=== PATIENT | female | born 2000 | race Caucasian/White ===

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

== ENCOUNTER 2018-01-31 22:25 | Emergency (ER) | payer OTHER ==
[2018-01-31] MEDS ORDERED: SODIUM CHLORIDE 0.9% 500 ML IV STA (23:11)
[2018-01-31] MEDS ORDERED: ONDANSETRON 4 MG/2 ML VIAL IVP STA (23:11)
--- NOTE | 2018-01-31 23:14 | ED ---
Abdominal Pain HPI - General Chief Complaint: Abdominal Pain Stated Complaint: Abd Pain Time Seen by Provider: 01/31/18 22:44 Source: patient Mode of arrival: ambulatory Limitations: no limitations - History of Present Illness MD Complaint: abdominal pain -: days(s) Location: diffuse Radiation: none Migration to: no migration Severity: moderate Quality: burning Consistency: constant Improves With: nothing Worsens With: nothing Associated Symptoms: nausea, vomiting - Related Data Previous Rx's Medication Instructions Recorded Amoxicillin 500 mg PO Q8H #21 capsule 02/01/18 Allergies Allergy/AdvReac Type Severity Reaction Status Date / Time No Known Allergies Allergy Verified 01/31/18 22:35 Review of Systems ROS Statement: Those systems with pertinent positive or pertinent negative responses have been documented in the HPI. ROS Other: All systems not noted in ROS Statement are negative. Constitutional: Denies: fever, chills Respiratory: Denies: cough, dyspnea Cardiovascular: Denies: chest pain Gastrointestinal: Reports: as per HPI, abdominal pain, nausea, vomiting. Denies : diarrhea, constipation Genitourinary: Denies: dysuria, hematuria, abnormal menses Musculoskeletal: Denies: back pain Skin: Denies: rash Neurological: Denies: headache, weakness, numbness Past Medical History Past Medical History: No Reported History History of Any Multi-Drug Resistant Organisms: None Reported Past Surgical History: Appendectomy, Bladder Surgery Past Psychological History: No Psychological Hx Reported Smoking Status: Current every day smoker Past Alcohol Use History: None Reported Past Drug Use History: None Reported General Exam Limitations: no limitations General appearance: alert, in no apparent distress, obese Head exam: Present: atraumatic, normocephalic Eye exam: Present: normal appearance. Absent: scleral icterus, conjunctival injection ENT exam: Present: normal oropharynx Respiratory exam: Present: normal lung sounds bilaterally. Absent: respiratory distress, wheezes, rales, rhonchi, stridor Cardiovascular Exam: Present: regular rate, normal rhythm, normal heart sounds. Absent: systolic murmur, diastolic murmur, rubs, gallop GI/Abdominal exam: Present: soft. Absent: distended, tenderness, guarding, rebound, mass Extremities exam: Present: normal inspection, normal capillary refill. Absent: pedal edema, calf tenderness Back exam: Present: normal inspection. Absent: CVA tenderness (R), CVA tenderness (L) Neurological exam: Present: alert Skin exam: Present: warm, dry, intact, normal color. Absent: rash Course Vital Signs 01/31/18 01/31/18 02/01/18 22:33 23:48 00:45 Temperature 98.2 F Pulse Rate 74 56 L 60 Respiratory 20 18 18 Rate Blood Pressure 109/67 101/62 109/68 O2 Sat by Pulse 100 96 99 Oximetry 02/01/18 02:32 Temperature 98.1 F Pulse Rate 62 Respiratory 18 Rate Blood Pressure 103/59 O2 Sat by Pulse 100 Oximetry Medical Decision Making - Lab Data Result diagrams: 01/31/18 23:47 01/31/18 23:47 Lab Results 01/31/18 01/31/18 01/31/18 Range/Units 23:17 23:47 23:47 WBC (4.0-11.0) k/uL RBC (3.80-5.40) m/uL Hgb (11.4-16.0) gm/dL Hct (34.0-46.0) % MCV (80.0-100.0) fL MCH (25.0-35.0) pg MCHC (31.0-37.0) g/dL RDW (11.5-15.5) % Plt Count (150-450) k/uL Neutrophils % % Lymphocytes % % Monocytes % % Eosinophils % % Basophils % % Neutrophils # (1.3-7.7) k/uL Lymphocytes # (1.0-4.8) k/uL Monocytes # (0-1.0) k/uL Eosinophils # (0-0.7) k/uL Basophils # (0-0.2) k/uL Sodium 136 L (137-145) mmol/L Potassium 3.8 (3.5-5.1) mmol/L Chloride 104 (98-107) mmol/L Carbon Dioxide 25 (22-30) mmol/L Anion Gap 7 mmol/L BUN 9 (7-17) mg/dL Creatinine 0.50 L (0.52-1.04) mg/dL Est GFR (CKD-EPI)AfAm >90 (>60 ml/min/1.73 sqM) Est GFR (CKD-EPI)NonAf >90 (>60 ml/min/1.73 sqM) Glucose 77 (74-99) mg/dL Calcium 9.2 (8.4-10.2) mg/dL Total Bilirubin 0.4 (0.2-1.3) mg/dL AST 8 L (14-36) U/L ALT 26 (9-52) U/L Alkaline Phosphatase 45 (38-126) U/L Total Protein 6.5 (6.3-8.2) g/dL Albumin 3.8 (3.5-5.0) g/dL Amylase 37 (30-110) U/L Lipase 75 (23-300) U/L HCG, Quant 95052.8 mIU/mL Urine Color Urine Appearance (Clear) Urine pH (5.0-8.0) Ur Specific [place] (1.001-1.035) Urine Protein (Negative) Urine Glucose (UA) (Negative) Urine Ketones (Negative) Urine Blood (Negative) Urine Nitrite (Negative) Urine Bilirubin (Negative) Urine Urobilinogen (<2.0) mg/dL Ur Leukocyte Esterase (Negative) Urine RBC (0-5) /hpf Urine WBC (0-5) /hpf Ur Squamous Epith Cells (0-4) /hpf Urine Bacteria (None) /hpf Hyaline Casts (0-2) /lpf Urine Mucus (None) /hpf Urine HCG, Qual Detected (Not Detectd) 01/31/18 01/31/18 Range/Units 23:47 23:47 WBC 7.4 (4.0-11.0) k/uL RBC 4.55 (3.80-5.40) m/uL Hgb 12.0 (11.4-16.0) gm/dL Hct 38.1 (34.0-46.0) % MCV 83.6 (80.0-100.0) fL MCH 26.3 (25.0-35.0) pg MCHC 31.5 (31.0-37.0) g/dL RDW 14.5 (11.5-15.5) % Plt Count 247 (150-450) k/uL Neutrophils % 66 % Lymphocytes % 28 % Monocytes % 5 % Eosinophils % 0 % Basophils % 0 % Neutrophils # 4.9 (1.3-7.7) k/uL Lymphocytes # 2.1 (1.0-4.8) k/uL Monocytes # 0.3 (0-1.0) k/uL Eosinophils # 0.0 (0-0.7) k/uL Basophils # 0.0 (0-0.2) k/uL Sodium (137-145) mmol/L Potassium (3.5-5.1) mmol/L Chloride (98-107) mmol/L Carbon Dioxide (22-30) mmol/L Anion Gap mmol/L BUN (7-17) mg/dL Creatinine (0.52-1.04) mg/dL Est GFR (CKD-EPI)AfAm (>60 ml/min/1.73 sqM) Est GFR (CKD-EPI)NonAf (>60 ml/min/1.73 sqM) Glucose (74-99) mg/dL Calcium (8.4-10.2) mg/dL Total Bilirubin (0.2-1.3) mg/dL AST (14-36) U/L ALT (9-52) U/L Alkaline Phosphatase (38-126) U/L Total Protein (6.3-8.2) g/dL Albumin (3.5-5.0) g/dL Amylase (30-110) U/L Lipase (23-300) U/L HCG, Quant mIU/mL Urine Color Yellow Urine Appearance Cloudy H (Clear) Urine pH 5.5 (5.0-8.0) Ur Specific [place] 1.030 (1.001-1.035) Urine Protein 1+ H (Negative) Urine Glucose (UA) Negative (Negative) Urine Ketones 1+ H (Negative) Urine Blood Negative (Negative) Urine Nitrite Negative (Negative) Urine Bilirubin Negative (Negative) Urine Urobilinogen <2.0 (<2.0) mg/dL Ur Leukocyte Esterase Small H (Negative) Urine RBC 4 (0-5) /hpf Urine WBC 5 (0-5) /hpf Ur Squamous Epith Cells 15 H (0-4) /hpf Urine Bacteria Rare H (None) /hpf Hyaline Casts 13 H (0-2) /lpf Urine Mucus Many H (None) /hpf Urine HCG, Qual (Not Detectd) Disposition Clinical Impression: Abdominal pain affecting Disposition: HOME SELF-CARE Condition: Good Instructions: Abdominal Pain in (ED) Prescriptions: Amoxicillin 500 mg PO Q8H #21 capsule Is patient prescribed a controlled substance at d/c from ED?: No Referrals: Yakelin Dodson MD [Primary Care Provider] - 1-2 days Pam Herrera DO [Doctor of Osteopathic Medicine] - 1-2 days John Perry DO [REFERRING] - 1-2 days
[2018-01-31 23:57] LABS: Basophils % (A) 0 %; Eosinophils % (A) 0 %; HCT 38.1 % (34.0-46.0); Lymphocytes # (A) 2.1 k/uL (1.0-4.8); Lymphocytes % (A) 28 %; MCH 26.3 pg (25.0-35.0); MCHC 31.5 g/dL (31.0-37.0); MCV 83.6 fL (80.0-100.0); Monocytes # (A) 0.3 k/uL (0-1.0); Monocytes % (A) 5 %; Neutrophils # (A) 4.9 k/uL (1.3-7.7); Neutrophils % (A) 66 %; Platelet Count 247 k/uL (150-450); RBC 4.55 m/uL (3.80-5.40); RDW 14.5 % (11.5-15.5); WBC 7.4 k/uL (4.0-11.0)
[2018-02-01 00:03] LABS: Appearance,Urine Cloudy (Clear); Bacteria,Urine Rare /hpf; Bilirubin,Urine Negative (Negative); Blood,Urine Negative (Negative); Color,Urine Yellow; Glucose,Urine (UA) Negative (Negative); Hyaline Casts,Urine 13 /lpf (0-2); Ketones,Urine 1+ (Negative); Leukocyte Esterase,Urine Small (Negative); Mucus,Urine Many /hpf; Nitrite,Urine Negative (Negative); PH, Urine 5.5 (5.0-8.0); Protein,Urine 1+ (Negative); RBC,Urine 4 /hpf (0-5); Squamous Epithelial Cell,Urine 15 /hpf (0-4); Urobilinogen,Urine <2.0 mg/dL (<2.0); WBC,Urine 5 /hpf (0-5)
[2018-02-01 00:05] LABS: ALT 26 U/L (9-52); AST 8 U/L (14-36); Albumin 3.8 g/dL (3.5-5.0); Alkaline Phosphatase 45 U/L (38-126); Amylase 37 U/L (30-110); Anion Gap 7 mmol/L; Blood Urea Nitrogen 9 mg/dL (7-17); Calcium 9.2 mg/dL (8.4-10.2); Carbon Dioxide 25 mmol/L (22-30); Chloride 104 mmol/L (98-107); Glucose 77 mg/dL (74-99); Lipase 75 U/L (23-300); Potassium 3.8 mmol/L (3.5-5.1); Sodium 136 mmol/L (137-145); Total Bilirubin 0.4 mg/dL (0.2-1.3); Total Protein 6.5 g/dL (6.3-8.2)
[2018-02-01 00:45] VITALS: RESP 18
--- NOTE | 2018-02-01 01:27 | US ---
EXAMINATION TYPE: Transabdominal DATE OF EXAM: 09/05/17 COMPARISON: NONE CLINICAL HISTORY: Pain. Pain EXAM PERFORMED: Transabdominal (TA) EXAM MEASUREMENTS: GESTATIONAL AGE / DATING Physician Established: Not yet established Dates by LMP: (8 weeks/3 days) EDC: 09/10/2018 Dates by First Scan: No previous this is first scan Dates by Current Scan for: ( 7 weeks/2 days) EDC: 09/18/2018 MATERNAL ANATOMY Uterus: 10.9 x 5.9 x 7.3 cm Left Ovary: 4.4 x 3.7 x 3.8 cm Post CDS / Adnexa: wnl Presence of free fluid: no Presence of corpus luteal cyst: question left ovary Presence of subchorionic bleed: no GESTATION / SURVEY CRL: 1.15 cm (7 weeks/2 days) Yolk Sac (normal less than 6mm): 3mm Heart Rate: 170 bpm Rhythm: Normal IUP: Viable IUP Beta HcG (if available): Not available at this time Viable IUP 7w2d MARGARITA 09/18/2018 HR 170 BPM. Left ovarian cyst measuring 4.4 x 3.7 x 3.8 cm. IMPRESSION: Dominant left ovarian cyst. The ultrasound gestational age is 7 weeks 2 days. No complicating process seen.
[2018-02-01 02:37] VITALS: BP 103/59; PULSE 62; TEMP 98.1
== END 2018-02-01 02:36 | disposition home or self-care (01) ==
LOC: EC 22:25
DX: O26.891 Other specified pregnancy related conditions, first trimester (principal); R10.84 Generalized abdominal pain; O21.9 Vomiting of pregnancy, unspecified; O99.331 Smoking (tobacco) complicating pregnancy, first trimester; F17.200 Nicotine dependence, unspecified, uncomplicated; Z90.49 Acquired absence of other specified parts of digestive tract; Z3A.01 Less than 8 weeks gestation of pregnancy
CPT/HCPCS: 36415; 80053; 82150; 83690; 85025; 81001; 81025; 84702; 76801; 99284; 96374; 96361; J2405

== ENCOUNTER 2018-05-31 11:51 | Emergency (ER) | payer OTHER ==
--- NOTE | 2018-05-31 13:07 | ED ---
Dizziness HPI - General Chief Complaint: Syncope Stated Complaint: NEAR SYNCOPE Time Seen by Provider: 05/31/18 12:44 Source: patient, RN notes reviewed, old records reviewed Mode of arrival: EMS - History of Present Illness Initial Comments: Patient is a 18-year-old female who presents emergency Department chief complaint of syncopal episode. She is a proximally 24 weeks , female. Patient states that she was standing at work, she felt dizzy and lightheaded. She reports that she had a had pulled on. She works at a fast [employer]. At this time Patient states that she fell backward which she does not remember. Patient states that her jacket caught her head. She states that she has some mild right right upper abdominal pain. She denies any vaginal bleeding or discharge. Patient states that she has had no fevers or chills. - Related Data Home Medications Medication Instructions Recorded Confirmed Hxy-Wvhf-Ckjgo Acid 1 cap PO DAILY 05/31/18 05/31/18 [-U Capsule (formulary)] Allergies Allergy/AdvReac Type Severity Reaction Status Date / Time No Known Allergies Allergy Verified 05/31/18 12:28 Review of Systems ROS Statement: Those systems with pertinent positive or pertinent negative responses have been documented in the HPI. ROS Other: All systems not noted in ROS Statement are negative. Past Medical History Past Medical History: No Reported History History of Any Multi-Drug Resistant Organisms: None Reported Past Surgical History: Appendectomy, Bladder Surgery Past Psychological History: Depression Smoking Status: Never smoker Past Alcohol Use History: None Reported Past Drug Use History: None Reported General Exam - General Exam Comments Initial Comments: 18-year-old female. General appearance: alert, in no apparent distress Head exam: Present: atraumatic, normocephalic, normal inspection Eye exam: Present: normal appearance, PERRL, EOMI. Absent: scleral icterus, conjunctival injection, periorbital swelling ENT exam: Present: normal exam, mucous membranes moist Neck exam: Present: normal inspection. Absent: tenderness, meningismus, lymphadenopathy Respiratory exam: Present: normal lung sounds bilaterally. Absent: respiratory distress, wheezes, rales, rhonchi, stridor Cardiovascular Exam: Present: regular rate, normal rhythm, normal heart sounds. Absent: systolic murmur, diastolic murmur, rubs, gallop, clicks GI/Abdominal exam: Present: soft, tenderness (Right quadrant tenderness), normal bowel sounds. Absent: distended, guarding, rebound, rigid Extremities exam: Present: normal inspection, full ROM, normal capillary refill. Absent: tenderness, pedal edema, joint swelling, calf tenderness Back exam: Present: normal inspection Neurological exam: Present: alert, oriented X3, CN II-XII intact Course Vital Signs 05/31/18 05/31/18 05/31/18 11:56 14:00 15:14 Temperature 98 F Pulse Rate 82 74 Pulse Rate [ 87 Sitting Pulse Oximetery] Pulse Rate [ 96 Standing Pulse Oximetery] Pulse Rate [ 90 Supine Pulse Oximetery] Respiratory 18 16 Rate Blood Pressure 110/66 117/66 Blood Pressure 109/60 [Left Arm Sitting] Blood Pressure 106/64 [Left Arm Standing] Blood Pressure 106/71 [Left Arm Supine] O2 Sat by Pulse 99 100 Oximetry - Reevaluation(s) Reevaluation #1: 05/31/18 15:17 Patient's heart tones were completed by labor and delivery nurse. Between 1:30 and 1 40 bpm. EKG Findings - EKG Comments: EKG Findings:: EKG performed at 1207 shows normal sinus rhythm with sinus arrhythmia, normal EKG. Ventricular rate of 76 bpm period. Was 118 ms. QRS duration is 84 ms. QT QTc is 400/450 ms. Medical Decision Making - Medical Decision Making Patient is a 18-year-old female presents reports today with near syncopal episode. She is currently 24 weeks . She states she just generally feels unwell and fatigued. She's had no vomiting or diarrhea. Patient states that she was standing at work when her symptoms occur. She denies any chest pain associated shortness of breath. Her [employer] is at [facility]. Patient denies any vaginal bleeding or concerns for any abnormalities of baby. heart tones were auscultated between 131 40 bpm. Blood work was obtained. She does have a slight decrease in her hemoglobin from 12-10 today. Patient does feel better after receiving fluids, and snack. Her blood sugar was somewhat low at 66. After intervention came up to 88. The Patient needs to remain hydrated and snack frequently with . Discussed strict return parameters. All questions answered. - Lab Data Result diagrams: 05/31/18 12:36 05/31/18 12:36 Lab Results 05/31/18 05/31/18 05/31/18 Range/Units 12:36 12:36 13:56 WBC 9.9 (4.0-11.0) k/uL RBC 3.79 L (3.80-5.40) m/uL Hgb 10.2 L (11.4-16.0) gm/dL Hct 32.5 L (34.0-46.0) % MCV 85.8 (80.0-100.0) fL MCH 26.9 (25.0-35.0) pg MCHC 31.4 (31.0-37.0) g/dL RDW 14.3 (11.5-15.5) % Plt Count 357 (150-450) k/uL Neutrophils % 71 % Lymphocytes % 22 % Monocytes % 4 % Eosinophils % 1 % Basophils % 0 % Neutrophils # 7.0 (1.3-7.7) k/uL Lymphocytes # 2.1 (1.0-4.8) k/uL Monocytes # 0.4 (0-1.0) k/uL Eosinophils # 0.1 (0-0.7) k/uL Basophils # 0.0 (0-0.2) k/uL Hypochromasia Slight Sodium 137 (137-145) mmol/L Potassium 4.3 (3.5-5.1) mmol/L Chloride 108 H (98-107) mmol/L Carbon Dioxide 22 (22-30) mmol/L Anion Gap 7 mmol/L BUN 7 (7-17) mg/dL Creatinine 0.43 L (0.52-1.04) mg/dL Est GFR (CKD-EPI)AfAm >90 (>60 ml/min/1.73 sqM) Est GFR (CKD-EPI)NonAf >90 (>60 ml/min/1.73 sqM) Glucose 66 L (74-99) mg/dL POC Glucose (mg/dL) (75-99) mg/dL POC Glu Slp Teacher ID Calcium 8.6 (8.4-10.2) mg/dL Urine Color Light Yellow Urine Appearance Cloudy H (Clear) Urine pH 7.5 (5.0-8.0) Ur Specific [place] 1.009 (1.001-1.035) Urine Protein Negative (Negative) Urine Glucose (UA) Negative (Negative) Urine Ketones 2+ H (Negative) Urine Blood Negative (Negative) Urine Nitrite Negative (Negative) Urine Bilirubin Negative (Negative) Urine Urobilinogen <2.0 (<2.0) mg/dL Ur Leukocyte Esterase Moderate H (Negative) Urine RBC 1 (0-5) /hpf Urine WBC 4 (0-5) /hpf Ur Squamous Epith Cells 13 H (0-4) /hpf Urine Mucus Rare H (None) /hpf 05/31/18 Range/Units 15:00 WBC (4.0-11.0) k/uL RBC (3.80-5.40) m/uL Hgb (11.4-16.0) gm/dL Hct (34.0-46.0) % MCV (80.0-100.0) fL MCH (25.0-35.0) pg MCHC (31.0-37.0) g/dL RDW (11.5-15.5) % Plt Count (150-450) k/uL Neutrophils % % Lymphocytes % % Monocytes % % Eosinophils % % Basophils % % Neutrophils # (1.3-7.7) k/uL Lymphocytes # (1.0-4.8) k/uL Monocytes # (0-1.0) k/uL Eosinophils # (0-0.7) k/uL Basophils # (0-0.2) k/uL Hypochromasia Sodium (137-145) mmol/L Potassium (3.5-5.1) mmol/L Chloride (98-107) mmol/L Carbon Dioxide (22-30) mmol/L Anion Gap mmol/L BUN (7-17) mg/dL Creatinine (0.52-1.04) mg/dL Est GFR (CKD-EPI)AfAm (>60 ml/min/1.73 sqM) Est GFR (CKD-EPI)NonAf (>60 ml/min/1.73 sqM) Glucose (74-99) mg/dL POC Glucose (mg/dL) 88 (75-99) mg/dL POC Glu Slp Teacher ID [place] Fish Calcium (8.4-10.2) mg/dL Urine Color Urine Appearance (Clear) Urine pH (5.0-8.0) Ur Specific [place] (1.001-1.035) Urine Protein (Negative) Urine Glucose (UA) (Negative) Urine Ketones (Negative) Urine Blood (Negative) Urine Nitrite (Negative) Urine Bilirubin (Negative) Urine Urobilinogen (<2.0) mg/dL Ur Leukocyte Esterase (Negative) Urine RBC (0-5) /hpf Urine WBC (0-5) /hpf Ur Squamous Epith Cells (0-4) /hpf Urine Mucus (None) /hpf Disposition Clinical Impression: Syncope, 24 weeks gestation of Disposition: HOME SELF-CARE Condition: Good Instructions: Syncope (ED) Additional Instructions: Earlier staying hydrated, snack frequently. Patient advised to follow-up with primary care physician. Return to emergency department if any alarming signs symptoms occur. Is patient prescribed a controlled substance at d/c from ED?: No Referrals: Yakelin Dodson MD [Primary Care Provider] - 1-2 days Time of Disposition: 15:32
[2018-05-31 13:17] LABS: Basophils % (A) 0 %; Eosinophils # (A) 0.1 k/uL (0-0.7); Eosinophils % (A) 1 %; HCT 32.5 % (34.0-46.0); HGB 10.2 gm/dL (11.4-16.0); Hypochromasia Slight; Lymphocytes # (A) 2.1 k/uL (1.0-4.8); Lymphocytes % (A) 22 %; MCH 26.9 pg (25.0-35.0); MCHC 31.4 g/dL (31.0-37.0); MCV 85.8 fL (80.0-100.0); Mean Platelet Volume 6.6; Monocytes # (A) 0.4 k/uL (0-1.0); Monocytes % (A) 4 %; Neutrophils % (A) 71 %; Platelet Count 357 k/uL (150-450); RBC 3.79 m/uL (3.80-5.40); RDW 14.3 % (11.5-15.5); WBC 9.9 k/uL (4.0-11.0)
[2018-05-31 13:31] LABS: Anion Gap 7 mmol/L; Blood Urea Nitrogen 7 mg/dL (7-17); Calcium 8.6 mg/dL (8.4-10.2); Carbon Dioxide 22 mmol/L (22-30); Chloride 108 mmol/L (98-107); Glucose 66 mg/dL (74-99); Potassium 4.3 mmol/L (3.5-5.1); Sodium 137 mmol/L (137-145)
[2018-05-31] MEDS ORDERED: SODIUM CHLORIDE 0.9% 1,000 ML IV ONE (13:55)
[2018-05-31] MEDS ORDERED: SODIUM CHLORIDE 0.9% 1,000 ML IV SCH (14:00)
[2018-05-31 14:34] LABS: Appearance,Urine Cloudy (Clear); Bilirubin,Urine Negative (Negative); Blood,Urine Negative (Negative); Color,Urine Light Yellow; Glucose,Urine (UA) Negative (Negative); Ketones,Urine 2+ (Negative); Leukocyte Esterase,Urine Moderate (Negative); Mucus,Urine Rare /hpf; Nitrite,Urine Negative (Negative); PH, Urine 7.5 (5.0-8.0); Protein,Urine Negative (Negative); RBC,Urine 1 /hpf (0-5); Specific Gravity,Urine 1.009 (1.001-1.035); Squamous Epithelial Cell,Urine 13 /hpf (0-4); Urobilinogen,Urine <2.0 mg/dL (<2.0); WBC,Urine 4 /hpf (0-5)
[2018-05-31 15:07] LABS: Glucose,Whole Blood 88 mg/dL (75-99)
[2018-05-31 16:07] VITALS: BP 140/60; PULSE 91; RESP 18; TEMP 98.1
== END 2018-05-31 16:07 | disposition home or self-care (01) ==
LOC: EC 11:51
DX: O99.89 Other specified diseases and conditions complicating pregnancy, childbirth and the puerperium (principal); R55 Syncope and collapse; R53.83 Other fatigue; R10.11 Right upper quadrant pain; Z90.49 Acquired absence of other specified parts of digestive tract; Z3A.24 24 weeks gestation of pregnancy; W01.0XXA Fall on same level from slipping, tripping and stumbling without subsequent striking against object, initial encounter; Y92.511 Restaurant or cafe as the place of occurrence of the external cause
CPT/HCPCS: 36415; 80048; 81001; 85025; 93005; 96360; 99285

== ENCOUNTER 2018-08-16 10:27 | Observation (INO) | payer OTHER ==
[2018-08-16] MEDS ORDERED: LACTATED RINGERS 1,000 ML IV SCH (12:00)
[2018-08-16 13:33] LABS: Appearance,Urine Clear (Clear); Bilirubin,Urine Negative (Negative); Blood,Urine Trace (Negative); Color,Urine Yellow; Glucose,Urine (UA) Negative (Negative); Hyaline Casts,Urine 1 /lpf (0-2); Ketones,Urine 3+ (Negative); Leukocyte Esterase,Urine Large (Negative); Mucus,Urine Rare /hpf; Nitrite,Urine Negative (Negative); Protein,Urine Trace (Negative); RBC,Urine 1 /hpf (0-5); Specific Gravity,Urine 1.016 (1.001-1.035); Squamous Epithelial Cell,Urine 6 /hpf (0-4); Urobilinogen,Urine <2.0 mg/dL (<2.0)
[2018-08-16] MEDS ORDERED: LACTATED RINGERS 1,000 ML IV ONE ×2 (14:15→15:15)
[2018-08-16] MEDS ORDERED: ACETAMINOPHEN TAB 325 MG TAB PO PRN (18:12)
[2018-08-16] MEDS ORDERED: ONDANSETRON 4 MG/2 ML VIAL IVP PRN (18:49)
[2018-08-16] MEDS ORDERED: LOPERAMIDE 2 MG CAP PO PRN (18:49)
[2018-08-16] MEDS ORDERED: diphenhydrAMINE 50 MG/ML 1 ML VIAL IVP PRN (18:50)
[2018-08-16] MEDS: LACTATED RINGERS 1,000 ML IV SCH (19:24)
[2018-08-16 19:42] LABS: ALT 19 U/L (9-52); AST 12 U/L (14-36); Albumin 3.1 g/dL (3.5-5.0); Alkaline Phosphatase 146 U/L (38-126); Anion Gap 7 mmol/L; Blood Urea Nitrogen 5 mg/dL (7-17); Calcium 8.9 mg/dL (8.4-10.2); Carbon Dioxide 20 mmol/L (22-30); Chloride 109 mmol/L (98-107); Glucose 69 mg/dL (74-99); Sodium 136 mmol/L (137-145); Total Bilirubin 0.5 mg/dL (0.2-1.3)
[2018-08-16 19:44] LABS: Basophils % (A) 0 %; Eosinophils # (A) 0.1 k/uL (0-0.7); Eosinophils % (A) 1 %; HGB 12.4 gm/dL (11.4-16.0); Hypochromasia Marked; Lymphocytes # (A) 1.3 k/uL (1.0-4.8); Lymphocytes % (A) 14 %; MCH 24.6 pg (25.0-35.0); MCHC 31.8 g/dL (31.0-37.0); MCV 77.3 fL (80.0-100.0); Mean Platelet Volume 6.6; Monocytes # (A) 0.4 k/uL (0-1.0); Monocytes % (A) 5 %; Neutrophils # (A) 7.4 k/uL (1.3-7.7); Neutrophils % (A) 80 %; Platelet Count 324 k/uL (150-450); Poikilocytosis Slight; RBC 5.04 m/uL (3.80-5.40); RDW 15.3 % (11.5-15.5); WBC 9.2 k/uL (4.0-11.0)
[2018-08-16 20:21] VITALS: BMI 43.1
[2018-08-17 01:48] VITALS: BP 106/56; PULSE 71; RESP 16; TEMP 96.6
[2018-08-17] MEDS: LACTATED RINGERS 1,000 ML IV SCH (03:00)
--- NOTE | 2018-08-17 08:36 | P.HPOB ---
History of Present Illness H&P Date: 08/17/18 Chief Complaint: Contractions, vomiting, diarrhea This is a 18-year-old female 2 para 1 with an estimated date of confinement of 09/10/2018, estimated gestational age of 36-4/7 weeks, who presented to labor and delivery yesterday with complaints of nausea and vomiting and diarrhea since approximately 6 AM. She states she felt normal the night before and ate a normal dinner. She did not eat out. She presented to the office yesterday morning for her visit but before she could be put in the room she had vomited and had diarrhea at least 4 times and was complaining of contractions every couple minutes. She was sent directly to labor and delivery for monitoring. Upon arrival to labor and delivery she was noted to be cm every few minutes but her cervix was closed. She had 3+ ketones on her urine. She was IV hydrated with 3 bag of fluid and was ready to go home but then after she got dressed she vomited again and had another episode of diarrhea. She was then admitted for observation overnight with continued hydration. Obstetrical history: G 2 P1. History of 1 delivery at term due to polyhydramnios and mild preeclampsia. Gynecologic history: No history of sexual transmitted diseases. Social history: She is single. She is unemployed. Review of Systems Constitutional: Denies chills, Denies fever Eyes: denies blurred vision, denies pain Ears, nose, mouth and throat: Denies headache, Denies sore throat Cardiovascular: Denies chest pain, Denies shortness of breath Respiratory: Denies cough Gastrointestinal: Reports abdominal pain (Contractions), Reports diarrhea, Reports nausea, Reports vomiting Genitourinary: Reports pelvic pain, Reports Musculoskeletal: Reports low back pain Integumentary: Denies pruritus, Denies rash Neurological: Denies numbness, Denies weakness Psychiatric: Denies anxiety, Denies depression Past Medical History Past Medical History: No Reported History History of Any Multi-Drug Resistant Organisms: None Reported Past Surgical History: Appendectomy, Bladder Surgery, Section Past Anesthesia/Blood Transfusion Reactions: No Reported Reaction Past Psychological History: Depression Smoking Status: Never smoker Past Alcohol Use History: None Reported Past Drug Use History: None Reported Medications and Allergies Home Medications Medication Instructions Recorded Confirmed Type Nrj-Tvln-Eppvi Acid 1 cap PO DAILY 05/31/18 08/16/18 History [-U Capsule (formulary)] Allergies Allergy/AdvReac Type Severity Reaction Status Date / Time No Known Allergies Allergy Verified 08/16/18 11:17 Exam Osteopathic Statement: *. No significant issues noted on an osteopathic structural exam other than those noted in the History and Physical/Consult. Vital Signs Temp Pulse Resp BP 08/16/18 23:00 96.6 F L 71 16 106/56 08/16/18 17:10 98.5 F 91 18 111/53 08/16/18 11:47 97.5 F L 80 16 114/59 Intake and Output 08/16/18 08/17/18 08/17/18 22:59 06:59 14:59 Output Total 100 Balance -100 Output: Emesis 100 HEENT: Within normal limits Heart: Regular rate and rhythm Lungs: Clear to auscultation bilaterally Abdomen: with mild tenderness on the left side of the abdomen where baby is lying. Abdomen is soft. heart tones: Reactive Contractions: Irregular Extremities: Negative Homans Results Result Diagrams: 08/16/18 19:10 08/16/18 19:10 Abnormal Lab Results - Last 24 Hours (Table) 08/16/18 08/16/18 08/16/18 Range/Units 13:20 19:10 19:10 MCV 77.3 L (80.0-100.0) fL MCH 24.6 L (25.0-35.0) pg Sodium 136 L (137-145) mmol/L Chloride 109 H (98-107) mmol/L Carbon Dioxide 20 L (22-30) mmol/L BUN 5 L (7-17) mg/dL Creatinine 0.42 L (0.52-1.04) mg/dL Glucose 69 L (74-99) mg/dL AST 12 L (14-36) U/L Alkaline Phosphatase 146 H (38-126) U/L Total Protein 6.0 L (6.3-8.2) g/dL Albumin 3.1 L (3.5-5.0) g/dL Urine Protein Trace H (Negative) Urine Ketones 3+ H (Negative) Urine Blood Trace H (Negative) Ur Leukocyte Esterase Large H (Negative) Ur Squamous Epith Cells 6 H (0-4) /hpf Urine Mucus Rare H (None) /hpf Assessment and Plan (1) 36 weeks gestation of Current Visit: Yes Status: Acute Code(s): Z3A.36 - 36 WEEKS GESTATION OF SNOMED Code(s): 97324913 (2) Dehydration during Current Visit: Yes Status: Acute Code(s): O26.899 - OTH RELATED CONDITIONS, UNSPECIFIED TRIMESTER; E86.0 - DEHYDRATION SNOMED Code(s): 08756387 (3) Gastrointestinal symptoms Current Visit: Yes Status: Acute Code(s): R19.8 - OTH SYMPTOMS AND SIGNS INVOLVING THE DGSTV SYS AND ABDOMEN SNOMED Code(s): 438096839 Plan: Plan is admission for IV hydration and observation for contractions. We will obtain CBC and CMP. Zofran, Imodium and Benadryl are ordered as when necessary.
--- NOTE | 2018-08-17 08:40 | P.DS ---
Providers Date of admission: 08/16/18 17:36 Expected date of discharge: 08/17/18 Attending physician: Judit Ramos Primary care physician: Stated None - Discharge Diagnosis(es) (1) 36 weeks gestation of Current Visit: Yes Status: Acute (2) Dehydration during Current Visit: Yes Status: Acute (3) Gastrointestinal symptoms Current Visit: Yes Status: Acute Hospital Course: This is a 18-year-old female 2 para 1 at 36-4/7 weeks who presented yesterday morning with complaints of nausea vomiting and diarrhea along with contractions. She was observed in triage for a few hours and was noted to be cm every 2-3 minutes. She was given IV hydration with 3 bags of fluid and the contractions did slow. Her cervix was closed. Once she was ready to be discharged from triage she got up to get dressed and then had another episode of vomiting and diarrhea and therefore was admitted for observation overnight. She had 1 more episode of vomiting at approximately 10 PM last night but has no vomiting since that time. Her contractions have slowed and are not bothersome to her at this time. She has had no further episodes of diarrhea since yesterday evening. NSTs have been reactive. She will eat breakfast this morning and then hopefully go home after breakfast this morning. She is advised to reschedule her office appointment early next week. She is advised to return to hospital if she has any further concerns or complaints. Patient Condition at Discharge: Stable Plan - Discharge Summary New Discharge Prescriptions: No Action Vuo-Kgek-Khwco Acid [-U Capsule (formulary)] 1 cap PO DAILY Discharge Medication List Jno-Ebfg-Noekp Acid [-U Capsule (formulary)] 1 cap PO DAILY 05/31/18 [History] Follow up Appointment(s)/Referral(s): Judit Ramos DO [Doctor of Osteopathic Medicine] - 1 Week Activity/Diet/Wound Care/Special Instructions: Activity as tolerated. Diet as tolerated. Discharge Disposition: HOME SELF-CARE
== END 2018-08-17 10:15 | disposition home or self-care (01) ==
LOC: FBPOP 10:27 → 4FBP 17:36
PROVIDERS: ADMIT Obstetrics & Gynecology; ATTEND Obstetrics & Gynecology
DX: O99.89 Other specified diseases and conditions complicating pregnancy, childbirth and the puerperium (principal); O99.283 Endocrine, nutritional and metabolic diseases complicating pregnancy, third trimester; O21.2 Late vomiting of pregnancy; E86.0 Dehydration; Z3A.36 36 weeks gestation of pregnancy; O60.03 Preterm labor without delivery, third trimester; O99.343 Other mental disorders complicating pregnancy, third trimester; F32.9 Major depressive disorder, single episode, unspecified
CPT/HCPCS: 59025; 96361; 96374; 96375; 80053; 85025; 81001; G0378 ×2; G0463; J1200; J2405; 96360; 99214

== ENCOUNTER 2018-08-18 11:12 | Observation (INO) | payer OTHER ==
[2018-08-18] MEDS: LACTATED RINGERS 1,000 ML IV SCH ×4 (12:09→15:20)
[2018-08-18 12:10] LABS: Basophils % (A) 0 %; Eosinophils # (A) 0.1 k/uL (0-0.7); Eosinophils % (A) 1 %; HCT 33.2 % (34.0-46.0); HGB 10.1 gm/dL (11.4-16.0); Hypochromasia Moderate; Lymphocytes # (A) 1.7 k/uL (1.0-4.8); Lymphocytes % (A) 17 %; MCH 23.6 pg (25.0-35.0); MCHC 30.4 g/dL (31.0-37.0); MCV 77.8 fL (80.0-100.0); Mean Platelet Volume 7.1; Microcytosis Slight; Monocytes # (A) 0.5 k/uL (0-1.0); Monocytes % (A) 5 %; Neutrophils # (A) 7.5 k/uL (1.3-7.7); Neutrophils % (A) 76 %; Platelet Count 396 k/uL (150-450); RBC 4.27 m/uL (3.80-5.40); RDW 15.8 % (11.5-15.5); WBC 9.9 k/uL (4.0-11.0)
[2018-08-18 12:14] LABS: Amorphous Sediment,Urine Few /hpf; Appearance,Urine Cloudy (Clear); Bacteria,Urine Rare /hpf; Bilirubin,Urine Negative (Negative); Blood,Urine Negative (Negative); Color,Urine Yellow; Glucose,Urine (UA) Negative (Negative); Hyaline Casts,Urine 3 /lpf (0-2); Ketones,Urine 3+ (Negative); Leukocyte Esterase,Urine Large (Negative); Mucus,Urine Few /hpf; Nitrite,Urine Negative (Negative); PH, Urine 6.5 (5.0-8.0); Protein,Urine 1+ (Negative); RBC,Urine 1 /hpf (0-5); Specific Gravity,Urine 1.018 (1.001-1.035); Squamous Epithelial Cell,Urine 3 /hpf (0-4); WBC,Urine 7 /hpf (0-5)
[2018-08-18 12:20] LABS: ALT 27 U/L (9-52); AST 14 U/L (14-36); Albumin 3.3 g/dL (3.5-5.0); Alkaline Phosphatase 130 U/L (38-126); Anion Gap 5 mmol/L; Blood Urea Nitrogen 4 mg/dL (7-17); Calcium 8.9 mg/dL (8.4-10.2); Carbon Dioxide 24 mmol/L (22-30); Chloride 108 mmol/L (98-107); Glucose 73 mg/dL (74-99); Potassium 4.2 mmol/L (3.5-5.1); Sodium 137 mmol/L (137-145); Total Bilirubin 0.4 mg/dL (0.2-1.3); Total Protein 6.4 g/dL (6.3-8.2)
[2018-08-18] MEDS ORDERED: ONDANSETRON 4 MG/2 ML VIAL IVP PRN (12:50)
[2018-08-18] MEDS ORDERED: LOPERAMIDE 2 MG CAP PO PRN (12:52)
--- NOTE | 2018-08-18 13:34 | P.HPOB ---
History of Present Illness H&P Date: 08/18/18 Chief Complaint: Nausea/vomiting/diarrhea/persistent dehydration This patient is a 18-year-old 2 para 1 female estimated date of confinement 09/10/2018 estimated gestational age 36-5/7 weeks who presented to labor and delivery this morning with complaints of nausea vomiting and diarrhea. Patient was admitted by Dr. Ramos yesterday for similar complaints and given IV hydration. Patient subsequently went home and states that her symptoms have not improved and she now presents for further reevaluation. Patient states she is having frequent bowel movements. She did have some liquids at home but in general is unable to keep anything down. She denies any fever chills or significant abdominal pain. She acknowledges good movement, no vaginal bleeding. appears to be complicated by late to seek care. Patient has had a previous section and has requested . Review of Systems Constitutional: Reports as per HPI Gastrointestinal: Reports as per HPI, Reports diarrhea, Reports nausea, Reports vomiting Genitourinary: Reports Menstruation: Reports amenorrhea Past Medical History Past Medical History: No Reported History History of Any Multi-Drug Resistant Organisms: None Reported Past Surgical History: Appendectomy, Bladder Surgery, Section Past Anesthesia/Blood Transfusion Reactions: No Reported Reaction Past Psychological History: Depression Additional Psychological History / Comment(s): pt denies history, PPD 12 Smoking Status: Never smoker Past Alcohol Use History: None Reported Past Drug Use History: None Reported - Past Family History Mother Family Medical History: No Reported History Medications and Allergies Home Medications Medication Instructions Recorded Confirmed Type Meb-Dqfw-Tzujm Acid 1 cap PO DAILY 05/31/18 08/18/18 History [-U Capsule (formulary)] Allergies Allergy/AdvReac Type Severity Reaction Status Date / Time No Known Allergies Allergy Verified 08/16/18 11:17 Exam Vital Signs Temp Pulse Resp BP 08/18/18 13:00 97.4 F L 101 H 18 113/67 08/18/18 11:21 97.1 F L 88 18 99/56 Intake and Output 08/17/18 08/18/18 08/18/18 22:59 06:59 14:59 Intake Total 500 Balance 500 Intake: IV 500 Lactated Ringers 1,000 ml 500 @ 150 mls/hr IV .[id number] [facility] Rx#:[id number] Other: # Voids 1 Weight 106.594 kg - OBG Physical Exam Abdomen: bowel sounds normal, no diffuse tenderness, no bruit present, no guarding noted, no hepatomegaly, no splenomegaly, no mass Results Result Diagrams: 08/18/18 11:56 08/18/18 11:56 Abnormal Lab Results - Last 24 Hours (Table) 08/18/18 08/18/18 08/18/18 Range/Units 11:56 11:56 11:56 Hgb 10.1 L (11.4-16.0) gm/dL Hct 33.2 L (34.0-46.0) % MCV 77.8 L (80.0-100.0) fL MCH 23.6 L (25.0-35.0) pg MCHC 30.4 L (31.0-37.0) g/dL RDW 15.8 H (11.5-15.5) % Chloride 108 H (98-107) mmol/L BUN 4 L (7-17) mg/dL Glucose 73 L (74-99) mg/dL Alkaline Phosphatase 130 H (38-126) U/L Albumin 3.3 L (3.5-5.0) g/dL Urine Appearance Cloudy H (Clear) Urine Protein 1+ H (Negative) Urine Ketones 3+ H (Negative) Ur Leukocyte Esterase Large H (Negative) Urine WBC 7 H (0-5) /hpf Amorphous Sediment Few H (None) /hpf Urine Bacteria Rare H (None) /hpf Hyaline Casts 3 H (0-2) /lpf Urine Mucus Few H (None) /hpf Assessment and Plan Assessment: This is a 18-year-old 2 para 1 female 36-5/7 weeks' gestation readmitted with complaints of persistent nausea vomiting and diarrhea. Laboratory evaluation shows no evidence of liver dysfunction and no evidence of infection. She does have 3+ ketones in her urine consistent with dehydration. Nonstress test shows a category 1 heart rate tracing is reassuring. At this time there is no evidence of compromise. Due to the persistence of this pat ient's symptoms going to recommend admission for IV hydration, antibiotics, anti-diarrhea. I also noticed and a stool culture just to rule out infectious etiology. If this patient's symptoms were to persist then we will consider gastrointestinal consultation. At this time her symptomatology does not appear to be related to the . (1) 36 weeks gestation of Current Visit: No Status: Acute Code(s): Z3A.36 - 36 WEEKS GESTATION OF SNOMED Code(s): 58632276 (2) Gastrointestinal symptoms Current Visit: No Status: Acute Code(s): R19.8 - OTH SYMPTOMS AND SIGNS INVOLVING THE DGSTV SYS AND ABDOMEN SNOMED Code(s): 759009185 (3) Dehydration during Current Visit: No Status: Acute Code(s): O26.899 - OTH RELATED CONDITIONS, UNSPECIFIED TRIMESTER; E86.0 - DEHYDRATION SNOMED Code(s): 632090 06
[2018-08-18 13:39] VITALS: BMI 43.0
--- NOTE | 2018-08-18 13:40 | P.MSEPDOC ---
Presenting Problems - Arrival Data Date of Arrival on Unit: 08/18/18 Time of Arrival on Unit: 11:15 Mode of Transport: Wheelchair - Complaint OB-Reason for Admission/Chief Complaint: Acute Nausea/Vomiting Medical History - Information : 2 Para: 1 Number of Living Children: 1 - Gestational Age Gestational Age by MARGARITA (wks/days): 36 Weeks and 5 Days - History Complications: Prior Review of Systems - Review of Systems Constitutional: No problems Breast: No problems ENT: No problems Cardiovascular: No problems Respiratory: No problems Gastrointestinal: No problems Genitourinary: No problems Musculoskeletal: No problems Neurological: No problems Skin: No problems Comment: vomiting and diarrhea x 3 days, previously admitted 08/16-08/17 Vital Signs - Temperature Temperature: 97.4 F Temperature Source: Temporal Artery Scan - Pulse Apical Pulse Rate: 101 Pulse Assessment Method: Automatic Cuff - Respirations Respiratory Rate: 18 Oxygen Delivery Method: Room Air - Blood Pressure Right Arm Sitting Blood Pressure: 113/67 Blood Pressure Mean: 82 Blood Pressure Source: Automatic Cuff Medical Screen Scoring (Pre) - Cervical Exam Dilation: 0 cm = 0 - Uterine Contractions Frequency: > 5 minutes apart = 1 Duration: N/A Intensity: N/A - Maternal Vital Signs Maternal Temperature: N/A Maternal Blood Pressure: N/A Signs of Preeclampsia: Nausea/Vomiting = 1 Maternal Respirations: N/A - Pain Assessment Pain Location and Character: Lower, Abdomen Pain Scale Used: Numeric (1 - 10) Pain Intensity: 8 Pain Management Goal: 3 - Maternal Trauma Maternal Trauma: N/A - Assessment Baseline FHR: 130 Heart Rate - NICHD Category: Category I (Normal) = 0 Position: N/A Station: N/A - Total Score Total Score (Pre): 2 - Level of Risk Level of Risk: Low (0-5) Physician Notification (Pre) - Notification Comment Comment: labs and IV fluids, then call with results Disposition - Disposition OB Disposition: Observe I agree with the RN Medical Screening Exam: Yes Risk & Benefit of care provided described in d/c instruction: Yes Diagnosis: NAUSEA WITH VOMITING, UNSPECIFIED
[2018-08-18] MEDS: diphenhydrAMINE 25 MG CAP PO PRN (17:24)
[2018-08-18 19:52] VITALS: RESP 16
[2018-08-19] MEDS: LACTATED RINGERS 1,000 ML IV SCH ×2 (03:02→03:03)
[2018-08-19] MEDS: diphenhydrAMINE 25 MG CAP PO PRN (03:26)
--- NOTE | 2018-08-19 06:51 | P.PN ---
Progress Note - Text Progress Note Date: 08/19/18 Hospital day #2. Patient is resting without new complaints. She was concerned that she was leaking fluid however amnio sure was negative. Patient has not had any episodes of vomiting or diarrhea since admission. She is tolerating this clear liquids. Plan today is to advance to regular diet discharge home later this morning.
--- NOTE | 2018-08-19 06:55 | P.DS ---
Providers Date of admission: 08/18/18 12:47 Expected date of discharge: 08/19/18 Attending physician: Alexx Duarte Primary care physician: Stated None - Discharge Diagnosis(es) (1) 36 weeks gestation of Current Visit: No Status: Acute (2) Gastrointestinal symptoms Current Visit: No Status: Acute (3) Dehydration during Current Visit: No Status: Acute Hospital Course: Please see dictated H&P for intimate details of this patient's admission. In summary this is a 18-year-old 2 para 1 female admitted with recurrent nausea vomiting diarrhea and dehydration. Patient had repeat blood work which was normal. Patient did complain of some itching so I sent some bile acids on her however these will not be back for many days. Patient is given IV hydration and anti-medics. I did order a stool culture however patient did not have one episode of diarrhea since admission. Patient's felt be stable for discharge home follow up with Dr. Ramos tomorrow as scheduled. She was asked to return if she had any of the recurrence of her symptoms. Patient Condition at Discharge: Good Plan - Discharge Summary New Discharge Prescriptions: No Action Qnl-Jiwc-Gmprj Acid [-U Capsule (formulary)] 1 cap PO DAILY Discharge Medication List Dfj-Onpj-Gofby Acid [-U Capsule (formulary)] 1 cap PO DAILY 05/31/18 [History] Follow up Appointment(s)/Referral(s): Judit Ramos DO [Doctor of Osteopathic Medicine] - 08/20/18 Activity/Diet/Wound Care/Special Instructions: Drink lots of fluids and diabetes otherwise tolerated. Please call if you have any recurrent episodes of nausea vomiting or diarrhea. Discharge Disposition: HOME SELF-CARE
[2018-08-19 07:40] VITALS: BP 102/57; PULSE 64; TEMP 97.5
== END 2018-08-19 11:00 | disposition home or self-care (01) ==
LOC: FBPOP 11:12 → 4FBP 12:47
PROVIDERS: ADMIT Obstetrics & Gynecology; ATTEND Obstetrics & Gynecology
DX: O99.283 Endocrine, nutritional and metabolic diseases complicating pregnancy, third trimester (principal); E86.0 Dehydration; Z3A.36 36 weeks gestation of pregnancy; O99.89 Other specified diseases and conditions complicating pregnancy, childbirth and the puerperium; O21.2 Late vomiting of pregnancy; R19.7 Diarrhea, unspecified; O34.219 Maternal care for unspecified type scar from previous cesarean delivery; F32.9 Major depressive disorder, single episode, unspecified; O99.343 Other mental disorders complicating pregnancy, third trimester
CPT/HCPCS: 59025; 96361 ×2; 96374; 82239; 80053; 85025; 81001; G0378 ×2; G0463; J2405; 99214

== ENCOUNTER → 2018-08-20 | Outpatient (CLI) | payer BC, OTHER ==
[~2018-08-20] MED LIST: LACTATED RINGERS 1,000 ML IV SCH
[2018-08-20 11:54] LABS: Appearance,Urine Cloudy (Clear); Bacteria,Urine Rare /hpf; Bilirubin,Urine Negative (Negative); Blood,Urine Negative (Negative); Color,Urine Yellow; Glucose,Urine (UA) Negative (Negative); Ketones,Urine 4+ (Negative); Leukocyte Esterase,Urine Large (Negative); Mucus,Urine Many /hpf; Nitrite,Urine Negative (Negative); PH, Urine 6.5 (5.0-8.0); Protein,Urine 1+ (Negative); Specific Gravity,Urine 1.021 (1.001-1.035); Squamous Epithelial Cell,Urine 13 /hpf (0-4); Urobilinogen,Urine <2.0 mg/dL (<2.0)
[2018-08-20 11:55] LABS: Anisocytosis Slight; Basophils % (A) 0 %; Eosinophils # (A) 0.1 k/uL (0-0.7); Eosinophils % (A) 1 %; HCT 33.1 % (34.0-46.0); HGB 10.1 gm/dL (11.4-16.0); Hypochromasia Marked; Lymphocytes # (A) 1.3 k/uL (1.0-4.8); Lymphocytes % (A) 12 %; MCH 24.1 pg (25.0-35.0); MCHC 30.6 g/dL (31.0-37.0); MCV 78.8 fL (80.0-100.0); Mean Platelet Volume 6.5; Monocytes # (A) 0.4 k/uL (0-1.0); Monocytes % (A) 4 %; Neutrophils # (A) 8.4 k/uL (1.3-7.7); Neutrophils % (A) 82 %; Platelet Count 359 k/uL (150-450); WBC 10.3 k/uL (4.0-11.0)
[2018-08-20 12:34] VITALS: BP 119/73; PULSE 82; RESP 18; TEMP 98.1
--- NOTE | 2018-08-22 13:34 | P.MSEPDOC ---
Presenting Problems - Arrival Data Date of Arrival on Unit: 08/20/18 Time of Arrival on Unit: 10:39 Mode of Transport: Ambulatory - Complaint OB-Reason for Admission/Chief Complaint: Acute Nausea/Vomiting Comment: Pt states she has experienced nausea nad vomitting since 0700 today. Medical History - Information : 2 Para: 1 Term: 1 : 0 Abortions: Spontaneous or Elective: 0 Number of Living Children: 1 - Gestational Age Gestational Age by MARGARITA (wks/days): 35 Weeks and 4 Days - History Complications: No Care Review of Systems - Review of Systems Constitutional: Fever Breast: No problems ENT: No problems Cardiovascular: No problems Respiratory: No problems Gastrointestinal: Pain Genitourinary: No problems Musculoskeletal: No problems Neurological: No problems Skin: No problems Vital Signs - Temperature Temperature: 98.1 F - Pulse Right Pulse Oximetery Pulse Rate: 82 Pulse Assessment Method: Pulse Oximetry - Respirations Respiratory Rate: 18 O2 Sat by Pulse Oximetry: 97 - Blood Pressure Right Arm Blood Pressure: 119/73 Blood Pressure Mean: 88 Blood Pressure Source: Automatic Cuff Medical Screen Scoring (Pre) - Cervical Exam Dilation: Exam Deferred Effacement: Exam Deferred - Uterine Contractions Frequency: N/A - Maternal Vital Signs Maternal Temperature: N/A Signs of Preeclampsia: N/A Maternal Respirations: N/A - Pain Assessment Pain Location and Character: Abdomen Pain Scale Used: Numeric (1 - 10) Pain Intensity: 8 Pain Management Goal: 2 Pain Description: Aching Pain Radiation Location: N/A Pain Frequency: Constant Pain Duration: 2 Pain Duration Units: Days Pain Behavior: Vocalization - Maternal Trauma Maternal Trauma: N/A - Assessment Baseline FHR: 145 Heart Rate - NICHD Category: Category I (Normal) = 0 NST: Reactive Position: N/A Station: N/A - Total Score Total Score (Pre): 0 Physician Notification (Pre) - Physician Notified Physician Notified Date: 08/20/18 Physician Notified Time: 11:15 Physician/Practitioner Notifed:: Dr. Ramos Spoke With: Dr. Ramos New Order Received: Yes - Notification Comment Comment: Order received for U/A, CBC, 1000 ml of LR bolus. Medical Screen Scoring (Post) - Cervical Exam Dilation: 0 cm = 0 Membranes: Intact - Uterine Contractions Frequency: N/A Duration: N/A Intensity: N/A - Maternal Vital Signs Maternal Temperature: N/A Maternal Blood Pressure: N/A Signs of Preeclampsia: N/A Maternal Respirations: N/A - Pain Assessment Pain Location and Character: Abdomen Pain Scale Used: Numeric (1 - 10) Pain Intensity: 9 Pain Management Goal: 2 Pain Description: Aching Pain Frequency: Constant Pain Duration: 2 Pain Duration Units: Days Pain Behavior: Vocalization - Maternal Trauma Maternal Trauma: N/A - Assessment Heart Rate: 140 Heart Rate - NICHD Category: Category I (Normal) = 0 NST: Reactive Position: N/A Station: N/A - Total Score Total Score (Post): 0 Disposition - Disposition OB Disposition: Discharge to home Discharge Date: 08/20/18 Discharge Time: 14:12 I agree with the RN Medical Screening Exam: Yes Risk & Benefit of care provided described in d/c instruction: Yes Diagnosis: VOMITING OF , UNSPECIFIED
== END | disposition home or self-care (01) ==
LOC: FBPOP 10:39
PROVIDERS: ATTEND Obstetrics & Gynecology
DX: O21.2 Late vomiting of pregnancy (principal); Z3A.35 35 weeks gestation of pregnancy
CPT/HCPCS: 59025; 81001; 85025; 96360; 99214

== ENCOUNTER 2018-09-03 09:59 | Inpatient (IN) | payer BC, OTHER ==
--- NOTE | 2018-09-02 18:15 | P.HPOB ---
History of Present Illness H&P Date: 09/02/18 Chief Complaint: Scheduled repeat section This is a 18-year-old female 2 para 1 with an estimated date of confinement of 09/10/2018, estimated gestational age of 39-0/7 weeks, who presents to labor and delivery for scheduled repeat section. She adm its to good movement. She has been feeling irregular contractions. She is also had several admissions for nausea vomiting and diarrhea a couple weeks ago. No specific abnormality was discovered other than dehydration. labs: GC/Chlamydia/Trichomonas-negative Hepatitis B surface antigen-negative RPR-nonreactive Rubella-immune Blood type-B+ Toxoplasma screen-negative Random glucose-84 Obstetrical ultrasound-normal anatomy Did not do Glucola Group B streptococcus-negative Obstetrical history: . History of 1 delivery at 39 weeks secondary to polyhydramnios and mild preeclampsia Gynecologic history: No history of sexual transmitted diseases Social history: She is single. She is unemployed. Review of Systems Constitutional: Denies chills, Denies fever Eyes: denies blurred vision, denies pain Ears, nose, mouth and throat: Denies headache, Denies sore throat Cardiovascular: Denies chest pain, Denies shortness of breath Respiratory: Denies cough Gastrointestinal: Reports abdominal pain (Irregular contractions) Genitourinary: Reports pelvic pain, Reports Musculoskeletal: Reports low back pain Integumentary: Denies pruritus, Denies rash Past Medical History Past Medical History: No Reported History Additional Past Medical History / Comment(s): few bouts of N/V & diarrhea recently, has been told probably viral History of Any Multi-Drug Resistant Organisms: None Reported Past Surgical History: Appendectomy, Bladder Surgery, Section Past Anesthesia/Blood Transfusion Reactions: No Reported Reaction Past Psychological History: No Psychological Hx Reported Smoking Status: Never smoker Past Alcohol Use History: None Reported - Past Family History Mother Family Medical History: No Reported History Medications and Allergies Home Medications Medication Instructions Recorded Confirmed Type Dgl-Cqde-Dosbi Acid 1 cap PO DAILY 05/31/18 08/30/18 History [-U Capsule (formulary)] Allergies Allergy/AdvReac Type Severity Reaction Status Date / Time No Known Allergies Allergy Verified 08/30/18 16:58 Exam Osteopathic Statement: *. No significant issues noted on an osteopathic str uctural exam other than those noted in the History and Physical/Consult. HEENT: Within normal limits Heart: Regular rate and rhythm Lungs: Clear to auscultation bilaterally Abdomen: Cervix: Closed/60%/-3 heart tones: 140s by Doppler Extremities: Negative Homans Assessment and Plan (1) 39 weeks gestation of Status: Acute Code(s): Z3A.39 - 39 WEEKS GESTATION OF SNOMED Code(s): 85443350 (2) Previous delivery affecting Status: Acute Code(s): O34.219 - MATERNAL CARE FOR UNSP TYPE SCAR FROM PREVIOUS DEL SNOMED Code(s): 485061946 Plan: Proceed with repeat section. I have discussed the risks, benefits, and alternative therapies for the above- mentioned procedure and for both sedation/anesthesia as well as necessary blood products administration, if indicated, as they pertain to this patient. The patient has indicated her understanding and acceptance of the risks and procedures discussed.
[2018-09-03] MEDS ORDERED: ceFAZolin IN SWFI 2 GM/20 ML SYRINGE IVP ONE (10:13)
[2018-09-03] MEDS ORDERED: LIDOCAINE 1% 20 ML VIAL (10MG/ML) FOR IV START INTRADERMA PRN (10:13)
[2018-09-03] MEDS ORDERED: LACTATED RINGERS 1,000 ML IV SCH (10:13)
[2018-09-03] MEDS ORDERED: CITRIC ACID-SODIUM CITRATE 15 ML CUP PO ONE (10:13)
[2018-09-03] MEDS ORDERED: LACTATED RINGERS 1,000 ML IV ONE (10:13)
[2018-09-03 10:25] VITALS: BMI 44.4
[2018-09-03 10:55] LABS: Anisocytosis Slight; Basophils % (A) 0 %; Eosinophils # (A) 0.2 k/uL (0-0.7); Eosinophils % (A) 2 %; HCT 32.2 % (34.0-46.0); HGB 9.9 gm/dL (11.4-16.0); Hypochromasia Moderate; Lymphocytes # (A) 2.6 k/uL (1.0-4.8); Lymphocytes % (A) 22 %; MCH 23.3 pg (25.0-35.0); MCHC 30.7 g/dL (31.0-37.0); MCV 75.8 fL (80.0-100.0); Microcytosis Slight; Monocytes # (A) 0.6 k/uL (0-1.0); Monocytes % (A) 5 %; Neutrophils # (A) 8.4 k/uL (1.3-7.7); Neutrophils % (A) 70 %; Platelet Count 402 k/uL (150-450); RBC 4.25 m/uL (3.80-5.40); RDW 16.9 % (11.5-15.5)
[2018-09-03] MEDS ORDERED: PHENYLEPHRINE-0.9% NACL SYG 1 MG/10 ML SYRINGE ONE (12:48)
[2018-09-03] MEDS ORDERED: fentaNYL (PF) 50 MCG/ML 2 ML AMP ONE (12:48)
[2018-09-03] MEDS ORDERED: ceFAZolin 1,000 MG VIAL ONE (12:48)
[2018-09-03] MEDS ORDERED: ONDANSETRON 4 MG/2 ML VIAL ONE (12:48)
[2018-09-03] MEDS ORDERED: MORPHINE SULFATE (PF) 0.3 MG/0.3 ML SYR ONE (12:48)
[2018-09-03] MEDS ORDERED: NALBUPHINE 10 MG/ML (1 ML AMP) ONE (12:48)
[2018-09-03] MEDS ORDERED: OXYTOCIN 10 UNIT/ML 1 ML VIAL ONE (12:48)
[2018-09-03] MEDS ORDERED: KETOROLAC 30 MG/ML 1 ML VIAL ONE (12:48)
[2018-09-03] MEDS ORDERED: NALOXONE 0.4 MG/ML 1 ML VIAL IV PRN ×2 (13:20→13:43)
[2018-09-03] MEDS ORDERED: diphenhydrAMINE 50 MG/ML 1 ML VIAL IVP PRN ×3 (13:20→13:43)
[2018-09-03] MEDS ORDERED: ONDANSETRON 4 MG/2 ML VIAL IVP PRN (13:20)
[2018-09-03] MEDS ORDERED: MORPHINE SULFATE 2 MG/ML SYRINGE IVP PRN (13:20)
--- NOTE | 2018-09-03 13:34 | P.OP ---
Date of Procedure: 09/03/18 Preoperative Diagnosis: 1. Intrauterine at 39-0/7 weeks. 2. History of previous section. Postoperative Diagnosis: Same Procedure(s) Performed: Repeat low transverse section Anesthesia: spinal (Duramorph) Surgeon: Judit Ramos Drop Shipment Clerk #1: Edgardo Alberto Estimated Blood Loss (ml): 500 Pathology: none sent Condition: stable Disposition: floor Indications for Procedure: This is a 18-year-old female 2 para 1 at 39-0/7 weeks who presented for scheduled repeat section. I have discussed the risks, benefits, and alternative therapies for the above- mentioned procedure and for both sedation/anesthesia as well as necessary blood products administration, if indicated, as they pertain to this patient. The patient has indicated her understanding and acceptance of the risks and procedures discussed. Operative Findings: A viable male was noted in the vertex presentation with scores of 9 at 1 minute and 9 at 5 minutes and infant weight of 8 lbs. 5 oz. Normal uterus tubes and ovaries are noted. Description of Procedure: The patient is taken to the operating room where she is placed in the dorsal supine position with leftward tilt after spinal Duramorph anesthesia is given. She is prepped and draped in the normal sterile fashion. Skin was tested and found to be adequately anesthetized. A Pfannenstiel skin incision was made with a scalpel through the previous laparotomy scar. A second knife was used to carry the incision down to the underlying layer of fascia. The fascia was nicked in the midline with a scalpel and then extended laterally bilaterally with Steven scissors. The anterior lip of the fascia was grasped with 2 Lee clamps and then dissected off the underlying rectus muscle in the midline with Steven scissors. The inferior aspect of the fascial incision was grasped with 2 Lee clamps and dissected off the underlying rectus muscle and the midline with Steven scissors. Next the peritoneum layer was tented up with 2 hemostats and then entered sharply with the scalpel. The incision is extended superiorly and inferiorly with Metzenbaum scissors. Next a DeLee retractor is placed. The vesicouterine peritoneum is entered sharply with Metzenbaum scissors and extended laterally bilaterally with Metzenbaum scissors and then the bladder flap is pushed inferiorly. The lower uterine segment is incised in transverse fashion with the scalpel and then bluntly entered with a hemostat. Clear fluid is noted. The incision was then extended laterally bilaterally with 2 fingers. Next the infant's head is delivered through the incision. Nose and mouth are bulb suctioned. The remainder of the is easily delivered and placed on mother's abdomen. Cord is clamped and cut. Infant is taken to warmer by nurs ing staff. Uterine fundus is gently massaged and placenta is delivered manually. Uterus is exteriorized and cleared of all clots and debris. Uterine incision is closed with 0 Vicryl suture in a running locked fashion. A second layer of 0 Vicryl suture is used in a running fashion for hemostasis. Once adequate hemostasis as assured, the vesicouterine peritoneum is reapproximated with 2-0 Vicryl suture in a running fashion. Posterior cul-de-sac is suctioned of all clots and debris. Uterus is returned to the abdomen. Incision is noted to be hemostatic. Peritoneal layer is closed with 0 Vicryl suture in a running fashion. Muscle layer is reapproximated with 0 Vicryl suture in interrupted fashion. Fascia layer is then closed with 0 PDS suture with 2 sutures meeting in the midline and the knots buried in either side and in the midline. The subcutaneous tissue was then closed with 2-0 Vicryl suture. Skin layer was then closed with brisa. All sponge and needle counts are correct. The patient is taken to recovery room in stable condition.
[2018-09-03] MEDS ORDERED: LANOLIN CREAM 5 GM TUBE TOPICAL PRN (13:43)
[2018-09-03] MEDS ORDERED: KETOROLAC 30 MG/ML 1 ML VIAL IVP PRN (13:43)
[2018-09-03] MEDS ORDERED: ACETAMINOPHEN TAB 325 MG TAB PO PRN (13:43)
[2018-09-03] MEDS ORDERED: OXYTOCIN 20 UNITS/1000 ML NS 1,000 ML IV SCH (13:43)
[2018-09-03] MEDS ORDERED: HYDROcodone/APAP 5-325MG 1 EACH TAB PO PRN (13:43)
[2018-09-03] MEDS ORDERED: SIMETHICONE 80 MG CHEWABLE PO PRN (13:43)
[2018-09-03] MEDS ORDERED: METOCLOPRAMIDE 5 MG/ML 2 ML VIAL IVP PRN (13:43)
[2018-09-03] MEDS ORDERED: diphenhydrAMINE 50 MG CAP PO PRN (13:43)
[2018-09-03] MEDS ORDERED: ZOLPIDEM 5 MG TAB PO PRN (13:43)
[2018-09-03] MEDS ORDERED: diphenhydrAMINE 25 MG CAP PO PRN (13:43)
[2018-09-03] MEDS: LACTATED RINGERS 1,000 ML IV SCH ×3 (15:32→21:53)
[2018-09-03] MEDS: SENNOSIDES-DOCUSATE SODIUM 1 EACH TAB PO SCH (20:02)
[2018-09-03 21:06] LABS: Hemoglobin A1C 5.6 % (4.0-6.0)
[2018-09-04 07:29] LABS: Anisocytosis Slight; Basophils % (A) 0 %; Eosinophils # (A) 0.2 k/uL (0-0.7); Eosinophils % (A) 2 %; HCT 25.1 % (34.0-46.0); Hypochromasia Moderate; Lymphocytes # (A) 2.4 k/uL (1.0-4.8); Lymphocytes % (A) 22 %; MCH 24.5 pg (25.0-35.0); MCHC 32.5 g/dL (31.0-37.0); MCV 75.6 fL (80.0-100.0); Mean Platelet Volume 7.6; Microcytosis Slight; Monocytes # (A) 0.5 k/uL (0-1.0); Monocytes % (A) 5 %; Neutrophils # (A) 7.5 k/uL (1.3-7.7); Neutrophils % (A) 69 %; Platelet Count 296 k/uL (150-450); Poikilocytosis Slight; RBC 3.33 m/uL (3.80-5.40); RDW 16.5 % (11.5-15.5); WBC 10.7 k/uL (4.0-11.0)
[2018-09-04 07:48] LABS: HGB 8.2 gm/dL (11.4-16.0)
[2018-09-04] MEDS: SENNOSIDES-DOCUSATE SODIUM 1 EACH TAB PO SCH ×2 (08:25→20:47)
--- NOTE | 2018-09-04 09:04 | P.PNOBGPC ---
Subjective - Subjective Principal diagnosis: Status post repeat section postoperative day #1 Interval history: Patient is doing well. Lochia is decreasing. She is passing some flatus but no bowel movement yet. Pain is been fairly well-controlled. She is bottle feeding. Patient reports: Reports appetite normal, Reports voiding normally, Reports pain well controlled, Reports ambulating normally Felt: doing well, bottle feeding Objective - Vital Signs Latest vital signs: Vital Signs Temp Pulse Resp BP Pulse Ox 09/04/18 08:00 97.6 F 84 17 107/67 09/04/18 04:00 97.8 F 68 18 170/50 09/04/18 00:00 97.5 F L 68 16 120/46 09/03/18 22:08 16 09/03/18 20:00 97.5 F L 64 18 165/48 09/03/18 16:00 16 09/03/18 15:44 96.3 F L 60 16 107/56 98 09/03/18 15:14 96.0 F L 69 16 109/57 98 09/03/18 14:41 96.3 F L 71 16 104/59 98 09/03/18 14:28 96.3 F L 66 16 104/58 99 09/03/18 14:20 98 09/03/18 14:14 96.6 F L 61 16 99/57 97 09/03/18 13:59 96.6 F L 70 16 116/100 99 09/03/18 13:44 96.4 F L 79 16 116/69 99 09/03/18 10:13 96.5 F L 120 H 16 126/82 98 Intake and Output 09/03/18 09/04/18 09/04/18 22:59 06:59 14:59 Intake Total 2800 Output Total 1500 400 450 Balance 1300 -400 -450 Intake: IV 2000 Oral 800 Output: Urine 500 400 450 Estimated Blood Loss 1000 Other: Voiding Method Indwelling Catheter # Emeses 1 - Exam Extremities: Present: normal, edema (Trace). Absent: tenderness Abdomen: Present: normal appearance, soft (Positive bowel sounds 4). Absent: distention, tenderness Incision: Present: normal, dry, intact. Absent: erythematous Uterus: Present: normal, firm. Absent: tenderness - Labs Labs: Abnormal Lab Results - Last 24 Hours (Table) 09/03/18 09/04/18 Range/Units 10:10 06:33 WBC 12.0 H (4.0-11.0) k/uL RBC 3.33 L (3.80-5.40) m/uL Hgb 9.9 L 8.2 L D (11.4-16.0) gm/dL Hct 32.2 L 25.1 L (34.0-46.0) % MCV 75.8 L 75.6 L (80.0-100.0) fL MCH 23.3 L 24.5 L (25.0-35.0) pg MCHC 30.7 L (31.0-37.0) g/dL RDW 16.9 H 16.5 H (11.5-15.5) % Neutrophils # 8.4 H (1.3-7.7) k/uL Assessment and Plan Assessment: Status post repeat section postoperative day #1 (1) 39 weeks gestation of Current Visit: No Status: Acute Code(s): Z3A.39 - 39 WEEKS GESTATION OF SNOMED Code(s): 50882991 (2) Previous delivery affecting Current Visit: No Status: Acute Code(s): O34.219 - MATERNAL CARE FOR UNSP TYPE SCAR FROM PREVIOUS DEL SNOMED Code(s): 936951656 Plan: Continue with postoperative and care. Advance diet as tolerated. Encouraged ambulation.
--- NOTE | 2018-09-04 12:31 | P.PN ---
Progress Note - Text Anesthesia POD 1. Patient is status post section under spinal anesthesia with intra-thecal preservative free morphine 300 g. Mild pruritus, excellent post-op analgesia, and no headache or other complications.
[2018-09-04] MEDS: HYDROcodone/APAP 7.5-325MG 1 EACH TAB PO PRN ×2 (16:48→23:12)
[2018-09-05] MEDS: SENNOSIDES-DOCUSATE SODIUM 1 EACH TAB PO SCH (08:09)
--- NOTE | 2018-09-05 08:09 | P.PNOBGPC ---
Subjective - Subjective Principal diagnosis: Status post repeat section postoperative day #2 Interval history: Patient states her pain is fairly well controlled with oral pain medication. She is urinating without difficulty. She is passing flatus but also having diarrhea. Lochia is decreasing. She is bottle feeding. Patient reports: Reports appetite normal, Reports voiding normally, Reports pain well controlled, Reports ambulating normally : doing well, bottle feeding Objective - Vital Signs Latest vital signs: Vital Signs Temp Pulse Resp BP Pulse Ox 09/05/18 00:00 97.7 F 112 H 16 117/76 100 09/04/18 16:00 98.0 F 98 20 117/70 100 09/04/18 11:45 97.9 F 88 19 111/60 100 - Exam Extremities: Present: normal. Absent: tenderness Abdomen: Present: normal appearance, soft (Positive bowel sounds 4). Absent: distention, tenderness Incision: Present: normal, dry, intact Uterus: Present: normal, firm. Absent: tenderness Assessment and Plan Assessment: Impression is status post repeat section postoperative day #2. (1) 39 weeks gestation of Current Visit: No Status: Acute Code(s): Z3A.39 - 39 WEEKS GESTATION OF SNOMED Code(s): 39208638 (2) Previous delivery affecting Current Visit: No Status: Acute Code(s): O34.219 - MATERNAL CARE FOR UNSP TYPE SCAR FROM PREVIOUS DEL SNOMED Code(s): 245435200 Plan: We'll start on some Imodium for her diarrhea. Continued to encourage alternating ibuprofen with her [place]. Encouraged ambulation. Will hold stool softeners for now.
[2018-09-05] MEDS: IBUPROFEN 600 MG TAB PO PRN ×3 (08:11→20:08)
[2018-09-05] MEDS ORDERED: LOPERAMIDE 2 MG CAP PO PRN (08:12)
[2018-09-06] MEDS: HYDROcodone/APAP 7.5-325MG 1 EACH TAB PO PRN (01:49)
[2018-09-06 08:14] VITALS: BP 113/61; PULSE 92; RESP 18; TEMP 98
--- NOTE | 2018-09-06 09:27 | P.DS ---
Providers Date of admission: 09/03/18 09:59 Expected date of discharge: 09/06/18 Attending physician: Judit Ramos Primary care physician: Stated None - Discharge Diagnosis(es) (1) 39 weeks gestation of Current Visit: No Status: Acute (2) Previous delivery affecting Current Visit: No Status: Acute Hospital Course: This is a 18-year-old female 2 para 1 at 39-0/7 weeks who presented for scheduled repeat section. She underwent a repeat low transverse section under spinal Duramorph anesthesia and delivered a viable male infant with scores of 9 at 1 minute and 9 at 5 minutes and weight of 8 lbs. 5 oz. Her post operative and course were essentially uncomplicated. She did start having some diarrhea on postoperative day #2. A stool culture was sent for evaluation and is pending at this time. Her diarrhea has subsided and she did not even have a bowel movement until late in the evening on postoperative day #2. Bleeding has been minimal. She is urinating without difficulty. Pain is well-controlled with ibuprofen and [place]. She is bottle feeding. Vital signs are stable. Abdomen is soft with positive bowel sounds 4. Incision is clean dry and intact. Extremities show negative Homans. Impression is status post repeat section postoperative day #3. Plan is to discharge home today. Routine postoperative and instructions are given. [place] will be removed and Steri-Strips placed prior to discharge. She is advised follow-up in the office in approximately 1 week for a postoperative check and in 6 weeks for check. She is advised to call the office if she has any further questions or concerns prior to her appointment time. She will be given a prescription for ibuprofen and [place]. She has signed a start talking opioid consent form and she was counseled. Procedures: Repeat low transverse section on 09/03/2018 Patient Condition at Discharge: Stable Plan - Discharge Summary Discharge Rx Participant: Yes New Discharge Prescriptions: New Ibuprofen [Motrin] 600 mg PO Q6HR PRN #60 tab PRN Reason: Mild Pain Or Fever >= 100.5 HYDROcodone/APAP 7.5-325MG [[place] 7.5-325] 1 each PO Q6H PRN #28 tab PRN Reason: Severe Pain Continue Rqq-Kerm-Tmeno Acid [-U Capsule (formulary)] 1 cap PO DAILY Discharge Medication List Pvw-Mxzc-Waunc Acid [-U Capsule (formulary)] 1 cap PO DAILY 05/31/18 [History] HYDROcodone/APAP 7.5-325MG [[place] 7.5-325] 1 each PO Q6H PRN #28 tab 09/06/18 [Rx] Ibuprofen [Motrin] 600 mg PO Q6HR PRN #60 tab 09/06/18 [Rx] Follow up Appointment(s)/Referral(s): Judit Ramos DO [Doctor of Osteopathic Medicine] - 1 Week Activity/Diet/Wound Care/Special Instructions: Instructions 1. Do not begin any exercise program for 3 weeks. 2. Do not resume sexual relations for 3 weeks or longer if uncomfortable. 3. You may take tub baths or showers at any time. 4. You may use tampons if desired after 3 weeks. 5. Keep the area of episiotomy (stitches) clean and dry. 6. If you are not nursing, wear a good fitting, supportive bra during the day and limit fluid intake for at least 1 week to prevent breast engorgement. 7. Call the office, [phone], within the next week to make appointment for your 6 week checkup if it has not already been made. 8. Report any of the following occurrences to the doctor promptly: a. Heavy, excessive bleeding b. Chills, fever c. Burning or frequency of urination d. Pain or redness and breasts if nursing e. Increasing pain or swelling in episiotomy (stitches). In addition to the above instructions, the following additional should be followed: 1. No heavy lifting or straining (exercising) until after 6 week checkup. 2. Keep abdominal incision clean and dry: You may wear a dressing if more comfortable. 3. Make office appointment for 10 days after going home or as instructed by her doctor. Discharge Disposition: HOME SELF-CARE
[2018-09-06] MEDS: IBUPROFEN 600 MG TAB PO PRN (09:56)
== END 2018-09-06 11:26 | disposition home or self-care (01) | DRG 788 ==
LOC: 4FBP 09:59
PROVIDERS: ADMIT Obstetrics & Gynecology; ATTEND Obstetrics & Gynecology
PROC: 10D00Z1 Extraction of Products of Conception, Low, Open Approach (ICD-10-PCS; principal; 2018-09-03 12:00)
DX: O34.211 Maternal care for low transverse scar from previous cesarean delivery (principal); O99.62 Diseases of the digestive system complicating childbirth; O99.72 Diseases of the skin and subcutaneous tissue complicating childbirth; R19.7 Diarrhea, unspecified; L29.9 Pruritus, unspecified; Z37.0 Single live birth; Z3A.39 39 weeks gestation of pregnancy; Z90.49 Acquired absence of other specified parts of digestive tract
CPT/HCPCS: 83036; 85025; 86850; 86900; 86901; 87045; 87046

== ENCOUNTER 2018-10-14 13:10 | Emergency (ER) | payer OTHER ==
[2018-10-14 13:32] VITALS: BP 99/59; PULSE 69; RESP 16; TEMP 97.7
[2018-10-14] MEDS ORDERED: diphenhydrAMINE 50 MG CAP PO STA (13:51)
[2018-10-14] MEDS ORDERED: methylPREDNISolone SOD SUCCI 125 MG/2 ML VIAL IM ONE (13:51)
--- NOTE | 2018-10-14 13:58 | ED ---
Skin/Abscess/FB HPI - General Chief complaint: Skin/Abscess/Foreign Body Stated complaint: Rash Time Seen by Provider: 10/14/18 13:50 Source: patient Mode of arrival: ambulatory Limitations: no limitations - History of Present Illness Initial comments: 18-year-old female presenting today for chief complaint of rash that is itchy. Patient states she has had a itchy rash for the past 2-3 days. She states that increases at night. She states is mostly on the hands however she is area of the arm and on the back. Patient has fever or chills night sweats she denies vomiting diarrhea she is one month . She denies any bruising or ecchymosis. Patient denies any other associated symptoms. Upon arrival patient appears well no signs acute distress. Patient has been using Benadryl which does not help her symptoms. - Related Data Home Medications Medication Instructions Recorded Confirmed Mil-Gylh-Rtbpz Acid 1 cap PO DAILY 05/31/18 09/03/18 [-U Capsule (formulary)] Previous Rx's Medication Instructions Recorded HYDROcodone/APAP 7.5-325MG [[place] 1 each PO Q6H PRN #28 tab 09/06/18 7.5-325] Ibuprofen [Motrin] 600 mg PO Q6HR PRN #60 tab 09/06/18 Permethrin 5% Cream [Elimite] 1 applic TOPICAL ONCE 1 Days #1 10/14/18 tube Allergies Allergy/AdvReac Type Severity Reaction Status Date / Time No Known Allergies Allergy Verified 10/14/18 13:29 Review of Systems ROS Statement: Those systems with pertinent positive or pertinent negative responses have been documented in the HPI. ROS Other: All systems not noted in ROS Statement are negative. Past Medical History Past Medical History: No Reported History Additional Past Medical History / Comment(s): few bouts of N/V & diarrhea recently, has been told probably viral History of Any Multi-Drug Resistant Organisms: None Reported Past Surgical History: Appendectomy, Bladder Surgery, Section Past Anesthesia/Blood Transfusion Reactions: No Reported Reaction Past Psychological History: No Psychological Hx Reported Smoking Status: Never smoker Past Alcohol Use History: None Reported Past Drug Use History: None Reported - Past Family History Mother Family Medical History: No Reported History General Exam - General Exam Comments Initial Comments: General: The patient is awake and alert, in no distress, and does not appear acutely ill. Eye: Pupils are equal, round and reactive to light, extra-ocular movements are intact. No nystagmus. There is normal conjunctiva bilaterally. No signs of icterus. Ears, nose, mouth and throat: There are moist mucous membranes and no oral lesions. Neck: The neck is supple, there is no tenderness or JVD. Cardiovascular: There is a regular rate and rhythm. No murmur, rub or gallop is appreciated. Respiratory: Lungs are clear to auscultation, respirations are non-labored, breath sounds are equal. No wheezes, stridor, rales, or rhonchi. Musculoskeletal: Normal ROM, no tenderness. Strength 5/5. Sensation intact. Radial pulses equal bilaterally 2+. Neurological: A&O x 3. CN II-XII intact, There are no obvious motor or sensory deficits. Coordination appears grossly intact. Speech is normal. Skin: Skin is warm and dry. Kinear burrows between fingers on aide of hands. Similar lesion of left side of back, no surrounding erythema or warmth Psychiatric: Cooperative, appropriate mood & affect, normal judgment. Limitations: no limitations Course Vital Signs 10/14/18 13:29 Temperature 97.7 F Pulse Rate 69 Respiratory 16 Rate Blood Pressure 99/59 O2 Sat by Pulse 99 Oximetry Medical Decision Making - Medical Decision Making 18-year-old female presenting today for chief complaint of itchy rash. She states the rash increase at night. It is on her hands between her fingers on the left side of her trunk. Physical examination findings consistent with scabies infestation. I discussed the importance of treating home as well as body with permethrin cream. Pt has been taking benadryl for itching. After discussing case over the phone Dr. Pelaez in feel patient is stable for discharge with outpatient treatment. I recommended repeat treatment in one week. Head discussed the importance of not leaving and treatment longer then indicated. Patient verbalized understanding. I did not recommend patient use this medication on her 1-month-old at home, patient denies breast-feeding. I suggested patient get prescription as by tommy primary care provider. Disposition Clinical Impression: Scabies, Rash, Itching Disposition: HOME SELF-CARE Condition: Good Instructions (If sedation given, give patient instructions): Scabies (ED) Additional Instructions: Please use medication as discussed. Please follow-up with family doctor in the next 2 days. Please return to emergency room if the symptoms increase or worsen or for any other concerns. Prescriptions: Permethrin 5% Cream [Elimite] 1 applic TOPICAL ONCE 1 Days #1 tube Is patient prescribed a controlled substance at d/c from ED?: No Referrals: Leanne Camara MD [Primary Care Provider] - 1-2 days Time of Disposition: 13:58
== END 2018-10-14 14:19 | disposition home or self-care (01) ==
LOC: EC 13:10
DX: B86 Scabies (principal); R50.9 Fever, unspecified; R61 Generalized hyperhidrosis
CPT/HCPCS: 99282

== ENCOUNTER 2018-11-02 23:14 | Emergency (ER) | payer OTHER ==
--- NOTE | 2018-11-03 00:12 | XR ---
EXAM: XR Left Hand Complete, 3 or More Views CLINICAL HISTORY: ITS.REASON XR Reason: Pain TECHNIQUE: Frontal, lateral and oblique views of the left hand. COMPARISON: None FINDINGS: Bones/joints: No displaced fracture or dislocation identified. Joint space is maintained. No bony lesion. No joint effusion. Soft tissues: Possible soft tissue swelling in the left hand digits. IMPRESSION: No displaced fracture or dislocation identified.
--- NOTE | 2018-11-03 00:13 | XR ---
EXAM: XR Left Wrist, 2 Views CLINICAL HISTORY: ITS.REASON XR Reason: Pain TECHNIQUE: Frontal and lateral views of the left wrist. COMPARISON: None FINDINGS: Bones/joints: No displaced fracture or dislocation identified. Joint space is maintained. No bony lesion. Soft tissues: Possible mild soft tissue swelling. IMPRESSION: No displaced fracture or dislocation identified.
--- NOTE | 2018-11-03 00:31 | ED ---
General Adult HPI - General Chief complaint: Extremity Injury, Upper Stated complaint: IHS L Arm injury Time Seen by Provider: 11/02/18 23:35 Source: patient, RN notes reviewed, old records reviewed Mode of arrival: ambulatory Limitations: no limitations - History of Present Illness Initial comments: 18-year-old female patient no pertinent past medical history presents to ED with left wrist injury. Patient reports that she was at work when she states that she slipped and fell forward. Patient reports that she injured her left wrist in a sweeping motion hitting it against something hard. Patient reports that she has pain in her left snuffbox region. Patient denies any other complaints this time. She denies any trauma to head or neck. Patient denies any loss of consciousness. Denies all other other complaints. Systemic: Pt denies fatigue, myalgia, fever/chills, rash. Pt denies weakness, night sweats, weight loss. Neuro: Pt denies headache, visual disturbances, syncope or pre-syncope. HEENT: Pt denies ocular discharge or irritation, otalgia, rhinorrhea, pharyngitis or notable lymphadenopathy. Cardiopulmonary: Pt denies chest pain, SOB, heart palpitations, dyspnea on exertion. Abdominal/GI: Pt denies abdominal pain, n/v/d. : Pt denies dysuria, burning w/ urination, frequency/urgency. Denies new onset urinary or bowel incontinence. MSK: Pt denies myalgia, loss of strength or function in extremities. Neuro: Pt denies new onset weakness, paresthesias. - Related Data Home Medications Medication Instructions Recorded Confirmed Zoc-Objp-Qxkmr Acid 1 cap PO DAILY 05/31/18 09/03/18 [-U Capsule (formulary)] Previous Rx's Medication Instructions Recorded HYDROcodone/APAP 7.5-325MG [[place] 1 each PO Q6H PRN #28 tab 09/06/18 7.5-325] Ibuprofen [Motrin] 600 mg PO Q6HR PRN #60 tab 09/06/18 Permethrin 5% Cream [Elimite] 1 applic TOPICAL ONCE 1 Days #1 10/14/18 tube Allergies Allergy/AdvReac Type Severity Reaction Status Date / Time No Known Allergies Allergy Verified 11/02/18 23:30 Review of Systems ROS Statement: Those systems with pertinent positive or pertinent negative responses have been documented in the HPI. ROS Other: All systems not noted in ROS Statement are negative. Past Medical History Past Medical History: No Reported History Additional Past Medical History / Comment(s): few bouts of N/V & diarrhea recently, has been told probably viral History of Any Multi-Drug Resistant Organisms: None Reported Past Surgical History: Appendectomy, Bladder Surgery, Section Past Anesthesia/Blood Transfusion Reactions: No Reported Reaction Past Psychological History: No Psychological Hx Reported Smoking Status: Never smoker Past Alcohol Use History: None Reported Past Drug Use History: None Reported - Past Family History Mother Family Medical History: No Reported History General Exam - General Exam Comments Initial Comments: Constitutional: NAD, AOX3, Pt has pleasant affect. HEENT: NC/AT, trachea midline, neck supple, no lymphadenopathy. Posterior pharynx non erythematous, without exudates. External ears appear normal, without discharge. Mucous membranes moist. Eyes PERRLA, EOM intact. There is no scleral icterus. No pallor noted. Cardiopulmonary: RRR, no murmurs, rubs or gallops, no JVD noted. Lungs CTAB in anterior and posterior suazo. No peripheral edema. Abdominal exam: Abdomen soft and non-distended. Abdomen non-tender to palpation in all 4 quadrants. Bowel sounds active in LLQ. No hepatosplenomegaly. No ecchymosis Neuro: CN II-XII grossly intact. No nuchal rigidity. MSK: Left snuffbox tenderness. No other areas of and there is tenderness. Full active range of motion of digits. Capillary refill less than 2 seconds. Radial pulse +2. Patient placed in thumb spica splint. Patient neurovascularly intact after splint placement. No posterior calf tenderness bilaterally, homans sign negative bilaterally. Posterior tibialis and radial pulse +2 bilaterally. Sensation intact in upper and lower extremities. Full active ROM in upper and lower extremities, 5/5 stregnth. Limitations: no limitations Course Vital Signs 11/02/18 23:27 Temperature 98.0 F Pulse Rate 93 Respiratory 16 Rate Blood Pressure 115/71 O2 Sat by Pulse 98 Oximetry Medical Decision Making - Medical Decision Making 18-year-old female patient no pertinent past medical history presents to ED with left wrist injury. Patient reports that she was at work when she states that she slipped and fell forward. Patient reports that she injured her left wrist in a sweeping motion hitting it against something hard. Patient reports that she has pain in her left snuffbox region. Patient denies any other complaints this time. She denies any trauma to head or neck. Patient denies any loss of consciousness. Denies all other other complaints. Patient vital signs stable, afebrile. Physical exam displayed: Left snuffbox tenderness. No other areas of and there is tenderness. Full active range of motion of digits. Capillary refill less than 2 seconds. Radial pulse +2. Patient placed in thumb spica splint. Patient neurovascularly intact after splint placement. Plain film of hand and wrist displayed no acute process. Patient will be discharged to follow up with primary care provider and orthopedic consult in 1-2 days. Patient will return to ER if condition worsens in anyway. Case discussed with Dr. Kumar. Disposition Clinical Impression: Wrist sprain Disposition: HOME SELF-CARE Condition: Stable Instructions (If sedation given, give patient instructions): Wrist Sprain (ED) Additional Instructions: Patient to adhere to previously discussed treatment plan and will take medication(s) as directed. Patient to follow up with PCP in 1-2 days. Patient to return to ED if symptoms do not improve. Follow-up with orthopedic consult was 2 days. Follow-up with primary care provider in 1-2 days. Return to ER if condition worsens. Is patient prescribed a controlled substance at d/c from ED?: No Referrals: Leanne Camara MD [Primary Care Provider] - 1-2 days Vinny Gross MD [Medical Doctor] - 1-2 days
[2018-11-03 01:08] VITALS: BP 127/68; PULSE 64; RESP 18; TEMP 97.9
== END 2018-11-03 01:08 | disposition home or self-care (01) ==
LOC: EC 23:14
DX: S63.502A Unspecified sprain of left wrist, initial encounter (principal); W01.198A Fall on same level from slipping, tripping and stumbling with subsequent striking against other object, initial encounter; Y92.69 Other specified industrial and construction area as the place of occurrence of the external cause; Y99.0 Civilian activity done for income or pay
CPT/HCPCS: 29125; 99284

== ENCOUNTER 2018-12-01 20:34 | Emergency (ER) | payer OTHER ==
[2018-12-01 21:02] VITALS: BP 102/75; PULSE 65; RESP 18; TEMP 98.5
[2018-12-01] MEDS ORDERED: DIAZEPAM 5 MG TAB PO STA (21:22)
[2018-12-01] MEDS ORDERED: CYCLOBENZAPRINE 10MG STARTER 3 TAB BTL PO STA (21:22)
--- NOTE | 2018-12-01 21:24 | ED ---
Back Pain HPI - General Chief Complaint: Back Pain/Injury Stated Complaint: Back pain Time Seen by Provider: 12/01/18 21:04 Source: patient Limitations: no limitations - History of Present Illness Initial Comments: 18 yoF presenting with neck pain after moving her head the wrong way. - Related Data Home Medications Medication Instructions Recorded Confirmed Gor-Kgrr-Swghw Acid 1 cap PO DAILY 05/31/18 09/03/18 [-U Capsule (formulary)] Previous Rx's Medication Instructions Recorded HYDROcodone/APAP 7.5-325MG [[place] 1 each PO Q6H PRN #28 tab 09/06/18 7.5-325] Ibuprofen [Motrin] 600 mg PO Q6HR PRN #60 tab 09/06/18 Permethrin 5% Cream [Elimite] 1 applic TOPICAL ONCE 1 Days #1 10/14/18 tube Cyclobenzaprine [Flexeril] 10 mg PO TID PRN 3 Days #9 tab 12/01/18 Allergies Allergy/AdvReac Type Severity Reaction Status Date / Time No Known Allergies Allergy Verified 12/01/18 20:59 Review of Systems ROS Statement: Those systems with pertinent positive or pertinent negative responses have been documented in the HPI. ROS Other: All systems not noted in ROS Statement are negative. Past Medical History Past Medical History: No Reported History Additional Past Medical History / Comment(s): few bouts of N/V & diarrhea recently, has been told probably viral History of Any Multi-Drug Resistant Organisms: None Reported Past Surgical History: Appendectomy, Bladder Surgery, Section Past Anesthesia/Blood Transfusion Reactions: No Reported Reaction Past Psychological History: No Psychological Hx Reported Smoking Status: Never smoker Past Alcohol Use History: None Reported Past Drug Use History: None Reported - Past Family History Mother Family Medical History: No Reported History General Exam - General Exam Comments Initial Comments: General: Awake, alert, No acute Distress HENT: Normocephalic. Atraumatic Eyes: PERRL. EOMI. No scleral icterus. No injected conjunctiva Neck: Right paraspinal and trapezius hypertonicity. Chest/Lungs: Clear to auscultation bilaterally. No wheezing, rhonchi, or rales Cardiac: Regular rate, rhythm. No murmurs or rubs Abdomen/GI: Soft, nontender, nondistended. No rebound, guarding, or rigidity. Musculoskeletal: Full ROM. Right upper extremity movement exacerbates neck pain. Skin: Warm, dry, intact. Neurologic: A/Ox3. No upper extremity weakness. Limitations: no limitations Course Vital Signs 12/01/18 20:58 Temperature 98.5 F Pulse Rate 65 Respiratory 18 Rate Blood Pressure 102/75 O2 Sat by Pulse 99 Oximetry Medical Decision Making - Medical Decision Making 18 year old female presenting with muscle spasm. On initial exam the patient is awake, alert, and in NAD. VSS. Patient has hypertonicity of the right paraspinal and trapezius muscle. She is neurologically intact. Patient has no constitutional symptoms or symptoms consistent with meningitis. She had no trauma to suggest a fracture. This time the patient's symptoms are consistent with a muscle spasm. She was given a dose of Valium in the department and a Flexeril starter pack.No further emergent workup indicated. The patient was given return to ED instructions. They were instructed to follow up with their primary care provider. Stable for discharge at this time. Disposition Clinical Impression: Cervical muscle strain Disposition: HOME SELF-CARE Condition: Good Instructions (If sedation given, give patient instructions): Cervical Strain (ED), Muscle Spasm (ED) Prescriptions: Cyclobenzaprine [Flexeril] 10 mg PO TID PRN 3 Days #9 tab PRN Reason: Pain Is patient prescribed a controlled substance at d/c from ED?: Yes Referrals: Leanne Camara MD [Primary Care Provider] - 1-2 days
== END 2018-12-01 21:43 | disposition home or self-care (01) ==
LOC: EC 20:34
DX: S16.1XXA Strain of muscle, fascia and tendon at neck level, initial encounter (principal); X58.XXXA Exposure to other specified factors, initial encounter
CPT/HCPCS: 99283

== ENCOUNTER 2020-10-18 17:59 | Emergency (ER) | payer OTHER ==
[2020-10-18 18:06] VITALS: BP 116/72; PULSE 84; RESP 18; TEMP 98.2
--- NOTE | 2020-10-18 18:12 | ED ---
General Adult HPI - General Chief complaint: Extremity Injury, Upper Stated complaint: Shoulder pain Time Seen by Provider: 10/18/20 18:09 Source: patient Mode of arrival: ambulatory Limitations: no limitations - History of Present Illness Initial comments: Patient presents the ED stating that she slipped on her child's toy while carrying laundry and fell down about 10 stairs yesterday. Patient states that she has been having left shoulder pain since this fall. Patient states that her pain is worse with any movement of her left arm. Patient denies any other injury or site of pain, head injury, LOC, headache, focal numbness/weakness/neuro deficit, neck/back/lower extremity pain, chest pain, dyspnea, dizziness, abdominal pain, nausea or vomiting, or any other symptoms or complaints. - Related Data Home Medications Medication Instructions Recorded Confirmed Omr-Dabx-Cgukw Acid 1 cap PO DAILY 05/31/18 09/03/18 [-U Capsule (formulary)] Previous Rx's Medication Instructions Recorded HYDROcodone/APAP 7.5-325MG [[place] 1 each PO Q6H PRN #28 tab 09/06/18 7.5-325] Ibuprofen [Motrin] 600 mg PO Q6HR PRN #60 tab 09/06/18 Permethrin 5% Cream [Elimite] 1 applic TOPICAL ONCE 1 Days #1 10/14/18 tube Cyclobenzaprine [Flexeril] 10 mg PO TID PRN 3 Days #9 tab 12/01/18 Allergies Allergy/AdvReac Type Severity Reaction Status Date / Time No Known Allergies Allergy Verified 10/18/20 18:03 Review of Systems ROS Statement: Those systems with pertinent positive or pertinent negative responses have been documented in the HPI. ROS Other: All systems not noted in ROS Statement are negative. Past Medical History Past Medical History: No Reported History Additional Past Medical History / Comment(s): few bouts of N/V & diarrhea recently, has been told probably viral History of Any Multi-Drug Resistant Organisms: None Reported Past Surgical History: Appendectomy, Bladder Surgery, Section Past Anesthesia/Blood Transfusion Reactions: No Reported Reaction Past Psychological History: No Psychological Hx Reported Smoking Status: Never smoker Past Alcohol Use History: None Reported Past Drug Use History: None Reported - Past Family History Mother Family Medical History: No Reported History General Exam Limitations: no limitations General appearance: alert, in no apparent distress Head exam: Present: atraumatic, normocephalic Eye exam: Present: normal appearance, PERRL, EOMI ENT exam: Present: normal oropharynx Neck exam: Present: normal inspection, full ROM, other (Trachea is in midline). Absent: tenderness Respiratory exam: Present: normal lung sounds bilaterally. Absent: respiratory distress, wheezes, rales, rhonchi, stridor Cardiovascular Exam: Present: regular rate, normal rhythm, normal heart sounds, other (Normal radial pulses bilaterally) GI/Abdominal exam: Present: soft. Absent: distended, tenderness, guarding Extremities exam: Present: other (Limited range of motion at left shoulder secondary to pain; left lateral shoulder tenderness; no left clavicular or AC joint tenderness) Back exam: Present: normal inspection. Absent: tenderness Neurological exam: Present: alert, oriented X3. Absent: motor sensory deficit Psychiatric exam: Present: normal affect, normal mood Skin exam: Present: warm, dry, intact, normal color Course Vital Signs 10/18/20 18:03 Temperature 98.2 F Pulse Rate 84 Respiratory 18 Rate Blood Pressure 116/72 O2 Sat by Pulse 100 Oximetry Medical Decision Making - Medical Decision Making Patient's left shoulder x-rays are negative. I suspect that her left shoulder pain is likely secondary to a strain, sprain or contusion. Patient was counseled about left shoulder injuries (rest, ice, analgesics), and she was clearly explained return and follow-up instructions. Patient feels comfortable with this plan. - Radiology Data Radiology results: report reviewed (Left shoulder x-rays: Negative left shoulder exam) Disposition Clinical Impression: Fall, Injury of left shoulder, Left shoulder pain Disposition: HOME SELF-CARE Condition: Stable Instructions (If sedation given, give patient instructions): Shoulder Sprain (ED) Additional Instructions: Return to the ER immediately should you develop new or worsening pain or symptoms. Follow up closely with your primary care provider. Is patient prescribed a controlled substance at d/c from ED?: No Referrals: Leanne Camara MD [Primary Care Provider] - 1-2 days Time of Disposition: 18:49
--- NOTE | 2020-10-18 18:36 | XR ---
EXAMINATION TYPE: XR shoulder complete LT DATE OF EXAM: 10/18/2020 COMPARISON: NONE HISTORY: Shoulder pain TECHNIQUE: 3 views FINDINGS: I see no fracture nor dislocation. Glenohumeral joint is intact. Soft tissues appear normal . IMPRESSION: Negative left shoulder exam.
== END 2020-10-18 19:08 | disposition home or self-care (01) ==
LOC: EC 17:59
DX: S49.92XA Unspecified injury of left shoulder and upper arm, initial encounter (principal); Z79.1 Long term (current) use of non-steroidal anti-inflammatories (NSAID); W10.9XXA Fall (on) (from) unspecified stairs and steps, initial encounter; W01.0XXA Fall on same level from slipping, tripping and stumbling without subsequent striking against object, initial encounter
CPT/HCPCS: 99283

== ENCOUNTER 2021-01-18 12:54 | Emergency (ER) | payer OTHER ==
[2021-01-18] MEDS ORDERED: SODIUM CHLORIDE 0.9% 2,000 ML IV ONE (13:31)
[2021-01-18 13:32] VITALS: RESP 18
--- NOTE | 2021-01-18 13:33 | ED ---
General Adult HPI - General Source: patient, RN notes reviewed Mode of arrival: ambulatory Limitations: no limitations <Sam Fry - Last Filed: 01/18/21 13:32> <Scooter Macedo - Last Filed: 01/18/21 15:52> - General Stated complaint: & vomiting Time Seen by Provider: 01/18/21 13:30 - History of Present Illness Initial comments: 20-year-old female presents emergency from chief complaint of nausea vomiting . Patient states she contacted her CANAL BOAT OPERATOR who recommended her to come emergency from for IV fluids. Patient is A1 states that she is seeing blue on her CANAL BOAT OPERATOR. Patient states she's been him having emesis for the last couple weeks. Patient states she noticed some bile-colored emesis. No hematemesis no abdominal pain denies any vaginal bleeding or vaginal discharge. (Sam Fry) - Related Data Home Medications Medication Instructions Recorded Confirmed Ondansetron Odt [Zofran Odt] 4 mg PO Q12HR PRN 01/18/21 01/18/21 Previous Rx's Medication Instructions Recorded Cephalexin [Keflex] 500 mg PO Q6HR #40 cap 01/18/21 Allergies Allergy/AdvReac Type Severity Reaction Status Date / Time No Known Allergies Allergy Verified 01/18/21 14:33 Review of Systems ROS Other: All systems not noted in ROS Statement are negative. <Sam Fry - Last Filed: 01/18/21 13:32> ROS Other: All systems not noted in ROS Statement are negative. <Scooter Macedo - Last Filed: 01/18/21 15:52> ROS Statement: Those systems with pertinent positive or pertinent negative responses have been documented in the HPI. Past Medical History Past Medical History: No Reported History Additional Past Medical History / Comment(s): few bouts of N/V & diarrhea recently, has been told probably viral History of Any Multi-Drug Resistant Organisms: None Reported Past Surgical History: Appendectomy, Bladder Surgery, Section Past Anesthesia/Blood Transfusion Reactions: No Reported Reaction Past Psychological History: No Psychological Hx Reported Smoking Status: Never smoker Past Alcohol Use History: None Reported Past Drug Use History: None Reported - Past Family History Mother Family Medical History: No Reported History <Sam Fry - Last Filed: 01/18/21 13:32> General Exam General appearance: alert, in no apparent distress, obese Head exam: Present: atraumatic, normocephalic, normal inspection Eye exam: Present: normal appearance, PERRL, EOMI. Absent: scleral icterus, conjunctival injection, periorbital swelling Neck exam: Present: normal inspection Respiratory exam: Present: normal lung sounds bilaterally. Absent: respiratory distress, wheezes, rales, rhonchi, stridor Cardiovascular Exam: Present: regular rate, normal rhythm, normal heart sounds. Absent: systolic murmur, diastolic murmur, rubs, gallop, clicks GI/Abdominal exam: Present: soft, tenderness (A minimal in the bilateral lower abdomen.), normal bowel sounds. Absent: distended, guarding, rebound, rigid Extremities exam: Present: normal inspection, full ROM, normal capillary refill. Absent: tenderness, pedal edema, joint swelling, calf tenderness Neurological exam: Present: alert, oriented X3 Psychiatric exam: Present: normal affect, normal mood Skin exam: Present: warm, dry, intact, normal color. Absent: rash <Scooter Macedo - Last Filed: 01/18/21 15:52> Course Vital Signs 01/18/21 13:30 Temperature 98.2 F Pulse Rate 80 Respiratory 18 Rate Blood Pressure 118/62 O2 Sat by Pulse 98 Oximetry Medical Decision Making - Lab Data Result diagrams: 01/18/21 13:54 01/18/21 13:54 <Scooter Macedo - Last Filed: 01/18/21 15:52> - Medical Decision Making 20-year-old female complaining of nausea and vomiting who is unknown weeks . Sent by CANAL BOAT OPERATOR for evaluation. Labs, 1 L normal saline, 4 mg of Zofran, ultrasound ordered. Labs unremarkable. Urinalysis shows a UTI, 1 g Rocephin ordered. ultrasound shows a 7 week gestation. Case discussed with Dr. Garcia, patient can discharge home. (Scooter Macedo) - Lab Data Lab Results 01/18/21 01/18/21 01/18/21 Range/Units 13:54 13:54 13:54 WBC 6.9 (3.8-10.6) k/uL RBC 4.75 (3.80-5.40) m/uL Hgb 12.2 (11.4-16.0) gm/dL Hct 38.7 (34.0-46.0) % MCV 81.6 (80.0-100.0) fL MCH 25.7 (25.0-35.0) pg MCHC 31.5 (31.0-37.0) g/dL RDW 15.2 (11.5-15.5) % Plt Count 298 (150-450) k/uL MPV 7.2 Neutrophils % 73 % Lymphocytes % 21 % Monocytes % 4 % Eosinophils % 0 % Basophils % 0 % Neutrophils # 5.0 (1.3-7.7) k/uL Lymphocytes # 1.4 (1.0-4.8) k/uL Monocytes # 0.3 (0-1.0) k/uL Eosinophils # 0.0 (0-0.7) k/uL Basophils # 0.0 (0-0.2) k/uL Sodium 135 L (137-145) mmol/L Potassium 3.9 (3.5-5.1) mmol/L Chloride 104 (98-107) mmol/L Carbon Dioxide 22 (22-30) mmol/L Anion Gap 9 mmol/L BUN 8 (7-17) mg/dL Creatinine 0.58 (0.52-1.04) mg/dL Est GFR (CKD-EPI)AfAm >90 (>60 ml/min/1.73 sqM) Est GFR (CKD-EPI)NonAf >90 (>60 ml/min/1.73 sqM) Glucose 88 (74-99) mg/dL Calcium 9.5 (8.4-10.2) mg/dL Total Bilirubin 0.3 (0.2-1.3) mg/dL AST 15 (14-36) U/L ALT 14 (4-34) U/L Alkaline Phosphatase 71 (38-126) U/L Total Protein 7.1 (6.3-8.2) g/dL Albumin 4.2 (3.5-5.0) g/dL HCG, Quant 84162.6 mIU/mL Urine Color Yellow Urine Appearance Cloudy H (Clear) Urine pH 6.0 (5.0-8.0) Ur Specific [place] 1.028 (1.001-1.035) Urine Protein 1+ H (Negative) Urine Glucose (UA) Negative (Negative) Urine Ketones 4+ H (Negative) Urine Blood Trace H (Negative) Urine Nitrite Negative (Negative) Urine Bilirubin Negative (Negative) Urine Urobilinogen 2.0 (<2.0) mg/dL Ur Leukocyte Esterase Moderate H (Negative) Urine RBC 5 (0-5) /hpf Urine WBC 21 H (0-5) /hpf Ur Squamous Epith Cells 30 H (0-4) /hpf Urine Bacteria Moderate H (None) /hpf Urine Mucus Many H (None) /hpf Disposition <Sam Fry - Last Filed: 01/18/21 13:32> Is patient prescribed a controlled substance at d/c from ED?: No Time of Disposition: 15:52 <Scooter Macedo - Last Filed: 01/18/21 15:52> Clinical Impression: Urinary tract infection, Dehydration Disposition: HOME SELF-CARE Condition: Stable Instructions (If sedation given, give patient instructions): Acute Nausea and Vomiting (ED) Additional Instructions: Please return to the Emergency Department if symptoms worsen or any other concerns. Follow-up with primary care in the next 1-2 days. Continue to follow-up with CANAL BOAT OPERATOR. Take antibiotics as prescribed. Referrals: Markel Jolley MD [Primary Care Provider] - 1-2 days
[2021-01-18 14:13] LABS: Basophils % (A) 0 %; Eosinophils % (A) 0 %; HCT 38.7 % (34.0-46.0); HGB 12.2 gm/dL (11.4-16.0); Lymphocytes # (A) 1.4 k/uL (1.0-4.8); Lymphocytes % (A) 21 %; MCH 25.7 pg (25.0-35.0); MCHC 31.5 g/dL (31.0-37.0); MCV 81.6 fL (80.0-100.0); Mean Platelet Volume 7.2; Monocytes # (A) 0.3 k/uL (0-1.0); Monocytes % (A) 4 %; Neutrophils % (A) 73 %; Platelet Count 298 k/uL (150-450); RBC 4.75 m/uL (3.80-5.40); RDW 15.2 % (11.5-15.5); WBC 6.9 k/uL (3.8-10.6)
[2021-01-18 14:24] LABS: ALT 14 U/L (4-34); AST 15 U/L (14-36); African American GFR (CKD) >90 (>60 ml/min/1.73 sqM); Albumin 4.2 g/dL (3.5-5.0); Alkaline Phosphatase 71 U/L (38-126); Anion Gap 9 mmol/L; Blood Urea Nitrogen 8 mg/dL (7-17); Calcium 9.5 mg/dL (8.4-10.2); Carbon Dioxide 22 mmol/L (22-30); Chloride 104 mmol/L (98-107); Glucose 88 mg/dL (74-99); Non-African American GFR(CKD) >90 (>60 ml/min/1.73 sqM); Potassium 3.9 mmol/L (3.5-5.1); Sodium 135 mmol/L (137-145); Total Bilirubin 0.3 mg/dL (0.2-1.3); Total Protein 7.1 g/dL (6.3-8.2)
[2021-01-18 14:37] LABS: Appearance,Urine Cloudy (Clear); Bacteria,Urine Moderate /hpf; Bilirubin,Urine Negative (Negative); Blood,Urine Trace (Negative); Color,Urine Yellow; Glucose,Urine (UA) Negative (Negative); Ketones,Urine 4+ (Negative); Leukocyte Esterase,Urine Moderate (Negative); Mucus,Urine Many /hpf; Nitrite,Urine Negative (Negative); Protein,Urine 1+ (Negative); RBC,Urine 5 /hpf (0-5); Specific Gravity,Urine 1.028 (1.001-1.035); Squamous Epithelial Cell,Urine 30 /hpf (0-4); WBC,Urine 21 /hpf (0-5)
[2021-01-18] MEDS ORDERED: ONDANSETRON 4 MG/2 ML VIAL IVP STA (14:38)
--- NOTE | 2021-01-18 14:55 | US ---
EXAMINATION TYPE: Transabdominal DATE OF EXAM: 01/18/2021 2:41 PM COMPARISON: NONE CLINICAL HISTORY: lower abdominal discomfort. Pt states N & V, with lower ABD discomfort EXAM PERFORMED: Transabdominal (TA) EXAM MEASUREMENTS: GESTATIONAL AGE / DATING Physician Established: Not yet established Dates by LMP: (7 weeks/5 days) EDC: 09/01/2021 Dates by First Scan: No previous this is first scan Dates by Current Scan for: (7 weeks/0 days) EDC: 09/06/2021 MATERNAL ANATOMY Uterus: 13.1 x 4.7 x 6.9 cm Right Ovary: 2.8 x 2.4 x 2.6 cm Left Ovary: 1.8 x 1.8 x 1.8 cm Post CDS / Adnexa: wnl Presence of free fluid: No Presence of corpus luteal cyst: Right Ovary= 2.0 x 1.7 x 1.9 cm Presence of subchorionic bleed: No GESTATION / SURVEY CRL: 0.9 cm (7 weeks/0 days) MSD: wnl Yolk Sac (normal less than 6mm): 3mm Heart Rate: 136 bpm Rhythm: Normal IUP: Viable IUP Date of LMP: 11/25/2020 Morbidly obese pt, difficult exam Single, viable IUP/ No abnormality visualized at this time IMPRESSION: Viable of 7 weeks 0 days and heart rate 36 bpm.
[2021-01-18] MEDS ORDERED: cefTRIAXone IN SWFI 1,000 MG/10 ML SYRINGE IVP STA (14:57)
[2021-01-18 15:05] LABS: HCG,Quantitative Serum 50614.6 mIU/mL
[2021-01-18 16:11] VITALS: BP 103/54; PULSE 79; TEMP 98.7
== END 2021-01-18 16:10 | disposition home or self-care (01) ==
LOC: EC 12:54
DX: O23.41 Unspecified infection of urinary tract in pregnancy, first trimester (principal); O99.281 Endocrine, nutritional and metabolic diseases complicating pregnancy, first trimester; E86.0 Dehydration; Z3A.01 Less than 8 weeks gestation of pregnancy
CPT/HCPCS: 36415; 80053; 85025; 81001; 84702; 87086; 76801; 96374; 96375; 96361 ×2; 99284; J2405; J0696

== ENCOUNTER 2021-01-26 19:08 | Inpatient (IN) | payer OTHER ==
[2021-01-26] MEDS ORDERED: METOCLOPRAMIDE 5 MG/ML 2 ML VIAL IVP STA (20:59)
[2021-01-26] MEDS ORDERED: SODIUM CHLORIDE 0.9% 1,000 ML IV STA ×2 (20:59→22:32)
[2021-01-26] MEDS ORDERED: diphenhydrAMINE 50 MG/ML 1 ML VIAL IVP STA (20:59)
--- NOTE | 2021-01-26 21:45 | XR ---
EXAMINATION TYPE: XR hand complete RT, XR wrist complete RT DATE OF EXAM: 01/26/2021 COMPARISON: None HISTORY: . pain. TECHNIQUE: AP, lateral, and oblique images of the right hand and right wrist obtained. Scaphoid view of the right wrist. FINDINGS: No acute fracture. No dislocation. Joint spaces and alignment are normal. Normal mineraliza tion. No significant soft tissue swelling. IMPRESSION: No acute fracture or dislocation of the right hand or right wrist.
[2021-01-26 22:19] LABS: Anisocytosis Slight; Basophils % (A) 0 %; Eosinophils % (A) 1 %; HCT 37.6 % (34.0-46.0); Hypochromasia Slight; Lymphocytes # (A) 2.3 k/uL (1.0-4.8); Lymphocytes % (A) 27 %; MCH 26.2 pg (25.0-35.0); MCHC 31.9 g/dL (31.0-37.0); MCV 81.9 fL (80.0-100.0); Mean Platelet Volume 7.5; Monocytes # (A) 0.4 k/uL (0-1.0); Monocytes % (A) 4 %; Neutrophils # (A) 5.9 k/uL (1.3-7.7); Neutrophils % (A) 67 %; Platelet Count 289 k/uL (150-450); RBC 4.59 m/uL (3.80-5.40); RDW 16.2 % (11.5-15.5); WBC 8.7 k/uL (3.8-10.6)
[2021-01-26 22:27] LABS: ALT 10 U/L (4-34); AST 11 U/L (14-36); African American GFR (CKD) >90 (>60 ml/min/1.73 sqM); Albumin 3.8 g/dL (3.5-5.0); Alkaline Phosphatase 64 U/L (38-126); Amylase 41 U/L (30-110); Anion Gap 9 mmol/L; Blood Urea Nitrogen 9 mg/dL (7-17); Calcium 9.3 mg/dL (8.4-10.2); Carbon Dioxide 22 mmol/L (22-30); Chloride 104 mmol/L (98-107); Glucose 84 mg/dL (74-99); Lipase 79 U/L (23-300); Non-African American GFR(CKD) >90 (>60 ml/min/1.73 sqM); Sodium 135 mmol/L (137-145); Total Bilirubin 0.2 mg/dL (0.2-1.3); Total Protein 6.7 g/dL (6.3-8.2)
[2021-01-26 23:02] LABS: Appearance,Urine Cloudy (Clear); Bacteria,Urine Occasional /hpf; Bilirubin,Urine Negative (Negative); Blood,Urine Trace (Negative); Color,Urine Yellow; Glucose,Urine (UA) Negative (Negative); Ketones,Urine 4+ (Negative); Leukocyte Esterase,Urine Small (Negative); Mucus,Urine Many /hpf; Nitrite,Urine Negative (Negative); Protein,Urine 1+ (Negative); Specific Gravity,Urine 1.036 (1.001-1.035); Squamous Epithelial Cell,Urine 18 /hpf (0-4); WBC,Urine 8 /hpf (0-5)
--- NOTE | 2021-01-26 23:56 | ED ---
General Adult HPI - General Chief complaint: Fall Stated complaint: multiple falls, 8 wks preg Time Seen by Provider: 01/26/21 20:39 Source: patient, family Mode of arrival: wheelchair Limitations: no limitations - History of Present Illness Initial comments: 21-year-old female currently 8 weeks presents to the emergency room for nausea and vomiting. Patient has had nausea and vomiting for 3 weeks now. She was started on nausea medication by her CHANNEL SUPERVISOR. She did see them today and they told her if it continues they can change the medicine. Patient states that she felt weak today and did fall twice. Patient's boyfriend is concerned because he has to go back to work on February 01 and does not want to leave her home alone so brought her into the emergency room. Patient has been seen at [facility] as well. - Related Data Home Medications Medication Instructions Recorded Confirmed Ondansetron Odt [Zofran Odt] 4 mg PO Q12HR PRN 01/18/21 01/26/21 Aspirin EC [Ecotrin] 325 mg PO BID PRN 01/26/21 01/26/21 Cephalexin [Keflex] 500 mg PO DIRECTED 01/26/21 01/26/21 Allergies Allergy/AdvReac Type Severity Reaction Status Date / Time No Known Allergies Allergy Verified 01/26/21 21:38 Review of Systems ROS Statement: Those systems with pertinent positive or pertinent negative responses have been documented in the HPI. ROS Other: All systems not noted in ROS Statement are negative. Past Medical History Past Medical History: No Reported History Additional Past Medical History / Comment(s): few bouts of N/V & diarrhea recently, has been told probably viral History of Any Multi-Drug Resistant Organisms: None Reported Past Surgical History: Appendectomy, Bladder Surgery, Section Past Anesthesia/Blood Transfusion Reactions: No Reported Reaction Past Psychological History: No Psychological Hx Reported Smoking Status: Former smoker Past Alcohol Use History: None Reported Past Drug Use History: None Reported - Past Family History Mother Family Medical History: No Reported History General Exam Limitations: no limitations General appearance: alert Head exam: Present: atraumatic, normocephalic, normal inspection Eye exam: Present: normal appearance, PERRL, EOMI. Absent: scleral icterus, conjunctival injection, periorbital swelling ENT exam: Present: normal exam, mucous membranes moist Neck exam: Present: normal inspection, full ROM. Absent: tenderness, meningismus, lymphadenopathy Respiratory exam: Present: normal lung sounds bilaterally. Absent: respiratory distress, wheezes, rales, rhonchi, stridor Cardiovascular Exam: Present: regular rate, normal rhythm, normal heart sounds. Absent: systolic murmur, diastolic murmur, rubs, gallop, clicks GI/Abdominal exam: Present: soft, normal bowel sounds. Absent: distended, ten derness, guarding, rebound, rigid Extremities exam: Present: tenderness (minimal dorsal right wrist tenderness, no scaphoid tenderness), normal capillary refill (cap refill < 2 seconds, Radial pulse 2+), other (sensation intact RUE). Absent: full ROM (limited extension of r wrist secondarry to pain. full ROM of R hand), joint swelling Neurological exam: Present: alert Course Vital Signs 01/26/21 20:03 Temperature 98.4 F Pulse Rate 71 Respiratory 16 Rate Blood Pressure 99/58 O2 Sat by Pulse 99 Oximetry Medical Decision Making - Medical Decision Making Vitals are stable. Blood pressure initially borderline however has improved after fluids. CBC and CMP are unremarkable. Patient is significantly dehydrated with 4+ ketones. Patient was given 2 L of fluids, antiemetics, and monitored for several hours in the emergency room. Patient continued to have significant lightheadedness feeling dizzy when standing and requiring assistance with standing/walking. Case discussed with Dr Meng. Feels patient could benefit from IV fluids overnight until her symptoms improve. Patient is first trimester and can be admitted to medicine at this time. Case was initially discussed with Dr. Jolley who did not feel comfortable admitting patient. Case was discussed with Zara from [facility] who did agree to admit with OBGYN consult. Consult placed to patient obgyn Dr Ramos. - Lab Data Result diagrams: 01/26/21 21:56 01/26/21 21:56 Lab Results 01/26/21 01/26/21 01/26/21 Range/Units 21:56 21:56 21:56 WBC 8.7 (3.8-10.6) k/uL RBC 4.59 (3.80-5.40) m/uL Hgb 12.0 (11.4-16.0) gm/dL Hct 37.6 (34.0-46.0) % MCV 81.9 (80.0-100.0) fL MCH 26.2 (25.0-35.0) pg MCHC 31.9 (31.0-37.0) g/dL RDW 16.2 H (11.5-15.5) % Plt Count 289 (150-450) k/uL MPV 7.5 Neutrophils % 67 % Lymphocytes % 27 % Monocytes % 4 % Eosinophils % 1 % Basophils % 0 % Neutrophils # 5.9 (1.3-7.7) k/uL Lymphocytes # 2.3 (1.0-4.8) k/uL Monocytes # 0.4 (0-1.0) k/uL Eosinophils # 0.0 (0-0.7) k/uL Basophils # 0.0 (0-0.2) k/uL Hypochromasia Slight Anisocytosis Slight Sodium 135 L (137-145) mmol/L Potassium 4.0 (3.5-5.1) mmol/L Chloride 104 (98-107) mmol/L Carbon Dioxide 22 (22-30) mmol/L Anion Gap 9 mmol/L BUN 9 (7-17) mg/dL Creatinine 0.62 (0.52-1.04) mg/dL Est GFR (CKD-EPI)AfAm >90 (>60 ml/min/1.73 sqM) Est GFR (CKD-EPI)NonAf >90 (>60 ml/min/1.73 sqM) Glucose 84 (74-99) mg/dL Calcium 9.3 (8.4-10.2) mg/dL Total Bilirubin 0.2 (0.2-1.3) mg/dL AST 11 L (14-36) U/L ALT 10 (4-34) U/L Alkaline Phosphatase 64 (38-126) U/L Total Protein 6.7 (6.3-8.2) g/dL Albumin 3.8 (3.5-5.0) g/dL Amylase 41 (30-110) U/L Lipase 79 (23-300) U/L Urine Color Yellow Urine Appearance Cloudy H (Clear) Urine pH 6.0 (5.0-8.0) Ur Specific [place] 1.036 H (1.001-1.035) Urine Protein 1+ H (Negative) Urine Glucose (UA) Negative (Negative) Urine Ketones 4+ H (Negative) Urine Blood Trace H (Negative) Urine Nitrite Negative (Negative) Urine Bilirubin Negative (Negative) Urine Urobilinogen 2.0 (<2.0) mg/dL Ur Leukocyte Esterase Small H (Negative) Urine WBC 8 H (0-5) /hpf Ur Squamous Epith Cells 18 H (0-4) /hpf Urine Bacteria Occasional H (None) /hpf Urine Mucus Many H (None) /hpf Disposition Clinical Impression: Nausea & vomiting, Dizziness Disposition: ADMITTED IP TO THIS HOSP Is patient prescribed a controlled substance at d/c from ED?: No Referrals: Markel Jolely MD [Primary Care Provider] - 1-2 days Time of Disposition: 01:35
[2021-01-27] MEDS ORDERED: ONDANSETRON 4 MG/2 ML VIAL IVP STA (00:10)
[2021-01-27] MEDS ORDERED: NALOXONE 0.4 MG/ML 1 ML VIAL IV PRN (01:35)
[2021-01-27] MEDS ORDERED: ONDANSETRON 4 MG/2 ML VIAL IVP PRN (01:35)
[2021-01-27] MEDS: SODIUM CHLORIDE 0.9% 1,000 ML IV SCH ×3 (02:04→17:43)
[2021-01-27] MEDS ORDERED: ACETAMINOPHEN TAB 325 MG TAB PO STA (03:18)
[2021-01-27] MEDS: diphenhydrAMINE 50 MG/ML 1 ML VIAL IVP PRN ×2 (04:02→11:51)
[2021-01-27] MEDS: METOCLOPRAMIDE 5 MG/ML 2 ML VIAL IVP PRN ×2 (04:02→11:52)
[2021-01-27] MEDS: FAMOTIDINE 20 MG/2 ML VIAL IV SCH (20:52)
--- NOTE | 2021-01-27 23:41 | P.HPIM ---
History of Present Illness H&P Date: 01/27/21 Chief Complaint: N/V Patient is a 21-year-old female with known history of depression, prior history of smoking and currently 8-week intrauterine presents to ER with complaints of nausea vomiting and near syncopal episode. is at bedside. Patient states that she has been having nausea and vomiting for the past 3 weeks. Symptoms get worse by afternoon and unable to tolerate oral diet. Patient was seen by her JTAC physician and was prescribed antiemetics and her home Zofran. Today while she was in the bathroom patient felt very weak and was able to fall. Patient's boyfriend was able to hold her. Due to worsening symptoms and generalized weakness patient was brought to the hospital for evaluation. Patient was also seen at [facility]. Denies any complaints of abdominal pain. No diarrhea. No chest pain or shortness of breath. Patient has been afebrile. on admission, Blood pressure was 99/58 pulse is 71 and respirations 16 pulse ox 99% on room air. WBC 8.7 hemoglobin 12.0 platelets 289 Sodium 135 potassium 4.0 chloride 104 BUN 9 and creatinine 0.62 urinalysis showed cloudy with 4+ ketones and small leukocyte esterase. WBC is 8 and occasional bacteria. Review of Systems Constitutional: Patient denies any fever or chills . No generalized weakness or weight loss. Abdomen: Patient does have nausea and vomiting. No abdominal pain or diarrhea. Cardiovascular: Patient denies any chest pain or short of breath no palpitations. Respiratory: patient denied any cough or sputum production. No shortness of breath Neurologic: Patient denied any numbness or tingling headache. Musculoskeletal: Patient denies any complaints of joint swelling or deformity. Skin: Negative Psychiatric: Negative Endocrine: No heat or cold intolerance. No recent weight gain. Genitourinary: No dysuria or hematuria. All other 14 point ROS negative except the above Past Medical History Past Medical History: No Reported History Additional Past Medical History / Comment(s): few bouts of N/V & diarrhea recently, has been told probably viral History of Any Multi-Drug Resistant Organisms: None Reported Past Surgical History: Appendectomy, Bladder Surgery, Section Additional Past Surgical History / Comment(s): Was really young when she had bladder surgery, unsure. C/S x2. Past Anesthesia/Blood Transfusion Reactions: No Reported Reaction Past Psychological History: Depression Smoking Status: Former smoker Past Alcohol Use History: None Reported Past Drug Use History: None Reported Additional Drug Use History / Comment(s): Pt. states she is unsure when she started and stopped smoking but states it was less than a year that she smoked cigarettes. - Past Family History Mother Family Medical History: No Reported History Medications and Allergies Home Medications Medication Instructions Recorded Confirmed Type Ondansetron Odt [Zofran Odt] 4 mg PO Q12HR PRN 01/18/21 01/26/21 History Aspirin EC [Ecotrin] 325 mg PO BID PRN 01/26/21 01/26/21 History Cephalexin [Keflex] 500 mg PO DIRECTED 01/26/21 01/26/21 History Allergies Allergy/AdvReac Type Severity Reaction Status Date / Time No Known Allergies Allergy Verified 01/26/21 21:38 Physical Exam Vitals: Vital Signs Temp Pulse Pulse Resp BP BP Pulse Ox 01/27/21 08:30 97.9 F 87 20 96/58 98 01/27/21 02:41 98.1 F 69 18 102/56 99 01/27/21 02:06 64 15 111/78 98 01/26/21 20:03 98.4 F 71 16 99/58 99 Intake and Output 01/26/21 01/27/21 01/27/21 22:59 06:59 14:59 Intake Total 100 Output Total 350 Balance 100 -350 Intake: Oral 100 Output: Urine 350 Other: Voiding Method Toilet Toilet # Voids 1 Weight 110.223 kg 110.223 kg PHYSICAL EXAMINATION: Patient is lying in the bed comfortably, no acute distress, awake alert and oriented.. HEENT: Normocephalic. Neck is supple. Pupils reactive. Nostrils clear. Oral cavity is moist. Ears reveal no drainage. Neck reveals no JVD, carotid bruits, or thyromegaly. CHEST EXAMINATION: Trachea is central. Symmetrical expansion. Lung suazo clear to auscultation and percussion. CARDIAC: Normal S1, S2 with no gallops. No murmurs ABDOMEN: Soft. Bowel sounds normal. No organomegaly. No abdominal bruits. Extremities: reveal no edema. No clubbing or cyanosis Neurologically awake, alert, oriented x3 with well-coordinated movements. No focal deficits noted Skin: No rash or skin lesions. Psychiatric: Coperative. Nonsuicidal Musculoskeletal: No joint swelling or deformity. Normal range of motion. Results CBC & Chem 7: 01/26/21 21:56 01/26/21 21:56 Labs: Abnormal Lab Results - Last 24 Hours (Table) 01/26/21 01/26/21 01/26/21 Range/Units 21:56 21:56 21:56 RDW 16.2 H (11.5-15.5) % Sodium 135 L (137-145) mmol/L AST 11 L (14-36) U/L Urine Appearance Cloudy H (Clear) Ur Specific [place] 1.036 H (1.001-1.035) Urine Protein 1+ H (Negative) Urine Ketones 4+ H (Negative) Urine Blood Trace H (Negative) Ur Leukocyte Esterase Small H (Negative) Urine WBC 8 H (0-5) /hpf Ur Squamous Epith Cells 18 H (0-4) /hpf Urine Bacteria Occasional H (None) /hpf Urine Mucus Many H (None) /hpf Thrombosis Risk Factor Assmnt - Choose All That Apply Any of the Below Risk Factors Present?: Yes Each Factor Represents 1 point: Obesity (BMI >25), or Other Risk Factors: No Each Risk Factor Represents 3 Points: Family history of DVT/PE Other congenital or acquired thrombophilia - If yes, enter type in comment: Yes Thrombosis Risk Factor Assessment Total Risk Factor Score: 5 Thrombosis Risk Factor Assessment Level: High Risk Assessment and Plan Assessment: Intractable nausea and vomiting secondary to hyperemesis gravidarum. Generalized weakness and near syncopal episode Hypotension 8-week intrauterine . Depression Previous history of smoking DVT prophylaxis with SCDs Plan: Patient will be continued on IV hydration with normal saline. Continue with symptomatic management for nausea. Pepcid IV 20 mg twice daily. Vitamin B6 lori l be added as an outpatient. Monitor electrolytes and continue to follow closely. JTAC service was consulted. Follow-up urine culture report.
[2021-01-28] MEDS: SODIUM CHLORIDE 0.9% 1,000 ML IV SCH ×3 (01:56→19:30)
[2021-01-28] MEDS: diphenhydrAMINE 50 MG/ML 1 ML VIAL IVP PRN ×2 (03:26→18:00)
[2021-01-28] MEDS: METOCLOPRAMIDE 5 MG/ML 2 ML VIAL IVP PRN ×3 (03:26→22:05)
[2021-01-28] MEDS: FAMOTIDINE 20 MG/2 ML VIAL IV SCH ×2 (08:42→22:05)
--- NOTE | 2021-01-28 08:56 | P.OBCN ---
History of Present Illness Consult date: 01/28/21 Requesting physician: Gladys Madison Reason for consult: early problem Chief complaint: Dehydration, weakness History of present illness: This is a 21-year-old female 4 para 2 with last menstrual period of 11/25/2020, estimated date of confinement of 09/01/2021, estimated gestational age of 9 weeks, who presented to the hospital yesterday for weakness and near syncopal episode. She has had nausea and vomiting and had been using Zofran with little success. Upon arrival to the emergency room she was found to have 4+ ketones. She was admitted and given IV hydration along with IV Pepcid and Reglan. Today she states she has been able to hold down food and only threw up apple juice one time. She feels much better this morning. Obstetrical history: . History of 2 deliveries and 1 miscarriage. Gynecologic history: No history of sexual transmitted diseases. Social history: She is single but has a steady boyfriend. She is unemployed. Review of Systems Constitutional: Reports fatigue, Reports weakness Cardiovascular: Denies chest pain, Denies shortness of breath Respiratory: Denies cough Gastrointestinal: Reports nausea, Reports vomiting, Denies abdominal pain Genitourinary: Reports , Denies pelvic pain Musculoskeletal: Reports frequent falls, Reports muscle weakness Integumentary: Denies pruritus, Denies rash Past Medical History Additional Past Medical History / Comment(s): Hyperemesis History of Any Multi-Drug Resistant Organisms: None Reported Past Surgical History: Appendectomy, Bladder Surgery, Section Additional Past Surgical History / Comment(s): Was really young when she had bladder surgery, unsure. C/S x2. Past Anesthesia/Blood Transfusion Reactions: No Reported Reaction Past Psychological History: Depression Smoking Status: Former smoker Past Alcohol Use History: None Reported Past Drug Use History: None Reported Additional Drug Use History / Comment(s): Pt. states she is unsure when she started and stopped smoking but states it was less than a year that she smoked cigarettes. - Past Family History Mother Family Medical History: No Reported History Medications and Allergies Home Medications Medication Instructions Recorded Confirmed Type Ondansetron Odt [Zofran Odt] 4 mg PO Q12HR PRN 01/18/21 01/26/21 History Aspirin EC [Ecotrin] 325 mg PO BID PRN 01/26/21 01/26/21 History Cephalexin [Keflex] 500 mg PO DIRECTED 01/26/21 01/26/21 History Allergies Allergy/AdvReac Type Severity Reaction Status Date / Time No Known Allergies Allergy Verified 01/26/21 21:38 Exam Osteopathic Statement: *. No significant issues noted on an osteopathic structural exam other than those noted in the History and Physical/Consult. Vital Signs Temp Pulse Resp BP Pulse Ox 01/28/21 08:20 98.4 F 74 16 108/72 98 01/28/21 01:49 97.9 F 79 16 95/63 98 01/27/21 19:47 98 F 83 18 96/64 99 01/27/21 14:11 97.9 F 85 18 100/63 97 Intake and Output 01/27/21 01/28/21 01/28/21 22:59 06:59 14:59 Intake Total 1560 Output Total 400 900 Balance -400 660 Intake: Intake, IV Titration 1560 Amount Sodium Chloride 0.9% 1, 1560 000 ml @ 130 mls/hr IV . Q7H42M [facility] Rx#:[id number] Output: Urine 400 900 Other: Voiding Method Toilet # Voids 1 1 HEENT: Within normal limits Heart: Regular rate and rhythm Lungs: Clear to auscultation bilaterally Abdomen: Extremities: Negative Homans Results Result Diagrams: 01/26/21 21:56 01/26/21 21:56 Assessment and Plan (1) Hyperemesis Current Visit: Yes Status: Acute Code(s): R11.10 - VOMITING, UNSPECIFIED SNOMED Code(s): 845144920 (2) Dehydration during Current Visit: No Status: Acute Code(s): O26.899 - OTH RELATED CONDITIONS, UNSPECIFIED TRIMESTER; E86.0 - DEHYDRATION SNOMED Code(s): 88037458 Plan: Patient is doing much better this morning. From an obstetrical standpoint, once she is cleared medically, she may be discharged home on Reglan and Pepcid. She will follow up with me at her regularly scheduled appointment in 1 month. She is advised to call the office if she has any further questions or concerns prior to that appointment time. She is encouraged to continue using Popsicles as needed for hydration.
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
[2021-01-28] MEDS ORDERED: diphenhydrAMINE 25 MG CAP PO PRN (13:11)
[2021-01-28] MEDS: SERTRALINE 25 MG TAB PO SCH (14:03)
--- NOTE | 2021-01-29 01:12 | P.PN ---
Subjective Progress Note Date: 01/28/21 Patient is a 21-year-old female with known history of depression, prior history of smoking and currently 8-week intrauterine presents to ER with complaints of nausea vomiting and near syncopal episode. is at bedside. Patient states that she has been having nausea and vomiting for the past 3 weeks. Symptoms get worse by afternoon and unable to tolerate oral diet. Patient was seen by her DOUBLE END CHUCKING MACHINE OPERATOR physician and was prescribed antiemetics and her home Zofran. Today while she was in the bathroom patient felt very weak and was able to fall. Patient's boyfriend was able to hold her. Due to worsening symptoms and generalized weakness patient was brought to the hospital for evaluation. Patient was also seen at [facility]. Denies any complaints of abdominal pain. No diarrhea. No chest pain or shortness of breath. Patient has been afebrile. on admission, Blood pressure was 99/58 pulse is 71 and respirations 16 pulse ox 99% on room air. WBC 8.7 hemoglobin 12.0 platelets 289 Sodium 135 potassium 4.0 chloride 104 BUN 9 and creatinine 0.62 urinalysis showed cloudy with 4+ ketones and small leukocyte esterase. WBC is 8 and occasional bacteria. 01/28/2021 Patient is currently resting in the bed comfortably. No complaints of vomiting. Nausea is much improved. Apparently patient has been depressed for the past 2 months. Depression score was 21 psychiatry was consulted. Patient was started on Zoloft. Continue antiemetics and encourage oral intake. No complaints of chest pain or shortness of breath. No headache or dizziness or lightheadedness. Current medications reviewed. Objective - Vital Signs Vital signs: Vital Signs Temp 98.2 F 01/28/21 19:00 Pulse 72 01/28/21 19:00 Resp 18 01/28/21 19:00 BP 106/69 01/28/21 19:00 Pulse Ox 99 01/28/21 19:00 Intake & Output 01/28/21 01/28/21 01/29/21 06:59 18:59 06:59 Intake Total 1560 100 Output Total 1100 Balance 460 100 Intake: Intake, IV Titration 1560 Amount Sodium Chloride 0.9% 1, 1560 000 ml @ 130 mls/hr IV . Q7H42M [facility] Rx#:[id number] Oral 100 Output: Urine 1100 Other: Voiding Method Toilet Toilet # Voids 1 # Bowel Movements 1 # Emes[place] 1 - Exam PHYSICAL EXAMINATION: Patient is lying in the bed comfortably, no acute distress, awake alert and oriented.. HEENT: Normocephalic. Neck is supple. Pupils reactive. Nostrils clear. Oral cavity is moist. Ears reveal no drainage. Neck reveals no JVD, carotid bruits, or thyromegaly. CHEST EXAMINATION: Trachea is central. Symmetrical expansion. Lung suazo clear to auscultation and percussion. CARDIAC: Normal S1, S2 with no gallops. No murmurs ABDOMEN: Soft. Bowel sounds normal. No organomegaly. No abdominal bruits. Extremities: reveal no edema. No clubbing or cyanosis Neurologically awake, alert, oriented x3 with well-coordinated movements. No focal deficits noted Skin: No rash or skin lesions. Psychiatric: Coperative. Nonsuicidal Musculoskeletal: No joint swelling or deformity. Normal range of motion. - Labs CBC & Chem 7: 01/26/21 21:56 01/26/21 21:56 Labs: Microbiology - Last 24 Hours (Table) 01/28/21 Unknown Urine Culture - Preliminary Urine,Clean Catch Assessment and Plan Assessment: Intractable nausea and vomiting secondary to hyperemesis gravidarum. Generalized weakness and near syncopal episode Depression Hypotension 8-week intrauterine . Depression Previous history of smoking DVT prophylaxis with SCDs Plan: Patient will be continued on IV hydration with normal saline. Continue with symptomatic management for nausea. Pepcid IV 20 mg twice daily. Vitamin B6 wi ll be added as an outpatient. Monitor electrolytes and continue to follow closely. DOUBLE END CHUCKING MACHINE OPERATOR service is following..Patient was started on Zoloft as per psychiatric conditions. Follow-up urine culture report.
[2021-01-29] MEDS: SODIUM CHLORIDE 0.9% 1,000 ML IV SCH ×3 (02:57→17:30)
[2021-01-29] MEDS: FAMOTIDINE 20 MG/2 ML VIAL IV SCH ×2 (09:18→20:46)
[2021-01-29] MEDS: METOCLOPRAMIDE 5 MG/ML 2 ML VIAL IVP PRN ×3 (09:19→20:46)
[2021-01-29] MEDS: SERTRALINE 25 MG TAB PO SCH (12:43)
--- NOTE | 2021-01-29 14:46 | P.PN ---
Subjective Progress Note Date: 01/29/21 Patient is a 21-year-old female with known history of depression, prior history of smoking and currently 8-week intrauterine presents to ER with complaints of nausea vomiting and near syncopal episode. is at bedside. Patient states that she has been having nausea and vomiting for the past 3 weeks. Symptoms get worse by afternoon and unable to tolerate oral diet. Patient was seen by her ASSEMBLER ENGINE physician and was prescribed antiemetics and her home Zofran. Today while she was in the bathroom patient felt very weak and was able to fall. Patient's boyfriend was able to hold her. Due to worsening symptoms and generalized weakness patient was brought to the hospital for evaluation. Patient was also seen at [facility]. Denies any complaints of abdominal pain. No diarrhea. No chest pain or shortness of breath. Patient has been afebrile. on admission, Blood pressure was 99/58 pulse is 71 and respirations 16 pulse ox 99% on room air. WBC 8.7 hemoglobin 12.0 platelets 289 Sodium 135 potassium 4.0 chloride 104 BUN 9 and creatinine 0.62 urinalysis showed cloudy with 4+ ketones and small leukocyte esterase. WBC is 8 and occasional bacteria. 01/28/2021 Patient is currently resting in the bed comfortably. No complaints of vomiting. Nausea is much improved. Apparently patient has been depressed for the past 2 months. Depression score was 21 psychiatry was consulted. Patient was started on Zoloft. Continue antiemetics and encourage oral intake. No complaints of chest pain or shortness of breath. No headache or dizziness or lightheadedness. 01/29/2021 Patient is seen and evaluated in follow-up this morning continues to be vomiting and states that it is mostly bile. Patient also states that she ate some shlomo cracker this morning and held it down shortly and per nursing staff continue to vomit approximately 1 hour later. Patient continues to be weak and using standby assistance to the bathroom. Encouraged increased activity as tolerated and attempting to walk up in the halls. Continue with anti-emetics and encourage small frequent bites of crackers and bland diet. Patient is maintained on IV fluids and will continue for now. Psychiatry following as well and patient was recently started on Zoloft. Patient denies any thoughts of wanting to harm herself or others. Review of systems: Constitutional: Reports generalized fatigue, no reports of fever, or chills Cardiovascular: No reports of chest pain or palpitations Respiratory: No reports of shortness of breath or cough GI: Reports continued nausea and vomiting : No reports of dysuria or retention Neurovascular: Reports generalized weakness All medications have been reviewed Objective - Vital Signs Vital signs: Vital Signs Temp 98.2 F 01/29/21 08:09 Pulse 85 01/29/21 08:09 Resp 20 01/29/21 08:09 BP 113/72 01/29/21 08:09 Pulse Ox 98 01/29/21 08:09 Intake & Output 01/28/21 01/29/21 01/29/21 18:59 06:59 18:59 Intake Total 100 Output Total 350 Balance 100 -350 Intake: Oral 100 Output: Emesis 350 Other: Voiding Method Toilet # Voids 1 1 1 # Bowel Movements 1 # Emeses 1 - Exam Patient is lying in the bed comfortably, no acute distress, awake alert and oriented.. HEENT: Normocephalic. Neck is supple. Pupils reactive. Nostrils clear. Oral cavity is moist. Ears reveal no drainage. Neck reveals no JVD, carotid bruits, or thyromegaly. CHEST EXAMINATION: Trachea is central. Symmetrical expansion. Lung suazo clear to auscultation and percussion. CARDIAC: Normal S1, S2 with no gallops. No murmurs ABDOMEN: Soft. Bowel sounds normal. No organomegaly. No abdominal bruits. Extremities: reveal no edema. No clubbing or cyanosis Neurologically awake, alert, oriented x3 with well-coordinated movements. No focal deficits noted Skin: No rash or skin lesions. Psychiatric: Cooperative. Non-suicidal Musculoskeletal: No joint swelling or deformity. Normal range of motion. - Labs CBC & Chem 7: 01/26/21 21:56 01/26/21 21:56 Labs: Microbiology - Last 24 Hours (Table) 01/28/21 Unknown Urine Culture - Preliminary Urine,Clean Catch Assessment and Plan Assessment: Intractable nausea and vomiting secondary to hyperemesis gravidarum. Generalized weakness and near syncopal episode Depression Hypotension 8-week intrauterine . Depression Previous history of smoking DVT prophylaxis with SCDs GI prophylaxis: Pepcid Full code Plan: Patient will be continued on IV hydration with normal saline. Continue with symptomatic management for nausea. Pepcid IV 20 mg twice daily. Vitamin B6 will be added as an outpatient. Monitor electrolytes and continue to follow closely. ASSEMBLER ENGINE evaluated the patient recommending anti-emetics along with Pepcid and outpatient follow-up as scheduled next month. Psychiatry also following and evaluated the patient started on Zoloft. Patient denies any suicidal ideation or thoughts of harming self or others. Patient continues to be nauseated with vomiting noted and encouraged continued oral intake of small bites of crackers more frequently throughout the day as tolerated. Encouraged increased activity as tolerated and walking the halls. Urine culture pending at this time. Further recommendations to follow based on the clinical course of the patient.
[2021-01-29] MEDS: diphenhydrAMINE 50 MG/ML 1 ML VIAL IVP PRN ×2 (14:52→20:46)
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
[2021-01-30] MEDS: SODIUM CHLORIDE 0.9% 1,000 ML IV SCH ×4 (00:22→20:23)
[2021-01-30] MEDS: FAMOTIDINE 20 MG/2 ML VIAL IV SCH ×2 (08:32→20:23)
[2021-01-30] MEDS: SERTRALINE 25 MG TAB PO SCH (08:32)
[2021-01-30] MEDS: diphenhydrAMINE 50 MG/ML 1 ML VIAL IVP PRN ×2 (08:33→19:05)
[2021-01-30] MEDS: METOCLOPRAMIDE 5 MG/ML 2 ML VIAL IVP PRN ×2 (08:33→19:05)
[2021-01-30] MEDS ORDERED: AMPICILLIN 1,000 MG in SODIUM CHLORIDE 0.9% 50 ML IVPB SCH (11:00)
--- NOTE | 2021-01-30 12:54 | P.PN ---
Subjective Progress Note Date: 01/30/21 Principal diagnosis: Hyperemesis Patient was scheduled to go home on the day saw her last. Yesterday she started having more nausea and vomiting. She was vomiting a lot of bile also. She is currently having some diarrhea since the ampicillin was started. Abdominal pain is better. She also has been feeling still dizzy when she first gets up. She states that it with the Reglan and Benadryl given together, she does get a little more time in between her vomiting episodes. She was also diagnosed with a urinary tract infection based on urine culture. Ampicillin was just started. Objective - Vital Signs Vital signs: Vital Signs Temp 98.0 F 01/30/21 08:05 Pulse 76 01/30/21 08:05 Resp 18 01/30/21 08:05 BP 99/62 01/30/21 08:05 Pulse Ox 97 01/30/21 08:05 Intake & Output 01/29/21 01/30/21 01/30/21 18:59 06:59 18:59 Intake Total 1560 Output Total 450 Balance -450 1560 Intake: Oral 1560 Output: Emesis 450 Other: # Voids 1 3 1 # Bowel Movements 1 # Emeses 1 1 1 - Constitutional General appearance: Present: no acute distress - Gastrointestinal General gastrointestinal: Absent: tenderness - Labs CBC & Chem 7: 01/26/21 21:56 01/26/21 21:56 Labs: Microbiology - Last 24 Hours (Table) 01/28/21 Unknown Urine Culture - Preliminary Urine,Clean Catch Group D Enterococcus Gram Neg Bacilli Assessment and Plan Assessment: Hyperemesis gravidarum Urinary tract infection (1) Hyperemesis Current Visit: Yes Status: Acute Code(s): R11.10 - VOMITING, UNSPECIFIED SNOMED Code(s): 894987842 (2) Dehydration during Current Visit: No Status: Acute Code(s): O26.899 - OTH RELATED CONDITIONS, UNSPECIFIED TRIMESTER; E86.0 - DEHYDRATION SNOMED Code(s): 80122393 Plan: Will switch from ampicillin to IV to see if this will help with her diarrhea. Will also add Ensure with her meals. Will continue to follow.
[2021-01-31] MEDS: diphenhydrAMINE 50 MG/ML 1 ML VIAL IVP PRN ×4 (02:35→20:29)
[2021-01-31] MEDS: METOCLOPRAMIDE 5 MG/ML 2 ML VIAL IVP PRN ×4 (02:36→20:29)
[2021-01-31] MEDS: SODIUM CHLORIDE 0.9% 1,000 ML IV SCH ×3 (05:57→20:32)
[2021-01-31] MEDS: FAMOTIDINE 20 MG/2 ML VIAL IV SCH ×2 (08:41→20:29)
[2021-01-31] MEDS: SERTRALINE 25 MG TAB PO SCH (09:57)
--- NOTE | 2021-01-31 12:05 | P.PN ---
Progress Note - Text Progress Note Date: 01/31/21 Patient states she is still vomiting up almost everything she eats. However she has been able to hold some things down for at least an hour to an hour and a half before vomiting up. She denies feeling dizzy anymore. I will order a ultrasound of her gallbladder for tomorrow morning and recheck liver enzymes and bilirubin tomorrow.she denies any further diarrhea. She is currently on IV piggyback every 8 hours for urinary tract infection. I would recommend continuing this for a total of 48 hours and then stopping. This way she will not need to take oral antibiotics after this is completed. Will continue to follow.
--- NOTE | 2021-01-31 12:20 | CONS ---
CONSULTATION DATE OF SERVICE: 01/30/2021 PURPOSE FOR CONSULTATION: Evaluate for depression. INTERVAL HISTORY: The patient has been doing fair. She had a quiet day yesterday. She spends most of the time in her room. I had encouraged her yesterday to work with staff to get up and do a little more walking so that she can be clear that she is steady on her feet, as she was having falls at home, possibly related to dehydration. She said she slept okay last night. Today she says she is feeling better. She notes that her stomach problems seem to be a little less. She says that she has a better outlook about her situation and she is hopeful that she can be discharged possibly later today or tomorrow. She has not had problems with the start of Zoloft. Overall she said her mood is improved. She notes that she has made contact with family to keep up with how things are going with her . When I talked to her today, she was sitting half up in bed. She gave fairly good eye contact. Her thoughts were clear. She seemed to have a more relaxed manner than when I saw her yesterday. She had no specific complaints or concerns. Her thoughts were clear. ASSESSMENT: I will continue the current treatment plan. It is reasonable for the patient to continue on Zoloft 25 mg a day. I would give her 3-4 weeks on Zoloft, and if she is not showing continued improvement in regard to depression issues, it would be reasonable to look at titrating up on the medication. I again strongly encouraged the patient to look into information regarding vaccination for Covid virus, especially as it relates to her and breast-feeding. I anticipate the patient being discharged in the next few days. PHUONG / YOUN: [id number] /
[2021-01-31] MEDS ORDERED: LEVOFLOXACIN 250MG-D5W PMX 250 MG in DEXTROSE/WATER 1 50ML.BAG IVPB SCH (17:00)
--- NOTE | 2021-01-31 22:16 | CONS ---
CONSULTATION DATE OF SERVICE: 01/31/2021 PURPOSE FOR CONSULTATION: Evaluate for depression. INTERVAL HISTORY: Patient has been doing fairly well. I reviewed issues with the nurse and then met with the patient. Nursing indicated that patient has been doing better in terms of GI issues. She has continued with some vomiting, though overall there has been a decrease in that regard. She is managing to hold down food. She also has been able hold down her medications, including Zoloft. For the patient's part, she said she had a better outlook today and that on a day-to-day basis things seem to be getting better for her. She has been up and walking in the halls without difficulty. She slept fairly well last night. When I saw her today, she was lying in bed with her head up. She gave a good eye contact. She smiled and was fairly animated. She seemed to be in a good mood and did not appear to be distressed. ASSESSMENT: I will continue the current diagnosis and treatment plan. The patient will continue Zoloft 25 mg a day. I reviewed issues in regard to literature relating to the use of Zoloft in breast-feeding. I encouraged the patient towards getting a Covid vaccination and gave her a handout from the CDC and encouraged her to do some followup reading in that regard relating to the importance of the Covid vaccination. At this point I will not continue to follow. It does appear that the patient is likely to be discharged with the next day or two. My recommendation would be for her to continue on Zoloft 25 mg a day. If further issues arise, please re-consult Psychiatry. PHUONG / YOUN: [id number] /
[2021-02-01] MEDS: SODIUM CHLORIDE 0.9% 1,000 ML IV SCH ×2 (01:32→08:19)
[2021-02-01 01:35] VITALS: RESP 16
[2021-02-01 05:44] LABS: Anisocytosis Slight; Basophils % (A) 0 %; Eosinophils # (A) 0.1 k/uL (0-0.7); Eosinophils % (A) 1 %; HCT 34.4 % (34.0-46.0); HGB 11.3 gm/dL (11.4-16.0); Hypochromasia Slight; Lymphocytes # (A) 2.3 k/uL (1.0-4.8); Lymphocytes % (A) 35 %; MCH 27.4 pg (25.0-35.0); MCHC 32.9 g/dL (31.0-37.0); MCV 83.3 fL (80.0-100.0); Mean Platelet Volume 7.5; Monocytes # (A) 0.3 k/uL (0-1.0); Monocytes % (A) 5 %; Neutrophils # (A) 3.7 k/uL (1.3-7.7); Neutrophils % (A) 57 %; Platelet Count 246 k/uL (150-450); RBC 4.13 m/uL (3.80-5.40); RDW 16.8 % (11.5-15.5); WBC 6.5 k/uL (3.8-10.6)
[2021-02-01 06:01] LABS: ALT 7 U/L (4-34); AST 10 U/L (14-36); African American GFR (CKD) >90 (>60 ml/min/1.73 sqM); Albumin 3.2 g/dL (3.5-5.0); Alkaline Phosphatase 50 U/L (38-126); Anion Gap 6 mmol/L; Blood Urea Nitrogen 2 mg/dL (7-17); Calcium 8.9 mg/dL (8.4-10.2); Carbon Dioxide 21 mmol/L (22-30); Chloride 107 mmol/L (98-107); Glucose 78 mg/dL (74-99); Non-African American GFR(CKD) >90 (>60 ml/min/1.73 sqM); Potassium 3.9 mmol/L (3.5-5.1); Sodium 134 mmol/L (137-145); Total Bilirubin 0.2 mg/dL (0.2-1.3); Total Protein 5.8 g/dL (6.3-8.2)
[2021-02-01] MEDS: METOCLOPRAMIDE 5 MG/ML 2 ML VIAL IVP PRN ×2 (06:20→14:34)
--- NOTE | 2021-02-01 08:17 | P.PN ---
Progress Note - Text Progress Note Date: 02/01/21 Patient is doing much better today. She is only had a few episodes of bile emesis with no food in it. She is holding food down for longer periods of time. She denies any dizziness or lightheadedness now. Her urine cultures were both sensitive to levofloxacin and therefore this was started yesterday. After 1 more dose of IV antibiotic today, I feel she can go home as long as her gallbladder ultrasound is normal. She has an appointment to see me already scheduled. She will be sent home on Reglan and can continue Benadryl and/or nondrowsy antihistamine. I will sign off at this point. Please reconsult if necessary.
[2021-02-01] MEDS: SERTRALINE 25 MG TAB PO SCH (08:18)
[2021-02-01] MEDS: FAMOTIDINE 20 MG/2 ML VIAL IV SCH (08:18)
[2021-02-01 08:32] VITALS: BP 108/71; PULSE 80; TEMP 98.7
--- NOTE | 2021-02-01 08:54 | US ---
EXAMINATION TYPE: US gallbladder DATE OF EXAM: 02/01/2021 COMPARISON: NONE CLINICAL HISTORY: Persistent nausea vomiting in . 9wks with N/V, large body habit us EXAM MEASUREMENTS: Liver Length: 15.7 cm Gallbladder Wall: 0.3 cm CBD: 0.3 cm Right Kidney: 11.1 x 4.7 x 4.8 cm Pancreas: wnl in its visualized portions Liver: wnl Gallbladder: wnl Evidence for sonographic Schultz's sign: no CBD: wnl Right Kidney: wnl IMPRESSION: No significant abnormalities evident
== END 2021-02-01 16:20 | disposition home or self-care (01) | DRG 832 ==
LOC: EC 19:08 → 6PED 01-27 00:47 → OBSVTOIN 01-29 15:05
PROVIDERS: ADMIT Hospitalist; ATTEND Hospitalist
DX: O21.0 Mild hyperemesis gravidarum (principal); O23.41 Unspecified infection of urinary tract in pregnancy, first trimester; Z87.891 Personal history of nicotine dependence; Z80.6 Family history of leukemia; Z79.899 Other long term (current) drug therapy; Z79.82 Long term (current) use of aspirin; Z3A.09 9 weeks gestation of pregnancy; R29.6 Repeated falls; E86.0 Dehydration; F32.9 Major depressive disorder, single episode, unspecified; O99.281 Endocrine, nutritional and metabolic diseases complicating pregnancy, first trimester; O99.341 Other mental disorders complicating pregnancy, first trimester; O99.891 Other specified diseases and conditions complicating pregnancy; I95.9 Hypotension, unspecified
CPT/HCPCS: 36415; 76705; 80053; 81001; 82150; 83690; 85025; 87077; 87086; 87186; 96361; 96374; 96375; 99285

== ENCOUNTER 2021-02-02 13:15 | Emergency (ER) | payer OTHER ==
[2021-02-02 13:29] VITALS: RESP 18; TEMP 97.9
[2021-02-02] MEDS ORDERED: SODIUM CHLORIDE 0.9% 1,000 ML IV STA (13:33)
[2021-02-02] MEDS ORDERED: METOCLOPRAMIDE 5 MG/ML 2 ML VIAL IVP STA (13:33)
[2021-02-02] MEDS ORDERED: diphenhydrAMINE 50 MG/ML 1 ML VIAL IVP STA (13:33)
[2021-02-02 14:16] LABS: Anisocytosis Slight; Basophils % (A) 0 %; Eosinophils # (A) 0.1 k/uL (0-0.7); Eosinophils % (A) 1 %; HCT 40.7 % (34.0-46.0); HGB 12.8 gm/dL (11.4-16.0); Hypochromasia Slight; Lymphocytes # (A) 1.7 k/uL (1.0-4.8); Lymphocytes % (A) 18 %; MCH 25.9 pg (25.0-35.0); MCHC 31.4 g/dL (31.0-37.0); MCV 82.5 fL (80.0-100.0); Mean Platelet Volume 7.6; Monocytes # (A) 0.3 k/uL (0-1.0); Monocytes % (A) 3 %; Neutrophils # (A) 7.2 k/uL (1.3-7.7); Neutrophils % (A) 77 %; Platelet Count 302 k/uL (150-450); RBC 4.94 m/uL (3.80-5.40); RDW 16.9 % (11.5-15.5); WBC 9.4 k/uL (3.8-10.6)
[2021-02-02 14:20] LABS: Appearance,Urine Clear (Clear); Bilirubin,Urine Negative (Negative); Blood,Urine Negative (Negative); Color,Urine Yellow; Glucose,Urine (UA) Negative (Negative); Ketones,Urine 4+ (Negative); Leukocyte Esterase,Urine Trace (Negative); Mucus,Urine Moderate /hpf; Nitrite,Urine Negative (Negative); PH, Urine 6.5 (5.0-8.0); Protein,Urine 1+ (Negative); RBC,Urine 3 /hpf (0-5); Specific Gravity,Urine 1.026 (1.001-1.035); Squamous Epithelial Cell,Urine 2 /hpf (0-4); WBC,Urine 3 /hpf (0-5)
[2021-02-02 14:28] LABS: ALT 12 U/L (4-34); AST 14 U/L (14-36); African American GFR (CKD) >90 (>60 ml/min/1.73 sqM); Albumin 4.2 g/dL (3.5-5.0); Alkaline Phosphatase 65 U/L (38-126); Amylase 46 U/L (30-110); Anion Gap 9 mmol/L; Blood Urea Nitrogen 6 mg/dL (7-17); Calcium 9.7 mg/dL (8.4-10.2); Carbon Dioxide 20 mmol/L (22-30); Chloride 104 mmol/L (98-107); Glucose 90 mg/dL (74-99); Lipase 95 U/L (23-300); Non-African American GFR(CKD) >90 (>60 ml/min/1.73 sqM); Potassium 3.9 mmol/L (3.5-5.1); Sodium 133 mmol/L (137-145); Total Bilirubin 0.4 mg/dL (0.2-1.3); Total Protein 7.3 g/dL (6.3-8.2)
[2021-02-02] MEDS ORDERED: ONDANSETRON 4 MG/2 ML VIAL IVP STA (15:49)
[2021-02-02] MEDS ORDERED: DEXTROSE 5%-0.9% NACL 1,000 ML IV ONE (16:00)
--- NOTE | 2021-02-02 16:44 | ED ---
Nausea/Vomiting/Diarrhea HPI - General Chief complaint: Nausea/Vomiting/Diarrhea Stated complaint: Nausea Time Seen by Provider: 02/02/21 13:23 Source: patient, EMS, RN notes reviewed Mode of arrival: EMS Limitations: no limitations - History of Present Illness Initial comments: 21-year-old female that presents to emergency department complaining of nausea and vomiting she also notes that she is 10 weeks . She notes that she was recently discharged yesterday from the hospital for UTI with dehydration while being . She was discharged home with nausea medication. Patient did appear to be distressed but no pain while sitting up in bed during exam and interview. She notes that she is just having a hard time keeping anything down. She denied any chest pain shortness of breath headache diarrhea constipation fever fatigue chills. - Related Data Previous Rx's Medication Instructions Recorded Famotidine [Pepcid] 20 mg PO DAILY #30 tablet 01/28/21 Metoclopramide [Reglan] 10 mg PO Q6HR PRN #30 tab 01/28/21 Levofloxacin [Levaquin] 250 mg PO DAILY 5 Days #5 tab 02/01/21 Sertraline [Zoloft] 25 mg PO DAILY 30 Days #30 tab 02/01/21 Allergies Allergy/AdvReac Type Severity Reaction Status Date / Time No Known Allergies Allergy Verified 01/26/21 21:38 Review of Systems ROS Statement: Those systems with pertinent positive or pertinent negative responses have been documented in the HPI. ROS Other: All systems not noted in ROS Statement are negative. Past Medical History Past Medical History: No Reported History Additional Past Medical History / Comment(s): Hyperemesis History of Any Multi-Drug Resistant Organisms: None Reported Past Surgical History: Appendectomy, Bladder Surgery, Section Additional Past Surgical History / Comment(s): Was really young when she had bladder surgery, unsure. C/S x2. Past Anesthesia/Blood Transfusion Reactions: No Reported Reaction Past Psychological History: Anxiety, Depression Smoking Status: Former smoker Past Alcohol Use History: None Reported Past Drug Use History: None Reported - Past Family History Mother Family Medical History: No Reported History General Exam Limitations: no limitations General appearance: alert, in no apparent distress Head exam: Present: atraumatic, normocephalic, normal inspection Eye exam: Present: normal appearance, PERRL, EOMI. Absent: scleral icterus, conjunctival injection, periorbital swelling Neck exam: Present: normal inspection Respiratory exam: Present: normal lung sounds bilaterally. Absent: respiratory distress, wheezes, rales, rhonchi, stridor Cardiovascular Exam: Present: regular rate, normal rhythm, normal heart sounds. Absent: systolic murmur, diastolic murmur, rubs, gallop, clicks GI/Abdominal exam: Present: soft, normal bowel sounds. Absent: distended, tenderness, guarding, rebound, rigid Extremities exam: Present: normal inspection, full ROM, normal capillary refill. Absent: tenderness, pedal edema, joint swelling, calf tenderness Neurological exam: Present: alert, oriented X3 Psychiatric exam: Present: normal affect, normal mood Skin exam: Present: warm, dry, intact, normal color. Absent: rash Course Vital Signs 02/02/21 13:25 Temperature 97.9 F Pulse Rate 88 Respiratory 18 Rate Blood Pressure 127/75 O2 Sat by Pulse 98 Oximetry Medical Decision Making - Medical Decision Making 21-year-old female that started weeks complaining of nausea and vomiting. She denied any abdominal cramping or bleeding. Basic labs, 1 L normal saline, 10 mg of Reglan ordered. Labs unremarkable, urinalysis shows 4+ ketones. D5 normal saline bolus of 1000 mL ordered. Patient states that she is feeling better and wants to go home. Patient also she does have nausea medication home. Case discussed with Dr. Freitas, patient discharge home. - Lab Data Result diagrams: 02/02/21 13:39 02/02/21 13:39 Lab Results 02/02/21 02/02/21 02/02/21 Range/Units 13:39 13:39 13:39 WBC 9.4 (3.8-10.6) k/uL RBC 4.94 (3.80-5.40) m/uL Hgb 12.8 (11.4-16.0) gm/dL Hct 40.7 (34.0-46.0) % MCV 82.5 (80.0-100.0) fL MCH 25.9 (25.0-35.0) pg MCHC 31.4 (31.0-37.0) g/dL RDW 16.9 H (11.5-15.5) % Plt Count 302 (150-450) k/uL MPV 7.6 Neutrophils % 77 % Lymphocytes % 18 % Monocytes % 3 % Eosinophils % 1 % Basophils % 0 % Neutrophils # 7.2 (1.3-7.7) k/uL Lymphocytes # 1.7 (1.0-4.8) k/uL Monocytes # 0.3 (0-1.0) k/uL Eosinophils # 0.1 (0-0.7) k/uL Basophils # 0.0 (0-0.2) k/uL Hypochromasia Slight Anisocytosis Slight Sodium 133 L (137-145) mmol/L Potassium 3.9 (3.5-5.1) mmol/L Chloride 104 (98-107) mmol/L Carbon Dioxide 20 L (22-30) mmol/L Anion Gap 9 mmol/L BUN 6 L (7-17) mg/dL Creatinine 0.44 L (0.52-1.04) mg/dL Est GFR (CKD-EPI)AfAm >90 (>60 ml/min/1.73 sqM) Est GFR (CKD-EPI)NonAf >90 (>60 ml/min/1.73 sqM) Glucose 90 (74-99) mg/dL Calcium 9.7 (8.4-10.2) mg/dL Total Bilirubin 0.4 (0.2-1.3) mg/dL AST 14 (14-36) U/L ALT 12 (4-34) U/L Alkaline Phosphatase 65 (38-126) U/L Total Protein 7.3 (6.3-8.2) g/dL Albumin 4.2 (3.5-5.0) g/dL Amylase 46 (30-110) U/L Lipase 95 (23-300) U/L Urine Color Yellow Urine Appearance Clear (Clear) Urine pH 6.5 (5.0-8.0) Ur Specific [place] 1.026 (1.001-1.035) Urine Protein 1+ H (Negative) Urine Glucose (UA) Negative (Negative) Urine Ketones 4+ H (Negative) Urine Blood Negative (Negative) Urine Nitrite Negative (Negative) Urine Bilirubin Negative (Negative) Urine Urobilinogen 2.0 (<2.0) mg/dL Ur Leukocyte Esterase Trace H (Negative) Urine RBC 3 (0-5) /hpf Urine WBC 3 (0-5) /hpf Ur Squamous Epith Cells 2 (0-4) /hpf Urine Mucus Moderate H (None) /hpf Disposition Clinical Impression: Dehydration, Nausea & vomiting Disposition: HOME SELF-CARE Condition: Stable Instructions (If sedation given, give patient instructions): Acute Nausea and Vomiting (ED) Additional Instructions: Please return to the Emergency Department if symptoms worsen or any other concerns. Follow-up with primary care in 1-2 days. Increase oral fluid intake. Take nausea medication as prescribed. Follow-up with [facility] as planned. Is patient prescribed a controlled substance at d/c from ED?: No Referrals: Markel Jolley MD [Primary Care Provider] - 1-2 days Time of Disposition: 16:44
[2021-02-02 17:13] VITALS: BP 113/61; PULSE 77
== END 2021-02-02 17:12 | disposition home or self-care (01) ==
LOC: EC 13:15
DX: O21.9 Vomiting of pregnancy, unspecified (principal); O99.281 Endocrine, nutritional and metabolic diseases complicating pregnancy, first trimester; E86.0 Dehydration; Z3A.10 10 weeks gestation of pregnancy; F41.9 Anxiety disorder, unspecified; F32.9 Major depressive disorder, single episode, unspecified; Z87.891 Personal history of nicotine dependence
CPT/HCPCS: 36415; 80053; 82150; 83690; 85025; 81001; 99284; 96374; 96375 ×2; 96361 ×2; J1200; J2765; J2405

== ENCOUNTER 2021-02-04 13:17 | Inpatient (IN) | payer OTHER ==
[2021-02-04] MEDS ORDERED: SODIUM CHLORIDE 0.9% 1,000 ML IV STA (14:30)
[2021-02-04] MEDS ORDERED: diphenhydrAMINE 50 MG/ML 1 ML VIAL IVP STA (14:30)
--- NOTE | 2021-02-04 14:36 | ED ---
Nausea/Vomiting/Diarrhea HPI - General Chief complaint: Nausea/Vomiting/Diarrhea Stated complaint: throwing up. Time Seen by Provider: 02/04/21 14:20 Source: patient, family (Significant other), RN notes reviewed, old records reviewed Mode of arrival: ambulatory Limitations: no limitations - History of Present Illness Initial comments: 21-year-old white female, alert and oriented 4, ill-appearing, presents to the emergency room with complaints of persistent vomiting with her for the last 3 days. Patient was seen here on February 02 for the same and given Zofran. Significant other at bedside states that she has urinary tract infection but she has not been able to keep the antibiotics down. She is complaining of shortness of breath from so much vomiting and generalized weakness. She denies any abdominal pain or vaginal bleeding. She did call her [employer] and the nurse told her to come to the hospital for admission. MD complaint: nausea, vomiting -: days(s) (3) Description of Vomiting: bilious Severity scale (1-10): 0 Context: other (Hyperemesis diagnosis) Associated Symptoms: malaise, nausea/vomiting, shortness of breath - Related Data Home Medications Medication Instructions Recorded Confirmed Ondansetron [Zofran ODT] 4 mg PO Q6H PRN 02/04/21 02/04/21 Previous Rx's Medication Instructions Recorded Famotidine [Pepcid] 20 mg PO DAILY #30 tablet 01/28/21 Metoclopramide [Reglan] 10 mg PO Q6HR PRN #30 tab 01/28/21 Levofloxacin [Levaquin] 250 mg PO DAILY 5 Days #5 tab 02/01/21 Sertraline [Zoloft] 25 mg PO DAILY 30 Days #30 tab 02/01/21 Allergies Allergy/AdvReac Type Severity Reaction Status Date / Time No Known Allergies Allergy Verified 02/04/21 15:17 Review of Systems ROS Statement: Those systems with pertinent positive or pertinent negative responses have been documented in the HPI. ROS Other: All systems not noted in ROS Statement are negative. Past Medical History Past Medical History: No Reported History Additional Past Medical History / Comment(s): Hyperemesis History of Any Multi-Drug Resistant Organisms: None Reported Past Surgical History: Appendectomy, Bladder Surgery, Section Additional Past Surgical History / Comment(s): Was really young when she had bladder surgery, unsure. C/S x2. Past Anesthesia/Blood Transfusion Reactions: No Reported Reaction Past Psychological History: Anxiety, Depression Smoking Status: Former smoker Past Alcohol Use History: None Reported Past Drug Use History: None Reported - Past Family History Mother Family Medical History: No Reported History General Exam Limitations: no limitations General appearance: alert, in no apparent distress Head exam: Present: atraumatic, normocephalic, normal inspection Eye exam: Present: normal appearance, PERRL, EOMI. Absent: scleral icterus, conjunctival injection, periorbital swelling ENT exam: Present: normal exam, normal oropharynx, mucous membranes moist Neck exam: Present: normal inspection, full ROM. Absent: tenderness, meningismus, lymphadenopathy Respiratory exam: Present: normal lung sounds bilaterally. Absent: respiratory distress, wheezes, rales, rhonchi, stridor, chest wall tenderness, accessory muscle use, decreased breath sounds, prolonged expiratory Cardiovascular Exam: Present: regular rate, normal rhythm, normal heart sounds. Absent: systolic murmur, diastolic murmur, rubs, gallop, clicks GI/Abdominal exam: Present: soft, normal bowel sounds. Absent: distended, tenderness, guarding, rebound, rigid Extremities exam: Present: normal inspection, full ROM, normal capillary refill. Absent: tenderness, pedal edema, joint swelling, calf tenderness Back exam: Present: normal inspection, full ROM. Absent: tenderness, CVA tenderness (R), CVA tenderness (L), muscle spasm, paraspinal tenderness, vertebral tenderness, rash noted Neurological exam: Present: alert, oriented X3, CN II-XII intact Psychiatric exam: Present: normal affect, normal mood Skin exam: Present: warm, dry, intact, normal color. Absent: rash, cyanosis, diaphoretic, erythema, petechiae, pallor, mottled Course Vital Signs 02/04/21 02/04/21 13:33 16:56 Temperature 98.3 F Pulse Rate 92 68 Respiratory 18 18 Rate Blood Pressure 113/73 103/69 O2 Sat by Pulse 99 100 Oximetry Medical Decision Making - Medical Decision Making WBC count is 9.0 electrolytes are unremarkable. Urine shows 4+ ketones, bacteria and leukocyte esterase. Patient was prescribed antibiotics and the [address] for her urinary tract infection but states has not been unable to keep them down due to persistent vomiting. She feels too weak to go home. Patient will be admitted to the hospital for urinary tract infection and intractable nausea and vomiting. Patient was given IV fluids, antiemetics, and antibiotics for the urinary tract infection. I did contact Dr. Alberto was agreeable to admitting patient to the hospital. Case discussed with Dr. Main - Lab Data Result diagrams: 02/04/21 14:56 02/04/21 14:56 Lab Results 02/04/21 02/04/21 02/04/21 Range/Units 14:56 14:56 15:20 WBC 9.2 (3.8-10.6) k/uL RBC 4.77 (3.80-5.40) m/uL Hgb 12.9 (11.4-16.0) gm/dL Hct 38.1 (34.0-46.0) % MCV 79.9 L (80.0-100.0) fL MCH 27.0 (25.0-35.0) pg MCHC 33.8 (31.0-37.0) g/dL RDW 15.9 H (11.5-15.5) % Plt Count 310 (150-450) k/uL MPV 6.9 Neutrophils % 80 % Lymphocytes % 16 % Monocytes % 3 % Eosinophils % 1 % Basophils % 0 % Neutrophils # 7.3 (1.3-7.7) k/uL Lymphocytes # 1.4 (1.0-4.8) k/uL Monocytes # 0.3 (0-1.0) k/uL Eosinophils # 0.1 (0-0.7) k/uL Basophils # 0.0 (0-0.2) k/uL Sodium 136 L (137-145) mmol/L Potassium 3.5 (3.5-5.1) mmol/L Chloride 105 (98-107) mmol/L Carbon Dioxide 20 L (22-30) mmol/L Anion Gap 11 mmol/L BUN 8 (7-17) mg/dL Creatinine 0.49 L (0.52-1.04) mg/dL Est GFR (CKD-EPI)AfAm >90 (>60 ml/min/1.73 sqM) Est GFR (CKD-EPI)NonAf >90 (>60 ml/min/1.73 sqM) Glucose 87 (74-99) mg/dL Calcium 9.7 (8.4-10.2) mg/dL Total Bilirubin 0.3 (0.2-1.3) mg/dL AST 12 L (14-36) U/L ALT 13 (4-34) U/L Alkaline Phosphatase 65 (38-126) U/L Total Protein 7.1 (6.3-8.2) g/dL Albumin 4.2 (3.5-5.0) g/dL Amylase 49 (30-110) U/L Lipase 104 (23-300) U/L HCG, Quant 807991.0 mIU/mL Urine Color Yellow Urine Appearance Cloudy H (Clear) Urine pH 6.5 (5.0-8.0) Ur Specific Cook Sta 1.031 (1.001-1.035) Urine Protein 1+ H (Negative) Urine Glucose (UA) Negative (Negative) Urine Ketones 4+ H (Negative) Urine Blood Trace H (Negative) Urine Nitrite Negative (Negative) Urine Bilirubin Negative (Negative) Urine Urobilinogen 4.0 (<2.0) mg/dL Ur Leukocyte Esterase Moderate H (Negative) Urine RBC 3 (0-5) /hpf Urine WBC 11 H (0-5) /hpf Ur Squamous Epith Cells 8 H (0-4) /hpf Urine Bacteria Occasional H (None) /hpf Hyaline Casts 1 (0-2) /lpf Urine Mucus Many H (None) /hpf Disposition Clinical Impression: Hyperemesis gravidarum, UTI (urinary tract infection) Disposition: ADMITTED IP TO THIS [facility] Condition: Fair Decision Date: 02/04/21 Decision Time: 16:03
[2021-02-04] MEDS ORDERED: FAMOTIDINE 20 MG/2 ML VIAL IV STA (14:37)
[2021-02-04 15:01] LABS: Basophils % (A) 0 %; Eosinophils # (A) 0.1 k/uL (0-0.7); Eosinophils % (A) 1 %; HCT 38.1 % (34.0-46.0); HGB 12.9 gm/dL (11.4-16.0); Lymphocytes # (A) 1.4 k/uL (1.0-4.8); Lymphocytes % (A) 16 %; MCHC 33.8 g/dL (31.0-37.0); MCV 79.9 fL (80.0-100.0); Mean Platelet Volume 6.9; Monocytes # (A) 0.3 k/uL (0-1.0); Monocytes % (A) 3 %; Neutrophils # (A) 7.3 k/uL (1.3-7.7); Neutrophils % (A) 80 %; Platelet Count 310 k/uL (150-450); RBC 4.77 m/uL (3.80-5.40); RDW 15.9 % (11.5-15.5); WBC 9.2 k/uL (3.8-10.6)
[2021-02-04 15:11] LABS: ALT 13 U/L (4-34); AST 12 U/L (14-36); African American GFR (CKD) >90 (>60 ml/min/1.73 sqM); Albumin 4.2 g/dL (3.5-5.0); Alkaline Phosphatase 65 U/L (38-126); Amylase 49 U/L (30-110); Anion Gap 11 mmol/L; Blood Urea Nitrogen 8 mg/dL (7-17); Calcium 9.7 mg/dL (8.4-10.2); Carbon Dioxide 20 mmol/L (22-30); Chloride 105 mmol/L (98-107); Glucose 87 mg/dL (74-99); Lipase 104 U/L (23-300); Non-African American GFR(CKD) >90 (>60 ml/min/1.73 sqM); Potassium 3.5 mmol/L (3.5-5.1); Sodium 136 mmol/L (137-145); Total Bilirubin 0.3 mg/dL (0.2-1.3); Total Protein 7.1 g/dL (6.3-8.2)
[2021-02-04 15:37] LABS: Appearance,Urine Cloudy (Clear); Bacteria,Urine Occasional /hpf; Bilirubin,Urine Negative (Negative); Blood,Urine Trace (Negative); Color,Urine Yellow; Glucose,Urine (UA) Negative (Negative); Hyaline Casts,Urine 1 /lpf (0-2); Ketones,Urine 4+ (Negative); Leukocyte Esterase,Urine Moderate (Negative); Mucus,Urine Many /hpf; Nitrite,Urine Negative (Negative); PH, Urine 6.5 (5.0-8.0); Protein,Urine 1+ (Negative); RBC,Urine 3 /hpf (0-5); Specific Gravity,Urine 1.031 (1.001-1.035); Squamous Epithelial Cell,Urine 8 /hpf (0-4); WBC,Urine 11 /hpf (0-5)
[2021-02-04] MEDS ORDERED: NALOXONE 0.4 MG/ML 1 ML VIAL IV PRN (16:04)
[2021-02-04] MEDS ORDERED: PROCHLORPERAZINE SUPPOSITORY 25 MG SUPP RECTAL PRN (16:04)
[2021-02-04] MEDS ORDERED: cefTRIAXone IN SWFI 1,000 MG/10 ML SYRINGE IVP STA (16:31)
--- NOTE | 2021-02-04 20:26 | P.HPOB ---
History of Present Illness H&P Date: 02/04/21 Chief Complaint: Intrauterine 8 weeks: Hyperemesis gravidarum Bereket is a 21-year-old at 8 weeks gestation who is a repeat admission for hyperemesis gravidarum. She was in the hospital for several days of approximately 1 week ago for same symptoms. She relates that at home when she is up moving around she has severe nausea and vomiting cannot even keep water down. She relates that she throughout anywhere between 20 and 30 times this morning upon waking up and moving around but she relates that she is only thrown up 3 times since being in the hospital. I cannot find that they have really given her old whole lot of anti-medics since she's been here and it may be that some of her nausea is motion related. The emergency room had initially ordered but it does not appear that she is gotten Compazine per rectum which since she has tried Zofran and ODT and this is not helped and Reglan orally and has not helped seems like a reasonable next trial. I cannot find it does not appear that she is tried vitamin B6 and doxylamine but since this is a short acting vitamin B6 and doxylamine and not directly just are not convinced that she is currently receive benefit necessarily from that particular set of medications. Another consideration if she continues to have nausea and vomiting with the Compazine would be to put her on a tapering dose of oral steroids over a 2 week timeframe which may also help with her nausea at home. Some caution needs to be weighed with this as there is a small chance of cleft lip in some studies. It may be safer to wait another couple of weeks if this is can be tried dry and maintained her as best we can with more conservative measures at this time. We'll plan consultation of medical medical management since they weren't the admitting physicians last admission. Another consideration may be gastroenterology. At this point it does not seem like she needs any IV nutrition, or IV medications at home this is certainly a consideration if we are unable to control her nausea and vomiting moving forward. All questions are answered for she and her . She is resting relatively comfortably in the room and notes only mild nausea at this time while she is laying flat. This is an interim H&P as she was recently discharge. Past Medical History Past Medical History: No Reported History Additional Past Medical History / Comment(s): Hyperemesis History of Any Multi-Drug Resistant Organisms: None Reported Past Surgical History: Appendectomy, Bladder Surgery, Section Additional Past Surgical History / Comment(s): Was really young when she had bladder surgery, unsure. C/S x2. Past Anesthesia/Blood Transfusion Reactions: No Reported Reaction Past Psychological History: Anxiety, Depression Smoking Status: Former smoker Past Alcohol Use History: None Reported Past Drug Use History: None Reported - Past Family History Mother Family Medical History: No Reported History Medications and Allergies Home Medications Medication Instructions Recorded Confirmed Type Famotidine [Pepcid] 20 mg PO DAILY #30 tablet 01/28/21 02/04/21 Rx Metoclopramide [Reglan] 10 mg PO Q6HR PRN #30 tab 01/28/21 02/04/21 Rx Levofloxacin [Levaquin] 250 mg PO DAILY 5 Days #5 tab 02/01/21 02/04/21 Rx Sertraline [Zoloft] 25 mg PO DAILY 30 Days #30 tab 02/01/21 02/04/21 Rx Ondansetron [Zofran ODT] 4 mg PO Q6H PRN 02/04/21 02/04/21 History Allergies Allergy/AdvReac Type Severity Reaction Status Date / Time No Known Allergies Allergy Verified 02/04/21 15:17 Exam Osteopathic Statement: *. No significant issues noted on an osteopathic structural exam other than those noted in the History and Physical/Consult. Vital Signs Temp Pulse Resp BP Pulse Ox 02/04/21 16:56 68 18 103/69 100 02/04/21 13:33 98.3 F 92 18 113/73 99 Intake and Output 02/04/21 02/04/21 02/04/21 06:59 14:59 22:59 Other: Weight 110.223 kg - OBG Physical Exam Breast: both: normal (no masses) Abdomen: bowel sounds normal, no diffuse tenderness, no bruit present, no guarding noted, no hepatomegaly, no splenomegaly, no mass Vulva: both: normal Vagina: normal moisture, no discharge Cervix: no lesion, no discharge Uterus: normal size, normal contour Adnexa: both: normal Anus/Rectum: normal perianal skin, no rectal mass, no hemorrhoids, heme negative Results Result Diagrams: 02/04/21 14:56 02/04/21 14:56 Abnormal Lab Results - Last 24 Hours (Table) 02/04/21 02/04/21 02/04/21 Range/Units 14:56 14:56 15:20 MCV 79.9 L (80.0-100.0) fL RDW 15.9 H (11.5-15.5) % Sodium 136 L (137-145) mmol/L Carbon Dioxide 20 L (22-30) mmol/L Creatinine 0.49 L (0.52-1.04) mg/dL AST 12 L (14-36) U/L Urine Appearance Cloudy H (Clear) Urine Protein 1+ H (Negative) Urine Ketones 4+ H (Negative) Urine Blood Trace H (Negative) Ur Leukocyte Esterase Moderate H (Negative) Urine WBC 11 H (0-5) /hpf Ur Squamous Epith Cells 8 H (0-4) /hpf Urine Bacteria Occasional H (None) /hpf Urine Mucus Many H (None) /hpf Microbiology - Last 24 Hours (Table) 02/04/21 15:20 Urine Culture - Preliminary Urine,Voided
[2021-02-04] MEDS: diphenhydrAMINE 50 MG/ML 1 ML VIAL IVP PRN (23:25)
--- NOTE | 2021-02-05 08:07 | P.PN ---
Progress Note - Text Progress Note Date: 02/05/21 Bereket is seen and evaluated this morning. She relates that she threw up one time last night since receiving another dose of Benadryl and 1 dose of Compazine. She does not think the Compazine helped that much but she also does not like the suppository aspect so we will switch back to Zofran planning for IV Zofran today and switching hopefully to oral Zofran tomorrow. If she continues to feel well and she continues to tolerate sips of water she may try toast or crackers some type of antibiotic diet later today. Her vital signs are stable and she is afebrile. No other changes. We'll wait medicines consultation. All the questions are answered for her at this time.
[2021-02-05] MEDS: diphenhydrAMINE 50 MG/ML 1 ML VIAL IVP PRN ×2 (09:08→18:33)
[2021-02-05] MEDS: FAMOTIDINE 20 MG/2 ML VIAL IV SCH (09:08)
[2021-02-05] MEDS: SODIUM CHLORIDE 0.9% 1,000 ML IV SCH ×2 (09:09→20:10)
[2021-02-05] MEDS: SERTRALINE 25 MG TAB PO SCH (09:50)
[2021-02-05] MEDS: NYSTATIN 100,000 UNIT/ML SUSP 500,000 UNIT/5 ML CUP PO SCH ×4 (09:50→20:10)
--- NOTE | 2021-02-05 10:28 | US ---
EXAMINATION TYPE: US kidneys/renal and bladder DATE OF EXAM: 02/05/2021 COMPARISON: NONE CLINICAL HISTORY: freq uti. frequent UTI's. patient 9 weeks EXAM MEASUREMENTS: Right Kidney: 11.0 x 4.6 x 4.4 cm Left Kidney: 12.4 x 5.0 x 5.0 cm *technical limitations due to patient's body habitus and overlying bowel Right Kidney: appears wnl Left Kidney: slightly prominent collecting system Bladder: debris noted Bilateral Jets seen: no Patient is , gestation is not evaluated this time. IMPRESSION: 1. Visualized renal ultrasound is unremarkable.
[2021-02-05] MEDS: SUCRALFATE 1 GM TAB PO SCH ×3 (13:01→20:10)
[2021-02-05 13:40] VITALS: BMI 44.4
--- NOTE | 2021-02-05 14:19 | P.CONS ---
History of Present Illness - Reason for Consult Consult date: 02/05/21 Medical management Requesting physician: Edgardo Alberto - History of Present Illness HISTORY OF PRESENT ILLNESS This is a 21-year-old female patient of Dr. Jolley with past medical history of depression, frequent urinary tract infections and significant for which she is at 8 weeks gestation. She was recently hospitalized 1 week ago for hyperemesis gravidarum. Patient is stating that she cannot hold any food or liquids down. She states even with a drink of water, she will vomit this. She complains of some abdominal pain when she vomits a lot. She has been on several medications only work for a brief period. She states she has not had a bowel movement since she left the hospital from her last admission and patient was discharged on Monday. She is complaining of back pain that is worse with vomiting. She complains of frequent urinary tract infections and she feels some stinging with urination. She presented to [facility] emergency center yesterday. Vital signs were stable. CBC unremarkable. Sodium 136, potassium 3.5, chloride 105, CO2 20, BUN 8 and creatinine 0.49. HCG was positive at 137,000. Albumin 4.2. Lipase 104. Liver function tests were normal. Urinalysis showed leukoesterase moderate, WBCs 11, squamous cells 8. Urine culture is in process. Patient was recently treated with Levaquin for Enterococcus faecalis and JEFF inhibitor Enterobacter urinary tract infection. Patient relates that she has not been able to take the medication or any of her home medications due to emesis. REVIEW OF SYSTEMS Constitutional: No fever, no chills, no night sweats. No weight change. No weakness, fatigue or lethargy. No daytime sleepiness. EENT: No headache. No blurred vision or double vision, no loss of vision. No loss of Hearing, no ringing in the ears, no dizziness. No nasal drainage or congestion. No epistaxis. No sore throat. Lungs: No shortness of breath, cough, no sputum production. No wheezing. Cardiovascular: Reports chest pain, no lower extremity edema. No palpitations. No paroxysmal nocturnal dyspnea. No orthopnea. No lightheadedness or dizziness. No syncopal episodes. Abdominal: Reports abdominal pain. Reports nausea, reports vomiting. No diarrhea. No constipation. No bloody or tarry stools.. No loss of appetite. Genitourinary: No dysuria, increased frequency, urgency. No urinary retention. Musculoskeletal: No myalgias. No muscle weakness, no gait dysfunction, no frequent falls. Reports back pain. No neck pain. Integumentary: No wounds, no lesions. No rash or pruritus. No unusual bruising. No change in hair or nails. Neurologic: No aphasia. No facial droop. No change in mentation. No head injury. No headache. No paralysis. No paresthesia. Psychiatric: Reports depression. No anxiety. No mood swings. Endocrine: No abnormal blood sugars. No weight change. No excessive sweating or thirst. No cold intolerance. SOCIAL HISTORY Patient is a lifelong nonsmoker, no marijuana use, illicit drug use, alcohol use. She lives at home with her . FAMILY HISTORY Mother is alive as well as father and she does not know their medical history. Patient is a total of 3 sisters and one his past from leukemia. Patient is for brothers with no major medical problems. Patient has 2 children with no major medical problems. PHYSICAL EXAMINATION Gen: This is a 21-year-old morbidly obese female. Patient appears to be fatigued but no acute distress. HEENT: Head is atraumatic, normocephalic. Pupils equal, round. Sclerae is anicteric. NECK: Supple. No JVD. No lymphadenopathy. No thyromegaly. LUNGS: Clear to auscultation. No wheezes or rhonchi. No intercostal retractions. HEART: Regular rate and rhythm. No murmur. ABDOMEN: Soft. Bowel sounds are present. No masses. No tenderness. EXTREMITIES: No pedal edema. No calf tenderness. NEUROLOGICAL: Patient is awake, alert and oriented x3. Cranial nerves 2 through 12 are grossly intact. ASSESSMENT AND PLAN 1. Hyperemesis gravidarum. Patient has been admitted to OB. Burn over continue IV fluids at 100 mL per hour, Zofran 4 g IV push every 6 hours as needed for nausea, Benadryl 25 mg IV push every 6 hours as needed. 2. Gastritis. Continue Pepcid 20 mg IV daily, add Carafate 1 g before meals and at bedtime. 3. Urinary tract infection. Patient started on ceftriaxone. Urinalysis and urine culture in process 4. Recurrent depression. Continue Zoloft 25 mg daily. Patient will be admitted to the hospital for a minimum of 2 night stay. DISCHARGE PLAN HOme. Impression and plan of care have been directed as dictated by the signing physician. Lillian Oliver nurse practitioner acting as scribe for signing physician. Past Medical History Past Medical History: No Reported History Additional Past Medical History / Comment(s): Hyperemesis wk and a half ago History of Any Multi-Drug Resistant Organisms: None Reported Past Surgical History: Appendectomy, Bladder Surgery, Section Additional Past Surgical History / Comment(s): Was really young when she had bladder surgery, unsure. C/S x2. Past Anesthesia/Blood Transfusion Reactions: No Reported Reaction Past Psychological History: Anxiety, Depression Smoking Status: Former smoker Past Alcohol Use History: Occasional Past Drug Use History: None Reported Additional Drug Use History / Comment(s): Pt. states she is unsure when she started and stopped smoking but states it was less than a year that she smoked cigarettes. - Past Family History Mother Family Medical History: No Reported History Medications and Allergies Home Medications Medication Instructions Recorded Confirmed Type Famotidine [Pepcid] 20 mg PO DAILY #30 tablet 01/28/21 02/04/21 Rx Metoclopramide [Reglan] 10 mg PO Q6HR PRN #30 tab 01/28/21 02/04/21 Rx Levofloxacin [Levaquin] 250 mg PO DAILY 5 Days #5 tab 02/01/21 02/04/21 Rx Sertraline [Zoloft] 25 mg PO DAILY 30 Days #30 tab 02/01/21 02/04/21 Rx Ondansetron [Zofran ODT] 4 mg PO Q6H PRN 02/04/21 02/04/21 History Allergies Allergy/AdvReac Type Severity Reaction Status Date / Time No Known Allergies Allergy Verified 02/04/21 15:17 Physical Exam Vitals: Vital Signs Temp Pulse Pulse Resp BP BP Pulse Ox 02/05/21 07:00 98.5 F 76 16 104/70 97 02/05/21 02:00 15 02/05/21 01:03 98.3 F 63 15 98/61 97 02/04/21 20:00 73 16 02/04/21 19:14 98.5 F 73 16 103/69 98 02/04/21 16:56 68 18 103/69 100 02/04/21 13:33 98.3 F 92 18 113/73 99 Intake and Output 02/04/21 02/05/21 02/05/21 22:59 06:59 14:59 Intake Total 300 300 Balance 300 300 Intake: Oral 300 300 Other: Voiding Method Toilet Toilet Diaper Diaper Weight 110.223 kg Results CBC & Chem 7: 02/04/21 14:56 02/04/21 14:56 Labs: Abnormal Lab Results - Last 24 Hours (Table) 02/04/21 02/04/21 02/04/21 Range/Units 14:56 14:56 15:20 MCV 79.9 L (80.0-100.0) fL RDW 15.9 H (11.5-15.5) % Sodium 136 L (137-145) mmol/L Carbon Dioxide 20 L (22-30) mmol/L Creatinine 0.49 L (0.52-1.04) mg/dL AST 12 L (14-36) U/L Urine Appearance Cloudy H (Clear) Urine Protein 1+ H (Negative) Urine Ketones 4+ H (Negative) Urine Blood Trace H (Negative) Ur Leukocyte Esterase Moderate H (Negative) Urine WBC 11 H (0-5) /hpf Ur Squamous Epith Cells 8 H (0-4) /hpf Urine Bacteria Occasional H (None) /hpf Urine Mucus Many H (None) /hpf Microbiology - Last 24 Hours (Table) 02/04/21 15:20 Urine Culture - Preliminary Urine,Voided
[2021-02-06] MEDS: diphenhydrAMINE 50 MG/ML 1 ML VIAL IVP PRN ×2 (04:26→21:17)
[2021-02-06] MEDS: SODIUM CHLORIDE 0.9% 1,000 ML IV SCH (04:27)
[2021-02-06] MEDS: ACETAMINOPHEN TAB 325 MG TAB PO PRN (05:32)
--- NOTE | 2021-02-06 06:51 | P.PN ---
Progress Note - Text Progress Note Date: 02/06/21 Patient is resting without new complaints, she continues to have nausea and vomiting. Appreciate medicines input. Patient's renal ultrasound was normal. Patient states that Benadryl works the best for her however there is some IV push Zofran written for she is not ready for orals. Today we will continue IV fluids changeover to lactated Ringer's. Discontinue her antibiotics and urine culture was negative. Also try some oral B6.
[2021-02-06] MEDS: ONDANSETRON 4 MG/2 ML VIAL IVP PRN (09:12)
[2021-02-06] MEDS: NYSTATIN 100,000 UNIT/ML SUSP 500,000 UNIT/5 ML CUP PO SCH ×4 (09:13→21:18)
[2021-02-06] MEDS: SUCRALFATE 1 GM TAB PO SCH ×4 (09:13→21:18)
[2021-02-06] MEDS: SERTRALINE 25 MG TAB PO SCH (09:13)
[2021-02-06] MEDS: FAMOTIDINE 20 MG/2 ML VIAL IV SCH (09:13)
[2021-02-06] MEDS: PYRIDOXINE 50 MG TAB PO SCH ×2 (09:20→21:18)
[2021-02-06] MEDS: LACTATED RINGERS 1,000 ML IV SCH ×3 (09:23→21:18)
--- NOTE | 2021-02-06 14:02 | P.PN ---
Subjective Progress Note Date: 02/06/21 HISTORY OF PRESENT ILLNESS This is a 21-year-old female patient of Dr. Jolley with past medical history of depression, frequent urinary tract infections and significant for which she is at 8 weeks gestation. She was recently hospitalized 1 week ago for hyperemesis gravidarum. Patient is stating that she cannot hold any food or liquids down. She states even with a drink of water, she will vomit this. She complains of some abdominal pain when she vomits a lot. She has been on several medications only work for a brief period. She states she has not had a bowel movement since she left the hospital from her last admission and patient was discharged on Monday. She is complaining of back pain that is worse with vomiting. She complains of frequent urinary tract infections and she feels some stinging with urination. She presented to [facility] emergency center yesterday. Vital signs were stable. CBC unremarkable. Sodium 136, potassium 3.5, chloride 105, CO2 20, BUN 8 and creatinine 0.49. HCG was positive at 137,000. Albumin 4.2. Lipase 104. Liver function tests were normal. Urinalysis showed leukoesterase moderate, WBCs 11, squamous cells 8. Urine culture is in process. Patient was recently treated with Levaquin for Enterococcus faecalis and JEFF inhibitor Enterobacter urinary tract infection. Patient relates that she has not been able to take the medication or any of her home medications due to emesis. 02/06 patient still having some active vomiting with food, had some pancakes, which did not settle down for her, she had taken for oral medications which she kept down. Patient has still epigastric pain, bowel movement noted already today, no stools were sent for H. pylori, urine culture final, contamination, antibiotic discontinued continue on PPI and Carafate other labs INCLUDING lipase, abdominal ultrasound normal. No kidney stones, no hydronephrosis REVIEW OF SYSTEMS Constitutional: No fever, no chills, no night sweats. No weight change. No weakness, fatigue or lethargy. No daytime sleepiness. EENT: No headache. No blurred vision or double vision, no loss of vision. No l oss of Hearing, no ringing in the ears, no dizziness. No nasal drainage or congestion. No epistaxis. No sore throat. Lungs: No shortness of breath, cough, no sputum production. No wheezing. Cardiovascular: Reports chest pain, no lower extremity edema. No palpitations. No paroxysmal nocturnal dyspnea. No orthopnea. No lightheadedness or dizziness. No syncopal episodes. Abdominal: Reports abdominal pain. Reports nausea, reports vomiting. No diarrhea. No constipation. No bloody or tarry stools.. No loss of appetite. Genitourinary: No dysuria, increased frequency, urgency. No urinary retention. Musculoskeletal: No myalgias. No muscle weakness, no gait dysfunction, no frequent falls. Reports back pain. No neck pain. Integumentary: No wounds, no lesions. No rash or pruritus. No unusual bruising. No change in hair or nails. Neurologic: No aphasia. No facial droop. No change in mentation. No head injury. No headache. No paralysis. No paresthesia. Psychiatric: Reports depression. No anxiety. No mood swings. Endocrine: No abnormal blood sugars. No weight change. No excessive sweating or thirst. No cold intolerance. Objective - Vital Signs Vital signs: Vital Signs Temp 98.5 F 02/06/21 07:00 Pulse 66 02/06/21 08:00 Resp 17 02/06/21 08:00 BP 99/64 02/06/21 07:00 Pulse Ox 99 02/06/21 07:00 Intake & Output 02/05/21 02/06/21 02/06/21 18:59 06:59 18:59 Intake Total 118 Balance 118 Weight 110.223 kg Intake: Oral 118 Other: Voiding Method Bedside Commode Bedside Commode Diaper Diaper External Catheter External Catheter # Voids 1 1 - Constitutional General appearance: Present: cooperative, no acute distress - EENT Eyes: Present: EOMI, PERRLA - Neck Neck: Present: normal ROM - Respiratory Respiratory: bilateral: CTA, negative: diminished, dullness - Cardiovascular Rhythm: regular Abnormal Heart Sounds: Absent: systolic murmur, diastolic murmur, rub, S3 Gallop, S4 Gallop, click, other - Gastrointestinal General gastrointestinal: Present: soft, tenderness - Integumentary Integumentary: Present: normal (Gastric) - Neurologic Neurologic: Present: CNII-XII intact - Musculoskeletal Musculoskeletal: Present: gait normal, strength equal bilaterally - Psychiatric Psychiatric: Present: A&O x's 3, appropriate affect, intact judgment & insight - Labs CBC & Chem 7: 02/04/21 14:56 02/04/21 14:56 Labs: Microbiology - Last 24 Hours (Table) 02/04/21 15:20 Urine Culture - Final Urine,Voided Assessment and Plan Plan: ASSESSMENT AND PLAN 1. Hyperemesis gravidarum. Patient has been admitted to OB. Burn over continue IV fluids at 100 mL per hour, Zofran 4 g IV push every 6 hours as needed for nausea, Benadryl 25 mg IV push every 6 hours as needed. We'll add ensure clear or aenlive 2. Gastritis. Continue Pepcid 20 mg IV daily, add Carafate 1 g before meals and at bedtime. Plan for oral discharge to Carafate only. PPIs are recommended with use of caution, possible risk of teratogenicity, conflicting humandata,we will holdo ff PPI at this time 3. Urinary tract infection. Patient started on ceftriaxone. Urinalysis and urine culture in process 4. Recurrent depression. Continue Zoloft 25 mg daily. 5. Protein malnutrition, secondary to hyperemesis gravidarum and gastritis Patient will be admitted to the hospital for a minimum of 2 night stay. DISCHARGE PLAN HOme.
--- NOTE | 2021-02-06 14:06 | US ---
EXAMINATION TYPE: Transabdominal DATE OF EXAM: 02/06/2021 1:27 PM COMPARISON: US CLINICAL HISTORY: bleeding. Bleeding. Hx 2 C-Sections, 1 miscarriage. A1. EXAM PERFORMED: Transabdominal (TA) EXAM MEASUREMENTS: GESTATIONAL AGE / DATING Dates by LMP: (10 weeks/3 days) MATERNAL ANATOMY Exam limited due to patient body habitus. Uterus: 14.2 x 8.8 x 5.7 cm. Anteverted. Right Ovary: Not seen. Left Ovary: 2.4 x 1.6 x 1.2 cm. Post CDS / Adnexa: No free fluid seen in the cul-de-sac. Presence of corpus luteal cyst: Not seen. Presence of florentin gestational fluid: Hypoechoic, heterogeneous area seen adjacent to the gestational s ac: 2.7 x 1.4 x 1.7 cm. GESTATION / SURVEY CRL: 2.77 cm. (9 weeks/4 days) Yolk Sac : 6.4 mm. Heart Rate: 168 bpm Date of LMP: 11/25/2020 Beta HcG (if available): Not available. IMPRESSION: Single intrauterine uterine , detailed in body of report. Limited evaluation of the adnexa due to transabdominal technique.
[2021-02-07] MEDS: LACTATED RINGERS 1,000 ML IV SCH ×4 (03:16→20:59)
--- NOTE | 2021-02-07 06:47 | P.PN ---
Progress Note - Text Progress Note Date: 02/07/21 Hospital day #3. Patient developed some spotting yesterday and a ultrasound showed a viable however she did have a 2.7 cm what appears to be subchorionic bleed. I did explain this in detail to the patient and she understands that this point it is something we would just observe and Dr. Ramos most likely we'll repeat imaging after she comes in to her next office appointment. Patient is still having nausea and vomiting was able to tolerate some liquids yesterday. Plan at this times to continue inpatient care and advance diet as tolerated.
[2021-02-07] MEDS: NYSTATIN 100,000 UNIT/ML SUSP 500,000 UNIT/5 ML CUP PO SCH ×2 (07:53→12:31)
[2021-02-07] MEDS: PYRIDOXINE 50 MG TAB PO SCH ×2 (07:53→19:40)
[2021-02-07] MEDS: SUCRALFATE 1 GM TAB PO SCH ×4 (07:54→20:55)
[2021-02-07] MEDS: SERTRALINE 25 MG TAB PO SCH (07:54)
[2021-02-07] MEDS: FAMOTIDINE 20 MG/2 ML VIAL IV SCH (07:54)
[2021-02-07] MEDS: diphenhydrAMINE 50 MG/ML 1 ML VIAL IVP PRN ×2 (11:24→20:56)
[2021-02-07] MEDS: ONDANSETRON 4 MG/2 ML VIAL IVP PRN (12:41)
--- NOTE | 2021-02-07 13:39 | P.PN ---
Subjective Progress Note Date: 02/07/21 HISTORY OF PRESENT ILLNESS This is a 21-year-old female patient of Dr. Jolley with past medical history of depression, frequent urinary tract infections and significant for which she is at 8 weeks gestation. She was recently hospitalized 1 week ago for hyperemesis gravidarum. Patient is stating that she cannot hold any food or liquids down. She states even with a drink of water, she will vomit this. She complains of some abdominal pain when she vomits a lot. She has been on several medications only work for a brief period. She states she has not had a bowel movement since she left the hospital from her last admission and patient was discharged on Monday. She is complaining of back pain that is worse with vomiting. She complains of frequent urinary tract infections and she feels some stinging with urination. She presented to [facility] emergency center yesterday. Vital signs were stable. CBC unremarkable. Sodium 136, potassium 3.5, chloride 105, CO2 20, BUN 8 and creatinine 0.49. HCG was positive at 137,000. Albumin 4.2. Lipase 104. Liver function tests were normal. Urinalysis showed leukoesterase moderate, WBCs 11, squamous cells 8. Urine culture is in process. Patient was recently treated with Levaquin for Enterococcus faecalis and JEFF inhibitor Enterobacter urinary tract infection. Patient relates that she has not been able to take the medication or any of her home medications due to emesis. 02/06 patient still having some active vomiting with food, had some pancakes, which did not settle down for her, she had taken for oral medications which she kept down. Patient has still epigastric pain, bowel movement noted already today, no stools were sent for H. pylori, urine culture final, contamination, antibiotic discontinued and Carafate other labs INCLUDING lipase, abdominal ultrasound normal. No kidney stones, no hydronephrosis 02/07, patient had some beef daily, and corn, which she was able to keep down, however she threw up one of the medications, the liquid nystatin, oral medications seems to help, however she still has epigastric discomfort, with the nausea. Unable to do the HIDA scan with CCK secondary to ,, advised low-fat diet, and continue nutritional supplementation. Continue Carafate at this time, might be able to to do PPIs however there is conflicting human data on teratogenicity during cautions to advice.. Scopolamine is an alternative treatment that seemed to be safe during , if needed we can initiate this should she not tolerate any other treatment for the nausea and vomiting REVIEW OF SYSTEMS Constitutional: No fever, no chills, no night sweats. No weight change. No weakness, fatigue or lethargy. No daytime sleepiness. EENT: No headache. No blurred vision or double vision, no loss of vision. No loss of Hearing, no ringing in the ears, no dizziness. No nasal drainage or congestion. No epistaxis. No sore throat. Lungs: No shortness of breath, cough, no sputum production. No wheezing. Cardiovascular: Reports chest pain, no lower extremity edema. No palpitations. No paroxysmal nocturnal dyspnea. No orthopnea. No lightheadedness or dizziness. No syncopal episodes. Abdominal: Reports abdominal pain. Reports nausea, reports vomiting. No diarrhea. No constipation. No bloody or tarry stools.. No loss of appetite. Genitourinary: No dysuria, increased frequency, urgency. No urinary retention. Musculoskeletal: No myalgias. No muscle weakness, no gait dysfunction, no frequent falls. Reports back pain. No neck pain. Integumentary: No wounds, no lesions. No rash or pruritus. No unusual bruising. No change in hair or nails. Neurologic: No aphasia. No facial droop. No change in mentation. No head injury. No headache. No paralysis. No paresthesia. Psychiatric: Reports depression. No anxiety. No mood swings. Endocrine: No abnormal blood sugars. No weight change. No excessive sweating or thirst. No cold intolerance. Objective - Vital Signs Vital signs: Vital Signs Temp 98.5 F 02/07/21 07:00 Pulse 61 02/07/21 08:00 Resp 18 02/07/21 08:00 BP 98/64 02/07/21 07:00 Pulse Ox 95 02/07/21 07:00 Intake & Output 02/06/21 02/07/21 02/07/21 18:59 06:59 18:59 Intake Total 90 Balance 90 Intake: Oral 90 Other: Voiding Method Bedside Commode Toilet Diaper External Catheter # Voids 4 1 1 - Constitutional General appearance: Present: cooperative, no acute distress, obese - EENT Eyes: Present: EOMI, PERRLA, dentition normal ENT: Present: NA/AT, normal oropharynx - Neck Neck: Present: normal ROM - Respiratory Respiratory: bilateral: CTA, negative: diminished, dullness - Cardiovascular Rhythm: regular - Gastrointestinal General gastrointestinal: Present: normal bowel sounds, tenderness (Epigastric) - Integumentary Integumentary: Present: normal - Neurologic Neurologic: Present: CNII-XII intact - Musculoskeletal Musculoskeletal: Present: gait normal, strength equal bilaterally - Labs CBC & Chem 7: 02/04/21 14:56 02/04/21 14:56 Assessment and Plan Plan: ASSESSMENT AND PLAN 1. Hyperemesis gravidarum. Patient has been admitted to OB. Burn over continue IV fluids at 100 mL per hour, Zofran 4 g IV push every 6 hours as needed for nausea, Benadryl 25 mg IV push every 6 hours as needed. We'll add ensure clear or aenlive advance diet low-fat spocolamine patch data, during based on limited human data, risk of harm is not expected that we might be able to use these if needed, 2. Gastritis. Continue Pepcid 20 mg IV daily, Carafate 1 g before meals and at bedtime. Plan for oral discharge to Carafate only. PPIs are recommended with use of caution, possible risk of teratogenicity, conflicting humandata,we will hold off PPI at this time 3. Pyuria without Urinary tract infection. Patient started on ceftriaxone. Urinalysis and urine culture are discontinued antibiotics 4. Recurrent depression. Continue Zoloft 25 mg daily. 5. Protein malnutrition, secondary to hyperemesis gravidarum and gastritis Patient will be admitted to the hospital for a minimum of 2 night stay. DISCHARGE PLAN HOme.
[2021-02-07] MEDS: CLOTRIMAZOLE TROCHE 10 MG TROCHE MUCOUS MEM SCH ×2 (17:41→19:39)
[2021-02-07] MEDS: ACETAMINOPHEN TAB 325 MG TAB PO PRN (20:56)
[2021-02-08] MEDS: CLOTRIMAZOLE TROCHE 10 MG TROCHE MUCOUS MEM SCH ×5 (00:59→21:02)
[2021-02-08] MEDS: LACTATED RINGERS 1,000 ML IV SCH ×4 (05:33→21:02)
--- NOTE | 2021-02-08 06:54 | P.PN ---
Progress Note - Text Progress Note Date: 02/08/21 Hospital day #4. Patient yesterday had improved oral intake and is tolerating some solid food but however does still continue to have episodes of nausea and vomiting. I inquired to the patient if she wanted to go home today states she like to stay until tomorrow. She continues to have some spotting and ultrasound 2 days ago did show subchorionic bleed which we discussed. Plan today is to continue present management. She's tolerating continue solids discharge home 1- 2 days.
[2021-02-08] MEDS: diphenhydrAMINE 50 MG/ML 1 ML VIAL IVP PRN ×2 (07:50→17:20)
[2021-02-08] MEDS: FAMOTIDINE 20 MG/2 ML VIAL IV SCH (07:51)
[2021-02-08] MEDS: SUCRALFATE 1 GM TAB PO SCH ×4 (07:51→21:02)
[2021-02-08] MEDS: SERTRALINE 25 MG TAB PO SCH (07:51)
[2021-02-08] MEDS: PYRIDOXINE 50 MG TAB PO SCH ×2 (07:51→21:03)
[2021-02-08 08:59] LABS: Basophils # (A) 0.02 X 10*3/uL (0.00-0.10); Basophils % (A) 0.3 %; Eosinophils # (A) 0.08 X 10*3/uL (0.04-0.35); Eosinophils % (A) 1.3 %; Lymphocytes # (A) 2.53 X 10*3/uL (0.90-5.00); Lymphocytes % (A) 42.4 %; MCH 25.4 pg (27.0-32.0); MCHC 31.3 g/dL (32.0-37.0); MCV 81.4 fL (80.0-97.0); Mean Platelet Volume 10.4 fL (9.5-12.2); Monocytes # (A) 0.46 X 10*3/uL (0.20-1.00); Monocytes % (A) 7.7 %; Neutrophils # (A) 2.86 X 10*3/uL (1.80-7.70); Platelet Count 214 X 10*3/uL (140-440); RBC 3.93 X 10*6/uL (4.10-5.20); RDW 15.5 % (11.5-14.5); WBC 5.97 X 10*3/uL (4.50-10.00)
[2021-02-08 10:27] LABS: ALT 14 U/L (8-44); AST 15 U/L (13-35); African American GFR (CKD) 170.2 (60.0-200.0); Albumin/Globulin Ratio 1.74 (1.60-3.17); Alkaline Phosphatase 47 U/L (41-126); Blood Urea Nitrogen <5.0 mg/dL (9.0-27.0); Calcium 8.6 mg/dL (8.7-10.3); Carbon Dioxide 22.1 mmol/L (21.6-31.8); Chloride 106 mmol/L (96-109); Globulin 1.9 g/dL (1.6-3.3); Glucose 72 mg/dL (70-110); Non-African American GFR(CKD) 146.8 (60.0-200.0); Potassium 4.1 mmol/L (3.5-5.5); Sodium 137 mmol/L (135-145); Total Bilirubin 0.2 mg/dL (0.3-1.2); Total Protein 5.2 g/dL (6.2-8.2)
[2021-02-08] MEDS ORDERED: polyethylene glycoL 3350 17 GM POWD.PACK PO STA (13:19)
--- NOTE | 2021-02-08 13:25 | P.PN ---
Subjective Progress Note Date: 02/08/21 HISTORY OF PRESENT ILLNESS This is a 21-year-old female patient of Dr. Jolley with past medical history of depression, frequent urinary tract infections and significant for which she is at 8 weeks gestation. She was recently hospitalized 1 week ago for hyperemesis gravidarum. Patient is stating that she cannot hold any food or liquids down. She states even with a drink of water, she will vomit this. She complains of some abdominal pain when she vomits a lot. She has been on several medications only work for a brief period. She states she has not had a bowel movement since she left the hospital from her last admission and patient was discharged on Monday. She is complaining of back pain that is worse with vomiting. She complains of frequent urinary tract infections and she feels some stinging with urination. She presented to [facility] emergency center yesterday. Vital signs were stable. CBC unremarkable. Sodium 136, potassium 3.5, chloride 105, CO2 20, BUN 8 and creatinine 0.49. HCG was positive at 137,000. Albumin 4.2. Lipase 104. Liver function tests were normal. Urinalysis showed leukoesterase moderate, WBCs 11, squamous cells 8. Urine culture is in process. Patient was recently treated with Levaquin for Enterococcus faecalis and JEFF inhibitor Enterobacter urinary tract infection. Patient relates that she has not been able to take the medication or any of her home medications due to emesis. 02/06 patient still having some active vomiting with food, had some pancakes, which did not settle down for her, she had taken for oral medications which she kept down. Patient has still epigastric pain, bowel movement noted already today, no stools were sent for H. pylori, urine culture final, contamination, antibiotic discontinued and Carafate other labs INCLUDING lipase, abdominal ultrasound normal. No kidney stones, no hydronephrosis 02/07, patient had some beef daily, and corn, which she was able to keep down, however she threw up one of the medications, the liquid nystatin, oral medications seems to help, however she still has epigastric discomfort, with the nausea. Unable to do the HIDA scan with CCK secondary to ,, advised low-fat diet, and continue nutritional supplementation. Continue Carafate at this time, might be able to to do PPIs however there is conflicting human data on teratogenicity during cautions to advice.. Scopolamine is an alternative treatment that seemed to be safe during , if needed we can initiate this should she not tolerate any other treatment for the nausea and vomiting 02/08: Patient still is nauseated, has epigastric discomfort, still no appetite, did not have the burgers so for lunch today, restarting scopolamine patch, she has to sit on liquid nutrition, patient also has no bowel movement, her bowel movements usually once a month, we'll going to consult gastrology, for persistent gastritis, we will look into safety of nuclear med HIDA scan with CCK, on safety with but since it is nuclear imaging based, this could only be done after she delivers her baby. Underlying gallbladder disease with gastritis is suspected continue Carafate, there is hemoglobin drop of approximately 2 g, haptoglobin is noted, she has subchorionic bleed noted on ultrasound REVIEW OF SYSTEMS Constitutional: No fever, no chills, no night sweats. No weight change. No weakness, fatigue or lethargy. No daytime sleepiness. EENT: No headache. No blurred vision or double vision, no loss of vision. No loss of Hearing, no ringing in the ears, no dizziness. No nasal drainage or congestion. No epistaxis. No sore throat. Lungs: No shortness of breath, cough, no sputum production. No wheezing. Cardiovascular: Reports chest pain, no lower extremity edema. No palpitations. No paroxysmal nocturnal dyspnea. No orthopnea. No lightheadedness or dizziness. No syncopal episodes. Abdominal: Reports abdominal pain. Reports nausea, reports vomiting. No diarrhea. No constipation. No bloody or tarry stools.. No loss of appetite. Genitourinary: No dysuria, increased frequency, urgency. No urinary retention. Musculoskeletal: No myalgias. No muscle weakness, no gait dysfunction, no frequent falls. Reports back pain. No neck pain. Integumentary: No wounds, no lesions. No rash or pruritus. No unusual bruising. No change in hair or nails. Neurologic: No aphasia. No facial droop. No change in mentation. No head injury. No headache. No paralysis. No paresthesia. Psychiatric: Reports depression. No anxiety. No mood swings. Endocrine: No abnormal blood sugars. No weight change. No excessive sweating or thirst. No cold intolerance. Objective - Vital Signs Vital signs: Vital Signs Temp 98.0 F 02/08/21 07:00 Pulse 67 02/08/21 07:00 Resp 18 02/08/21 07:00 BP 98/64 02/08/21 07:00 Pulse Ox 97 02/08/21 07:00 Intake & Output 02/07/21 02/08/21 02/08/21 18:59 06:59 18:59 Intake Total 370 Balance 370 Weight 110.223 kg Intake: Oral 370 Other: Voiding Method Toilet Toilet Toilet # Voids 3 3 - Constitutional General appearance: Present: cooperative, no acute distress, obese - EENT Eyes: Present: EOMI, PERRLA - Neck Neck: Present: normal ROM - Respiratory Respiratory: bilateral: diminished - Cardiovascular Rhythm: regular - Gastrointestinal General gastrointestinal: Present: normal bowel sounds, soft - Integumentary Integumentary: Present: normal - Neurologic Neurologic: Present: CNII-XII intact - Musculoskeletal Musculoskeletal: Present: gait normal, strength equal bilaterally - Psychiatric Psychiatric: Present: A&O x's 3, appropriate affect, intact judgment & insight - Labs CBC & Chem 7: 02/08/21 04:01 02/08/21 04:01 Labs: Abnormal Lab Results - Last 24 Hours (Table) 02/08/21 02/08/21 Range/Units 04:01 04:01 RBC 3.93 L (4.10-5.20) X 10*6/uL Hgb 10.0 L (12.0-15.0) g/dL Hct 32.0 L (37.2-46.3) % MCH 25.4 L (27.0-32.0) pg MCHC 31.3 L (32.0-37.0) g/dL RDW 15.5 H (11.5-14.5) % BUN <5.0 L (9.0-27.0) mg/dL Creatinine 0.4 L (0.6-1.5) mg/dL Calcium 8.6 L (8.7-10.3) mg/dL Total Bilirubin 0.2 L (0.3-1.2) mg/dL Total Protein 5.2 L (6.2-8.2) g/dL Albumin 3.30 L (3.80-4.90) g/dL Assessment and Plan Plan: ASSESSMENT AND PLAN 1. Hyperemesis gravidarum. Patient has been admitted to OB. Burn over continue IV fluids at 100 mL per hour, Zofran 4 g IV push every 6 hours as needed for nausea, Benadryl 25 mg IV push every 6 hours as needed. We'll add ensure clear or aenlive advance diet low-fat spocolamine patch data, during based on limited human data, risk of harm is not expected that we might be able to use these if needed, 2. Gastritis cant rule out biliary disease has chronic constpipation. Continue Pepcid 20 mg IV daily, Carafate 1 g before meals and at bedtime. Plan for oral discharge to Carafate only. PPIs are recommended with use of caution, possible risk of teratogenicity, conflicting humandata,we will hold off PPI at this time. HIDA scan with cck to be done after she delivers her baby if she still persist with her symtpoms.. consult dr munguia secondary to failure of relief with current regimen 3. Pyuria without Urinary tract infection. Patient started on ceftriaxone. Urinalysis and urine culture are discontinued antibiotics 4. Recurrent depression. Continue Zoloft 25 mg daily. 5. Protein malnutrition, secondary to hyperemesis gravidarum and gastritis 6. chronic constipation, bmp only every once a month. will add fiber, will look into safety of linzess, will start stimulant stool softeners Patient will be admitted to the hospital for a minimum of 2 night stay. DISCHARGE PLAN HOme.
[2021-02-08] MEDS ORDERED: SENNOSIDES-DOCUSATE SODIUM 1 EACH TAB PO SCH (13:30)
[2021-02-08] MEDS ORDERED: SCOPOLAMINE 1.5MG/72HR PATCH TRANSDERM SCH (13:30)
[2021-02-08] MEDS: ACETAMINOPHEN TAB 325 MG TAB PO PRN (14:27)
[2021-02-08] MEDS: DOCUSATE 100 MG CAP PO SCH (17:20)
[2021-02-09] MEDS: CLOTRIMAZOLE TROCHE 10 MG TROCHE MUCOUS MEM SCH ×5 (00:08→21:29)
[2021-02-09] MEDS: diphenhydrAMINE 50 MG/ML 1 ML VIAL IVP PRN ×2 (00:08→21:28)
[2021-02-09] MEDS: ONDANSETRON 4 MG/2 ML VIAL IVP PRN ×2 (05:03→11:28)
--- NOTE | 2021-02-09 06:23 | P.PN ---
Progress Note - Text Progress Note Date: 02/09/21 Hospital day #5. Patient did eat some salad and crackers yesterday unfortunately throughout the evening continue nausea and vomiting. Repeat CBC did show her hemoglobin dropped 2 g but this is most definitely dilution all and not secondary to her subchorionic bleed. Did rediscuss the subchorionic bleed with her and she understands Dr. Ramos will repeat ultrasound as an outpatient upon discharge. There is also some notation as to evaluation of her gallbladder with a HIDA scan, this however it is completely contraindicated in . Plan at this time is to continue present management and try to advance diet again home for discharge in 1-[address] Ramos will resume care of this patient tomorrow.
[2021-02-09] MEDS: DOCUSATE 100 MG CAP PO SCH (07:32)
[2021-02-09] MEDS: SERTRALINE 25 MG TAB PO SCH (07:33)
[2021-02-09] MEDS: LACTATED RINGERS 1,000 ML IV SCH ×3 (07:33→21:29)
[2021-02-09] MEDS: SUCRALFATE 1 GM TAB PO SCH ×4 (07:33→21:29)
[2021-02-09] MEDS: PYRIDOXINE 50 MG TAB PO SCH ×2 (07:33→21:29)
[2021-02-09] MEDS: FAMOTIDINE 20 MG TAB PO SCH (07:33)
[2021-02-09] MEDS ORDERED: SCOPOLAMINE 1.5MG/72HR PATCH TRANSDERM STA (09:10)
[2021-02-09] MEDS: polyethylene glycoL 3350 17 GM POWD.PACK PO SCH (09:22)
[2021-02-09 11:48] LABS: % Iron Saturation 9.12 (12.00-45.00); African American GFR (CKD) 170.2 (60.0-200.0); Blood Urea Nitrogen <5.0 mg/dL (9.0-27.0); Calcium 8.7 mg/dL (8.7-10.3); Carbon Dioxide 24.7 mmol/L (21.6-31.8); Chloride 104 mmol/L (96-109); Glucose 79 mg/dL (70-110); Iron 27 ug/dL (50-170); Non-African American GFR(CKD) 146.8 (60.0-200.0); Potassium 3.8 mmol/L (3.5-5.5); Sodium 136 mmol/L (135-145); Total Iron Binding Capacity 296 ug/dL (228-460)
--- NOTE | 2021-02-09 12:32 | P.PN ---
Progress Note - Text Progress Note Date: 02/09/21 Patients placement type changed to inpatient, due to continued N/V and inability to tolerate oral intake. Has required continued IV anti-emetics and fluids.
--- NOTE | 2021-02-09 12:55 | P.PN ---
Subjective Progress Note Date: 02/09/21 HISTORY OF PRESENT ILLNESS This is a 21-year-old female patient of Dr. Jolley with past medical history of depression, frequent urinary tract infections and significant for which she is at 8 weeks gestation. She was recently hospitalized 1 week ago for hyperemesis gravidarum. Patient is stating that she cannot hold any food or liquids down. She states even with a drink of water, she will vomit this. She complains of some abdominal pain when she vomits a lot. She has been on several medications only work for a brief period. She states she has not had a bowel m ovement since she left the hospital from her last admission and patient was discharged on Monday. She is complaining of back pain that is worse with vomiting. She complains of frequent urinary tract infections and she feels some stinging with urination. She presented to [facility] emergency center yesterday. Vital signs were stable. CBC unremarkable. Sodium 136, potassium 3.5, chloride 105, CO2 20, BUN 8 and creatinine 0.49. HCG was positive at 137,000. Albumin 4.2. Lipase 104. Liver function tests were normal. Urinalysis showed leukoesterase moderate, WBCs 11, squamous cells 8. Urine culture is in process. Patient was recently treated with Levaquin for Enterococcus faecalis and JEFF inhibitor Enterobacter urinary tract infection. Patient relates that she has not been able to take the medication or any of her home medications due to emesis. 02/06 patient still having some active vomiting with food, had some pancakes, which did not settle down for her, she had taken for oral medications which she kept down. Patient has still epigastric pain, bowel movement noted already today, no stools were sent for H. pylori, urine culture final, contamination, antibiotic discontinued and Carafate other labs INCLUDING lipase, abdominal ultrasound normal. No kidney stones, no hydronephrosis 02/07, patient had some beef daily, and corn, which she was able to keep down, however she threw up one of the medications, the liquid nystatin, oral medications seems to help, however she still has epigastric discomfort, with the nausea. Unable to do the HIDA scan with CCK secondary to ,, advised low-fat diet, and continue nutritional supplementation. Continue Carafate at this time, might be able to to do PPIs however there is conflicting human data on teratogenicity during cautions to advice.. Scopolamine is an alternative treatment that seemed to be safe during , if needed we can initiate this should she not tolerate any other treatment for the nausea and vomiting 02/08: Patient still is nauseated, has epigastric discomfort, still no appetite, did not have the burgers so for lunch today, restarting scopolamine patch, she has to sit on liquid nutrition, patient also has no bowel movement, her bowel movements usually once a month, we'll going to consult gastrology, for persistent gastritis, we will look into safety of nuclear med HIDA scan with CCK, on safety with . Underlying gallbladder disease with gastritis is suspected continue Carafate, there is hemoglobin drop of approximately 2 g, haptoglobin is noted, she has subchorionic bleed noted on ultrasound. 02/09: Patient did have nausea and vomiting last evening and plan continues to be conservative management, advance diet and possibly discharge in 1-2 days. Scopolamine patch ordered. Patient states she had a BM yesterday. Patient has been afebrile, heart rate 60, blood pressure 94/62, pulse ox 94% on room air. REVIEW OF SYSTEMS Constitutional: No fever, no chills, no night sweats. No weight change. No weakness, fatigue or lethargy. No daytime sleepiness. EENT: No headache. No blurred vision or double vision, no loss of vision. No loss of Hearing, no ringing in the ears, no dizziness. No nasal drainage or congestion. No epistaxis. No sore throat. Lungs: No shortness of breath, cough, no sputum production. No wheezing. Cardiovascular: Reports chest pain, no lower extremity edema. No palpitations. No paroxysmal nocturnal dyspnea. No orthopnea. No lightheadedness or dizziness. No syncopal episodes. Abdominal: Reports abdominal pain. Reports nausea, reports vomiting. No diarrhea. Reports chronic constipation. No bloody or tarry stools.. No loss of appetite. Genitourinary: No dysuria, increased frequency, urgency. No urinary retention. Musculoskeletal: No myalgias. No muscle weakness, no gait dysfunction, no frequent falls. Reports back pain. No neck pain. Integumentary: No wounds, no lesions. No rash or pruritus. No unusual bruising. No change in hair or nails. Neurologic: No aphasia. No facial droop. No change in mentation. No head injury. No headache. No paralysis. No paresthesia. Psychiatric: Reports depression. No anxiety. No mood swings. Endocrine: No abnormal blood sugars. No weight change. PHYSICAL EXAMINATION Gen: This is a 21-year-old morbidly obese female. Patient appears to be fatigued but no acute distress. HEENT: Head is atraumatic, normocephalic. Pupils equal, round. Sclerae is anicteric. NECK: Supple. No JVD. No lymphadenopathy. No thyromegaly. LUNGS: Clear to auscultation. No wheezes or rhonchi. No intercostal re tractions. HEART: Regular rate and rhythm. No murmur. ABDOMEN: Soft. Bowel sounds are present. No masses. No tenderness. EXTREMITIES: No pedal edema. No calf tenderness. NEUROLOGICAL: Patient is awake, alert and oriented x3. Cranial nerves 2 through 12 are grossly intact. ASSESSMENT AND PLAN 1. Hyperemesis gravidarum. Zofran 4 g IV push every 6 hours as needed for n ausea, Benadryl 25 mg IV push every 6 hours as needed. We'll add ensure clear or aenlive advance diet low-fat 2. Gastritis. Continue Pepcid 20 mg IV daily, Carafate 1 g before meals and at bedtime. Plan for oral discharge to Carafate only. PPIs are recommended with use of caution, possible risk of teratogenicity, conflicting humandata,we will hold off PPI at this time 3. Pyuria without Urinary tract infection. Patient started on ceftriaxone. Urinalysis and urine culture are discontinued antibiotics 4. Recurrent depression. Continue Zoloft 25 mg daily. 5. Protein malnutrition, secondary to hyperemesis gravidarum and gastritis 6. Thrush. Patient was started on clotrimazole naeem. DISCHARGE PLAN HOme. Impression and plan of care have been directed as dictated by the signing physician. Lillian Oliver nurse practitioner acting as scribe for signing physician. Objective - Vital Signs Vital signs: Vital Signs Temp 98.2 F 02/09/21 07:00 Pulse 68 02/09/21 07:00 Resp 16 02/09/21 07:00 BP 94/62 02/09/21 07:00 Pulse Ox 98 02/09/21 07:00 Intake & Output 02/08/21 02/09/21 02/09/21 18:59 06:59 18:59 Intake Total 250 Output Total 100 Balance 150 Weight 110.223 kg Intake: Oral 250 Output: Emesis 100 Other: Voiding Method Toilet Toilet Toilet # Voids 1 2 # Bowel Movements 1 - Labs CBC & Chem 7: 02/08/21 04:01 02/09/21 05:05 Labs: Abnormal Lab Results - Last 24 Hours (Table) 02/08/21 Range/Units 04:01 BUN <5.0 L (9.0-27.0) mg/dL Creatinine 0.4 L (0.6-1.5) mg/dL Calcium 8.6 L (8.7-10.3) mg/dL Total Bilirubin 0.2 L (0.3-1.2) mg/dL Total Protein 5.2 L (6.2-8.2) g/dL Albumin 3.30 L (3.80-4.90) g/dL
--- NOTE | 2021-02-09 14:36 | P.CONS ---
History of Present Illness - Reason for Consult Consult date: 02/09/21 Constipation, gastritis Requesting physician: Kristie Zamarripa - Chief Complaint Nausea and vomiting - History of Present Illness This is a 21-year-old female who is currently 8 weeks . Patient presented to the emergency department with complaints of nausea and vomiting. She's been hospitalized during this for hyperemesis gravidarum. Patient also has complaints of constipation for which gastroenterology was consulted. The patient states she has chronic constipation and only has a bowel movement once a month. She has not had any evaluation for her constipation in the past. She states this has been going on for 2 years. States that she is only taking stool softeners at home. She denies taking any Pepcid at home. States she vomits multiple times a day and has not had much oral intake. She is unsure of weight loss. States she did have a bowel movement yesterday which she states was soft. Currently she states Benadryl works best for her nausea and vomiting. She denies any previous EGD or colonoscopy in the past. Review of Systems REVIEW OF SYSTEMS: CARDIOPULMONARY: No chest pain or shortness of breath. Gastrointestinal: Some lower abdominal pain. No nausea or vomiting. No hematemesis, coffee-ground emesis. No rectal bleeding, or melena. Chronic constipation. GENITOURINARY: No dysuria or hematuria. Vaginal spotting. MUSCULOSKELETAL: Reports normal range of motion., Joint pain. SKIN: No rashes. No jaundice. ENDOCRINE: No chills, fevers. No excessive weight gain or loss. No polydipsia or polyuria. PSYCHIATRIC: Unremarkable. NEUROLOGY: No change in mental status. Denies dizziness, headache. ENT: Vision unremarkable. CONSTITUTIONAL: No recent weight loss. No fever, chills, night sweats. Past Medical History Past Medical History: No Reported History Additional Past Medical History / Comment(s): Hyperemesis wk and a half ago History of Any Multi-Drug Resistant Organisms: None Reported Past Surgical History: Appendectomy, Bladder Surgery, Section Additional Past Surgical History / Comment(s): Was really young when she had bladder surgery, unsure. C/S x2. Past Anesthesia/Blood Transfusion Reactions: No Reported Reaction Past Psychological History: Anxiety, Depression Smoking Status: Former smoker Past Alcohol Use History: Occasional Past Drug Use History: None Reported Additional Drug Use History / Comment(s): Pt. states she is unsure when she started and stopped smoking but states it was less than a year that she smoked cigarettes. - Past Family History Mother Family Medical History: No Reported History Medications and Allergies Home Medications Medication Instructions Recorded Confirmed Type Famotidine [Pepcid] 20 mg PO DAILY #30 tablet 01/28/21 02/04/21 Rx Metoclopramide [Reglan] 10 mg PO Q6HR PRN #30 tab 01/28/21 02/04/21 Rx Levofloxacin [Levaquin] 250 mg PO DAILY 5 Days #5 tab 02/01/21 02/04/21 Rx Sertraline [Zoloft] 25 mg PO DAILY 30 Days #30 tab 02/01/21 02/04/21 Rx Ondansetron [Zofran ODT] 4 mg PO Q6H PRN 02/04/21 02/04/21 History Allergies Allergy/AdvReac Type Severity Reaction Status Date / Time No Known Allergies Allergy Verified 02/04/21 15:17 Physical Exam Vitals: Vital Signs Temp Pulse Resp BP Pulse Ox 02/09/21 07:00 98.2 F 68 16 94/62 98 02/09/21 01:32 98.2 F 81 16 114/75 96 02/08/21 20:10 98.4 F 72 14 100/66 98 02/08/21 19:53 67 18 02/08/21 14:59 98.7 F 67 18 106/71 98 Intake and Output 02/08/21 02/09/21 02/09/21 22:59 06:59 14:59 Intake Total 250 Output Total 100 Balance 250 -100 Intake: Oral 250 Output: Emesis 100 Other: Voiding Method Toilet Toilet # Voids 1 2 # Bowel Movements 1 General appearance: The patient is alert, oriented, appears in no acute distress. HET: Head is normocephalic and atraumatic. Conjunctiva pink. Sclera anicteric. Neck: Supple without lymphadenopathy. Trachea midline. Heart: S1 S2. Regular rate and rhythm. Lungs: Clear to auscultation. Abdomen: Soft, obese, mild lower abdominal tenderness, nondistended with bowel sounds. No guarding or rigidity. Skin: No rashes. No jaundice. Extremities: Normal skin color and turgor. No pedal edema. Neurological: No focal deficits. Alert and oriented 3.. Results CBC & Chem 7: 02/08/21 04:01 02/09/21 05:05 Labs: Abnormal Lab Results - Last 24 Hours (Table) 02/08/21 02/08/21 Range/Units 04:01 04:01 RBC 3.93 L (4.10-5.20) X 10*6/uL Hgb 10.0 L (12.0-15.0) g/dL Hct 32.0 L (37.2-46.3) % MCH 25.4 L (27.0-32.0) pg MCHC 31.3 L (32.0-37.0) g/dL RDW 15.5 H (11.5-14.5) % BUN <5.0 L (9.0-27.0) mg/dL Creatinine 0.4 L (0.6-1.5) mg/dL Calcium 8.6 L (8.7-10.3) mg/dL Total Bilirubin 0.2 L (0.3-1.2) mg/dL Total Protein 5.2 L (6.2-8.2) g/dL Albumin 3.30 L (3.80-4.90) g/dL Assessment and Plan (1) Constipation Narrative/Plan: 21-year-old female currently hospitalized for hyperemesis gravidarum. She is approximately 8 weeks . She has chronic constipation which she states only has a bowel movement once a month, this has been going on for the last 2 years duration. States she is only taking stool softeners at home. She has never seen a specialist or discuss further with her PCP. States she did have a bowel movement yesterday which she states was soft. She has multiple episodes of nausea and vomiting daily and difficult time keeping and nutrition. Patient denies any blood in her stool, no severe abdominal pain, states she does sometimes get some feeling of bloating. Wright start patient on MiraLAX, patient may be titrated from 1-3 times a day as needed for constipation. This was discussed with patient. Current Visit: Yes Status: Acute Code(s): K59.00 - CONSTIPATION, UNSPECIFIED SNOMED Code(s): 95712403 (2) Hyperemesis gravidarum Narrative/Plan: Continue with antiemetics, discussed importance of taking Pepcid as directed at home. Patient may take Pepcid up to twice daily as needed. Current Visit: Yes Status: Acute Code(s): O21.0 - MILD HYPEREMESIS GRAVIDARUM SNOMED Code(s): 63469603 Plan: 1. Continue symptomatic and supportive care 2. Continue antibiotics as ordered 3. Add MiraLAX daily, may titrate up to 3-4 times daily as needed for constipation 4. Discussed with patient importance of bowel regimen, taking MiraLAX daily and may titrate as needed 5. Continue with Pepcid, may take twice a day as needed 6. No plans on endoscopic evaluation Thank you for this consultation, we will continue to follow. Dr. Larissa Aguilera I agree with the dictator's note, documented as a scribe by Micaela Tripathi.
[2021-02-10] MEDS: CLOTRIMAZOLE TROCHE 10 MG TROCHE MUCOUS MEM SCH ×5 (00:54→21:29)
[2021-02-10] MEDS: LACTATED RINGERS 1,000 ML IV SCH ×3 (04:04→17:49)
[2021-02-10] MEDS: DOCUSATE 100 MG CAP PO SCH (07:31)
[2021-02-10] MEDS: polyethylene glycoL 3350 17 GM POWD.PACK PO SCH (07:31)
[2021-02-10] MEDS: PYRIDOXINE 50 MG TAB PO SCH ×2 (07:31→21:29)
[2021-02-10] MEDS: SUCRALFATE 1 GM TAB PO SCH ×4 (07:31→21:29)
[2021-02-10] MEDS: FAMOTIDINE 20 MG TAB PO SCH ×2 (07:31→21:29)
[2021-02-10] MEDS: SERTRALINE 25 MG TAB PO SCH (07:32)
--- NOTE | 2021-02-10 08:57 | P.PN ---
Progress Note - Text Progress Note Date: 02/10/21 Patient still states she is not holding much down. She did hold down some cereal yesterday. She threw up her dinner. She states she has not holding down the MiraLAX. She last had a bowel movement one day ago. She does have some mild lower cramping and has continued to have some spotting. I discussed risks and benefits with her and I feel it in her best interest to proceed with IV steroid protocol for hyperemesis at this time. We will start this today. Once she is completed 48-72 hours of IV steroids, will switch to oral steroids. Appreciate medicine and GI input.
[2021-02-10] MEDS: methylPREDNISolone SOD SUCCI 40 MG/ML 1 ML VIAL IV SCH ×2 (09:59→16:42)
[2021-02-10] MEDS: diphenhydrAMINE 50 MG/ML 1 ML VIAL IVP PRN (10:19)
[2021-02-10] MEDS: SCOPOLAMINE 1.5MG/72HR PATCH TRANSDERM SCH (11:33)
--- NOTE | 2021-02-10 12:01 | P.PN ---
Subjective Progress Note Date: 02/10/21 Principal diagnosis: constipation This 21-year-old female who is approximately 8 weeks and is hospitalized with hyperemesis gravidarum. This is her second hospitalization during this . She states she is unable to keep much down. States she vomited up some of her dinner last night and this morning is feeling very nauseous. Her [employer] Dr. Vick saw her this morning and is starting her on IV steroids. The patient states she was unable to tolerate her MiraLAX yesterday. Last bowel movement 2 days ago. Apparently she still having some vaginal spotting. Objective - Vital Signs Vital signs: Vital Signs Temp 98.8 F 02/10/21 07:00 Pulse 78 02/10/21 08:00 Resp 18 02/10/21 08:00 BP 101/68 02/10/21 07:00 Pulse Ox 98 02/10/21 07:00 Intake & Output 02/09/21 02/10/21 02/10/21 18:59 06:59 18:59 Other: Voiding Method Toilet Toilet Toilet # Voids 3 1 - Exam General appearance: The patient is alert, oriented, appears in no acute distress. HET: Head is normocephalic and atraumatic. Conjunctiva pink. Sclera anicteric. Neck: Supple without lymphadenopathy. Abdomen: Soft, obese, nontender, nondistended with bowel sounds. No guarding or rigidity. Extremities: Normal skin color and turgor. No pedal edema Skin: No rashes, no jaundice Neurological: No focal deficits. Alert and oriented 3. - Labs CBC & Chem 7: 02/08/21 04:01 02/09/21 05:05 Labs: Abnormal Lab Results - Last 24 Hours (Table) 02/09/21 Range/Units 05:05 BUN <5.0 L (9.0-27.0) mg/dL Creatinine 0.4 L (0.6-1.5) mg/dL Iron 27 L (50-170) ug/dL % Saturation 9.12 L (12.00-45.00) Assessment and Plan (1) Constipation Narrative/Plan: 21-year-old female currently hospitalized for hyperemesis gravidarum. She is approximately 8 weeks . She has chronic constipation which she states only has a bowel movement once a month, this has been going on for the last 2 years duration. States she is only taking stool softeners at home. She has never seen a specialist or discuss further with her PCP. States she did have a bowel movement yesterday which she states was soft. She has multiple episodes of nausea and vomiting daily and difficult time keeping and nutrition. Patient denies any blood in her stool, no severe abdominal pain, states she does s ometimes get some feeling of bloating. Wright start patient on MiraLAX, patient may be titrated from 1-3 times a day as needed for constipation. This was discussed with patient. Current Visit: Yes Status: Acute Code(s): K59.00 - CONSTIPATION, UNSPECIFIED SNOMED Code(s): 32334918 (2) Hyperemesis gravidarum Narrative/Plan: Continue with antiemetics, discussed importance of taking Pepcid as directed at home. Patient may take Pepcid up to twice daily as needed. Will change Pepcid to 20 mg IV push twice a day. Will order Zofran around the clock. Will be to start patient on IV steroids. Current Visit: Yes Status: Acute Code(s): O21.0 - MILD HYPEREMESIS GRAVIDARU M SNOMED Code(s): 28931919 Plan: 1. Continue symptomatic and supportive care 2. Continue antibiotics as ordered 3. Continue MiraLAX daily, may titrate up to 3-4 times daily as needed for constipation 4. Discussed with patient importance of bowel regimen, taking MiraLAX daily and may titrate as needed 5. Increase Pepcid to 20 mg twice a day, changed to IV push 6. Will change Zofran to around the clock for nausea 7. Scopolamine patch was added. 8. No plans on endoscopic evaluation Thank you for this consultation, we will continue to follow. Dr. Larissa Aguilera I agree with the dictator's note, documented as a scribe by Micaela Tripathi.
[2021-02-10] MEDS: ONDANSETRON 4 MG/2 ML VIAL IVP SCH ×2 (12:26→17:55)
--- NOTE | 2021-02-10 15:01 | P.PN ---
Subjective Progress Note Date: 02/10/21 HISTORY OF PRESENT ILLNESS This is a 21-year-old female patient of Dr. Jolley with past medical history of depression, frequent urinary tract infections and significant for which she is at 8 weeks gestation. She was recently hospitalized 1 week ago for hyperemesis gravidarum. Patient is stating that she cannot hold any food or liquids down. She states even with a drink of water, she will vomit this. She complains of some abdominal pain when she vomits a lot. She has been on several medications only work for a brief period. She states she has not had a bowel m ovement since she left the hospital from her last admission and patient was discharged on Monday. She is complaining of back pain that is worse with vomiting. She complains of frequent urinary tract infections and she feels some stinging with urination. She presented to [facility] emergency center yesterday. Vital signs were stable. CBC unremarkable. Sodium 136, potassium 3.5, chloride 105, CO2 20, BUN 8 and creatinine 0.49. HCG was positive at 137,000. Albumin 4.2. Lipase 104. Liver function tests were normal. Urinalysis showed leukoesterase moderate, WBCs 11, squamous cells 8. Urine culture is in process. Patient was recently treated with Levaquin for Enterococcus faecalis and JEFF inhibitor Enterobacter urinary tract infection. Patient relates that she has not been able to take the medication or any of her home medications due to emesis. 02/06 patient still having some active vomiting with food, had some pancakes, which did not settle down for her, she had taken for oral medications which she kept down. Patient has still epigastric pain, bowel movement noted already today, no stools were sent for H. pylori, urine culture final, contamination, antibiotic discontinued and Carafate other labs INCLUDING lipase, abdominal ultrasound normal. No kidney stones, no hydronephrosis 02/07, patient had some beef daily, and corn, which she was able to keep down, however she threw up one of the medications, the liquid nystatin, oral medications seems to help, however she still has epigastric discomfort, with the nausea. Unable to do the HIDA scan with CCK secondary to ,, advised low-fat diet, and continue nutritional supplementation. Continue Carafate at this time, might be able to to do PPIs however there is conflicting human data on teratogenicity during cautions to advice.. Scopolamine is an alternative treatment that seemed to be safe during , if needed we can initiate this should she not tolerate any other treatment for the nausea and vomiting 02/08: Patient still is nauseated, has epigastric discomfort, still no appetite, did not have the burgers so for lunch today, restarting scopolamine patch, she has to sit on liquid nutrition, patient also has no bowel movement, her bowel movements usually once a month, we'll going to consult gastrology, for persistent gastritis, we will look into safety of nuclear med HIDA scan with CCK, on safety with . Underlying gallbladder disease with gastritis is suspected continue Carafate, there is hemoglobin drop of approximately 2 g, haptoglobin is noted, she has subchorionic bleed noted on ultrasound. 02/09: Patient did have nausea and vomiting last evening and plan continues to be conservative management, advance diet and possibly discharge in 1-2 days. Scopolamine patch ordered. Patient states she had a BM yesterday. Patient has been afebrile, heart rate 60, blood pressure 94/62, pulse ox 94% on room air. 02/10: Patient states she feels a little bit better today. She vomited some of her dinner last night and remains nauseated this morning. Case discussed with her primary WARD AIDE, Dr. Ramos, and it was decided that patient was cleared to start scopolamine patch. Her last bowel movement was 2 days ago and she was unable to tolerate MiraLAX yesterday. Patient is followed by GI regarding constipation which is chronic and going on for the past 2 years with one bowel movement per month. Patient is currently on Pepcid 20 mg oral twice daily, Zofran as needed IV push, scopolamine patch, Carafate 1 g before meals and at bedtime, patient started on Solu-Medrol IV 60 mg every 8 hours for 3 days. REVIEW OF SYSTEMS Constitutional: No fever, no chills, no night sweats. No weight change. No weakness, fatigue or lethargy. No daytime sleepiness. EENT: No headache. No blurred vision or double vision, no loss of vision. No loss of Hearing, no ringing in the ears, no dizziness. No nasal drainage or congestion. No epistaxis. No sore throat. Lungs: No shortness of breath, cough, no sputum production. No wheezing. Cardiovascular: Reports chest pain, no lower extremity edema. No palpitations. No paroxysmal nocturnal dyspnea. No orthopnea. No lightheadedness or dizziness. No syncopal episodes. Abdominal: Reports abdominal pain. Reports nausea, reports vomiting. No diarrhea. Reports chronic constipation. No bloody or tarry stools.. No loss of appetite. Genitourinary: No dysuria, increased frequency, urgency. No urinary retention. Musculoskeletal: No myalgias. No muscle weakness, no gait dysfunction, no frequent falls. Reports back pain. No neck pain. Integumentary: No wounds, no lesions. No rash or pruritus. No unusual bruising. No change in hair or nails. Neurologic: No aphasia. No facial droop. No change in mentation. No head injury. No headache. No paralysis. No paresthesia. Psychiatric: Reports depression. No anxiety. No mood swings. Endocrine: No abnormal blood sugars. No weight change. PHYSICAL EXAMINATION Gen: This is a 21-year-old morbidly obese female. Patient appears to be fatigued but no acute distress. HEENT: Head is atraumatic, normocephalic. Pupils equal, round. Sclerae is anicteric. NECK: Supple. No JVD. No lymphadenopathy. No thyromegaly. LUNGS: Clear to auscultation. No wheezes or rhonchi. No intercostal retrac tions. HEART: Regular rate and rhythm. No murmur. ABDOMEN: Soft. Bowel sounds are present. No masses. No tenderness. EXTREMITIES: No pedal edema. No calf tenderness. NEUROLOGICAL: Patient is awake, alert and oriented x3. Cranial nerves 2 through 12 are grossly intact. ASSESSMENT AND PLAN 1. Hyperemesis gravidarum. Pepcid 20 mg oral twice daily, Zofran as needed IV push, scopolamine patch, Carafate 1 g before meals and at bedtime, patient started on Solu-Medrol IV 60 mg every 8 hours for 3 days. Benadryl 25 mg IV push every 6 hours as needed. We'll add ensure clear or enlive advance diet low-fat 2. Gastritis. Continue Pepcid 20 mg IV daily, Carafate 1 g before meals and at bedtime. 3. Pyuria without Urinary tract infection. Patient started on ceftriaxone. Urinalysis and urine culture are discontinued antibiotics 4. Recurrent depression. Continue Zoloft 25 mg daily. 5. Protein malnutrition, secondary to hyperemesis gravidarum and gastritis 6. Thrush. Patient was started on clotrimazole naeem. DISCHARGE PLAN HOme. Impression and plan of care have been directed as dictated by the signing physician. Lillian Oliver nurse practitioner acting as scribe for signing physician. Objective - Vital Signs Vital signs: Vital Signs Temp 97.8 F 02/10/21 01:16 Pulse 69 02/10/21 01:16 Resp 15 02/10/21 01:16 BP 97/62 02/10/21 01:16 Pulse Ox 97 02/10/21 01:16 Intake & Output 02/09/21 02/10/21 02/10/21 18:59 06:59 18:59 Other: Voiding Method Toilet Toilet # Voids 3 1 - Labs CBC & Chem 7: 02/08/21 04:01 02/09/21 05:05 Labs: Abnormal Lab Results - Last 24 Hours (Table) 02/09/21 Range/Units 05:05 BUN <5.0 L (9.0-27.0) mg/dL Creatinine 0.4 L (0.6-1.5) mg/dL Iron 27 L (50-170) ug/dL % Saturation 9.12 L (12.00-45.00)
[2021-02-11] MEDS: CLOTRIMAZOLE TROCHE 10 MG TROCHE MUCOUS MEM SCH ×5 (00:44→21:44)
[2021-02-11] MEDS: LACTATED RINGERS 1,000 ML IV SCH ×3 (00:44→21:05)
[2021-02-11] MEDS: ONDANSETRON 4 MG/2 ML VIAL IVP SCH ×4 (00:44→17:41)
[2021-02-11] MEDS: methylPREDNISolone SOD SUCCI 40 MG/ML 1 ML VIAL IV SCH ×3 (00:44→16:49)
[2021-02-11] MEDS: polyethylene glycoL 3350 17 GM POWD.PACK PO SCH (08:04)
[2021-02-11] MEDS: SERTRALINE 25 MG TAB PO SCH (08:05)
[2021-02-11] MEDS: FAMOTIDINE 20 MG TAB PO SCH ×2 (08:05→21:03)
[2021-02-11] MEDS: DOCUSATE 100 MG CAP PO SCH (08:05)
[2021-02-11] MEDS: SUCRALFATE 1 GM TAB PO SCH (08:05)
[2021-02-11] MEDS: PYRIDOXINE 50 MG TAB PO SCH ×2 (08:06→21:44)
--- NOTE | 2021-02-11 08:54 | P.PN ---
Progress Note - Text Progress Note Date: 02/11/21 Patient states she still has minimal appetite but has not been vomiting last night. He states she vomited 1 time last night but has not vomited since. She has been able to hold down cereal this morning. Overall her pain is better with just some mild upper epigastric pain. She states she has not had any further blood clots but just some scant spotting. I have advised her that I Will continue the IV steroids for 1 more day for a total of 48 hours and then switch her to oral steroids. At that time she may be able to go home on oral steroids as long as she continues to eat without vomiting very often. Once the IV steroids are completed, the protocol will be prednisone 40 mg daily 1 day, 20 mg daily 3 days, 10 mg daily 3 days, and then 5 mg daily 7 days.
--- NOTE | 2021-02-11 11:43 | P.PN ---
Subjective Progress Note Date: 02/11/21 HISTORY OF PRESENT ILLNESS This is a 21-year-old female patient of Dr. Jolley with past medical history of depression, frequent urinary tract infections and significant for which she is at 8 weeks gestation. She was recently hospitalized 1 week ago for hyperemesis gravidarum. Patient is stating that she cannot hold any food or liquids down. She states even with a drink of water, she will vomit this. She complains of some abdominal pain when she vomits a lot. She has been on several medications only work for a brief period. She states she has not had a bowel m ovement since she left the hospital from her last admission and patient was discharged on Monday. She is complaining of back pain that is worse with vomiting. She complains of frequent urinary tract infections and she feels some stinging with urination. She presented to [facility] emergency center yesterday. Vital signs were stable. CBC unremarkable. Sodium 136, potassium 3.5, chloride 105, CO2 20, BUN 8 and creatinine 0.49. HCG was positive at 137,000. Albumin 4.2. Lipase 104. Liver function tests were normal. Urinalysis showed leukoesterase moderate, WBCs 11, squamous cells 8. Urine culture is in process. Patient was recently treated with Levaquin for Enterococcus faecalis and JEFF inhibitor Enterobacter urinary tract infection. Patient relates that she has not been able to take the medication or any of her home medications due to emesis. 02/06 patient still having some active vomiting with food, had some pancakes, which did not settle down for her, she had taken for oral medications which she kept down. Patient has still epigastric pain, bowel movement noted already today, no stools were sent for H. pylori, urine culture final, contamination, antibiotic discontinued and Carafate other labs INCLUDING lipase, abdominal ultrasound normal. No kidney stones, no hydronephrosis 02/07, patient had some beef daily, and corn, which she was able to keep down, however she threw up one of the medications, the liquid nystatin, oral medications seems to help, however she still has epigastric discomfort, with the nausea. Unable to do the HIDA scan with CCK secondary to ,, advised low-fat diet, and continue nutritional supplementation. Continue Carafate at this time, might be able to to do PPIs however there is conflicting human data on teratogenicity during cautions to advice.. Scopolamine is an alternative treatment that seemed to be safe during , if needed we can initiate this should she not tolerate any other treatment for the nausea and vomiting 02/08: Patient still is nauseated, has epigastric discomfort, still no appetite, did not have the burgers so for lunch today, restarting scopolamine patch, she has to sit on liquid nutrition, patient also has no bowel movement, her bowel movements usually once a month, we'll going to consult gastrology, for persistent gastritis, we will look into safety of nuclear med HIDA scan with CCK, on safety with . Underlying gallbladder disease with gastritis is suspected continue Carafate, there is hemoglobin drop of approximately 2 g, haptoglobin is noted, she has subchorionic bleed noted on ultrasound. 02/09: Patient did have nausea and vomiting last evening and plan continues to be conservative management, advance diet and possibly discharge in 1-2 days. Scopolamine patch ordered. Patient states she had a BM yesterday. Patient has been afebrile, heart rate 60, blood pressure 94/62, pulse ox 94% on room air. 02/10: Patient states she feels a little bit better today. She vomited some of her dinner last night and remains nauseated this morning. Case discussed with her primary SALES AND MARKETING COORDINATOR, Dr. Ramos, and it was decided that patient was cleared to start scopolamine patch. Her last bowel movement was 2 days ago and she was unable to tolerate MiraLAX yesterday. Patient is followed by GI regarding constipation which is chronic and going on for the past 2 years with one bowel movement per month. Patient is currently on Pepcid 20 mg oral twice daily, Zofran as needed IV push, scopolamine patch, Carafate 1 g before meals and at bedtime, patient started on Solu-Medrol IV 60 mg every 8 hours for 3 days. 02/11: Patient states that she is feeling much better, no emesis since last evening. Abdominal pain is mild. Patient is continued on IV Solu-Medrol which will be continued for another 24 hours with MILLWRIGHT APPRENTICE planning for discharge tomorrow and continue prednisone taper. Patient is afebrile, heart rate 64, blood pressure 96/60, pulse ox 90% on room air. REVIEW OF SYSTEMS Constitutional: No fever, no chills, no night sweats. No weight change. No weakness, fatigue or lethargy. No daytime sleepiness. EENT: No headache. No blurred vision or double vision, no loss of vision. No loss of Hearing, no ringing in the ears, no dizziness. No nasal drainage or congestion. No epistaxis. No sore throat. Lungs: No shortness of breath, cough, no sputum production. No wheezing. Cardiovascular: Reports chest pain, no lower extremity edema. No palpitations. No paroxysmal nocturnal dyspnea. No orthopnea. No lightheadedness or dizziness. No syncopal episodes. Abdominal: Reports abdominal pain. Reports nausea, reports vomiting. No diarrhea. Reports chronic constipation. No bloody or tarry stools.. No loss of appetite. Genitourinary: No dysuria, increased frequency, urgency. No urinary retention. Musculoskeletal: No myalgias. No muscle weakness, no gait dysfunction, no frequent falls. Reports back pain. No neck pain. Integumentary: No wounds, no lesions. No rash or pruritus. No unusual bruising. No change in hair or nails. Neurologic: No aphasia. No facial droop. No change in mentation. No head injury. No headache. No paralysis. No paresthesia. Psychiatric: Reports depression. No anxiety. No mood swings. Endocrine: No abnormal blood sugars. No weight change. PHYSICAL EXAMINATION Gen: This is a 21-year-old morbidly obese female. Patient appears to be fatigued but no acute distress. HEENT: Head is atraumatic, normocephalic. Pupils equal, round. Sclerae is anicteric. NECK: Supple. No JVD. No lymphadenopathy. No thyromegaly. LUNGS: Clear to auscultation. No wheezes or rhonchi. No intercostal retractions. HEART: Regular rate and rhythm. No murmur. ABDOMEN: Soft. Bowel sounds are present. No masses. No tenderness. EXTREMITIES: No pedal edema. No calf tenderness. NEUROLOGICAL: Patient is awake, alert and oriented x3. Cranial nerves 2 through 12 are grossly intact. ASSESSMENT AND PLAN 1. Hyperemesis gravidarum. Pepcid 20 mg oral twice daily, Zofran as needed IV push, scopolamine patch, Carafate 1 g before meals and at bedtime, patient started on Solu-Medrol IV 60 mg every 8 hours for 3 days. Benadryl 25 mg IV push every 6 hours as needed. We'll add ensure clear or enlive advance diet low-fat 2. Gastritis. Continue Pepcid 20 mg IV daily, Carafate 1 g before meals and at bedtime. 3. Pyuria without Urinary tract infection. Patient started on ceftriaxone. Discontinued antibiotics 4. Recurrent depression. Continue Zoloft 25 mg daily. 5. Protein malnutrition, secondary to hyperemesis gravidarum and gastritis 6. Thrush. Continue clotrimazole naeem. DISCHARGE PLAN HOme on Monday. Impression and plan of care have been directed as dictated by the signing physic ian. Lillian Oliver nurse practitioner acting as scribe for signing physician. Objective - Vital Signs Vital signs: Vital Signs Temp 98.2 F 02/11/21 07:00 Pulse 64 02/11/21 07:00 Resp 18 02/11/21 07:00 BP 96/60 02/11/21 07:00 Pulse Ox 98 02/11/21 07:00 Intake & Output 02/10/21 02/11/21 02/11/21 18:59 06:59 18:59 Weight 110.223 kg Other: Voiding Method Toilet Toilet # Voids 3 1 - Labs CBC & Chem 7: 02/08/21 04:01 02/09/21 05:05
--- NOTE | 2021-02-11 11:55 | P.PN ---
Subjective Progress Note Date: 02/11/21 Principal diagnosis: constipation This 21-year-old female who is approximately 8 weeks and is hospitalized with hyperemesis gravidarum. This is her second hospitalization during this . Her CALENDER INSPECTOR Dr. Ramos started her on IV steroids. Patient states she had some creal this morning without vomiting and is feeling better. Objective - Vital Signs Vital signs: Vital Signs Temp 98.2 F 02/11/21 07:00 Pulse 64 02/11/21 07:00 Resp 18 02/11/21 07:00 BP 96/60 02/11/21 07:00 Pulse Ox 98 02/11/21 07:00 Intake & Output 02/10/21 02/11/21 02/11/21 18:59 06:59 18:59 Weight 110.223 kg 110.223 kg Other: Voiding Method Toilet Toilet # Voids 3 1 - Exam General appearance: The patient is alert, oriented, appears in no acute distress. HET: Head is normocephalic and atraumatic. Conjunctiva pink. Sclera anicteric. Neck: Supple without lymphadenopathy. Abdomen: Soft, obese, mild epigastric tenderness, nondistended with bowel sounds. No guarding or rigidity. Extremities: Normal skin color and turgor. No pedal edema Skin: No rashes, no jaundice Neurological: No focal deficits. Alert and oriented 3. - Labs CBC & Chem 7: 02/08/21 04:01 02/09/21 05:05 Assessment and Plan (1) Constipation Narrative/Plan: 21-year-old female currently hospitalized for hyperemesis gravidarum. She is approximately 8 weeks . She has chronic constipation which she states only has a bowel movement once a month, this has been going on for the last 2 years duration. States she is only taking stool softeners at home. She has never seen a specialist or discuss further with her PCP. States she did have a bowel movement yesterday which she states was soft. She has multiple episodes of nausea and vomiting daily and difficult time keeping and nutrition. Patient denies any blood in her stool, no severe abdominal pain, states she does sometimes get some feeling of bloating. Wright start patient on MiraLAX, patient may be titrated from 1-3 times a day as needed for constipation. This was discussed with patient. Current Visit: Yes Status: Acute Code(s): K59.00 - CONSTIPATION, UNSPECIFIED SNOMED Code(s): 25152185 (2) Hyperemesis gravidarum Narrative/Plan: Continue with antiemetics, discussed importance of taking Pepcid as directed at home. Patient may take Pepcid up to twice daily as needed. Will change Pepcid to 20 mg IV push twice a day. Will order Zofran around the clock. Will be to start patient on IV steroids. Current Visit: Yes Status: Acute Code(s): O21.0 - MILD HYPEREMESIS GRAVIDARUM SNOMED Code(s): 71946951 Plan: 1. Continue symptomatic and supportive care 2. Continue MiraLAX daily, may titrate up to 3-4 times daily as needed for constipation 3. Discussed with patient importance of bowel regimen, taking MiraLAX daily and may titrate as needed 4. Continue Pepcid to 20 mg twice a day, changed to IV push 5. Will change Zofran to around the clock for nausea 6. Scopolamine patch was added. 7. Can discontinue carafate 8. Continue steroids as ordered by OB 9. No plans on endoscopic evaluation Thank you for this consultation, we will continue to follow. Dr. Larissa Aguilera I agree with the dictator's note, documented as a scribe by Micaela Tripathi.
[2021-02-11] MEDS: diphenhydrAMINE 50 MG/ML 1 ML VIAL IVP PRN (21:02)
[2021-02-12] MEDS: CLOTRIMAZOLE TROCHE 10 MG TROCHE MUCOUS MEM SCH ×4 (00:37→19:38)
[2021-02-12] MEDS: methylPREDNISolone SOD SUCCI 40 MG/ML 1 ML VIAL IV SCH ×2 (00:37→10:02)
[2021-02-12] MEDS: ONDANSETRON 4 MG/2 ML VIAL IVP SCH ×2 (00:37→05:47)
[2021-02-12] MEDS: LACTATED RINGERS 1,000 ML IV SCH ×3 (00:38→19:40)
[2021-02-12 07:05] LABS: HGB 11.1 gm/dL (11.4-16.0); MCH 27.2 pg (25.0-35.0); MCHC 33.5 g/dL (31.0-37.0); MCV 81.2 fL (80.0-100.0); Mean Platelet Volume 7.6; Platelet Count 241 k/uL (150-450); RBC 4.06 m/uL (3.80-5.40); RDW 15.1 % (11.5-15.5); WBC 7.4 k/uL (3.8-10.6)
[2021-02-12 07:18] LABS: ALT 14 U/L (4-34); AST 11 U/L (14-36); African American GFR (CKD) >90 (>60 ml/min/1.73 sqM); Albumin 3.1 g/dL (3.5-5.0); Alkaline Phosphatase 46 U/L (38-126); Anion Gap 7 mmol/L; Blood Urea Nitrogen 3 mg/dL (7-17); Calcium 8.9 mg/dL (8.4-10.2); Carbon Dioxide 22 mmol/L (22-30); Chloride 105 mmol/L (98-107); Glucose 99 mg/dL (74-99); Non-African American GFR(CKD) >90 (>60 ml/min/1.73 sqM); Sodium 134 mmol/L (137-145); Total Bilirubin 0.1 mg/dL (0.2-1.3); Total Protein 5.9 g/dL (6.3-8.2)
[2021-02-12] MEDS ORDERED: ONDANSETRON 4 MG/2 ML VIAL IVP PRN (08:31)
--- NOTE | 2021-02-12 08:44 | P.PN ---
Progress Note - Text Progress Note Date: 02/12/21 Patient is still doing okay today. She did have 1 emesis last night about 8 PM she states about 5-10 minutes after eating her dinner. She is eating some bread when I walked in the room today. She denies any new pain, just some mild epigastric pain. She denies any vaginal bleeding. She has not had a bowel movement in a couple days. I will change Zofran to when necessary rather than scheduled to hopefully help with her constipation. Will switch to oral prednisone today. She will get 40 mg today and then 20 mg daily for the next 3 days, 10 mg daily for the next 3 days after that, and then 5 mg daily for 7 days. I asked her if she felt comfortable going home today, however she feels she needs 1 more day. We'll see how she does on orals today and hopefully discharge home tomorrow. Dr. Alberto will be managing this weekend.
[2021-02-12] MEDS ORDERED: predniSONE 20 MG TAB PO SCH (09:00)
[2021-02-12] MEDS: SERTRALINE 25 MG TAB PO SCH (09:52)
[2021-02-12] MEDS: DOCUSATE 100 MG CAP PO SCH (09:52)
[2021-02-12] MEDS: PYRIDOXINE 50 MG TAB PO SCH ×2 (09:53→20:54)
[2021-02-12] MEDS: polyethylene glycoL 3350 17 GM POWD.PACK PO SCH ×2 (09:53→20:54)
[2021-02-12] MEDS: FAMOTIDINE 20 MG TAB PO SCH ×2 (09:53→20:54)
--- NOTE | 2021-02-12 11:56 | P.PN ---
Subjective Progress Note Date: 02/12/21 HISTORY OF PRESENT ILLNESS This is a 21-year-old female patient of Dr. Jolley with past medical history of depression, frequent urinary tract infections and significant for which she is at 8 weeks gestation. She was recently hospitalized 1 week ago for hyperemesis gravidarum. Patient is stating that she cannot hold any food or liquids down. She states even with a drink of water, she will vomit this. She complains of some abdominal pain when she vomits a lot. She has been on several medications only work for a brief period. She states she has not had a bowel m ovement since she left the hospital from her last admission and patient was discharged on Monday. She is complaining of back pain that is worse with vomiting. She complains of frequent urinary tract infections and she feels some stinging with urination. She presented to [facility] emergency center yesterday. Vital signs were stable. CBC unremarkable. Sodium 136, potassium 3.5, chloride 105, CO2 20, BUN 8 and creatinine 0.49. HCG was positive at 137,000. Albumin 4.2. Lipase 104. Liver function tests were normal. Urinalysis showed leukoesterase moderate, WBCs 11, squamous cells 8. Urine culture is in process. Patient was recently treated with Levaquin for Enterococcus faecalis and JEFF inhibitor Enterobacter urinary tract infection. Patient relates that she has not been able to take the medication or any of her home medications due to emesis. 02/06 patient still having some active vomiting with food, had some pancakes, which did not settle down for her, she had taken for oral medications which she kept down. Patient has still epigastric pain, bowel movement noted already today, no stools were sent for H. pylori, urine culture final, contamination, antibiotic discontinued and Carafate other labs INCLUDING lipase, abdominal ultrasound normal. No kidney stones, no hydronephrosis 02/07, patient had some beef daily, and corn, which she was able to keep down, however she threw up one of the medications, the liquid nystatin, oral medications seems to help, however she still has epigastric discomfort, with the nausea. Unable to do the HIDA scan with CCK secondary to ,, advised low-fat diet, and continue nutritional supplementation. Continue Carafate at this time, might be able to to do PPIs however there is conflicting human data on teratogenicity during cautions to advice.. Scopolamine is an alternative treatment that seemed to be safe during , if needed we can initiate this should she not tolerate any other treatment for the nausea and vomiting 02/08: Patient still is nauseated, has epigastric discomfort, still no appetite, did not have the burgers so for lunch today, restarting scopolamine patch, she has to sit on liquid nutrition, patient also has no bowel movement, her bowel movements usually once a month, we'll going to consult gastrology, for persistent gastritis, we will look into safety of nuclear med HIDA scan with CCK, on safety with . Underlying gallbladder disease with gastritis is suspected continue Carafate, there is hemoglobin drop of approximately 2 g, haptoglobin is noted, she has subchorionic bleed noted on ultrasound. 02/09: Patient did have nausea and vomiting last evening and plan continues to be conservative management, advance diet and possibly discharge in 1-2 days. Scopolamine patch ordered. Patient states she had a BM yesterday. Patient has been afebrile, heart rate 60, blood pressure 94/62, pulse ox 94% on room air. 02/10: Patient states she feels a little bit better today. She vomited some of her dinner last night and remains nauseated this morning. Case discussed with her primary FINANCE EXECUTIVE, Dr. Ramos, and it was decided that patient was cleared to start scopolamine patch. Her last bowel movement was 2 days ago and she was unable to tolerate MiraLAX yesterday. Patient is followed by GI regarding constipation which is chronic and going on for the past 2 years with one bowel movement per month. Patient is currently on Pepcid 20 mg oral twice daily, Zofran as needed IV push, scopolamine patch, Carafate 1 g before meals and at bedtime, patient started on Solu-Medrol IV 60 mg every 8 hours for 3 days. 02/11: Patient states that she is feeling much better, no emesis since last evening. Abdominal pain is mild. Patient is continued on IV Solu-Medrol which will be continued for another 24 hours with [employer] CH[employer]RA[employer]O WORKER planning for discharge tomorrow and continue prednisone taper. Patient is afebrile, heart rate 64, blood pressure 96/60, pulse ox 90% on room air. 02/12: Patient states her last emesis was last night. No nausea or vomiting this morning. She denies abdominal pain. She did not eat her breakfast. Patient encouraged to take Ensure. Concerned the patient is depressed as she does not desire to see her significant other and baby. She has been afebrile, heart rate 66 blood pressure 107/50, pulse ox 97% on room air. Repeat blood work reveals WBC 7.4, hemoglobin 11.1, platelet count 241. Sodium 134, potassium 4.0, chloride 105, CO2 22, BUN 3 and creatinine 0.39. Albumin is 3.1. The patient is followed by GI. She did have one bowel movement since admission. IV steroids have been changed to prednisone at 40 mg today on a tapering schedule per Dr. Ramos plan is to monitor overnight and discharge tomorrow. Denies REVIEW OF SYSTEMS Constitutional: No fever, no chills, no night sweats. No weight change. No weakness, fatigue or lethargy. No daytime sleepiness. EENT: No headache. No blurred vision or double vision, no loss of vision. No loss of Hearing, no ringing in the ears, no dizziness. No nasal drainage or congestion. No epistaxis. No sore throat. Lungs: No shortness of breath, cough, no sputum production. No wheezing. Cardiovascular: Reports chest pain, no lower extremity edema. No palpitations. No paroxysmal nocturnal dyspnea. No orthopnea. No lightheadedness or dizziness. No syncopal episodes. Abdominal: Reports abdominal pain. Reports nausea, reports vomiting. No diarrhea. Reports chronic constipation. No bloody or tarry stools.. No loss of appetite. Genitourinary: No dysuria, increased frequency, urgency. No urinary retention. Musculoskeletal: No myalgias. No muscle weakness, no gait dysfunction, no frequent falls. Reports back pain. No neck pain. Integumentary: No wounds, no lesions. No rash or pruritus. No unusual bruising. No change in hair or nails. Neurologic: No aphasia. No facial droop. No change in mentation. No head injury. No headache. No paralysis. No paresthesia. Psychiatric: Reports depression. No anxiety. No mood swings. Endocrine: No abnormal blood sugars. No weight change. PHYSICAL EXAMINATION Gen: This is a 21-year-old morbidly obese female. Patient appears to be fatigued but no acute distress. HEENT: Head is atraumatic, normocephalic. Pupils equal, round. Sclerae is anicteric. NECK: Supple. No JVD. No lymphadenopathy. No thyromegaly. LUNGS: Clear to auscultation. No wheezes or rhonchi. No intercostal retractions. HEART: Regular rate and rhythm. No murmur. ABDOMEN: Soft. Bowel sounds are present. No masses. No tenderness. EXTREMITIES: No pedal edema. No calf tenderness. NEUROLOGICAL: Patient is awake, alert and oriented x3. Cranial nerves 2 through 12 are grossly intact. ASSESSMENT AND PLAN 1. Hyperemesis gravidarum. Pepcid 20 mg oral twice daily, Zofran as needed IV push, scopolamine patch, Carafate 1 g before meals and at bedtime, patient started on Solu-Medrol IV and transitioned to oral prednisone. Benadryl 25 mg IV push every 6 hours as needed. Continue ensure 2. Gastritis. Continue Pepcid 20 mg IV daily, Carafate 1 g before meals and at bedtime. 3. Pyuria without Urinary tract infection. Patient started on ceftriaxone. Discontinued antibiotics 4. Recurrent depression. Continue Zoloft 25 mg daily. 5. Protein malnutrition, secondary to hyperemesis gravidarum and gastritis 6. Thrush. Continue clotrimazole naeem. DISCHARGE PLAN HOme on Monday. Impression and plan of care have been directed as dictated by the signing physician. Lillian Oliver nurse practitioner acting as scribe for signing physician. Objective - Vital Signs Vital signs: Vital Signs Temp 98.1 F 02/12/21 02:00 Pulse 56 L 02/12/21 02:00 Resp 15 02/12/21 02:00 BP 107/59 02/12/21 02:00 Pulse Ox 97 02/12/21 02:00 Intake & Output 02/11/21 02/12/21 02/12/21 18:59 06:59 18:59 Intake Total 1200 Output Total 100 Balance 1200 -100 Weight 110.223 kg Intake: Intake, IV Titration 1200 Amount Lactated Ringers 1,000 ml 1200 @ 150 mls/hr IV .Q6H40M [facility] Rx#:[id number] Output: Emesis 100 Other: Voiding Method Toilet # Voids 1 - Labs CBC & Chem 7: 02/12/21 06:42 02/12/21 06:42 Labs: Abnormal Lab Results - Last 24 Hours (Table) 02/12/21 02/12/21 Range/Units 06:42 06:42 Hgb 11.1 L (11.4-16.0) gm/dL Hct 33.0 L (34.0-46.0) % Sodium 134 L (137-145) mmol/L BUN 3 L (7-17) mg/dL Creatinine 0.39 L (0.52-1.04) mg/dL Total Bilirubin 0.1 L (0.2-1.3) mg/dL AST 11 L (14-36) U/L Total Protein 5.9 L (6.3-8.2) g/dL Albumin 3.1 L (3.5-5.0) g/dL
[2021-02-12] MEDS: diphenhydrAMINE 50 MG/ML 1 ML VIAL IVP PRN (12:54)
--- NOTE | 2021-02-12 13:20 | P.PN ---
Subjective Progress Note Date: 02/12/21 Principal diagnosis: constipation This 21-year-old female who is approximately 8 weeks and is hospitalized with hyperemesis gravidarum. This is her second hospitalization during this . Her BOTTLE LABEL INSPECTOR Dr. Ramos started her on IV steroids, she is on day 3. Patient's nausea and vomiting has improved significantly. She is tolerating small amounts of regular diet. She is still complaining that she has not had a bowel movement. However patient had just started taking her MiraLAX. Discussed importance with patient to continue MiraLAX while at home as well as P epcid daily. Patient denies any abdominal pain, mild nausea, no vomiting. She's had no further vaginal spotting. Objective - Vital Signs Vital signs: Vital Signs Temp 98.2 F 02/12/21 09:55 Pulse 66 02/12/21 09:55 Resp 14 02/12/21 09:55 BP 107/50 02/12/21 09:55 Pulse Ox 97 02/12/21 02:00 Intake & Output 02/11/21 02/12/21 02/12/21 18:59 06:59 18:59 Intake Total 1200 Output Total 100 Balance 1200 -100 Weight 110.223 kg Intake: Intake, IV Titration 1200 Amount Lactated Ringers 1,000 ml 1200 @ 150 mls/hr IV .Q6H40M [facility] Rx#:[id number] Output: Emesis 100 Other: Voiding Method Toilet # Voids 1 - Exam General appearance: The patient is alert, oriented, appears in no acute distress. HET: Head is normocephalic and atraumatic. Conjunctiva pink. Sclera anicteric. Neck: Supple without lymphadenopathy. Abdomen: Soft, obese, mild epigastric tenderness, nondistended with bowel sounds. No guarding or rigidity. Extremities: Normal skin color and turgor. No pedal edema Skin: No rashes, no jaundice Neurological: No focal deficits. Alert and oriented 3. - Labs CBC & Chem 7: 02/12/21 06:42 02/12/21 06:42 Labs: Abnormal Lab Results - Last 24 Hours (Table) 02/12/21 02/12/21 Range/Units 06:42 06:42 Hgb 11.1 L (11.4-16.0) gm/dL Hct 33.0 L (34.0-46.0) % Sodium 134 L (137-145) mmol/L BUN 3 L (7-17) mg/dL Creatinine 0.39 L (0.52-1.04) mg/dL Total Bilirubin 0.1 L (0.2-1.3) mg/dL AST 11 L (14-36) U/L Total Protein 5.9 L (6.3-8.2) g/dL Albumin 3.1 L (3.5-5.0) g/dL Assessment and Plan (1) Constipation Narrative/Plan: 21-year-old female currently hospitalized for hyperemesis gravidarum. She is approximately 8 weeks . She has chronic constipation which she states only has a bowel movement once a month, this has been going on for the last 2 years duration. States she is only taking stool softeners at home. She has never seen a specialist or discuss further with her PCP. States she did have a bowel movement yesterday which she states was soft. She has multiple episodes of nausea and vomiting daily and difficult time keeping and nutrition. Patient denies any blood in her stool, no severe abdominal pain, states she does sometimes get some feeling of bloating. Wright start patient on MiraLAX, patient may be titrated from 1-3 times a day as needed for constipation. This was discussed with patient. Current Visit: Yes Status: Acute Code(s): K59.00 - CONSTIPATION, UNSPECIFIED SNOMED Code(s): 22627870 (2) Hyperemesis gravidarum Narrative/Plan: Continue with antiemetics, discussed importance of taking Pepcid as directed at home. Patient may take Pepcid up to twice daily as needed. Will change Pepcid to 20 mg IV push twice a day. Will order Zofran around the clock. Will be to start patient on IV steroids. Current Visit: Yes Status: Acute Code(s): O21.0 - MILD HYPEREMESIS GRAVIDARUM SNOMED Code(s): 49108376 Plan: 1. Continue symptomatic and supportive care 2. Continue MiraLAX daily, may titrate up to 3-4 times daily as needed for constipation 3. Discussed with patient importance of bowel regimen, taking MiraLAX daily and may titrate as needed 4. Continue Pepcid to 20 mg twice a day, continue at home 5. Zofran only as needed 6. Scopolamine patch was added. 7. Can discontinue carafate 8. Continue steroids as ordered by OB 9. No plans on endoscopic evaluation Thank you for this consultation, the patient is cleared for discharge from gastroenterology. Thank you for allowing us to participate in the care of the patient, the GI service will sign off, gastroenterology will not be available at the hospital this weekend and if further evaluation by gastroenterology is required the patient will need transfer as per the primary team's discretion. Dr. Larissa Aguilera I agree with the dictator's note, documented as a scribe by Micaela Tripathi.
[2021-02-13] MEDS: LACTATED RINGERS 1,000 ML IV SCH ×3 (02:12→08:17)
[2021-02-13] MEDS: CLOTRIMAZOLE TROCHE 10 MG TROCHE MUCOUS MEM SCH ×4 (05:59→12:23)
[2021-02-13] MEDS: FAMOTIDINE 20 MG TAB PO SCH (08:17)
[2021-02-13] MEDS: PYRIDOXINE 50 MG TAB PO SCH (08:18)
[2021-02-13] MEDS: SERTRALINE 25 MG TAB PO SCH (08:18)
[2021-02-13] MEDS: DOCUSATE 100 MG CAP PO SCH (08:19)
[2021-02-13] MEDS: SCOPOLAMINE 1.5MG/72HR PATCH TRANSDERM SCH (08:19)
[2021-02-13] MEDS ORDERED: predniSONE 20 MG TAB PO SCH (09:00)
[2021-02-13 09:08] VITALS: BP 102/66; PULSE 74; RESP 18; TEMP 98.3
--- NOTE | 2021-02-13 09:43 | P.DS ---
Providers Date of admission: 02/09/21 12:29 Expected date of discharge: 02/13/21 Attending physician: Edgardo Alberto Consults: 02/04/21 20:26 Consult Physician Urgent Consulting Provider: Kristie Zamarripa Consult Reason/Comments: medical management Do you want consulting provider notified?: Yes 02/08/21 13:21 Consult Physician Routine Consulting Provider: Irma Aguilera Consult Reason/Comments: gastritis, severe constipation, bm once a month Do you want consulting provider notified?: Yes, Notify in am Primary care physician: Markel Jolley MD Hospital Course: Bereket is seen and evaluated this morning. She is doing much better. She is only thrown up one or 2 times in the last 36 hours. She is tolerating a diet now. She tolerated dinner last night she tolerated breakfast this morning she relates that she is ready to go home and that she'll follow up appointment Fredi made with her unemployment benefits claims taker. She is being discharged home on a steroid tapering dose per her primary unemployment benefits claims taker did handwritten instructions for how to take the medication was provided to her. She is otherwise stable for discharge with stable vital signs and she is afebrile. She is aware to return should she have worsening of symptoms were at least notify our office so we can make adjustments to her current regimen. She is been in the hospital now for 9 days for her hyperemesis. It would appear that hyperemesis is better in the last several days that was in the beginning and at this time she is stable for discharge. Vital signs stable and afebrile. Heart regular, lungs clear, extremities without pain. Abdomen soft and nontender and bowel sounds are noted. Assessment intrauterine at 9 weeks. Hyperemesis gravidarum. Plan discharged home follow up with Dr. Ramos in 10 days or sooner as needed. Patient Condition at Discharge: Good Plan - Discharge Summary Discharge Rx Participant: No New Discharge Prescriptions: New Pyridoxine [Vitamin B-6] 50 mg PO BID #60 tab polyethylene glycoL 3350 [Miralax] 17 gm PO DAILY #30 packet predniSONE 5 mg PO DAILY #21 tab Continue Ondansetron [Zofran ODT] 4 mg PO Q6H PRN PRN Reason: Nausea Sertraline [Zoloft] 25 mg PO DAILY 30 Days #30 tab Metoclopramide [Reglan] 10 mg PO Q6HR PRN #30 tab PRN Reason: Nausea Changed Famotidine [Pepcid] 20 mg PO BID #60 tablet Discontinued Levofloxacin [Levaquin] 250 mg PO DAILY 5 Days #5 tab Discharge Medication List Metoclopramide [Reglan] 10 mg PO Q6HR PRN #30 tab 01/28/21 [Rx] Ondansetron [Zofran ODT] 4 mg PO Q6H PRN 02/04/21 [History] Famotidine [Pepcid] 20 mg PO BID #60 tablet 02/12/21 [Rx] Pyridoxine [Vitamin B-6] 50 mg PO BID #60 tab 02/12/21 [Rx] Sertraline [Zoloft] 25 mg PO DAILY 30 Days #30 tab 02/12/21 [Rx] polyethylene glycoL 3350 [Miralax] 17 gm PO DAILY #30 packet 02/12/21 [Rx] predniSONE 5 mg PO DAILY #21 tab 02/12/21 [Rx] Follow up Appointment(s)/Referral(s): Markel Jolley MD [Primary Care Provider] - 1 Week Judit Ramos DO [Doctor of Osteopathic Medicine] - 2 Weeks Discharge Disposition: HOME SELF-CARE
--- NOTE | 2021-02-13 10:30 | P.PN ---
Subjective Progress Note Date: 02/13/21 HISTORY OF PRESENT ILLNESS This is a 21-year-old female patient of Dr. Jolley with past medical history of depression, frequent urinary tract infections and significant for which she is at 8 weeks gestation. She was recently hospitalized 1 week ago for hyperemesis gravidarum. Patient is stating that she cannot hold any food or liquids down. She states even with a drink of water, she will vomit this. She complains of some abdominal pain when she vomits a lot. She has been on several medications only work for a brief period. She states she has not had a bowel m ovement since she left the hospital from her last admission and patient was discharged on Monday. She is complaining of back pain that is worse with vomiting. She complains of frequent urinary tract infections and she feels some stinging with urination. She presented to [facility] emergency center yesterday. Vital signs were stable. CBC unremarkable. Sodium 136, potassium 3.5, chloride 105, CO2 20, BUN 8 and creatinine 0.49. HCG was positive at 137,000. Albumin 4.2. Lipase 104. Liver function tests were normal. Urinalysis showed leukoesterase moderate, WBCs 11, squamous cells 8. Urine culture is in process. Patient was recently treated with Levaquin for Enterococcus faecalis and JEFF inhibitor Enterobacter urinary tract infection. Patient relates that she has not been able to take the medication or any of her home medications due to emesis. 02/06 patient still having some active vomiting with food, had some pancakes, which did not settle down for her, she had taken for oral medications which she kept down. Patient has still epigastric pain, bowel movement noted already today, no stools were sent for H. pylori, urine culture final, contamination, antibiotic discontinued and Carafate other labs INCLUDING lipase, abdominal ultrasound normal. No kidney stones, no hydronephrosis 02/07, patient had some beef daily, and corn, which she was able to keep down, however she threw up one of the medications, the liquid nystatin, oral medications seems to help, however she still has epigastric discomfort, with the nausea. Unable to do the HIDA scan with CCK secondary to ,, advised low-fat diet, and continue nutritional supplementation. Continue Carafate at this time, might be able to to do PPIs however there is conflicting human data on teratogenicity during cautions to advice.. Scopolamine is an alternative treatment that seemed to be safe during , if needed we can initiate this should she not tolerate any other treatment for the nausea and vomiting 02/08: Patient still is nauseated, has epigastric discomfort, still no appetite, did not have the burgers so for lunch today, restarting scopolamine patch, she has to sit on liquid nutrition, patient also has no bowel movement, her bowel movements usually once a month, we'll going to consult gastrology, for persistent gastritis, we will look into safety of nuclear med HIDA scan with CCK, on safety with . Underlying gallbladder disease with gastritis is suspected continue Carafate, there is hemoglobin drop of approximately 2 g, haptoglobin is noted, she has subchorionic bleed noted on ultrasound. 02/09: Patient did have nausea and vomiting last evening and plan continues to be conservative management, advance diet and possibly discharge in 1-2 days. Scopolamine patch ordered. Patient states she had a BM yesterday. Patient has been afebrile, heart rate 60, blood pressure 94/62, pulse ox 94% on room air. 02/10: Patient states she feels a little bit better today. She vomited some of her dinner last night and remains nauseated this morning. Case discussed with her primary POURING CRANE OPERATOR, Dr. Ramos, and it was decided that patient was cleared to start scopolamine patch. Her last bowel movement was 2 days ago and she was unable to tolerate MiraLAX yesterday. Patient is followed by GI regarding constipation which is chronic and going on for the past 2 years with one bowel movement per month. Patient is currently on Pepcid 20 mg oral twice daily, Zofran as needed IV push, scopolamine patch, Carafate 1 g before meals and at bedtime, patient started on Solu-Medrol IV 60 mg every 8 hours for 3 days. 02/11: Patient states that she is feeling much better, no emesis since last evening. Abdominal pain is mild. Patient is continued on IV Solu-Medrol which will be continued for another 24 hours with DIELECTRIC EMBOSSING MACHINE OPERATOR planning for discharge tomorrow and continue prednisone taper. Patient is afebrile, heart rate 64, blood pressure 96/60, pulse ox 90% on room air. 02/12: Patient states her last emesis was last night. No nausea or vomiting this morning. She denies abdominal pain. She did not eat her breakfast. Patient encouraged to take Ensure. Concerned the patient is depressed as she does not desire to see her significant other and baby. She has been afebrile, heart rate 66 blood pressure 107/50, pulse ox 97% on room air. Repeat blood work reveals WBC 7.4, hemoglobin 11.1, platelet count 241. Sodium 134, potassium 4.0, chloride 105, CO2 22, BUN 3 and creatinine 0.39. Albumin is 3.1. The patient is followed by GI. She did have one bowel movement since admission. IV steroids have been changed to prednisone at 40 mg today on a tapering schedule per Dr. Ramos plan is to monitor overnight and discharge tomorrow. Denies 02/13: Patient states that she had 2 episodes of vomiting yesterday, none this morning. She was able to eat pancakes for breakfast. She did have 2 small bowel movements yesterday and one this morning which were watery. She has some upper abdominal discomfort. She is currently on oral prednisone, scopolamine patch. She denies having any fever or chills. Patient has been afebrile, heart rate 74, blood pressure 102/66, pulse ox 97% on room air. Patient is anticipating discharge home today. REVIEW OF SYSTEMS Constitutional: No fever, no chills, no night sweats. No weight change. No weakness, fatigue or lethargy. No daytime sleepiness. EENT: No headache. No blurred vision or double vision, no loss of vision. No loss of Hearing, no ringing in the ears, no dizziness. No nasal drainage or congestion. No epistaxis. No sore throat. Lungs: No shortness of breath, cough, no sputum production. No wheezing. Cardiovascular: Reports chest pain, no lower extremity edema. No palpitations. No paroxysmal nocturnal dyspnea. No orthopnea. No lightheadedness or dizziness. No syncopal episodes. Abdominal: Reports abdominal discomfort. Reports nausea, reports vomiting. No diarrhea. Reports chronic constipation. No bloody or tarry stools.. No loss of appetite. Genitourinary: No dysuria, increased frequency, urgency. No urinary retention. Musculoskeletal: No myalgias. No muscle weakness, no gait dysfunction, no frequent falls. Reports back pain. No neck pain. Integumentary: No wounds, no lesions. No rash or pruritus. No unusual bruising. No change in hair or nails. Neurologic: No aphasia. No facial droop. No change in mentation. No head injury. No headache. No paralysis. No paresthesia. Psychiatric: Reports depression. No anxiety. No mood swings. Endocrine: No abnormal blood sugars. No weight change. PHYSICAL EXAMINATION Gen: This is a 21-year-old morbidly obese female. Patient appears to be in no acute distress. HEENT: Head is atraumatic, normocephalic. Pupils equal, round. Sclerae is anicteric. NECK: Supple. No JVD. No lymphadenopathy. No thyromegaly. LUNGS: Clear to auscultation. No wheezes or rhonchi. No intercostal retractions. HEART: Regular rate and rhythm. No murmur. ABDOMEN: Soft. Bowel sounds are present. No masses. Mild epigastric tenderness. EXTREMITIES: No pedal edema. No calf tenderness. NEUROLOGICAL: Patient is awake, alert and oriented x3. Cranial nerves 2 through 12 are grossly intact. ASSESSMENT AND PLAN 1. Hyperemesis gravidarum. Pepcid 20 mg oral twice daily, Zofran as needed IV push, scopolamine patch, oral prednisone. Benadryl 25 mg IV push every 6 hours as needed. Continue ensure 2. Gastritis. Continue Pepcid 20 mg IV daily, 3. Pyuria without Urinary tract infection. Patient started on ceftriaxone. Discontinued antibiotics 4. Recurrent depression. Continue Zoloft 25 mg daily. 5. Protein malnutrition, secondary to hyperemesis gravidarum and gastritis 6. Thrush. Continue clotrimazole naeem. DISCHARGE PLAN HOme on Monday. Impression and plan of care have been directed as dictated by the signing physician. Lillian Oliver nurse practitioner acting as scribe for signing physician. Objective - Vital Signs Vital signs: Vital Signs Temp 98.3 F 02/13/21 07:00 Pulse 74 02/13/21 07:00 Resp 18 02/13/21 08:00 BP 102/66 02/13/21 07:00 Pulse Ox 97 02/13/21 07:00 Intake & Output 02/12/21 02/13/21 02/13/21 18:59 06:59 18:59 Intake Total 3800 Output Total 1 1 Balance 3800 -1 -1 Intake: Intake, IV Titration 3600 Amount Lactated Ringers 1,000 ml 3600 @ 150 mls/hr IV .[id number] [facility] Rx#:[id number] Oral 200 Output: Urine 1 Stool 1 Other: Voiding Method Toilet # Voids 1 1 1 # Bowel Movements 1 - Labs CBC & Chem 7: 02/12/21 06:42 02/12/21 06:42
[2021-02-13] MEDS: polyethylene glycoL 3350 17 GM POWD.PACK PO SCH (12:22)
== END 2021-02-13 11:48 | disposition home or self-care (01) | DRG 832 ==
LOC: EC 13:17 → 6NMEDSUR 17:11 → OBSVTOIN 02-09 12:29 → 4FBP 02-11 15:27
PROVIDERS: ADMIT Obstetrics & Gynecology; ATTEND Obstetrics & Gynecology
DX: O21.0 Mild hyperemesis gravidarum (principal); O23.41 Unspecified infection of urinary tract in pregnancy, first trimester; O99.411 Diseases of the circulatory system complicating pregnancy, first trimester; O98.811 Other maternal infectious and parasitic diseases complicating pregnancy, first trimester; F33.9 Major depressive disorder, recurrent, unspecified; O26.611 Liver and biliary tract disorders in pregnancy, first trimester; O99.611 Diseases of the digestive system complicating pregnancy, first trimester; Z3A.08 8 weeks gestation of pregnancy; O99.891 Other specified diseases and conditions complicating pregnancy; O25.11 Malnutrition in pregnancy, first trimester; O26.851 Spotting complicating pregnancy, first trimester; K82.9 Disease of gallbladder, unspecified; K59.09 Other constipation; K29.70 Gastritis, unspecified, without bleeding; B37.9 Candidiasis, unspecified; B95.2 Enterococcus as the cause of diseases classified elsewhere; B96.89 Other specified bacterial agents as the cause of diseases classified elsewhere; F41.9 Anxiety disorder, unspecified; O99.341 Other mental disorders complicating pregnancy, first trimester; Z79.899 Other long term (current) drug therapy; Z80.6 Family history of leukemia; Z87.440 Personal history of urinary (tract) infections; Z87.891 Personal history of nicotine dependence; M54.9 Dorsalgia, unspecified
CPT/HCPCS: 36415; 76770; 76801; 80048; 80053; 81001; 82150; 83010; 83540; 83550; 83690; 84443; 84702; 85025; 85027; 87086; 87338; 96361; 96374; 96375; 99285

== ENCOUNTER 2021-02-14 19:08 | Emergency (ER) | payer OTHER ==
[2021-02-14 19:35] VITALS: TEMP 98.3
[2021-02-14] MEDS ORDERED: SODIUM CHLORIDE 0.9% 1,000 ML IV STA (20:21)
[2021-02-14 20:36] LABS: Basophils % (A) 0 %; Eosinophils # (A) 0.1 k/uL (0-0.7); Eosinophils % (A) 1 %; HCT 38.3 % (34.0-46.0); HGB 12.9 gm/dL (11.4-16.0); Lymphocytes # (A) 2.6 k/uL (1.0-4.8); Lymphocytes % (A) 28 %; MCHC 33.7 g/dL (31.0-37.0); MCV 80.3 fL (80.0-100.0); Mean Platelet Volume 7.2; Monocytes # (A) 0.4 k/uL (0-1.0); Monocytes % (A) 4 %; Neutrophils # (A) 6.2 k/uL (1.3-7.7); Neutrophils % (A) 66 %; Platelet Count 304 k/uL (150-450); RBC 4.77 m/uL (3.80-5.40); RDW 15.1 % (11.5-15.5); WBC 9.4 k/uL (3.8-10.6)
[2021-02-14 20:55] LABS: INR 1.1 (<1.2); Partial Thromboplastin Time 20.9 sec (22.0-30.0); Prothrombin Time 11.1 sec (9.0-12.0)
[2021-02-14 20:56] LABS: ALT 22 U/L (4-34); AST 14 U/L (14-36); African American GFR (CKD) >90 (>60 ml/min/1.73 sqM); Albumin 3.7 g/dL (3.5-5.0); Alkaline Phosphatase 58 U/L (38-126); Anion Gap 10 mmol/L; Blood Urea Nitrogen 6 mg/dL (7-17); Calcium 9.2 mg/dL (8.4-10.2); Carbon Dioxide 20 mmol/L (22-30); Chloride 104 mmol/L (98-107); Glucose 84 mg/dL (74-99); Non-African American GFR(CKD) >90 (>60 ml/min/1.73 sqM); Sodium 134 mmol/L (137-145); Total Bilirubin 0.4 mg/dL (0.2-1.3); Total Protein 6.5 g/dL (6.3-8.2)
--- NOTE | 2021-02-14 21:31 | CT ---
EXAMINATION TYPE: CT brain steve moran con DATE OF EXAM: 02/14/2021 COMPARISON: None available HISTORY: trauma, fall. Back and neck pain, abdominal tenderness, nausea, vomiting. CT DLP: 995.8 mGycm. Automated Exposure Control for Dose Reduction was Utilized. TECHNIQUE: Multiple contiguous axial CT images of the head were performed from the skull base through the vertex without the administration of intravenous contrast. 2-D sagittal and coronal reformats were obtained . Multiple contiguous axial CT images of the cervical spine was performed from the skull bases through the lung apices without the administration of intravenous contrast. 2-D sagittal and coronal reformat s were obtained. FINDINGS: Head: No acute intracranial hemorrhage, mass effect, or midline shift. The ventricles and sulci are within normal limits in size. Chapman-white differentiation is preserved. No CT evidence of acute large vessel territorial ischemia. Calvarium appears intact. The globes are intact and the visualized sinuses are clear. C-spine: Cervical vertebral body heights are maintained. Straightening of the cervical lordosis likely due to patient positioning or muscle spasm. No acute fracture or traumatic subluxation. No significant degenerative changes. No significant spinal canal stenosis or neural foraminal narrowi ng. No prevertebral soft-tissue swelling. Paraspinal soft tissues appear unremarkable. Lung apices appear clear. IMPRESSION: 1. No acute intracranial process. 2. No acute fracture or traumatic subluxation of the cervical spine.
--- NOTE | 2021-02-14 21:37 | CT ---
EXAMINATION TYPE: CT abdomen pelvis w con DATE OF EXAM: 02/14/2021 COMPARISON: 02/06/2021 ultrasound HISTORY: trauma, fall. Back pain, abdominal tenderness, nausea, vomiting. CT DLP: 995.8 mGycm. Automated Exposure Control for Dose Reduction was Utilized. TECHNIQUE: Multiple contiguous axial CT images of the abdomen and pelvis were obtained from the lung bases through the pubic symphysis with IV Contrast, patient injected with 100 mL of Isovue 300. 2-D s agittal and coronal reformatted images were obtained. FINDINGS: Lung bases are clear. Liver, spleen, pancreas, and bilateral adrenal glands have an unremarkable enhanced appearance. Gallbladder is present. No definite intrahepatic or extrahepatic biliary ductal dilatation. Kidneys are symmetric in size without hydronephrosis. No renal or ureteral calculi. Urinary bladder a ppears unremarkable. Uterus is present and appears mildly enlarged with a focal fluid collection in the endometrial cavity likely representing a gestational sac. No adnexal masses. No free fluid. Visualized bowel is of normal caliber without evidence of obstruction. No significant mesenteric infl ammation. Appendix appears unremarkable. No free air. Abdominal aorta is of normal caliber. No intra-abdominal or retroperitoneal lymphadenopathy. Subcutan eous soft tissues appear unremarkable. Osseous structures appear intact. IMPRESSION: 1. No evidence of acute traumatic injury to the abdomen or pelvis. 2. Uterus is mildly enlarged with a gestational sac. This can be better evaluated with pelvic ultraso und if clinically indicated.
--- NOTE | 2021-02-14 22:02 | ED ---
Weakness HPI - General Chief complaint: Weakness Stated complaint: Fall Time Seen by Provider: 02/14/21 19:37 Source: patient, EMS Mode of arrival: EMS Limitations: no limitations - History of Present Illness Initial comments: 21 year-old female patient who is 10 weeks presents to the emergency department for evaluation after falling down the stairs. States her states that she fell down approximately 6-7 steps. She does not remember the fall. She says the last thing she remembers is going to the bathroom prior to going down the stairs. Patient states she has been weak and dizzy due to persistent vomiting with this . States she has been only able to eat and drink minimally. She is currently reporting headache, neck pain, back pain, and left hip pain. States she feels numbness in her left leg which is new. She is also reporting lower abdominal pain. She reports blurred vision. Denies any numbness or tingling to arms or hands. Patient denies any recent rash, fever, chills, cough, shortness of breath, chest pain, diarrhea, constipation, back pain, hematuria, dysuria, urinary urgency, urinary frequency, or any other complaints. - Related Data Home Medications Medication Instructions Recorded Confirmed Ondansetron [Zofran ODT] 4 mg PO Q6H PRN 02/04/21 02/14/21 predniSONE See Taper PO DAILY 02/14/21 02/14/21 Previous Rx's Medication Instructions Recorded Metoclopramide [Reglan] 10 mg PO Q6HR PRN #30 tab 01/28/21 Famotidine [Pepcid] 20 mg PO BID #60 tablet 02/12/21 Pyridoxine [Vitamin B-6] 50 mg PO BID #60 tab 02/12/21 Sertraline [Zoloft] 25 mg PO DAILY 30 Days #30 tab 02/12/21 polyethylene glycoL 3350 [Miralax] 17 gm PO DAILY #30 packet 02/12/21 Allergies Allergy/AdvReac Type Severity Reaction Status Date / Time No Known Allergies Allergy Verified 02/14/21 20:25 Review of Systems ROS Statement: Those systems with pertinent positive or pertinent negative responses have been documented in the HPI. ROS Other: All systems not noted in ROS Statement are negative. Past Medical History Past Medical History: No Reported History Additional Past Medical History / Comment(s): Hyperemesis wk and a half ago History of Any Multi-Drug Resistant Organisms: None Reported Past Surgical History: Appendectomy, Bladder Surgery, Section Additional Past Surgical History / Comment(s): Was really young when she had bladder surgery, unsure. C/S x2. Past Anesthesia/Blood Transfusion Reactions: No Reported Reaction Past Psychological History: Anxiety, Depression Smoking Status: Former smoker Past Alcohol Use History: Occasional Past Drug Use History: None Reported - Past Family History Mother Family Medical History: No Reported History General Exam Limitations: no limitations General appearance: alert, in no apparent distress, other (This is a well- developed, well-nourished adult female patient in no acute distress. Vital signs upon presentation are temperature 98.3F, pulse 72, respirations 16, blood pressure 136/80, pulse ox 97% on room air.) Head exam: Present: atraumatic, normocephalic, normal inspection Eye exam: Present: normal appearance, PERRL, EOMI. Absent: scleral icterus, conjunctival injection, periorbital swelling ENT exam: Present: normal exam, normal oropharynx, mucous membranes moist Neck exam: Present: normal inspection, tenderness (Tenderness of all cervical vertebrae with midline palpation.), other (No bony step-off or deformity noted). Absent: meningismus, full ROM (C-collar in place), lymphadenopathy Respiratory exam: Present: normal lung sounds bilaterally. Absent: respiratory distress, wheezes, rales, rhonchi, stridor Cardiovascular Exam: Present: regular rate, normal rhythm, normal heart sounds. Absent: systolic murmur, diastolic murmur, rubs, gallop, clicks GI/Abdominal exam: Present: soft, tenderness (Generalized abdominal tenderness worse over the left upper and right upper quadrants.), normal bowel sounds. Absent: distended, guarding, rebound, rigid Extremities exam: Present: normal inspection, full ROM, tenderness (Left lateral hip tenderness), normal capillary refill, other (Skin to the lower extremities is pink, warm, dry. Cap refill less than 3 seconds. Pedal and posttibial pulses are 2+.). Absent: pedal edema, joint swelling, calf tenderness Back exam: Present: normal inspection, vertebral tenderness (Complete thoracic and lumbar vertebral tenderness.), other (No bony step-off or deformity noted to firm midline palpation) Neurological exam: Present: alert, oriented X3, CN II-XII intact Psychiatric exam: Present: normal affect, normal mood Skin exam: Present: warm, dry, intact, normal color. Absent: rash Course Vital Signs 02/14/21 02/14/21 19:31 20:34 Temperature 98.3 F Pulse Rate 72 86 Respiratory 16 16 Rate Blood Pressure 136/80 114/70 O2 Sat by Pulse 97 97 Oximetry EKG Findings - EKG Comments: EKG Findings:: EKG obtained in 192 shows normal sinus rhythm with an incomplete right bundle branch block. Ventricular rate is 71, ND interval 122, QRS duration 92, QT 402, QTc 436. No evidence of ST elevation or depression. Medical Decision Making - Medical Decision Making 21 year-old female patient presents to the emergency department for evaluation after falling down the stairs. Patient reported neck pain, back pain, abdominal pain, left leg numbness. Physical examination did reveal significant tenderness over the upper and lower abdomen specifically over the spleen and liver. She was rolled, maintaining c-spine precautions and exhibited tenderness over her neck, thoracic, and lumbar spine. Patient was crying once exam was complete. We did discuss in order to evaluate her abdomen and spine for traumatic injury that we should do CT scans. We did discuss in detail the risks of radiation exposure to the fetus especially in this early stage of . We discussed importance of being clear about pain location and severity. Patient verbalized understanding and endorsed significant tenderness over her abdomen and spine. Agreed to receive CT scan. Labs were reviewed showed mildly low sodium. Urinalysis showed 4+ ketones and many bacteria. She was given IV fluids and zofran. CT abdomen/pelvis, brain/cspine was unremarkable, no traumatic injury noted. Enlarged uterus was identified. Patient has had no vaginal bleeding here. She will be discharged to follow up with her NATURALIST and primary care physician for recheck as soon as possible. Return parameters are discussed in detail. She verbalizes understanding and agrees with this plan. Case discussed with my attending Dr. Adams who was also in to evaluate the patient. - Lab Data Result diagrams: 02/14/21 20:27 02/14/21 20:27 Lab Results 02/14/21 02/14/21 02/14/21 Range/Units 20:27 20:27 20:27 WBC 9.4 (3.8-10.6) k/uL RBC 4.77 (3.80-5.40) m/uL Hgb 12.9 (11.4-16.0) gm/dL Hct 38.3 (34.0-46.0) % MCV 80.3 (80.0-100.0) fL MCH 27.0 (25.0-35.0) pg MCHC 33.7 (31.0-37.0) g/dL RDW 15.1 (11.5-15.5) % Plt Count 304 (150-450) k/uL MPV 7.2 Neutrophils % 66 % Lymphocytes % 28 % Monocytes % 4 % Eosinophils % 1 % Basophils % 0 % Neutrophils # 6.2 (1.3-7.7) k/uL Lymphocytes # 2.6 (1.0-4.8) k/uL Monocytes # 0.4 (0-1.0) k/uL Eosinophils # 0.1 (0-0.7) k/uL Basophils # 0.0 (0-0.2) k/uL PT 11.1 (9.0-12.0) sec INR 1.1 (<1.2) APTT 20.9 L (22.0-30.0) sec Sodium 134 L (137-145) mmol/L Potassium 4.0 (3.5-5.1) mmol/L Chloride 104 (98-107) mmol/L Carbon Dioxide 20 L (22-30) mmol/L Anion Gap 10 mmol/L BUN 6 L (7-17) mg/dL Creatinine 0.51 L (0.52-1.04) mg/dL Est GFR (CKD-EPI)AfAm >90 (>60 ml/min/1.73 sqM) Est GFR (CKD-EPI)NonAf >90 (>60 ml/min/1.73 sqM) Glucose 84 (74-99) mg/dL Calcium 9.2 (8.4-10.2) mg/dL Total Bilirubin 0.4 (0.2-1.3) mg/dL AST 14 (14-36) U/L ALT 22 (4-34) U/L Alkaline Phosphatase 58 (38-126) U/L Troponin I (0.000-0.034) ng/mL Total Protein 6.5 (6.3-8.2) g/dL Albumin 3.7 (3.5-5.0) g/dL Urine Color Urine Appearance (Clear) Urine pH (5.0-8.0) Ur Specific [place] (1.001-1.035) Urine Protein (Negative) Urine Glucose (UA) (Negative) Urine Ketones (Negative) Urine Blood (Negative) Urine Nitrite (Negative) Urine Bilirubin (Negative) Urine Urobilinogen (<2.0) mg/dL Ur Leukocyte Esterase (Negative) Urine RBC (0-5) /hpf Urine WBC (0-5) /hpf Ur Squamous Epith Cells (0-4) /hpf Amorphous Sediment (None) /hpf Urine Bacteria (None) /hpf 02/14/21 02/14/21 Range/Units 20:27 22:21 WBC (3.8-10.6) k/uL RBC (3.80-5.40) m/uL Hgb (11.4-16.0) gm/dL Hct (34.0-46.0) % MCV (80.0-100.0) fL MCH (25.0-35.0) pg MCHC (31.0-37.0) g/dL RDW (11.5-15.5) % Plt Count (150-450) k/uL MPV Neutrophils % % Lymphocytes % % Monocytes % % Eosinophils % % Basophils % % Neutrophils # (1.3-7.7) k/uL Lymphocytes # (1.0-4.8) k/uL Monocytes # (0-1.0) k/uL Eosinophils # (0-0.7) k/uL Basophils # (0-0.2) k/uL PT (9.0-12.0) sec INR (<1.2) APTT (22.0-30.0) sec Sodium (137-145) mmol/L Potassium (3.5-5.1) mmol/L Chloride (98-107) mmol/L Carbon Dioxide (22-30) mmol/L Anion Gap mmol/L BUN (7-17) mg/dL Creatinine (0.52-1.04) mg/dL Est GFR (CKD-EPI)AfAm (>60 ml/min/1.73 sqM) Est GFR (CKD-EPI)NonAf (>60 ml/min/1.73 sqM) Glucose (74-99) mg/dL Calcium (8.4-10.2) mg/dL Total Bilirubin (0.2-1.3) mg/dL AST (14-36) U/L ALT (4-34) U/L Alkaline Phosphatase (38-126) U/L Troponin I <0.012 (0.000-0.034) ng/mL Total Protein (6.3-8.2) g/dL Albumin (3.5-5.0) g/dL Urine Color Light Yellow Urine Appearance Clear (Clear) Urine pH 8.5 H (5.0-8.0) Ur Specific [place] 1.050 H (1.001-1.035) Urine Protein Trace H (Negative) Urine Glucose (UA) Negative (Negative) Urine Ketones 4+ H (Negative) Urine Blood Negative (Negative) Urine Nitrite Negative (Negative) Urine Bilirubin Negative (Negative) Urine Urobilinogen <2.0 (<2.0) mg/dL Ur Leukocyte Esterase Small H (Negative) Urine RBC 3 (0-5) /hpf Urine WBC 13 H (0-5) /hpf Ur Squamous Epith Cells 6 H (0-4) /hpf Amorphous Sediment Rare H (None) /hpf Urine Bacteria Many H (None) /hpf - Radiology Data Radiology results: report reviewed, image reviewed CT abdomen and pelvis with contrast was obtained. Report is reviewed in its entirety. Impression by Dr. Lepe shows no evidence of acute dramatic injury to the abdomen or pelvis. Uterus is mildly enlarged with a gestational sac. This can be better evaluated pelvic ultrasound if clinically indicated. CT brain and C-spine was obtained. Report was reviewed in its entirety. Impression by Dr. Lepe shows no acute intracranial process. No acute fracture or traumatic subluxation of the cervical spine. Disposition Clinical Impression: Fall, Back contusion, Cervical strain, Bacteriuria during Disposition: HOME SELF-CARE Condition: Good Instructions (If sedation given, give patient instructions): Cervical Strain (ED), Contusion in Adults (ED), Fall Prevention (ED) Additional Instructions: Follow up with primary care physician and OBGYN for further evaluation as soon as possible. Continue home medications for nausea and vomiting. Eat small frequent, easy to digest meals. Return to the emergency department for any new, worsening, or concerning symptoms. Is patient prescribed a controlled substance at d/c from ED?: No Referrals: None,Stated [Primary Care Provider] - 1-2 days Time of Disposition: 22:54
[2021-02-14 22:44] LABS: Amorphous Sediment,Urine Rare /hpf; Appearance,Urine Clear (Clear); Bacteria,Urine Many /hpf; Bilirubin,Urine Negative (Negative); Blood,Urine Negative (Negative); Color,Urine Light Yellow; Glucose,Urine (UA) Negative (Negative); Ketones,Urine 4+ (Negative); Leukocyte Esterase,Urine Small (Negative); Nitrite,Urine Negative (Negative); PH, Urine 8.5 (5.0-8.0); Protein,Urine Trace (Negative); RBC,Urine 3 /hpf (0-5); Squamous Epithelial Cell,Urine 6 /hpf (0-4); Urobilinogen,Urine <2.0 mg/dL (<2.0); WBC,Urine 13 /hpf (0-5)
[2021-02-14] MEDS ORDERED: cefTRIAXone IN SWFI 1,000 MG/10 ML SYRINGE IVP STA (22:52)
[2021-02-14 23:15] VITALS: BP 117/87; PULSE 83; RESP 18
== END 2021-02-14 23:15 | disposition home or self-care (01) ==
LOC: EC 19:08
DX: O9A.211 Injury, poisoning and certain other consequences of external causes complicating pregnancy, first trimester (principal); S16.1XXA Strain of muscle, fascia and tendon at neck level, initial encounter; S20.229A Contusion of unspecified back wall of thorax, initial encounter; R82.71 Bacteriuria; R10.84 Generalized abdominal pain; R42 Dizziness and giddiness; H53.8 Other visual disturbances; M25.552 Pain in left hip; R51.9 Headache, unspecified; O99.341 Other mental disorders complicating pregnancy, first trimester; F32.9 Major depressive disorder, single episode, unspecified; F41.9 Anxiety disorder, unspecified; Z87.891 Personal history of nicotine dependence; Z3A.10 10 weeks gestation of pregnancy; Z79.52 Long term (current) use of systemic steroids; Z90.49 Acquired absence of other specified parts of digestive tract; W10.9XXA Fall (on) (from) unspecified stairs and steps, initial encounter
CPT/HCPCS: 36415; 93005; 80053; 84484; 85025; 85610; 85730; 81001; 72125; 70450; 74177; 99285; 96374; 96361; J0696; Q9967

== ENCOUNTER 2021-02-18 12:42 | Emergency (ER) | payer OTHER ==
[2021-02-18 13:12] VITALS: TEMP 97.4
[2021-02-18] MEDS ORDERED: METOCLOPRAMIDE 5 MG/ML 2 ML VIAL IVP STA (13:50)
[2021-02-18] MEDS ORDERED: diphenhydrAMINE 50 MG/ML 1 ML VIAL IVP STA (13:50)
[2021-02-18] MEDS ORDERED: SODIUM CHLORIDE 0.9% 2,000 ML IV STA (13:50)
[2021-02-18 14:12] LABS: Basophils % (A) 0 %; Eosinophils % (A) 1 %; HCT 38.8 % (34.0-46.0); HGB 13.4 gm/dL (11.4-16.0); Lymphocytes # (A) 1.6 k/uL (1.0-4.8); Lymphocytes % (A) 18 %; MCH 27.7 pg (25.0-35.0); MCHC 34.5 g/dL (31.0-37.0); MCV 80.2 fL (80.0-100.0); Mean Platelet Volume 7.7; Monocytes # (A) 0.4 k/uL (0-1.0); Monocytes % (A) 4 %; Neutrophils # (A) 6.6 k/uL (1.3-7.7); Neutrophils % (A) 76 %; Platelet Count 304 k/uL (150-450); RBC 4.84 m/uL (3.80-5.40); RDW 15.1 % (11.5-15.5); WBC 8.7 k/uL (3.8-10.6)
--- NOTE | 2021-02-18 14:20 | ED ---
General Adult HPI - General Chief complaint: Nausea/Vomiting/Diarrhea Stated complaint: 10wks preg/Nausea/Vomiting/Weakness Time Seen by Provider: 02/18/21 13:20 Source: patient Mode of arrival: ambulatory Limitations: no limitations - History of Present Illness Initial comments: 21-year-old female currently about 10 weeks presents to the emergency room for a chief complaint of nausea vomiting. Patient has had nausea and vomiting for several weeks. Patient reports this is related to her ten-week . Patient had previously seen her [employer] and was put on Reglan and Zofran but is not sure what happened to these. Thinks she may have run out. States she was written a perception for a patch when she went to the pharmacy she did not have one there. She has not yet contacted her [employer] about this. Patient denies any vaginal bleeding. Patient states she has not been able to keep much down fluid oshea.Patient has no other complaints at this time including shortness of breath, chest pain, abdominal pain, headache, or visual changes. - Related Data Home Medications Medication Instructions Recorded Confirmed Ondansetron [Zofran ODT] 4 mg PO Q6H PRN 02/04/21 02/18/21 predniSONE See Taper PO DAILY 02/14/21 02/18/21 Previous Rx's Medication Instructions Recorded Metoclopramide [Reglan] 10 mg PO Q6HR PRN #30 tab 01/28/21 Famotidine [Pepcid] 20 mg PO BID #60 tablet 02/12/21 Pyridoxine [Vitamin B-6] 50 mg PO BID #60 tab 02/12/21 Sertraline [Zoloft] 25 mg PO DAILY 30 Days #30 tab 02/12/21 polyethylene glycoL 3350 [Miralax] 17 gm PO DAILY #30 packet 02/12/21 Metoclopramide [Reglan] 10 mg PO Q6H PRN #15 tab 02/18/21 Allergies Allergy/AdvReac Type Severity Reaction Status Date / Time No Known Allergies Allergy Verified 02/18/21 14:06 Review of Systems ROS Statement: Those systems with pertinent positive or pertinent negative responses have been documented in the HPI. ROS Other: All systems not noted in ROS Statement are negative. Past Medical History Past Medical History: No Reported History Additional Past Medical History / Comment(s): Hyperemesis wk and a half ago History of Any Multi-Drug Resistant Organisms: None Reported Past Surgical History: Appendectomy, Bladder Surgery, Section Additional Past Surgical History / Comment(s): Was really young when she had bladder surgery, unsure. C/S x2. Past Anesthesia/Blood Transfusion Reactions: No Reported Reaction Past Psychological History: Anxiety, Depression Smoking Status: Former smoker Past Alcohol Use History: Occasional Past Drug Use History: None Reported - Past Family History Mother Family Medical History: No Reported History General Exam Limitations: no limitations General appearance: alert, in no apparent distress Head exam: Present: atraumatic Eye exam: Present: normal appearance, PERRL, EOMI. Absent: scleral icterus, conjunctival injection ENT exam: Present: normal exam, mucous membranes moist Neck exam: Present: normal inspection, full ROM. Absent: tenderness Respiratory exam: Present: normal lung sounds bilaterally. Absent: respiratory distress, wheezes Cardiovascular Exam: Present: regular rate, normal rhythm, normal heart sounds GI/Abdominal exam: Present: soft, normal bowel sounds. Absent: distended, tenderness Neurological exam: Present: alert Course Vital Signs 02/18/21 02/18/21 13:09 16:24 Temperature 97.4 F L Pulse Rate 109 H 89 Respiratory 19 18 Rate Blood Pressure 107/73 110/78 O2 Sat by Pulse 98 99 Oximetry Medical Decision Making - Medical Decision Making Vitals are stable. Patient is well-appearing. CBC CMP unremarkable. Patient does have some evidence of dehydration however with 4+ ketones. She was given 2 L of fluid. Patient has not vomited in the emergency room after antiemetics given. Patient is supposed to be on Reglan and Zofran. I will refill her Reglan prescription and she will follow up with [employer] as she is almost upper surface filled through them but does not know her they went. She should return here for any worsening symptoms.. - Lab Data Result diagrams: 02/18/21 14:05 02/18/21 14:05 Lab Results 02/18/21 02/18/21 02/18/21 Range/Units 14:05 14:05 15:13 WBC 8.7 (3.8-10.6) k/uL RBC 4.84 (3.80-5.40) m/uL Hgb 13.4 (11.4-16.0) gm/dL Hct 38.8 (34.0-46.0) % MCV 80.2 (80.0-100.0) fL MCH 27.7 (25.0-35.0) pg MCHC 34.5 (31.0-37.0) g/dL RDW 15.1 (11.5-15.5) % Plt Count 304 (150-450) k/uL MPV 7.7 Neutrophils % 76 % Lymphocytes % 18 % Monocytes % 4 % Eosinophils % 1 % Basophils % 0 % Neutrophils # 6.6 (1.3-7.7) k/uL Lymphocytes # 1.6 (1.0-4.8) k/uL Monocytes # 0.4 (0-1.0) k/uL Eosinophils # 0.0 (0-0.7) k/uL Basophils # 0.0 (0-0.2) k/uL Sodium 136 L (137-145) mmol/L Potassium 3.3 L (3.5-5.1) mmol/L Chloride 102 (98-107) mmol/L Carbon Dioxide 20 L (22-30) mmol/L Anion Gap 14 mmol/L BUN 10 (7-17) mg/dL Creatinine 0.49 L (0.52-1.04) mg/dL Est GFR (CKD-EPI)AfAm >90 (>60 ml/min/1.73 sqM) Est GFR (CKD-EPI)NonAf >90 (>60 ml/min/1.73 sqM) Glucose 95 (74-99) mg/dL Calcium 9.8 (8.4-10.2) mg/dL Total Bilirubin 0.4 (0.2-1.3) mg/dL AST 13 L (14-36) U/L ALT 22 (4-34) U/L Alkaline Phosphatase 65 (38-126) U/L Total Protein 7.3 (6.3-8.2) g/dL Albumin 4.1 (3.5-5.0) g/dL Lipase 119 (23-300) U/L Urine Color Yellow Urine Appearance Cloudy H (Clear) Urine pH 6.0 (5.0-8.0) Ur Specific [place] 1.033 (1.001-1.035) Urine Protein 2+ H (Negative) Urine Glucose (UA) Negative (Negative) Urine Ketones 4+ H (Negative) Urine Blood Negative (Negative) Urine Nitrite Negative (Negative) Urine Bilirubin Negative (Negative) Urine Urobilinogen 2.0 (<2.0) mg/dL Ur Leukocyte Esterase Small H (Negative) Urine RBC 4 (0-5) /hpf Urine WBC 5 (0-5) /hpf Ur Squamous Epith Cells 10 H (0-4) /hpf Urine Bacteria Rare H (None) /hpf Urine Mucus Many H (None) /hpf Disposition Clinical Impression: Dehydration, Nausea & vomiting Disposition: HOME SELF-CARE Condition: Good Instructions (If sedation given, give patient instructions): Acute Nausea and Vomiting (ED) Additional Instructions: Take Reglan as needed for nausea. Follow up with [employer] for further prescriptions. Return to the emergency room for any worsening symptoms. Prescriptions: Metoclopramide [Reglan] 10 mg PO Q6H PRN #15 tab PRN Reason: Nausea Is patient prescribed a controlled substance at d/c from ED?: No Referrals: Pedro Jolley MD [Primary Care Provider] - 1-2 days Time of Disposition: 17:04
[2021-02-18 14:39] LABS: ALT 22 U/L (4-34); AST 13 U/L (14-36); African American GFR (CKD) >90 (>60 ml/min/1.73 sqM); Albumin 4.1 g/dL (3.5-5.0); Alkaline Phosphatase 65 U/L (38-126); Anion Gap 14 mmol/L; Blood Urea Nitrogen 10 mg/dL (7-17); Calcium 9.8 mg/dL (8.4-10.2); Carbon Dioxide 20 mmol/L (22-30); Chloride 102 mmol/L (98-107); Glucose 95 mg/dL (74-99); Lipase 119 U/L (23-300); Non-African American GFR(CKD) >90 (>60 ml/min/1.73 sqM); Potassium 3.3 mmol/L (3.5-5.1); Sodium 136 mmol/L (137-145); Total Bilirubin 0.4 mg/dL (0.2-1.3); Total Protein 7.3 g/dL (6.3-8.2)
[2021-02-18 15:27] LABS: Appearance,Urine Cloudy (Clear); Bacteria,Urine Rare /hpf; Bilirubin,Urine Negative (Negative); Blood,Urine Negative (Negative); Color,Urine Yellow; Glucose,Urine (UA) Negative (Negative); Ketones,Urine 4+ (Negative); Leukocyte Esterase,Urine Small (Negative); Mucus,Urine Many /hpf; Nitrite,Urine Negative (Negative); Protein,Urine 2+ (Negative); RBC,Urine 4 /hpf (0-5); Specific Gravity,Urine 1.033 (1.001-1.035); Squamous Epithelial Cell,Urine 10 /hpf (0-4); WBC,Urine 5 /hpf (0-5)
[2021-02-18 16:25] VITALS: BP 110/78; PULSE 89; RESP 18
== END 2021-02-18 17:36 | disposition home or self-care (01) ==
LOC: EC 12:42
DX: O21.8 Other vomiting complicating pregnancy (principal); O99.281 Endocrine, nutritional and metabolic diseases complicating pregnancy, first trimester; O99.341 Other mental disorders complicating pregnancy, first trimester; E86.0 Dehydration; F41.9 Anxiety disorder, unspecified; F32.9 Major depressive disorder, single episode, unspecified; Z3A.10 10 weeks gestation of pregnancy; Z87.891 Personal history of nicotine dependence; Z90.49 Acquired absence of other specified parts of digestive tract
CPT/HCPCS: 99284; 96374; 96375; 96361 ×2; 36415; 80053; 83690; 85025; 81001; J1200; J2765

== ENCOUNTER 2021-02-20 01:35 | Emergency (ER) | payer OTHER ==
[2021-02-20 01:48] VITALS: TEMP 97.3
[2021-02-20] MEDS ORDERED: ONDANSETRON 4 MG/2 ML VIAL IVP STA (01:52)
[2021-02-20] MEDS ORDERED: SODIUM CHLORIDE 0.9% 500 ML 500 ML IV STA (01:52)
[2021-02-20] MEDS ORDERED: SODIUM CHLORIDE 0.9% 1,000 ML IV STA ×2 (01:52)
[2021-02-20] MEDS ORDERED: diphenhydrAMINE 50 MG/ML 1 ML VIAL IVP STA (01:52)
--- NOTE | 2021-02-20 02:30 | ED ---
Nausea/Vomiting/Diarrhea HPI - General Chief complaint: Nausea/Vomiting/Diarrhea Stated complaint: Abd Pain, Approx 10 weeks preg Time Seen by Provider: 02/20/21 01:38 Source: patient, RN/MD, RN notes reviewed, old records reviewed Mode of arrival: EMS Limitations: no limitations - History of Present Illness Initial comments: This is a 21-year-old female to the emergency department today. She is about 10 weeks . She has persistent nausea vomiting which she's been doing with throughout her course of . Otherwise she has no headache chest pain shortness breath abdominal pain no fevers. No dysuria no diarrhea. No other complaints with no other significant medical history MD complaint: nausea, vomiting -: week(s) Description of Vomiting: food contents, watery Associated Abdominal Pain: No Radiation: none Severity: moderate Severity scale (1-10): 7 Quality: cramping Consistency: intermittent Improves with: none Worsens with: none Context: other (Vomiting of ) Associated Symptoms: loss of appetite, nausea/vomiting, weakness - Related Data Home Medications Medication Instructions Recorded Confirmed Ondansetron [Zofran ODT] 4 mg PO Q6H PRN 02/04/21 02/18/21 predniSONE See Taper PO DAILY 02/14/21 02/18/21 Previous Rx's Medication Instructions Recorded Metoclopramide [Reglan] 10 mg PO Q6HR PRN #30 tab 01/28/21 Famotidine [Pepcid] 20 mg PO BID #60 tablet 02/12/21 Pyridoxine [Vitamin B-6] 50 mg PO BID #60 tab 02/12/21 Sertraline [Zoloft] 25 mg PO DAILY 30 Days #30 tab 02/12/21 polyethylene glycoL 3350 [Miralax] 17 gm PO DAILY #30 packet 02/12/21 Metoclopramide [Reglan] 10 mg PO Q6H PRN #15 tab 02/18/21 Allergies Allergy/AdvReac Type Severity Reaction Status Date / Time No Known Allergies Allergy Verified 02/18/21 14:06 Review of Systems ROS Statement: Those systems with pertinent positive or pertinent negative responses have been documented in the HPI. ROS Other: All systems not noted in ROS Statement are negative. Past Medical History Past Medical History: No Reported History Additional Past Medical History / Comment(s): Hyperemesis History of Any Multi-Drug Resistant Organisms: None Reported Past Surgical History: Appendectomy, Bladder Surgery, Section Additional Past Surgical History / Comment(s): Was really young when she had gabbie dder surgery, unsure. C/S x2. Past Anesthesia/Blood Transfusion Reactions: No Reported Reaction Past Psychological History: Anxiety, Depression Smoking Status: Former smoker Past Alcohol Use History: Occasional Past Drug Use History: None Reported - Past Family History Mother Family Medical History: No Reported History General Exam General appearance: alert, in no apparent distress, anxious Head exam: Present: atraumatic, normocephalic, normal inspection Eye exam: Present: normal appearance, PERRL, EOMI. Absent: scleral icterus, conjunctival injection, periorbital swelling ENT exam: Present: normal exam, mucous membranes moist Neck exam: Present: normal inspection. Absent: tenderness, meningismus, lymphadenopathy Respiratory exam: Present: normal lung sounds bilaterally. Absent: respiratory distress, wheezes, rales, rhonchi, stridor Cardiovascular Exam: Present: regular rate, normal rhythm, normal heart sounds. Absent: systolic murmur, diastolic murmur, rubs, gallop, clicks GI/Abdominal exam: Present: soft, normal bowel sounds. Absent: distended, tenderness, guarding, rebound, rigid Extremities exam: Present: normal inspection, full ROM, normal capillary refill. Absent: tenderness, pedal edema, joint swelling, calf tenderness Back exam: Present: normal inspection Neurological exam: Present: alert, oriented X3, CN II-XII intact Psychiatric exam: Present: normal affect, normal mood Skin exam: Present: warm, dry, intact, normal color. Absent: rash Course Vital Signs 02/20/21 02/20/21 02/20/21 01:41 04:24 08:00 Temperature 97.3 F L 97.3 F L Pulse Rate 91 69 69 Respiratory 18 20 20 Rate Blood Pressure 115/80 95/52 102/67 O2 Sat by Pulse 98 100 100 Oximetry - Reevaluation(s) Reevaluation #1: Medical record is reviewed Patient symptoms are significantly improved here in the ER Patient informed of results and questions are answered Patient is in no acute distress Medical Decision Making - Medical Decision Making 21 female to the emergency department persistent nausea vomiting of . Likely hCG, patient symptoms are improved here in the ER she can be discharged home - Lab Data Result diagrams: 02/20/21 02:20 02/20/21 02:20 Lab Results 02/20/21 02/20/21 02/20/21 Range/Units 02:20 02:20 02:20 WBC 8.1 (3.8-10.6) k/uL RBC 4.41 (3.80-5.40) m/uL Hgb 11.9 (11.4-16.0) gm/dL Hct 35.3 (34.0-46.0) % MCV 80.1 (80.0-100.0) fL MCH 27.0 (25.0-35.0) pg MCHC 33.7 (31.0-37.0) g/dL RDW 15.6 H (11.5-15.5) % Plt Count 270 (150-450) k/uL MPV 7.3 Neutrophils % 72 % Lymphocytes % 22 % Monocytes % 5 % Eosinophils % 1 % Basophils % 0 % Neutrophils # 5.8 (1.3-7.7) k/uL Lymphocytes # 1.8 (1.0-4.8) k/uL Monocytes # 0.4 (0-1.0) k/uL Eosinophils # 0.0 (0-0.7) k/uL Basophils # 0.0 (0-0.2) k/uL Sodium 136 L (137-145) mmol/L Potassium 3.3 L (3.5-5.1) mmol/L Chloride 109 H (98-107) mmol/L Carbon Dioxide 15 L (22-30) mmol/L Anion Gap 12 mmol/L BUN 5 L (7-17) mg/dL Creatinine 0.39 L (0.52-1.04) mg/dL Est GFR (CKD-EPI)AfAm >90 (>60 ml/min/1.73 sqM) Est GFR (CKD-EPI)NonAf >90 (>60 ml/min/1.73 sqM) Glucose 83 (74-99) mg/dL Plasma Lactic Acid [place] 0.8 (0.7-2.0) mmol/L Calcium 9.0 (8.4-10.2) mg/dL Phosphorus 2.9 (2.5-4.5) mg/dL Magnesium 1.6 (1.6-2.3) mg/dL Total Bilirubin 0.4 (0.2-1.3) mg/dL AST 12 L (14-36) U/L ALT 18 (4-34) U/L Alkaline Phosphatase 50 (38-126) U/L Total Protein 6.3 (6.3-8.2) g/dL Albumin 3.5 (3.5-5.0) g/dL Urine Color Urine Appearance (Clear) Urine pH (5.0-8.0) Ur Specific [place] (1.001-1.035) Urine Protein (Negative) Urine Glucose (UA) (Negative) Urine Ketones (Negative) Urine Blood (Negative) Urine Nitrite (Negative) Urine Bilirubin (Negative) Urine Urobilinogen (<2.0) mg/dL Ur Leukocyte Esterase (Negative) Urine RBC (0-5) /hpf Urine WBC (0-5) /hpf Ur Squamous Epith Cells (0-4) /hpf Urine Bacteria (None) /hpf Hyaline Casts (0-2) /lpf Urine Mucus (None) /hpf 02/20/21 Range/Units 04:20 WBC (3.8-10.6) k/uL RBC (3.80-5.40) m/uL Hgb (11.4-16.0) gm/dL Hct (34.0-46.0) % MCV (80.0-100.0) fL MCH (25.0-35.0) pg MCHC (31.0-37.0) g/dL RDW (11.5-15.5) % Plt Count (150-450) k/uL MPV Neutrophils % % Lymphocytes % % Monocytes % % Eosinophils % % Basophils % % Neutrophils # (1.3-7.7) k/uL Lymphocytes # (1.0-4.8) k/uL Monocytes # (0-1.0) k/uL Eosinophils # (0-0.7) k/uL Basophils # (0-0.2) k/uL Sodium (137-145) mmol/L Potassium (3.5-5.1) mmol/L Chloride (98-107) mmol/L Carbon Dioxide (22-30) mmol/L Anion Gap mmol/L BUN (7-17) mg/dL Creatinine (0.52-1.04) mg/dL Est GFR (CKD-EPI)AfAm (>60 ml/min/1.73 sqM) Est GFR (CKD-EPI)NonAf (>60 ml/min/1.73 sqM) Glucose (74-99) mg/dL Plasma Lactic Acid [place] (0.7-2.0) mmol/L Calcium (8.4-10.2) mg/dL Phosphorus (2.5-4.5) mg/dL Magnesium (1.6-2.3) mg/dL Total Bilirubin (0.2-1.3) mg/dL AST (14-36) U/L ALT (4-34) U/L Alkaline Phosphatase (38-126) U/L Total Protein (6.3-8.2) g/dL Albumin (3.5-5.0) g/dL Urine Color Yellow Urine Appearance Clear (Clear) Urine pH 6.0 (5.0-8.0) Ur Specific [place] 1.029 (1.001-1.035) Urine Protein 1+ H (Negative) Urine Glucose (UA) Negative (Negative) Urine Ketones 4+ H (Negative) Urine Blood Negative (Negative) Urine Nitrite Negative (Negative) Urine Bilirubin Negative (Negative) Urine Urobilinogen 2.0 (<2.0) mg/dL Ur Leukocyte Esterase Negative (Negative) Urine RBC 1 (0-5) /hpf Urine WBC 1 (0-5) /hpf Ur Squamous Epith Cells 8 H (0-4) /hpf Urine Bacteria Occasional H (None) /hpf Hyaline Casts 1 (0-2) /lpf Urine Mucus Few H (None) /hpf Disposition Clinical Impression: Hyperemesis gravidarum, Hyperemesis Disposition: HOME SELF-CARE Condition: Good Instructions (If sedation given, give patient instructions): Acute Nausea and Vomiting (ED) Is patient prescribed a controlled substance at d/c from ED?: No Referrals: Pedro Jolley MD [Primary Care Provider] - 1-2 days
[2021-02-20 02:43] LABS: Basophils % (A) 0 %; Eosinophils % (A) 1 %; HCT 35.3 % (34.0-46.0); HGB 11.9 gm/dL (11.4-16.0); Lymphocytes # (A) 1.8 k/uL (1.0-4.8); Lymphocytes % (A) 22 %; MCHC 33.7 g/dL (31.0-37.0); MCV 80.1 fL (80.0-100.0); Mean Platelet Volume 7.3; Monocytes # (A) 0.4 k/uL (0-1.0); Monocytes % (A) 5 %; Neutrophils # (A) 5.8 k/uL (1.3-7.7); Neutrophils % (A) 72 %; Platelet Count 270 k/uL (150-450); RBC 4.41 m/uL (3.80-5.40); RDW 15.6 % (11.5-15.5); WBC 8.1 k/uL (3.8-10.6)
[2021-02-20 03:13] LABS: ALT 18 U/L (4-34); AST 12 U/L (14-36); African American GFR (CKD) >90 (>60 ml/min/1.73 sqM); Albumin 3.5 g/dL (3.5-5.0); Alkaline Phosphatase 50 U/L (38-126); Anion Gap 12 mmol/L; Blood Urea Nitrogen 5 mg/dL (7-17); Carbon Dioxide 15 mmol/L (22-30); Chloride 109 mmol/L (98-107); Glucose 83 mg/dL (74-99); Magnesium 1.6 mg/dL (1.6-2.3); Non-African American GFR(CKD) >90 (>60 ml/min/1.73 sqM); Phosphorus 2.9 mg/dL (2.5-4.5); Potassium 3.3 mmol/L (3.5-5.1); Sodium 136 mmol/L (137-145); Total Bilirubin 0.4 mg/dL (0.2-1.3); Total Protein 6.3 g/dL (6.3-8.2)
[2021-02-20 04:26] VITALS: PULSE 69; RESP 20
[2021-02-20] MEDS ORDERED: POTASSIUM BICARBONATE/CIT AC 20 MEQ TABLET.EFF PO ONE (04:27)
[2021-02-20 04:34] LABS: Appearance,Urine Clear (Clear); Bacteria,Urine Occasional /hpf; Bilirubin,Urine Negative (Negative); Blood,Urine Negative (Negative); Color,Urine Yellow; Glucose,Urine (UA) Negative (Negative); Hyaline Casts,Urine 1 /lpf (0-2); Ketones,Urine 4+ (Negative); Leukocyte Esterase,Urine Negative (Negative); Mucus,Urine Few /hpf; Nitrite,Urine Negative (Negative); Protein,Urine 1+ (Negative); RBC,Urine 1 /hpf (0-5); Specific Gravity,Urine 1.029 (1.001-1.035); Squamous Epithelial Cell,Urine 8 /hpf (0-4); WBC,Urine 1 /hpf (0-5)
[2021-02-20 08:50] VITALS: BP 102/67
== END 2021-02-20 08:00 | disposition home or self-care (01) ==
LOC: EC 01:35
DX: O21.0 Mild hyperemesis gravidarum (principal); O99.341 Other mental disorders complicating pregnancy, first trimester; F32.9 Major depressive disorder, single episode, unspecified; F41.9 Anxiety disorder, unspecified; Z87.891 Personal history of nicotine dependence; Z79.52 Long term (current) use of systemic steroids; Z79.899 Other long term (current) drug therapy; Z3A.10 10 weeks gestation of pregnancy
CPT/HCPCS: 36415; 80053; 83605; 83735; 84100; 85025; 81001; 96374; 96361 ×6; 99284; J1200

== ENCOUNTER 2021-04-14 17:38 | Outpatient (CLI) | payer OTHER ==
[2021-04-14 18:16] VITALS: BP 109/61; PULSE 106; RESP 16; TEMP 97.6
--- NOTE | 2021-04-15 00:13 | P.MSEPDOC ---
Presenting Problems - Arrival Data Date of Arrival on Unit: 04/14/21 Time of Arrival on Unit: 17:38 Mode of Transport: Wheelchair - Complaint OB-Reason for Admission/Chief Complaint: Decreased Movement Medical History - Information : 4 Para: 2 Term: 2 : 0 Abortions: Spontaneous or Elective: 1 Number of Living Children: 2 - Gestational Age Gestational Age by MARGARITA (wks/days): 20 Weeks and 0 Days Review of Systems - Review of Systems Constitutional: No problems Breast: No problems ENT: No problems Cardiovascular: No problems Respiratory: No problems Gastrointestinal: No problems Genitourinary: No problems Musculoskeletal: No problems Neurological: No problems Skin: No problems Vital Signs - Temperature Temperature: 97.6 F Temperature Source: Temporal Artery Scan - Pulse Right Brachial Pulse Rate: 106 Pulse Assessment Method: Automatic Cuff - Respirations Respiratory Rate: 16 Oxygen Delivery Method: Room Air O2 Sat by Pulse Oximetry: 99 - Blood Pressure Right Arm Blood Pressure: 109/61 Blood Pressure Mean: 77 Blood Pressure Source: Automatic Cuff Physician Notification - Physician Notified Physician Notified Date: 04/14/21 Physician Notified Time: 18:00 Physician: Judit Ramos New Order Received: Yes - Notification Comment Comment: Dr. Ramos given report. Pt c/o. VS. FHTs dopplered 145-165bpm. Maternal Triage Index - Maternal Triage Index Presenting for scheduled procedure w/no complaint: No - Stat/Priority 1 Stat Priority 1: No - Urgent/Priority 2 Urgent Priority 2: Yes Provider Notified: Judit Ramos Provider Notified Time: 18:00 Criteria Met for Priority 2: Decreased movement. Disposition - Disposition OB Disposition: Discharge to home Discharge Date: 04/14/21 Discharge Time: 18:05 I agree with the RN Medical Screening Exam: Yes Case reviewed; plan agreed upon as documented in EMR&OBIX.: Yes Diagnosis: DECREASED MOVEMENTS, SECOND TRIMESTER, UNSP
== END 2021-04-14 18:05 | disposition home or self-care (01) ==
LOC: FBPOP 17:38
PROVIDERS: ATTEND Obstetrics & Gynecology
DX: O36.8120 Decreased fetal movements, second trimester, not applicable or unspecified (principal); Z3A.20 20 weeks gestation of pregnancy
CPT/HCPCS: 99213

== ENCOUNTER 2021-08-25 09:35 | Inpatient (IN) | payer OTHER ==
--- NOTE | 2021-08-24 20:14 | P.HPOB ---
History of Present Illness H&P Date: 08/24/21 Chief Complaint: Repeat with bilateral tubal ligation This is a 21 y.o. female, 4, para 2012, with an estimated date of confinement of 09/01/2021, estimated gestational age of 39-0/7 weeks, who presents for repeat section with bilateral partial salpingectomy for family planning. Her was initially complicated by severe hyperemesis that required a few hospitalizations. She was seen at approximately 9 weeks for her initial visit and then didn't return until 17 weeks since she had multiple hospitalizations in between. She was advised to start on a baby aspirin due to her history of pre-eclampsia. She was referred to [facility]. She did see [facility] on 04/15/2021 and 05/13/2021. She was diagnosed with a circumvallate placenta and advised to have twice weekly NSTs and weekly biophysical profiles starting at 32 weeks. She did not return to my office until 34 weeks and to date has not done her glucola despite reminders. She showed back up one more time at 35 weeks and has not shown up since. Her pelvic ultrasound at 35 weeks showed fetus in vertex position with estimated weight of 5#7oz and DEAN of 6.51. She was again advised of the importance of surveillance. labs: GC/Chlamydia/Trich-neg Hepatitis B surface antigen-neg RPR-NR Rubella-immune Blood type-B+ Antibody screen-neg HIV-NR Hemoglobin-11.7 Toxoplasma-neg Random glucose-88 Quad screen-neg GBS-neg OBHx: . History of 2 previous sections at term for polyhydrammios and pre-eclampsia. 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 Unemployed. Review of Systems Constitutional: Denies chills, Denies fever Eyes: denies blurred vision, denies pain Ears, nose, mouth and throat: Denies headache, Denies sore throat Cardiovascular: Denies chest pain, Denies shortness of breath Respiratory: Denies cough Gastrointestinal: Reports nausea, Reports vomiting, Denies abdominal pain, Denies diarrhea Genitourinary: Reports pelvic pain, Reports Musculoskeletal: Reports low back pain Integumentary: Denies pruritus, Denies rash Neurological: Denies numbness, Denies weakness Psychiatric: Reports depression Past Medical History Additional Past Medical History / Comment(s): Hyperemesis; History of pre- eclampsia with last 2 deliveries History of Any Multi-Drug Resistant Organisms: None Reported Past Surgical History: Appendectomy, Bladder Surgery, Section Additional Past Surgical History / Comment(s): Was really young when she had bladder surgery, unsure. C/S x2. Past Anesthesia/Blood Transfusion Reactions: No Reported Reaction Past Psychological History: Anxiety, Depression Smoking Status: Former smoker Past Alcohol Use History: None Reported Past Drug Use History: None Reported - Past Family History Mother Family Medical History: No Reported History Medications and Allergies Allergies Allergy/AdvReac Type Severity Reaction Status Date / Time No Known Allergies Allergy Verified 04/14/21 17:57 Exam Osteopathic Statement: *. No significant issues noted on an osteopathic structural exam other than those noted in the History and Physical/Consult. Gen: Obese female in no acute distress HEENT: within normal limits Heart: regular rate and rhythm Lungs: clear to auscultation bilaterally Abdomen: heart tones at last visit: 130's, reactive with no decelerations Cervix: closed/60%/-2 Extremities: negative Chuck's Results Result Diagrams: 08/25/21 10:07 08/25/21 10:07 Assessment and Plan (1) Family planning Current Visit: No Status: Acute Code(s): Z30.09 - ENCOUNTER FOR OT GENERAL CNSL AND ADVICE ON CONTRACEPTION SNOMED Code(s): 574261809 (2) 39 weeks gestation of Current Visit: No Status: Acute Code(s): Z3A.39 - 39 WEEKS GESTATION OF SNOMED Code(s): 24415594 (3) Previous delivery affecting Current Visit: No Status: Acute Code(s): O34.219 - MATERNAL CARE FOR UNSP TYPE SCAR FROM PREVIOUS DEL SNOMED Code(s): 469413682 Plan: Admission for repeat section with bilateral partial salpingectomy. Will obtain urine drug screen and pre-eclamptic labs on admission due to limited care. Will consult social economist after delivery. I have discussed the risks, benefits, and alternative therapies for the above- mentioned procedure and for both sedation/anesthesia as well as necessary blood products administration, if indicated, as they pertain to this patient. The patient has indicated her understanding and acceptance of the risks and procedures discussed.
[2021-08-25] MEDS ORDERED: LACTATED RINGERS 1,000 ML IV ONE (09:52)
[2021-08-25] MEDS ORDERED: CITRIC ACID-SODIUM CITRATE 15 ML CUP PO ONE (09:52)
[2021-08-25] MEDS ORDERED: ceFAZolin 3 GM in SODIUM CHLORIDE 0.9% 100 ML IVPB ONE (09:52)
[2021-08-25] MEDS ORDERED: LIDOCAINE 1% (10MG/ML) FOR IV START INTRADERMA PRN (09:52)
[2021-08-25 09:58] LABS: Glucose,Whole Blood 90 mg/dL (75-99)
[2021-08-25] MEDS: LACTATED RINGERS 1,000 ML IV SCH ×3 (10:15→21:28)
[2021-08-25 10:21] LABS: Anisocytosis Slight; Basophils % (A) 1 %; Eosinophils # (A) 0.1 k/uL (0-0.7); Eosinophils % (A) 1 %; HCT 30.1 % (34.0-46.0); HGB 9.4 gm/dL (11.4-16.0); Hypochromasia Moderate; Lymphocytes # (A) 2.6 k/uL (1.0-4.8); Lymphocytes % (A) 30 %; MCH 24.8 pg (25.0-35.0); MCHC 31.3 g/dL (31.0-37.0); MCV 79.4 fL (80.0-100.0); Mean Platelet Volume 7.4; Monocytes # (A) 0.5 k/uL (0-1.0); Monocytes % (A) 6 %; Neutrophils # (A) 5.5 k/uL (1.3-7.7); Neutrophils % (A) 62 %; Platelet Count 407 k/uL (150-450); Poikilocytosis Slight; RDW 16.3 % (11.5-15.5); WBC 8.8 k/uL (3.8-10.6)
[2021-08-25 10:25] LABS: Amorphous Sediment,Urine Rare /hpf; Appearance,Urine Cloudy (Clear); Bacteria,Urine Occasional /hpf; Bilirubin,Urine Negative (Negative); Blood,Urine Trace (Negative); Color,Urine Yellow; Glucose,Urine (UA) Negative (Negative); Ketones,Urine Negative (Negative); Leukocyte Esterase,Urine Large (Negative); Mucus,Urine Moderate /hpf; Nitrite,Urine Negative (Negative); Protein,Urine 1+ (Negative); RBC,Urine 8 /hpf (0-5); Specific Gravity,Urine 1.028 (1.001-1.035); Squamous Epithelial Cell,Urine 10 /hpf (0-4); WBC,Urine 9 /hpf (0-5)
[2021-08-25 10:34] LABS: ALT 8 U/L (4-34); AST 10 U/L (14-36); African American GFR (CKD) >90 (>60 ml/min/1.73 sqM); Blood Urea Nitrogen 8 mg/dL (7-17); LDH 411 U/L (313-618); Non-African American GFR(CKD) >90 (>60 ml/min/1.73 sqM); Uric Acid 4.3 mg/dL (3.7-7.4)
[2021-08-25 10:42] LABS: Phencyclidine Screen,Urine Not Detected (NotDetected); Urn Cannabinoid Scrn Not Detected (NotDetected)
[2021-08-25 10:43] LABS: Amphetamine Screen,Urine Not Detected (NotDetected); Barbiturate Screen,Urine Not Detected (NotDetected); Benzodiazepines Screen,Urine Not Detected (NotDetected); Cocaine Screen,Urine Not Detected (NotDetected); Methadone Screen, Urine Not Detected (NotDetected); Opiate Screen,Urine Not Detected (NotDetected); Oxycodone Screen, Urine Not Detected (NotDetected); Tricyclic Antidepressant,Urine Not Detected (NotDetected)
[2021-08-25 11:03] LABS: Creatinine,Urine Random 239.3 mg/dL; Protein/Creatinine Ratio,Urine 0.059
[2021-08-25 11:06] LABS: INR 0.9 (<1.2); Prothrombin Time 10.1 sec (9.0-12.0)
[2021-08-25 11:21] LABS: Partial Thromboplastin Time 21.7 sec (22.0-30.0)
[2021-08-25] MEDS ORDERED: OXYTOCIN 30 UNITS/500 ML NS BAG IV ONE (12:21)
[2021-08-25] MEDS ORDERED: KETOROLAC 15 MG/ML 1 ML VIAL ONE (12:21)
[2021-08-25] MEDS ORDERED: NALBUPHINE 10 MG/ML (1 ML AMP) ONE (12:21)
[2021-08-25] MEDS ORDERED: MORPHINE SULFATE (PF) 0.3 MG/0.3 ML SYR ONE (12:21)
[2021-08-25] MEDS ORDERED: ePHEDrine 50 MG/ML 1 ML VIAL ONE (12:21)
[2021-08-25] MEDS ORDERED: ONDANSETRON 4 MG/2 ML VIAL ONE (12:21)
[2021-08-25] MEDS ORDERED: KETOROLAC 15 MG/ML 1 ML VIAL IVP PRN (13:09)
[2021-08-25] MEDS ORDERED: HYDROmorphone 0.5 MG/0.5 ML SYRINGE IVP PRN ×2 (13:09→13:23)
[2021-08-25] MEDS ORDERED: ONDANSETRON 4 MG/2 ML VIAL IVP PRN ×2 (13:09→13:23)
[2021-08-25] MEDS ORDERED: diphenhydrAMINE 50 MG/ML 1 ML VIAL IVP PRN ×3 (13:09→13:23)
[2021-08-25] MEDS ORDERED: NALOXONE 0.4 MG/ML 1 ML VIAL IV PRN ×2 (13:09→13:23)
--- NOTE | 2021-08-25 13:13 | P.OP ---
Date of Procedure: 08/25/21 Preoperative Diagnosis: 1. Intrauterine at 39-0/7 weeks. 2. History of previous sections. 3. Family-planning. 4. Limited care. Postoperative Diagnosis: Same Procedure(s) Performed: Repeat low transverse section with bilateral partial salpingectomy Anesthesia: spinal (Duramorph) Surgeon: Judit Ramos Academic Dean #1: Alexx Duarte Estimated Blood Loss (ml): 600 Pathology: other (Placenta, portions of right and left fallopian tubes) Condition: stable Disposition: floor Indications for Procedure: This is a 21-year-old female 4 para 2 at 39-0/7 weeks who presents for scheduled repeat section with bilateral partial salpingectomy. Please see history and physical for details of patient's admission. I have discussed the risks, benefits, and alternative therapies for the above- mentioned procedure and for both sedation/anesthesia as well as necessary blood products administration, if indicated, as they pertain to this patient. The patient has indicated her understanding and acceptance of the risks and procedures discussed. Operative Findings: A viable male is noted in the vertex presentation with nuchal cord times one and infant weight of 7 lbs. 10 oz. scores were 9 at 1 minute and 9 at 5 minutes. Normal uterus tubes and ovaries are noted. There was noted to be a circumvallate placenta. Description of Procedure: The patient is taken to the operating room where she is placed in the dorsal supine position with leftward tilt after spinal Duramorph anesthesia is given. She is prepped and draped in the normal sterile fashion. Skin was tested and found to be adequately anesthetized. A Pfannenstiel skin incision was made with a scalpel. A second knife was used to carry the incision down to the underlying layer of fascia. The fascia was nicked in the midline with a scalpel and then extended laterally bilaterally with Steven scissors. The anterior lip of the fascia was grasped with 2 Lee clamps and then dissected off the underlying rectus muscle in the midline with Steven scissors. The inferior aspect of the fascial incision was grasped with 2 Lee clamps and dissected off the underlying rectus muscle and the midline with Steven scissors. Next the peritoneum layer was tented up with 2 hemostats and then entered sharply with the scalpel. The incision is extended superiorly and inferiorly with Metzenbaum scissors. Next a DeLee retractor is placed. The vesicouterine peritoneum is entered sharply with Metzenbaum scissors and extended laterally bilaterally with Metzenbaum scissors and then the bladder flap is pushed inferiorly. The lower uterine segment is incised in transverse fashion with the scalpel and then bluntly entered with a hemostat. Clear fluid is noted. The incision was then e xtended laterally bilaterally with 2 fingers. Next the 's head is delivered through the incision. Nose and mouth are bulb suctioned. The remainder of the is easily delivered and placed on mother's abdomen. Nuchal cord 1 is reduced around the body with delivery. Cord is clamped and cut. is taken to warmer by nursing staff. Uterine fundus is gently massaged and placenta is delivered manually. Uterus is exteriorized and cleared of all clots and debris. Uterine incision is closed with 0 Vicryl suture in a running locked fashion. A second layer of 0 Vicryl suture is used in a running fashion for hemostasis. Once adequate hemostasis as assured, the vesicouterine peritoneum is reapproximated with 2-0 Vicryl suture in a running fashion. Attention is then turned to the tubes. The right fallopian tube is grasped in the midportion with a hemostat. Mesosalpinx is entered with Bovie cautery. 0 Vicryl suture is tied 2 times around both the proximal and distal portion of the tube. The knuckle of tube was then removed with Metzenbaum scissors. The ends of the tube are cauterized with Bovie cautery. The same procedure is carried out on the left fallopian tube. Posterior cul-de-sac is suctioned of all clots and debris. Uterus is returned to the abdomen. Incision is noted to be hemostatic. Both tubal sites are noted to be hemostatic. Peritoneal layer is closed with 0 Vicryl suture in a running fashion. Muscle layer is reapproximated with 0 Vicryl suture in interrupted fashion. Fascia layer is then closed with 0 PDS suture with 2 sutures meeting in the midline and the knots buried in either side and in the midline. The subcutaneous tissue was then closed with 2-0 Vicryl suture. Skin layer was then closed with brisa. All sponge and needle counts are correct. The patient is taken to recovery room in stable condition.
[2021-08-25] MEDS ORDERED: diphenhydrAMINE 50 MG CAP PO PRN (13:23)
[2021-08-25] MEDS ORDERED: HYDROmorphone 1 MG/ML 1 ML SYRINGE IVP PRN (13:23)
[2021-08-25] MEDS ORDERED: ZOLPIDEM 5 MG TAB PO PRN (13:23)
[2021-08-25] MEDS ORDERED: OXYTOCIN 30 UNITS/500 ML NS 30 UNIT in SALINE 1 500ML.BAG IV SCH (13:23)
[2021-08-25] MEDS ORDERED: SIMETHICONE 80 MG CHEWABLE PO PRN (13:23)
[2021-08-25] MEDS ORDERED: LANOLIN CREAM 5 GM TUBE TOPICAL PRN (13:23)
[2021-08-25] MEDS ORDERED: METOCLOPRAMIDE 5 MG/ML 2 ML VIAL IVP PRN (13:23)
[2021-08-25] MEDS: diphenhydrAMINE 25 MG CAP PO PRN ×2 (14:49→23:54)
[2021-08-25] MEDS: ACETAMINOPHEN TAB 500 MG TAB PO SCH ×2 (16:05→22:05)
[2021-08-25] MEDS ORDERED: METHYLERGONOVINE 0.2 MG/ML 1 ML AMP IM ONE (17:32)
[2021-08-25] MEDS: IBUPROFEN 600 MG TAB PO SCH (18:32)
[2021-08-25] MEDS: SENNOSIDES-DOCUSATE SODIUM 1 EACH TAB PO SCH (20:19)
[2021-08-26] MEDS: KETOROLAC 15 MG/ML 1 ML VIAL IVP SCH ×2 (00:49→20:26)
[2021-08-26] MEDS: IBUPROFEN 600 MG TAB PO SCH ×4 (01:08→21:53)
[2021-08-26] MEDS: LACTATED RINGERS 1,000 ML IV SCH (02:03)
[2021-08-26] MEDS: ACETAMINOPHEN TAB 500 MG TAB PO SCH ×3 (04:29→18:45)
--- NOTE | 2021-08-26 06:30 | P.PN ---
Progress Note - Text Progress Note Date: 08/26/21 21 yo female s/p C/section with intrathecal duramorph VAS 1-3/10 in severity. Denies back pain, motor or sensory deficits. Pt ambulating well, tolerating diet. Overall patient is doing well.
[2021-08-26 06:42] LABS: Anisocytosis Slight; Basophils % (A) 0 %; Eosinophils # (A) 0.1 k/uL (0-0.7); Eosinophils % (A) 1 %; HCT 23.7 % (34.0-46.0); Hypochromasia Marked; Lymphocytes # (A) 1.9 k/uL (1.0-4.8); Lymphocytes % (A) 25 %; MCH 24.4 pg (25.0-35.0); MCHC 30.4 g/dL (31.0-37.0); MCV 80.4 fL (80.0-100.0); Mean Platelet Volume 8.5; Monocytes # (A) 0.5 k/uL (0-1.0); Monocytes % (A) 7 %; Neutrophils % (A) 66 %; Platelet Count 277 k/uL (150-450); RBC 2.95 m/uL (3.80-5.40); RDW 16.5 % (11.5-15.5); WBC 7.5 k/uL (3.8-10.6)
[2021-08-26 06:56] LABS: HGB 7.2 gm/dL (11.4-16.0)
[2021-08-26] MEDS: SENNOSIDES-DOCUSATE SODIUM 1 EACH TAB PO SCH ×2 (08:04→21:18)
[2021-08-26] MEDS ORDERED: BUTORPHANOL 1 MG/ML 1 ML VIAL IV PRN (08:10)
--- NOTE | 2021-08-26 13:31 | P.PNOBGPC ---
Subjective - Subjective Principal diagnosis: Status post repeat with TL POD #1 Interval history: Patient is doing well. She is ambulant bleeding. She is passing flatus but no bowel movement yet. Pain is fairly well controlled with ibuprofen. She is breast-feeding. She denies any dizziness or lightheadedness. She states bleeding has been minimal. Patient reports: Reports appetite normal, Reports voiding normally, Reports pain well controlled [place]: doing well, nursing well Objective - Vital Signs Latest vital signs: Vital Signs Temp Pulse Resp BP BP Pulse Ox 08/26/21 12:00 98.1 F 67 14 113/75 96 08/26/21 10:00 16 97 08/26/21 08:37 96 08/26/21 08:00 98.4 F 69 20 109/62 08/26/21 05:43 14 98 08/26/21 03:40 98.6 F 72 16 100/64 98 08/26/21 01:59 18 97 08/25/21 23:30 98.5 F 76 14 103/70 96 08/25/21 22:00 16 97 08/25/21 20:00 97.7 F 72 16 111/64 98 08/25/21 17:26 97.9 F 63 18 110/56 98 08/25/21 17:05 18 08/25/21 17:00 76 18 97 08/25/21 16:09 96.4 F L 64 18 101/58 99 08/25/21 15:30 96.4 F L 64 18 101/58 99 08/25/21 14:45 96.7 F L 78 18 93/50 100 08/25/21 14:15 96.9 F L 65 18 94/68 99 08/25/21 14:00 96.4 F L 64 18 115/82 99 08/25/21 13:45 96.5 F L 70 18 108/54 97 08/25/21 13:30 96.5 F L 76 18 106/53 99 Intake and Output 08/25/21 08/26/21 08/26/21 22:59 06:59 14:59 Output Total 375 250 Balance -375 -250 Output: Urine 75 250 Uretheral ([place]) 75 Emesis 300 Other: Voiding Method Toilet # Voids 0 1 - Exam Extremities: Present: normal. Absent: tenderness Abdomen: Present: normal appearance, soft (Positive bowel sounds 4). Absent: distention Incision: Present: normal, dry, intact. Absent: erythematous Uterus: Present: normal, firm. Absent: tenderness - Labs Labs: Abnormal Lab Results - Last 24 Hours (Table) 08/26/21 Range/Units 06:14 RBC 2.95 L (3.80-5.40) m/uL Hgb 7.2 L D (11.4-16.0) gm/dL Hct 23.7 L (34.0-46.0) % MCH 24.4 L (25.0-35.0) pg MCHC 30.4 L (31.0-37.0) g/dL RDW 16.5 H (11.5-15.5) % Assessment and Plan Assessment: Status post repeat section with bilateral partial septectomy postoperative day #1 (1) Family planning Current Visit: No Status: Acute Code(s): Z30.09 - ENCOUNTER FOR OTH GENERAL CNSL AND ADVICE ON CONTRACEPTION SNOMED Code(s): 738340863 (2) 39 weeks gestation of Current Visit: No Status: Acute Code(s): Z3A.39 - 39 WEEKS GESTATION OF SNOMED Code(s): 88393843 (3) Previous delivery affecting Current Visit: No Status: Acute Code(s): O34.219 - MATERNAL CARE FOR UNSP TYPE SCAR FROM PREVIOUS DEL SNOMED Code(s): 134563045 Plan: Continue with postoperative care today. Will advance diet as tolerated.
[2021-08-27] MEDS: ACETAMINOPHEN TAB 500 MG TAB PO SCH ×3 (02:17→10:43)
[2021-08-27] MEDS: IBUPROFEN 600 MG TAB PO SCH ×2 (05:21)
--- NOTE | 2021-08-27 07:43 | P.DS ---
Providers Date of admission: 08/25/21 09:35 Expected date of discharge: 08/27/21 Attending physician: Judit Ramos Primary care physician: Stated None - Discharge Diagnosis(es) (1) Family planning Current Visit: No Status: Acute (2) 39 weeks gestation of Current Visit: No Status: Acute (3) Previous delivery affecting Current Visit: No Status: Acute Hospital Course: This is a 21-year-old female 4 para 2 at 39-0/7 weeks who presented for scheduled repeat section with bilateral partial salpingectomy on 08/25/2021. She delivered a viable male infant with scores of 9 at 1 minute and 9 at 5 minutes and infant weight is 7 lbs. 10 oz. and nuchal cord 1. Her and postoperative course has been essentially uncomplicated. Lochia has been decreasing. She is working on breast-feeding. She is passing flatus but no bowel movement yet. Pain is well-controlled with ibuprofen and Tylenol. Vital signs are stable. Abdomen is soft with fundus nontender. P ositive bowel sounds 4 are noted. Extremities show negative Homans. Impression is status post repeat low transverse section with bilateral partial esophagectomy postoperative day #2. Plan is to discharge home today. [place] will be removed and sterile strips placed prior to discharge. She will be given a prescription for ibuprofen and a breast pump. She is advised follow- up in the office in 1 week for a postoperative check. She is advised to call the office if she has any further questions or concerns prior to her point in time. Patient was also seen by social and political studies professor due to limited care. Procedures: Repeat low transverse section with bilateral partial salpingectomy on 08/25/2021. Patient Condition at Discharge: Stable Plan - Discharge Summary New Discharge Prescriptions: New Ibuprofen [Motrin] 600 mg PO Q6H #60 tab No Action Aspirin 81 mg PO DAILY Discharge Medication List Aspirin 81 mg PO DAILY 08/25/21 [History] Ibuprofen [Motrin] 600 mg PO Q6H #60 tab 08/27/21 [Rx] Follow up Appointment(s)/Referral(s): Judit Ramos DO [Doctor of Osteopathic Medicine] - 10/04/21 3:30 pm (Post Op 09-06-2021 @ 01:30p.m.) Activity/Diet/Wound Care/Special Instructions: Instructions 1. Do not begin any exercise program for 3 weeks. 2. Do not resume sexual relations for 3 weeks or longer if uncomfortable. 3. You may take tub baths or showers at any time. 4. You may use tampons if desired after 3 weeks. 5. Keep the area of episiotomy (stitches) clean and dry. 6. If you are not nursing, wear a good fitting, supportive bra during the day and limit fluid intake for at least 1 week to prevent breast engorgement. 7. Call the office, [phone], within the next week to make appointment for your 6 week checkup if it has not already been made. 8. Report any of the following occurrences to the doctor promptly: a. Heavy, excessive bleeding b. Chills, fever c. Burning or frequency of urination d. Pain or redness and breasts if nursing e. Increasing pain or swelling in episiotomy (stitches). In addition to the above instructions, the following additional should be followed: 1. No heavy lifting or straining (exercising) until after 6 week checkup. 2. Keep abdominal incision clean and dry: You may wear a dressing if more comfo rtable. 3. Make office appointment for 10 days after going home or as instructed by her doctor. Discharge Disposition: HOME SELF-CARE
[2021-08-27 10:15] VITALS: BP 109/52; PULSE 80; RESP 16; TEMP 97.3
[2021-08-27] MEDS: SENNOSIDES-DOCUSATE SODIUM 1 EACH TAB PO SCH (10:41)
== END 2021-08-27 12:35 | disposition home or self-care (01) | DRG 785 ==
LOC: 4FBP 09:35
PROVIDERS: ADMIT Obstetrics & Gynecology; ATTEND Obstetrics & Gynecology
PROC: 0UB70ZZ Excision of Bilateral Fallopian Tubes, Open Approach (ICD-10-PCS; 2021-08-25)
PROC: 4A0HXCZ Measurement of Products of Conception, Cardiac Rate, External Approach (ICD-10-PCS; 2021-08-25)
PROC: 10D00Z1 Extraction of Products of Conception, Low, Open Approach (ICD-10-PCS; principal; 2021-08-25 12:00)
DX: O34.211 Maternal care for low transverse scar from previous cesarean delivery (principal); O69.81X0 Labor and delivery complicated by cord around neck, without compression, not applicable or unspecified; O43.113 Circumvallate placenta, third trimester; F32.A Depression, unspecified; F41.9 Anxiety disorder, unspecified; O99.344 Other mental disorders complicating childbirth; Z30.2 Encounter for sterilization; Z37.0 Single live birth; Z3A.39 39 weeks gestation of pregnancy; Z87.891 Personal history of nicotine dependence
CPT/HCPCS: 80306; 81001; 82565; 82570; 83036; 83615; 84156; 84450; 84460; 84520; 84550; 85025; 85384; 85610; 85730; 86850; 86900; 86901; 88302; 88307

== ENCOUNTER 2022-03-23 12:07 | Emergency (ER) | payer OTHER ==
[2022-03-23 12:57] VITALS: TEMP 98.2
--- NOTE | 2022-03-23 13:21 | XR ---
EXAMINATION TYPE: XR ankle complete RT DATE OF EXAM: 03/23/2022 COMPARISON: NONE HISTORY: Pain and swelling FINDINGS: Three views of the ankle demonstrate the ankle mortise to be intact and symmetric. The joint spaces are preserved. The osseous structures are intact. Soft tissue edema noted. IMPRESSION: 1. No definite acute fracture or dislocation, if symptoms persist follow-up study in 7 to 10 days wou ld be suggested.
--- NOTE | 2022-03-23 13:26 | ED ---
Lower Extremity Injury HPI - General Chief Complaint: Extremity Injury, Lower Stated Complaint: ankle pain Time Seen by Provider: 03/23/22 13:05 Source: patient, RN notes reviewed Mode of arrival: wheelchair Limitations: no limitations - History of Present Illness Initial Comments: 22-year-old female presents emergency department chief complaint of right ankle pain. Patient states she rolled her ankle and had some steps. Patient complains of lateral ankle pain. No prior paresthesias no prior fractures patient denies any pain above or below the right ankle. No other injuries noted. - Related Data Home Medications Medication Instructions Recorded Confirmed Aspirin 81 mg PO DAILY 08/25/21 08/25/21 Previous Rx's Medication Instructions Recorded Ibuprofen [Motrin] 600 mg PO Q6H #60 tab 08/27/21 Ibuprofen [Motrin] 600 mg PO Q8HR PRN #30 tab 03/23/22 Allergies Allergy/AdvReac Type Severity Reaction Status Date / Time No Known Allergies Allergy Verified 03/23/22 12:57 Review of Systems ROS Statement: Those systems with pertinent positive or pertinent negative responses have been documented in the HPI. ROS Other: All systems not noted in ROS Statement are negative. Past Medical History Past Medical History: No Reported History Additional Past Medical History / Comment(s): Hyperemesis; History of pre- eclampsia with last 2 deliveries History of Any Multi-Drug Resistant Organisms: None Reported Past Surgical History: Appendectomy, Bladder Surgery, Section Additional Past Surgical History / Comment(s): Was really young when she had bladder surgery, unsure. C/S x2. Past Anesthesia/Blood Transfusion Reactions: No Reported Reaction Past Psychological History: Anxiety, Depression Smoking Status: Former smoker Past Alcohol Use History: None Reported Past Drug Use History: None Reported - Past Family History Mother Family Medical History: No Reported History General Exam Limitations: no limitations General appearance: alert, in no apparent distress Head exam: Present: atraumatic, normocephalic, normal inspection Respiratory exam: Present: normal lung sounds bilaterally. Absent: respiratory distress, wheezes, rales, rhonchi, stridor Cardiovascular Exam: Present: regular rate, normal rhythm, normal heart sounds. Absent: systolic murmur, diastolic murmur, rubs, gallop, clicks Extremities exam: Present: other (Right ankle there is tenderness in the lateral malleoli region, neurovascular intact.) Course Vital Signs 03/23/22 03/23/22 12:54 14:45 Temperature 98.2 F 98.2 F Pulse Rate 117 H 74 Respiratory 20 15 Rate Blood Pressure 127/78 139/74 O2 Sat by Pulse 97 96 Oximetry Medical Decision Making - Medical Decision Making X-rays negative for acute fracture. Patient is right ankle sprain. Disposition Clinical Impression: Right ankle sprain Disposition: HOME SELF-CARE Condition: Stable Instructions (If sedation given, give patient instructions): Ankle Sprain (ED) Additional Instructions: Please return to the Emergency Department if symptoms worsen or any other concerns. Prescriptions: Ibuprofen [Motrin] 600 mg PO Q8HR PRN #30 tab PRN Reason: Pain Is patient prescribed a controlled substance at d/c from ED?: No Referrals: Markel Jolley MD [Primary Care Provider] - 1-2 days Time of Disposition: 13:26
[2022-03-23] MEDS ORDERED: ACET/COD 300 MG/30 MG STARTER PACK 6 TAB BTL PO STA (13:49)
[2022-03-23 14:54] VITALS: BP 139/74; PULSE 74; RESP 15
== END 2022-03-23 14:45 | disposition home or self-care (01) ==
LOC: EC 12:07
DX: S93.401A Sprain of unspecified ligament of right ankle, initial encounter (principal); Z87.891 Personal history of nicotine dependence; X50.0XXA Overexertion from strenuous movement or load, initial encounter
CPT/HCPCS: 99283

== ENCOUNTER 2022-10-09 23:38 | Emergency (ER) | payer OTHER ==
[2022-10-09 23:46] VITALS: RESP 14; TEMP 98.3
[2022-10-10] MEDS ORDERED: ONDANSETRON 4 MG/2 ML VIAL IVP STA (00:08)
[2022-10-10] MEDS ORDERED: SODIUM CHLORIDE 0.9% 1,000 ML IV STA (00:08)
--- NOTE | 2022-10-10 00:14 | ED ---
Abdominal Pain HPI - General Chief Complaint: Abdominal Pain Stated Complaint: abd pain Time Seen by Provider: 10/09/22 23:54 Source: patient, EMS Mode of arrival: EMS - History of Present Illness MD Complaint: abdominal pain -: hour(s) Location: epigastric Radiation: LUQ Severity: severe Quality: aching Consistency: constant Improves With: nothing Worsens With: nothing Associated Symptoms: nausea, vomiting - Related Data LMP (females 10-50): last week Patient : No Home Medications Medication Instructions Recorded Confirmed Aspirin 81 mg PO DAILY 08/25/21 08/25/21 Previous Rx's Medication Instructions Recorded Ibuprofen [Motrin] 600 mg PO Q6H #60 tab 08/27/21 Ibuprofen [Motrin] 600 mg PO Q8HR PRN #30 tab 03/23/22 Famotidine [Pepcid] 20 mg PO BID #14 tablet 10/10/22 Ondansetron Odt [Zofran ODT] 4 mg PO Q8HR PRN #10 tab 10/10/22 Sulfamethox-Tmp 800-160Mg [Bactrim 1 each PO Q12HR #6 tab 10/10/22 Ds] Allergies Allergy/AdvReac Type Severity Reaction Status Date / Time No Known Allergies Allergy Verified 03/23/22 12:57 Review of Systems ROS Statement: Those systems with pertinent positive or pertinent negative responses have been documented in the HPI. ROS Other: All systems not noted in ROS Statement are negative. Constitutional: Denies: fever, chills Respiratory: Denies: cough, dyspnea Cardiovascular: Denies: chest pain, palpitations Endocrine: Denies: fatigue Gastrointestinal: Reports: abdominal pain, nausea, vomiting. Denies: diarrhea, constipation, hematemesis, melena, hematochezia Genitourinary: Denies: dysuria, hematuria Musculoskeletal: Denies: back pain Skin: Denies: rash Neurological: Denies: headache, weakness Past Medical History Past Medical History: No Reported History Additional Past Medical History / Comment(s): Hyperemesis; History of pre- eclampsia with last 2 deliveries History of Any Multi-Drug Resistant Organisms: None Reported Past Surgical History: Appendectomy, Bladder Surgery, Section Additional Past Surgical History / Comment(s): Was really young when she had bladder surgery, unsure. C/S x2. Past Anesthesia/Blood Transfusion Reactions: No Reported Reaction Past Psychological History: Anxiety, Depression Smoking Status: Former smoker Past Alcohol Use History: None Reported Past Drug Use History: None Reported - Past Family History Mother Family Medical History: No Reported History General Exam General appearance: alert, in no apparent distress Head exam: Present: atraumatic, normocephalic Eye exam: Present: normal appearance. Absent: scleral icterus, conjunctival injection ENT exam: Present: normal oropharynx Respiratory exam: Present: normal lung sounds bilaterally. Absent: respiratory distress, wheezes, rales, rhonchi, stridor Cardiovascular Exam: Present: regular rate, normal rhythm, normal heart sounds. Absent: systolic murmur, diastolic murmur, rubs, gallop GI/Abdominal exam: Present: soft. Absent: distended, tenderness, guarding, rebound, rigid, mass, pulsatile mass, hernia Extremities exam: Present: normal inspection, normal capillary refill. Absent: pedal edema, calf tenderness Back exam: Present: normal inspection. Absent: CVA tenderness (R), CVA tenderness (L) Neurological exam: Present: alert Skin exam: Present: warm, dry, intact, normal color. Absent: rash Course Vital Signs 10/09/22 10/10/22 23:42 02:42 Temperature 98.3 F Pulse Rate 68 71 Respiratory 14 14 Rate Blood Pressure 128/54 103/58 O2 Sat by Pulse 99 98 Oximetry Medical Decision Making - Medical Decision Making This patient is 22-year-old woman presenting for evaluation of abdominal pain. No concerning symptoms from the history or signs from the physical exam. The exam does not have findings suggestive of surgical cause. The patient's labs unremarkable for the urine and on further discussion there may be some menstrual contamination, , however there many cells in the urine and the patient is given course of antibiotic should she have urinary symptoms. We discussed the appropriate further care and follow-up as well as return parameters and guidelines for using the medication. Was pt. sent in by a medical professional or institution (, PA, DIPPER OPERATOR, urgent care, hospital, or penitentiary...) When possible be specific @ -[No] Did you speak to anyone other than the patient for history (EMS, parent, family, police, friend...)? What history was obtained from this source @ -[No] Did you review nursing and triage notes (agree or disagree)? Why? @ -[I reviewed and agree with nursing and triage notes] Were old charts reviewed (outside hosp., previous admission, EMS record, old EKG, old radiological studies, urgent care reports/EKG's, penitentiary records)? Report findings @ -[No old charts were reviewed] Differential Diagnosis (chest pain, altered mental status, abdominal pain women, abdominal pain men, vaginal bleeding, weakness, fever, dyspnea, syncope, headache, dizziness, GI bleed, back pain, seizure, CVA, palpatations, mental health, musculoskeletal)? @ -[Differential Abdominal Pain Women: Appendicitis, Cholecystitis, diverticulosis, ischemic bowel, pancreatitis, hepatitis, UTI, gastroenteritis, AAA, incarcerated hernia, bowel obstruction, constipation, inflammatory bowel, hepatitis, peptic ulcer disease, splenic infarction, perforated viscus, vulvitis, ovarian torsion, PID, kidney stone, placenta abruption, this is not meant to be an all-inclusive list EKG interpreted by me (3pts min.). @ -[As above] X-rays interpreted by me (1pt min.). @ -[None done] CT interpreted by me (1pt min.). @ -[None done] U/S interpreted by me (1pt. min.). @ -[None done] What testing was considered but not performed or refused? (CT, X-rays, U/S, labs)? Why? @ -[None] What meds were considered but not given or refused? Why? @ -[None] Did you discuss the management of the patient with other professionals (professionals i.e. , PA, DIPPER OPERATOR, lab, RT, psych nurse, foster care social worker, dobie worker, teacher, workers' compensation hearings officer, counter caser)? Give summary @ -[No] Was smoking cessation discussed for >3mins.? @ -[No] Was critical care preformed (if so, how long)? @ -[No] Were there social determinants of health that impacted care today? How? (Homelessness, low income, unemployed, alcoholism, drug addiction, transportation, low edu. Level, literacy, decrease access to med. care, prison, rehab)? @ -[No] Was there de-escalation of care discussed even if they declined (Discuss DNR or withdrawal of care, Hospice)? DNR status @ -[No] What co-morbidities impacted this encounter? (DM, HTN, Smoking, COPD, CAD, Cancer, CVA, ARF, Chemo, Hep., AIDS, mental health diagnosis, sleep apnea, morbid obesity)? @ -[None] Was patient admitted / discharged? Hospital course, mention meds given and route, prescriptions, significant lab abnormalities, going to OR and other pertinent info. @ -[Discharged Undiagnosed new problem with uncertain prognosis? @ -[No] Drug Therapy requiring intensive monitoring for toxicity (Heparin, Nitro, Insulin, Cardizem)? @ -[No] Were any procedures done? @ -[No] Diagnosis/symptom? @ -[Acute abdominal pain, uncomplicated Possible urinary tract infection versus contaminated specimen Acute, or Chronic, or Acute on Chronic? @ -[Acute Uncomplicated (without systemic symptoms) or Complicated (systemic symptoms)? @ -[Uncomplicated Side effects of treatment? @ -[No] Exacerbation, Progression, or Severe Exacerbation? @ -[No] Poses a threat to life or bodily function? How? (Chest pain, [place], [place], pneumonia, PE, COPD, DKA, ARF, appy, cholecystitis, CVA, Diverticulitis, Homicidal, Suicidal, threat to staff... and all critical care pts) @ -[No] - Lab Data Result diagrams: 10/10/22 00:30 10/10/22 00:30 Lab Results 10/10/22 10/10/22 10/10/22 Range/Units 00:30 00:30 00:30 WBC 8.4 (3.8-10.6) k/uL RBC 5.49 H (3.80-5.40) m/uL Hgb 11.1 L (11.4-16.0) gm/dL Hct 38.3 (34.0-46.0) % MCV 69.8 L (80.0-100.0) fL MCH 20.2 L (25.0-35.0) pg MCHC 29.0 L (31.0-37.0) g/dL RDW 17.6 H (11.5-15.5) % Plt Count 249 (150-450) k/uL MPV 9.2 Neutrophils % 78 % Lymphocytes % 16 % Monocytes % 4 % Eosinophils % 1 % Basophils % 0 % Neutrophils # 6.5 (1.3-7.7) k/uL Lymphocytes # 1.3 (1.0-4.8) k/uL Monocytes # 0.4 (0-1.0) k/uL Eosinophils # 0.1 (0-0.7) k/uL Basophils # 0.0 (0-0.2) k/uL Hypochromasia Marked Anisocytosis Slight Microcytosis Marked Sodium (137-145) mmol/L Potassium (3.5-5.1) mmol/L Chloride (98-107) mmol/L Carbon Dioxide (22-30) mmol/L Anion Gap mmol/L BUN (7-17) mg/dL Creatinine (0.52-1.04) mg/dL Est GFR (CKD-EPI)AfAm (>60 ml/min/1.73 sqM) Est GFR (CKD-EPI)NonAf (>60 ml/min/1.73 sqM) Glucose (74-99) mg/dL Plasma Lactic Acid Heath (0.7-2.0) mmol/L Calcium (8.4-10.2) mg/dL Total Bilirubin (0.2-1.3) mg/dL AST (14-36) U/L ALT (4-34) U/L Alkaline Phosphatase (38-126) U/L Total Protein (6.3-8.2) g/dL Albumin (3.5-5.0) g/dL Amylase (30-110) U/L Lipase (23-300) U/L Urine Color Yellow Urine Appearance Cloudy H (Clear) Urine pH 8.0 (5.0-8.0) Ur Specific Merritt 1.015 (1.001-1.035) Urine Protein 1+ H (Negative) Urine Glucose (UA) Negative (Negative) Urine Ketones Negative (Negative) Urine Blood Large H (Negative) Urine Nitrite Negative (Negative) Urine Bilirubin Negative (Negative) Urine Urobilinogen <2.0 (<2.0) mg/dL Ur Leukocyte Esterase Moderate H (Negative) Urine RBC >182 H (0-5) /hpf Urine WBC 84 H (0-5) /hpf Ur Squamous Epith Cells 7 H (0-4) /hpf Urine Bacteria Rare H (None) /hpf Urine Mucus Few H (None) /hpf Urine HCG, Qual Not Detected (Not Detectd) 10/10/22 10/10/22 Range/Units 00:30 00:30 WBC (3.8-10.6) k/uL RBC (3.80-5.40) m/uL Hgb (11.4-16.0) gm/dL Hct (34.0-46.0) % MCV (80.0-100.0) fL MCH (25.0-35.0) pg MCHC (31.0-37.0) g/dL RDW (11.5-15.5) % Plt Count (150-450) k/uL MPV Neutrophils % % Lymphocytes % % Monocytes % % Eosinophils % % Basophils % % Neutrophils # (1.3-7.7) k/uL Lymphocytes # (1.0-4.8) k/uL Monocytes # (0-1.0) k/uL Eosinophils # (0-0.7) k/uL Basophils # (0-0.2) k/uL Hypochromasia Anisocytosis Microcytosis Sodium 141 (137-145) mmol/L Potassium 3.9 (3.5-5.1) mmol/L Chloride 105 (98-107) mmol/L Carbon Dioxide 26 (22-30) mmol/L Anion Gap 10 mmol/L BUN 9 (7-17) mg/dL Creatinine 0.65 (0.52-1.04) mg/dL Est GFR (CKD-EPI)AfAm >90 (>60 ml/min/1.73 sqM) Est GFR (CKD-EPI)NonAf >90 (>60 ml/min/1.73 sqM) Glucose 107 H (74-99) mg/dL Plasma Lactic Acid Heath 0.9 (0.7-2.0) mmol/L Calcium 8.8 (8.4-10.2) mg/dL Total Bilirubin 0.4 (0.2-1.3) mg/dL AST 14 (14-36) U/L ALT 17 (4-34) U/L Alkaline Phosphatase 77 (38-126) U/L Total Protein 7.5 (6.3-8.2) g/dL Albumin 4.2 (3.5-5.0) g/dL Amylase 47 (30-110) U/L Lipase 87 (23-300) U/L Urine Color Urine Appearance (Clear) Urine pH (5.0-8.0) Ur Specific Merritt (1.001-1.035) Urine Protein (Negative) Urine Glucose (UA) (Negative) Urine Ketones (Negative) Urine Blood (Negative) Urine Nitrite (Negative) Urine Bilirubin (Negative) Urine Urobilinogen (<2.0) mg/dL Ur Leukocyte Esterase (Negative) Urine RBC (0-5) /hpf Urine WBC (0-5) /hpf Ur Squamous Epith Cells (0-4) /hpf Urine Bacteria (None) /hpf Urine Mucus (None) /hpf Urine HCG, Qual (Not Detectd) Disposition Clinical Impression: Abdominal pain Disposition: HOME SELF-CARE Condition: Good Instructions (If sedation given, give patient instructions): Abdominal Pain (ED) Prescriptions: Sulfamethox-Tmp 800-160Mg [Bactrim Ds] 1 each PO Q12HR #6 tab Famotidine [Pepcid] 20 mg PO BID #14 tablet Ondansetron Odt [Zofran ODT] 4 mg PO Q8HR PRN #10 tab PRN Reason: Nausea Is patient prescribed a controlled substance at d/c from ED?: No Referrals: None,Stated [Primary Care Provider] - 1-2 days
[2022-10-10 01:00] LABS: Appearance,Urine Cloudy (Clear); Bacteria,Urine Rare /hpf; Bilirubin,Urine Negative (Negative); Blood,Urine Large (Negative); Color,Urine Yellow; Glucose,Urine (UA) Negative (Negative); Ketones,Urine Negative (Negative); Leukocyte Esterase,Urine Moderate (Negative); Mucus,Urine Few /hpf; Nitrite,Urine Negative (Negative); Protein,Urine 1+ (Negative); RBC,Urine >182 /hpf (0-5); Specific Gravity,Urine 1.015 (1.001-1.035); Squamous Epithelial Cell,Urine 7 /hpf (0-4); Urobilinogen,Urine <2.0 mg/dL (<2.0); WBC,Urine 84 /hpf (0-5)
[2022-10-10 01:01] LABS: ALT 17 U/L (4-34); AST 14 U/L (14-36); African American GFR (CKD) >90 (>60 ml/min/1.73 sqM); Albumin 4.2 g/dL (3.5-5.0); Alkaline Phosphatase 77 U/L (38-126); Amylase 47 U/L (30-110); Anion Gap 10 mmol/L; Blood Urea Nitrogen 9 mg/dL (7-17); Calcium 8.8 mg/dL (8.4-10.2); Carbon Dioxide 26 mmol/L (22-30); Chloride 105 mmol/L (98-107); Glucose 107 mg/dL (74-99); Lipase 87 U/L (23-300); Non-African American GFR(CKD) >90 (>60 ml/min/1.73 sqM); Potassium 3.9 mmol/L (3.5-5.1); Sodium 141 mmol/L (137-145); Total Bilirubin 0.4 mg/dL (0.2-1.3); Total Protein 7.5 g/dL (6.3-8.2)
[2022-10-10 01:12] LABS: Anisocytosis Slight; Basophils % (A) 0 %; Eosinophils # (A) 0.1 k/uL (0-0.7); Eosinophils % (A) 1 %; HCT 38.3 % (34.0-46.0); HGB 11.1 gm/dL (11.4-16.0); Hypochromasia Marked; Lymphocytes # (A) 1.3 k/uL (1.0-4.8); Lymphocytes % (A) 16 %; MCH 20.2 pg (25.0-35.0); MCV 69.8 fL (80.0-100.0); Mean Platelet Volume 9.2; Microcytosis Marked; Monocytes # (A) 0.4 k/uL (0-1.0); Monocytes % (A) 4 %; Neutrophils # (A) 6.5 k/uL (1.3-7.7); Neutrophils % (A) 78 %; Platelet Count 249 k/uL (150-450); RBC 5.49 m/uL (3.80-5.40); RDW 17.6 % (11.5-15.5); WBC 8.4 k/uL (3.8-10.6)
[2022-10-10 02:43] VITALS: BP 103/58; PULSE 71
[2022-10-10] MEDS ORDERED: SULFAMETHOX-TMP 800-160MG 1 EACH TAB PO STA (04:04)
[2022-10-10] MEDS ORDERED: MAG HYDROX/AL HYDROX/SIMETH 30 ML, HYOSCYAMINE ELIXIR 10 ML, LIDOCAINE 2% GLYDO JELLY 1... PO STA ×3 (04:12)
== END 2022-10-10 04:37 | disposition home or self-care (01) ==
LOC: EC 23:38
DX: Z79.82 Long term (current) use of aspirin (principal); R10.12 Left upper quadrant pain; F41.9 Anxiety disorder, unspecified; F32.A Depression, unspecified; Z87.891 Personal history of nicotine dependence
CPT/HCPCS: 36415; 80053; 82150; 83605; 83690; 85025; 81001; 81025; 99284; 96374; 96361; J2405

== ENCOUNTER 2023-02-03 18:58 | Emergency (ER) | payer OTHER ==
[2023-02-03 19:10] VITALS: TEMP 98.3
[2023-02-03] MEDS ORDERED: KETOROLAC 15 MG/ML 1 ML VIAL IVP STA (19:18)
[2023-02-03] MEDS ORDERED: DEXAMETHASONE SOD PHOSPHATE 10 MG/ML 1 ML VIAL IVP STA (19:18)
[2023-02-03 19:46] LABS: Anisocytosis Slight; Basophils % (A) 0 %; Eosinophils % (A) 0 %; HCT 29.3 % (34.0-46.0); HGB 8.8 gm/dL (11.4-16.0); Hypochromasia Marked; Lymphocytes # (A) 2.1 k/uL (1.0-4.8); Lymphocytes % (A) 26 %; MCH 21.3 pg (25.0-35.0); MCHC 30.2 g/dL (31.0-37.0); MCV 70.6 fL (80.0-100.0); Mean Platelet Volume 8.7; Microcytosis Moderate; Monocytes # (A) 0.5 k/uL (0-1.0); Monocytes % (A) 6 %; Neutrophils # (A) 5.3 k/uL (1.3-7.7); Neutrophils % (A) 65 %; Platelet Count 355 k/uL (150-450); RBC 4.15 m/uL (3.80-5.40); RDW 16.3 % (11.5-15.5); WBC 8.1 k/uL (3.8-10.6)
[2023-02-03 19:58] LABS: ALT 16 U/L (4-34); AST 14 U/L (14-36); African American GFR (CKD) >90 (>60 ml/min/1.73 sqM); Alkaline Phosphatase 60 U/L (38-126); Anion Gap 9 mmol/L; Blood Urea Nitrogen 13 mg/dL (7-17); Calcium 9.1 mg/dL (8.4-10.2); Carbon Dioxide 23 mmol/L (22-30); Chloride 108 mmol/L (98-107); Glucose 87 mg/dL (74-99); Non-African American GFR(CKD) >90 (>60 ml/min/1.73 sqM); Potassium 3.7 mmol/L (3.5-5.1); Sodium 140 mmol/L (137-145); Total Bilirubin 0.4 mg/dL (0.2-1.3); Total Protein 7.2 g/dL (6.3-8.2)
--- NOTE | 2023-02-03 20:16 | XR ---
EXAMINATION TYPE: XR chest 2V DATE OF EXAM: 02/03/2023 8:09 PM COMPARISON: Chest radiographs from 01/20/2017 TECHNIQUE: XR chest 2V Frontal and lateral views of the chest. CLINICAL INDICATION:Female, 23 years old with history of pleuritic chest pain; FINDINGS: Lungs/Pleura: There is no evidence of pleural effusion, focal consolidation, or pneumothorax. Pulmonary vascularity: Unremarkable. Heart/mediastinum: Cardiomediastinal silhouette is unremarkable. Musculoskeletal: No acute osseous pathology. IMPRESSION: No acute cardiopulmonary disease/process.
--- NOTE | 2023-02-03 20:17 | XR ---
EXAMINATION TYPE: XR shoulder complete RT DATE OF EXAM: 02/03/2023 8:09 PM INDICATION: Patient age:Female; 23 years old; Reason for study: shoulder pain; COMPARISON: None TECHNIQUE: The right shoulder was examined in AP, internally rotated and scapular Y projections. FINDINGS: No evidence of acute osseous pathology, joint dislocation, or soft tissue swelling. The remaining por tions of the visualized chest are unremarkable. IMPRESSION: No acute osseous pathology.
--- NOTE | 2023-02-03 20:21 | ED ---
General Adult HPI - General Chief complaint: Extremity Injury, Upper Stated complaint: right shoulder/abd pain Time Seen by Provider: 02/03/23 19:12 Source: patient Mode of arrival: ambulatory Limitations: no limitations - History of Present Illness Initial comments: 23-year-old female presenting with chief complaint of right sided chest pain. Patient has sharp, pleuritic pain to the right side of the chest which radiates into the shoulder. Pain is reproducible. No known injury or trauma. 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 No lower extremity swelling, oral contraceptives, recent surgery or travel, palpitations, numbness, tingling, weakness, dizziness, syncope. She has been taking Tylenol for the pain which has not alleviated her symptoms. No abdominal pain, nausea, vomiting. - Related Data Home Medications Medication Instructions Recorded Confirmed Aspirin 81 mg PO DAILY 08/25/21 08/25/21 Previous Rx's Medication Instructions Recorded Ibuprofen [Motrin] 600 mg PO Q6H #60 tab 08/27/21 Ibuprofen [Motrin] 600 mg PO Q8HR PRN #30 tab 03/23/22 Famotidine [Pepcid] 20 mg PO BID #14 tablet 10/10/22 Ondansetron Odt [Zofran ODT] 4 mg PO Q8HR PRN #10 tab 10/10/22 Sulfamethox-Tmp 800-160Mg [Bactrim 1 each PO Q12HR #6 tab 10/10/22 Ds] methylPREDNISolone Dose Pack 4 mg PO DIRECTED #1 packet 02/03/23 [Medrol Dose Pack] Allergies Allergy/AdvReac Type Severity Reaction Status Date / Time No Known Allergies Allergy Verified 02/03/23 19:11 Review of Systems ROS Statement: Those systems with pertinent positive or pertinent negative responses have been documented in the HPI. ROS Other: All systems not noted in ROS Statement are negative. Past Medical History Past Medical History: No Reported History Additional Past Medical History / Comment(s): Hyperemesis; History of pre- eclampsia with last 2 deliveries History of Any Multi-Drug Resistant Organisms: None Reported Past Surgical History: Appendectomy, Bladder Surgery, Section Additional Past Surgical History / Comment(s): Was really young when she had bladder surgery, unsure. C/S x2. Past Anesthesia/Blood Transfusion Reactions: No Reported Reaction Past Psychological History: Anxiety, Depression Smoking Status: Former smoker Past Alcohol Use History: None Reported Past Drug Use History: None Reported - Past Family History Mother Family Medical History: No Reported History General Exam Limitations: no limitations General appearance: alert, in no apparent distress Head exam: Present: atraumatic, normocephalic, normal inspection Eye exam: Present: normal appearance, EOMI. Absent: scleral icterus, periorbital swelling Neck exam: Present: normal inspection, full ROM Respiratory exam: Present: normal lung sounds bilaterally, chest wall tenderness. Absent: respiratory distress, wheezes, rales, rhonchi, stridor Cardiovascular Exam: Present: regular rate, normal rhythm, normal heart sounds. Absent: systolic murmur, diastolic murmur, rubs, gallop, clicks Extremities exam: Absent: pedal edema Neurological exam: Present: alert, oriented X3, CN II-XII intact Psychiatric exam: Present: normal affect, normal mood Skin exam: Present: warm, dry, intact, normal color. Absent: rash Course Vital Signs 02/03/23 02/03/23 19:09 21:40 Temperature 98.3 F Pulse Rate 100 76 Respiratory 20 17 Rate Blood Pressure 125/80 106/78 O2 Sat by Pulse 100 100 Oximetry EKG Findings - EKG Comments: EKG Findings:: Sinus rhythm ventricular rate 86. MS interval 132. QRS 97. QT 355. QTC 398. T-wave inversion in lead 3 Medical Decision Making - Medical Decision Making Was pt. sent in by a medical professional or institution (, PA, CLINICAL LABORATORY AIDE, urgent care, hospital, or alf...) When possible be specific @ -No Did you speak to anyone other than the patient for history (EMS, parent, family, police, friend...)? What history was obtained from this source @ -No Did you review nursing and triage notes (agree or disagree)? Why? @ -I reviewed and agree with nursing and triage notes Were old charts reviewed (outside hosp., previous admission, EMS record, old EKG, old radiological studies, urgent care reports/EKG's, alf records)? Report findings @ -No old charts were reviewed Differential Diagnosis (chest pain, altered mental status, abdominal pain women, abdominal pain men, vaginal bleeding, weakness, fever, dyspnea, syncope, headache, dizziness, GI bleed, back pain, seizure, CVA, palpatations, mental health, musculoskeletal)? @ -MDM Differential Chest Pain: Stable Angina, Unstable Angina, STEMI, NSTEMI Aortic Dissection, Pneumothorax, Musculoskeletal, Esophageal Spasm GERD, Cholecystitis, Pancreatitis, Zoster This is not meant to be an all-inclusive list. EKG interpreted by me (3pts min.). @ -As above X-rays interpreted by me (1pt min.). @ -No acute process seen on chest or shoulder x-ray CT interpreted by me (1pt min.). @ -No evidence of pulmonary embolism. The right shoulder and right-sided osseous structures all appear intact. U/S interpreted by me (1pt. min.). @ -None done What testing was considered but not performed or refused? (CT, X-rays, U/S, labs)? Why? @ -None What meds were considered but not given or refused? Why? @ -None Did you discuss the management of the patient with other professionals (professionals i.e. , PA, CLINICAL LABORATORY AIDE, lab, RT, psych nurse, social services director, truck engine technician, teacher, space operations officer, behavioral health case manager)? Give summary @ -No Was smoking cessation discussed for >3mins.? @ -No Was critical care preformed (if so, how long)? @ -No Were there social determinants of health that impacted care today? How? (Homelessness, low income, unemployed, alcoholism, drug addiction, transportation, low edu. Level, literacy, decrease access to med. care, correction, rehab)? @ -No Was there de-escalation of care discussed even if they declined (Discuss DNR or withdrawal of care, Hospice)? DNR status @ -No What co-morbidities impacted this encounter? (DM, HTN, Smoking, COPD, CAD, Cancer, CVA, ARF, Chemo, Hep., AIDS, mental health diagnosis, sleep apnea, morbid obesity)? @ -None Was patient admitted / discharged? Hospital course, mention meds given and route, prescriptions, significant lab abnormalities, going to OR and other pertinent info. @ -23-year-old female presenting with chief complaint of right-sided chest pain pleuritic in nature. Pain is reproducible on exam. No injury or trauma. Negative troponin. EKG shows T-wave inversion in lead 3. D-dimer is 1.38. CTA is negative for pulmonary embolism and the osseous structures appear intact. Pain is likely musculoskeletal in origin. She reports improvement after Toradol and Decadron. She is educated on supportive management at home. She is requesting a work note. Follow-up with PCP. Report back to ER with any new or worsening symptoms. Discussed return parameters and answered all questions. Patient conveyed verbal understanding and agreed to the plan. I discussed this case in detail with my attending Dr. Sanchez Undiagnosed new problem with uncertain prognosis? @ -No Drug Therapy requiring intensive monitoring for toxicity (Heparin, Nitro, Insulin, Cardizem)? @ -No Were any procedures done? @ -No Diagnosis/symptom? @ -Chest wall pain Acute, or Chronic, or Acute on Chronic? @ -Acute Uncomplicated (without systemic symptoms) or Complicated (systemic symptoms)? @ -Uncomplicated Side effects of treatment? @ -No Exacerbation, Progression, or Severe Exacerbation? @ -No Poses a threat to life or bodily function? How? (Chest pain, [place], [place], pneumonia, PE, COPD, DKA, ARF, appy, cholecystitis, CVA, Diverticulitis, Homicidal, Suic idal, threat to staff... and all critical care pts) @ -No - Lab Data Result diagrams: 02/03/23 19:34 02/03/23 19:34 Lab Results 02/03/23 02/03/23 02/03/23 Range/Units 19:34 19:34 19:34 WBC 8.1 (3.8-10.6) k/uL RBC 4.15 (3.80-5.40) m/uL Hgb 8.8 L (11.4-16.0) gm/dL Hct 29.3 L (34.0-46.0) % MCV 70.6 L (80.0-100.0) fL MCH 21.3 L (25.0-35.0) pg MCHC 30.2 L (31.0-37.0) g/dL RDW 16.3 H (11.5-15.5) % Plt Count 355 (150-450) k/uL MPV 8.7 Neutrophils % 65 % Lymphocytes % 26 % Monocytes % 6 % Eosinophils % 0 % Basophils % 0 % Neutrophils # 5.3 (1.3-7.7) k/uL Lymphocytes # 2.1 (1.0-4.8) k/uL Monocytes # 0.5 (0-1.0) k/uL Eosinophils # 0.0 (0-0.7) k/uL Basophils # 0.0 (0-0.2) k/uL Hypochromasia Marked Anisocytosis Slight Microcytosis Moderate D-Dimer 1.38 H (<0.60) mg/L FEU Sodium 140 (137-145) mmol/L Potassium 3.7 (3.5-5.1) mmol/L Chloride 108 H (98-107) mmol/L Carbon Dioxide 23 (22-30) mmol/L Anion Gap 9 mmol/L BUN 13 (7-17) mg/dL Creatinine 0.66 (0.52-1.04) mg/dL Est GFR (CKD-EPI)AfAm >90 (>60 ml/min/1.73 sqM) Est GFR (CKD-EPI)NonAf >90 (>60 ml/min/1.73 sqM) Glucose 87 (74-99) mg/dL Calcium 9.1 (8.4-10.2) mg/dL Total Bilirubin 0.4 (0.2-1.3) mg/dL AST 14 (14-36) U/L ALT 16 (4-34) U/L Alkaline Phosphatase 60 (38-126) U/L Troponin I (0.000-0.034) ng/mL Total Protein 7.2 (6.3-8.2) g/dL Albumin 4.0 (3.5-5.0) g/dL 02/03/23 Range/Units 19:34 WBC (3.8-10.6) k/uL RBC (3.80-5.40) m/uL Hgb (11.4-16.0) gm/dL Hct (34.0-46.0) % MCV (80.0-100.0) fL MCH (25.0-35.0) pg MCHC (31.0-37.0) g/dL RDW (11.5-15.5) % Plt Count (150-450) k/uL MPV Neutrophils % % Lymphocytes % % Monocytes % % Eosinophils % % Basophils % % Neutrophils # (1.3-7.7) k/uL Lymphocytes # (1.0-4.8) k/uL Monocytes # (0-1.0) k/uL Eosinophils # (0-0.7) k/uL Basophils # (0-0.2) k/uL Hypochromasia Anisocytosis Microcytosis D-Dimer (<0.60) mg/L FEU Sodium (137-145) mmol/L Potassium (3.5-5.1) mmol/L Chloride (98-107) mmol/L Carbon Dioxide (22-30) mmol/L Anion Gap mmol/L BUN (7-17) mg/dL Creatinine (0.52-1.04) mg/dL Est GFR (CKD-EPI)AfAm (>60 ml/min/1.73 sqM) Est GFR (CKD-EPI)NonAf (>60 ml/min/1.73 sqM) Glucose (74-99) mg/dL Calcium (8.4-10.2) mg/dL Total Bilirubin (0.2-1.3) mg/dL AST (14-36) U/L ALT (4-34) U/L Alkaline Phosphatase (38-126) U/L Troponin I <0.012 (0.000-0.034) ng/mL Total Protein (6.3-8.2) g/dL Albumin (3.5-5.0) g/dL Disposition Clinical Impression: Chest wall pain Disposition: HOME SELF-CARE Condition: Good Instructions (If sedation given, give patient instructions): Chest Pain (ED), Chest Wall Pain (ED) Additional Instructions: Follow-up with PCP. Report back to ER with any new or worsening symptoms. Take Motrin and Tylenol for pain control. Prescriptions: methylPREDNISolone Dose Pack [Medrol Dose Pack] 4 mg PO DIRECTED #1 packet Is patient prescribed a controlled substance at d/c from ED?: No Referrals: None,Stated [Primary Care Provider] - 1-2 days Time of Disposition: 21:32
--- NOTE | 2023-02-03 21:21 | CT ---
EXAMINATION TYPE: CT chest angio for PE CT DLP: 518.5 mGycm, Automated exposure control for dose reduction was used. DATE OF EXAM: 02/03/2023 8:48 PM COMPARISON: None CLINICAL INDICATION:Female, 23 years old with history of pleuritic chest pain; Rt shoulder pain, righ t lower rib pain when breathing in. No injury. TECHNIQUE/CONTRAST: CTA scan of the thorax is performed with IV Contrast, patient injected with 100 ml mL of Isovue 370, MIP images are created and reviewed these are created on a separate workstation.. FINDINGS: Pulmonary Artery: There is no evidence for a filling defect within the pulmonary vasculature to sugge st acute pulmonary embolism. The pulmonary artery is of normal size. Lungs/Pleura: No evidence of focal consolidation, pleural effusion or pneumothorax. Airway: Large airways are patent. Heart: Heart is within normal limits for size. Vasculature: No evidence of aortic aneurysm. Mediastinum: No gross evidence of adenopathy. Musculoskeletal: No acute osseous abnormalities, the ribs appear intact. The shoulder appears intact. No evidence for dislocation. Visualized right inferior rib 11 and 12 are not fully in the field-of-v iew. Soft Tissues: Unremarkable. Lower neck: No significant findings. Upper Abdomen: No significant findings. IMPRESSION: 1. No evidence of pulmonary embolism. 2. The right shoulder right sided osseous structures all appear intact. Limited evaluation of the 11t h and 12th ribs due to field of view.
[2023-02-03 21:42] VITALS: BP 106/78; PULSE 76; RESP 17
== END 2023-02-03 21:45 | disposition home or self-care (01) ==
LOC: EC 18:58
DX: R07.89 Other chest pain (principal); Z79.82 Long term (current) use of aspirin; Z86.59 Personal history of other mental and behavioral disorders; Z87.891 Personal history of nicotine dependence
CPT/HCPCS: 36415; 93005; 85379; 80053; 84484; 85025; 73030; 71046; 71275; 99284; 96374; 96375; J1100; J1885; Q9967

== ENCOUNTER 2023-08-02 12:20 | Emergency (ER) | payer OTHER ==
[2023-08-02] MEDS: IBUPROFEN 800 MG TAB PO STA (12:56)
[2023-08-02] MEDS: dexAMETHasone 2 MG TAB PO STA (12:56)
--- NOTE | 2023-08-02 13:42 | XR ---
EXAMINATION TYPE: XR wrist complete RT DATE OF EXAM: 08/02/2023 1:08 PM CLINICAL INDICATION:Female, 23 years old with history of pain; COMPARISON: 01/26/2021 TECHNIQUE: XR wrist complete RT; examined in the Frontal, navicular, lateral, and oblique. FINDINGS: No acute osseous pathology, joint dislocation, or joint effusion. No evidence of any soft tissue swelling is seen. IMPRESSION: No acute osseous pathology.
--- NOTE | 2023-08-02 13:54 | ED ---
Upper Extremity HPI - General Chief Complaint: Extremity Injury, Upper Stated Complaint: R Wrist Pain Source: patient Mode of arrival: ambulatory Limitations: no limitations - History of Present Illness Initial Comments: This is a 23-year-old female to ER for evaluation today. Patient is here for evaluation of right hand and wrist pain pain from the wrist into the thumb. Worse with movement of the thumb patient does do repetitive use injury of right but no traumatic injury. This has been an ongoing issue for her for months has currently been worse for a few days MD Complaint: Injury to:: right, wrist -: month(s) Other Extremity Injury: Fingers: Right (Found), Hand: Right Handedness: right Place: work Severity scale (1-10): 10 Improves With: none Worsens With: none Context: other (Repetitive use) Associated Symptoms: denies other symptoms Treatments Prior to Arrival: cold therapy, NSAIDS - Related Data Home Medications Medication Instructions Recorded Confirmed Aspirin 81 mg PO DAILY 08/25/21 08/25/21 Previous Rx's Medication Instructions Recorded Ibuprofen [Motrin] 600 mg PO Q6H #60 tab 08/27/21 Ibuprofen [Motrin] 600 mg PO Q8HR PRN #30 tab 03/23/22 Famotidine [Pepcid] 20 mg PO BID #14 tablet 10/10/22 Ondansetron Odt [Zofran ODT] 4 mg PO Q8HR PRN #10 tab 10/10/22 Sulfamethox-Tmp 800-160Mg [Bactrim 1 each PO Q12HR #6 tab 10/10/22 Ds] methylPREDNISolone Dose Pack 4 mg PO DIRECTED #1 packet 02/03/23 [Medrol Dose Pack] Allergies Allergy/AdvReac Type Severity Reaction Status Date / Time No Known Allergies Allergy Verified 08/02/23 12:27 Review of Systems ROS Statement: Those systems with pertinent positive or pertinent negative responses have been documented in the HPI. ROS Other: All systems not noted in ROS Statement are negative. Past Medical History Past Medical History: No Reported History Additional Past Medical History / Comment(s): Hyperemesis; History of pre- eclampsia with last 2 deliveries History of Any Multi-Drug Resistant Organisms: None Reported Past Surgical History: Appendectomy, Bladder Surgery, Section Additional Past Surgical History / Comment(s): Was really young when she had bladder surgery, unsure. C/S x2. Past Anesthesia/Blood Transfusion Reactions: No Reported Reaction Past Psychological History: Anxiety, Depression Smoking Status: Former smoker, Vaper Past Alcohol Use History: Occasional Past Drug Use History: None Reported - Past Family History Mother Family Medical History: No Reported History General Exam Limitations: no limitations General appearance: alert, in no apparent distress Head exam: Present: atraumatic, normocephalic, normal inspection Eye exam: Present: normal appearance, PERRL, EOMI. Absent: scleral icterus, conjunctival injection, periorbital swelling ENT exam: Present: normal exam, mucous membranes moist Neck exam: Present: normal inspection. Absent: tenderness, meningismus, lymphadenopathy Respiratory exam: Present: normal lung sounds bilaterally. Absent: respiratory distress, wheezes, rales, rhonchi, stridor Cardiovascular Exam: Present: regular rate, normal rhythm, normal heart sounds. Absent: systolic murmur, diastolic murmur, rubs, gallop, clicks GI/Abdominal exam: Present: soft, normal bowel sounds. Absent: distended, tenderness, guarding, rebound, rigid Extremities exam: Present: normal inspection, full ROM, normal capillary refill. Absent: tenderness, pedal edema, joint swelling, calf tenderness Back exam: Present: normal inspection Neurological exam: Present: alert, oriented X3, CN II-XII intact Psychiatric exam: Present: normal affect, normal mood Skin exam: Present: warm, dry, intact, normal color. Absent: rash Course Vital Signs 08/02/23 08/02/23 12:24 14:10 Temperature 98.0 F 98.6 F Pulse Rate 67 69 Respiratory 18 17 Rate Blood Pressure 102/59 106/71 O2 Sat by Pulse 98 100 Oximetry - Reevaluation(s) Reevaluation #1: 08/02/23 13:53 Medical records reviewed Reevaluation #2: 08/02/23 13:53 Patient symptoms unchanged Reevaluation #3: 08/02/23 13:53 Patient informed of results and questions answered Reevaluation #4: Was pt. sent in by a medical professional or institution (, PA, GRAB SETTER, urgent care, hospital, or long-term...) When possible be specific @ -no Did you speak to anyone other than the patient for history (EMS, parent, family, police, friend...)? What history was obtained from this source @ -no Did you review nursing and triage notes (agree or disagree)? Why? @ -agree Are old charts reviewed (outside hosp., previous admission, EMS record, old EKG, old radiological studies, urgent care reports/EKG's, long-term records)? Report findings @ -yes Differential Diagnosis (chest pain, altered mental status, abdominal pain women, abdominal pain men, vaginal bleeding, weakness, fever, dyspnea, syncope, headache, dizziness, GI bleed, back pain, seizure, CVA, palpatations, mental health, musculoskeletal)? @ -prior EKG interpreted by me (3pts min.). @ -no X-rays interpreted by me (1pt min.). @ -yes negative for acute disease CT interpreted by me (1pt min.). @ -no U/S interpreted by me (1pt. min.). @ -no What testing was considered but not performed or refused? (CT, X-rays, U/S, labs)? Why? @ -none What meds were considered but not given or refused? Why? @ -none Did you discuss the management of the patient with other professionals (professionals i.e. , PA, GRAB SETTER, lab, RT, psych nurse, social work instructor, underwriting assistant, teacher, postal sorting officer, senior case manager)? Give summary @ -no Was smoking cessation discussed for >3mins.? @ -no Was critical care preformed (if so, how long)? @ -no Were there social determinants of health that impacted care today? How? (Noemí elessness, low income, unemployed, alcoholism, drug addiction, transportation, low edu. Level, literacy, decrease access to med. care, [facility], rehab)? @ -none Was there de-escalation of care discussed even if they declined (Discuss DNR or withdrawal of care, Hospice)? DNR status @ -no What co-morbidities impacted this encounter? (DM, HTN, Smoking, COPD, CAD, Cancer, CVA, ARF, Chemo, Hep., AIDS, mental health diagnosis, sleep apnea, morbid obesity)? @ -none Was patient admitted / discharged? Hospital course, mention meds given and route, prescriptions, significant lab abnormalities, going to OR and other pertinent info. @ - 23 female with right wrist right forearm pain right thumb pain, symptoms of de Quervain's tenosynovitis. Patient is placed on anti-inflammatories we will continue using wrist splints and can be discharged home Discharge Undiagnosed new problem with uncertain prognosis? @ -no Drug Therapy requiring intensive monitoring for toxicity (Heparin, Nitro, Insulin, Cardizem)? @ -no Were any procedures done? @ -no Diagnosis/symptom? @ -Wrist pain, de Quervain's tenosynovitis Acute, or Chronic, or Acute on Chronic? @ -Acute Uncomplicated (without systemic symptoms) or Complicated (systemic symptoms)? @ -Complicated Side effects of treatment? @ -no Exacerbation, Progression, or Severe Exacerbation? @ -exacerbation Poses a threat to life or bodily function? How? (Chest pain, [place], [place], pneumonia, PE, COPD, DKA, ARF, appy, cholecystitis, CVA, Diverticulitis, Homicidal, Suicidal, threat to staff... and all critical care pts) @ -no Medical Decision Making - Medical Decision Making 23 female with right wrist right forearm pain right thumb pain, symptoms of de Quervain's tenosynovitis. Patient is placed on anti-inflammatories we will continue using wrist splints and can be discharged home - Radiology Data Radiology results: report reviewed (X-ray right wrist is negative for acute disease), image reviewed Disposition Clinical Impression: De Quervain's tenosynovitis, right Disposition: HOME SELF-CARE Condition: Good Instructions (If sedation given, give patient instructions): De Quervain Disease (ED), Tenosynovitis (ED) Is patient prescribed a controlled substance at d/c from ED?: No Referrals: Leanne Camara MD [Primary Care Provider] - 1-2 days Time of Disposition: 14:00
[2023-08-02 14:19] VITALS: BP 106/71; PULSE 69; RESP 17; TEMP 98.6
== END 2023-08-02 14:12 | disposition home or self-care (01) ==
LOC: EC 12:20
DX: M65.4 Radial styloid tenosynovitis [de Quervain] (principal); F17.290 Nicotine dependence, other tobacco product, uncomplicated
CPT/HCPCS: 73110; 99284; J8540

== ENCOUNTER 2023-09-27 16:57 | Emergency (ER) | payer OTHER ==
--- NOTE | 2023-09-27 17:20 | ED ---
General Adult HPI - General Source: patient, RN notes reviewed Mode of arrival: ambulatory Limitations: no limitations <Kate Tanner - Last Filed: 09/27/23 17:20> - General Source: RN notes reviewed <Sonia Hastings - Last Filed: 09/27/23 20:39> - General Chief complaint: Extremity Injury, Lower Stated complaint: R foot sore Time Seen by Provider: 09/27/23 17:20 - History of Present Illness Initial comments: Quick note: 23-year-old female presenting to the ER with chief complaint of right great toe pain. She states about a week and a half ago she stubbed her toe on a bed. She states her toenail fell off. She reports now she has a bump on her toe that is painful and growing. (Kate Tanner) 23-year-old female presenting to the ER with right great toe pain. States she stubbed her toe a week ago and part of her toenail fell off. She has been having pain and drainage from this area. admits pain with weightbearing and area is tender to touch. Denies fever, numbness, tingling (Sonia Hastings) - Related Data Home Medications Medication Instructions Recorded Confirmed Aspirin 81 mg PO DAILY 08/25/21 08/25/21 Previous Rx's Medication Instructions Recorded Ibuprofen [Motrin] 600 mg PO Q6H #60 tab 08/27/21 Ibuprofen [Motrin] 600 mg PO Q8HR PRN #30 tab 03/23/22 Famotidine [Pepcid] 20 mg PO BID #14 tablet 10/10/22 Ondansetron Odt [Zofran ODT] 4 mg PO Q8HR PRN #10 tab 10/10/22 Sulfamethox-Tmp 800-160Mg [Bactrim 1 each PO Q12HR #6 tab 10/10/22 Ds] methylPREDNISolone Dose Pack 4 mg PO DIRECTED #1 packet 02/03/23 [Medrol Dose Pack] Sulfamethox-Tmp 800-160Mg [Bactrim 1 each PO Q12HR 7 Days #14 tab 09/27/23 Ds] Allergies Allergy/AdvReac Type Severity Reaction Status Date / Time No Known Allergies Allergy Verified 08/02/23 12:27 Review of Systems ROS Other: All systems not noted in ROS Statement are negative. <Kate Tanner - Last Filed: 09/27/23 17:20> ROS Other: All systems not noted in ROS Statement are negative. <HastingsSonia - Last Filed: 09/27/23 20:39> ROS Statement: Those systems with pertinent positive or pertinent negative responses have been documented in the HPI. Past Medical History Past Medical History: No Reported History Additional Past Medical History / Comment(s): Hyperemesis; History of pre- eclampsia with last 2 deliveries History of Any Multi-Drug Resistant Organisms: None Reported Past Surgical History: Appendectomy, Bladder Surgery, Section Additional Past Surgical History / Comment(s): Was really young when she had bladder surgery, unsure. C/S x2. Past Anesthesia/Blood Transfusion Reactions: No Reported Reaction Past Psychological History: Anxiety, Depression Smoking Status: Former smoker, Vaper Past Alcohol Use History: Occasional Past Drug Use History: None Reported - Past Family History Mother Family Medical History: No Reported History <Kate Tanner - Last Filed: 09/27/23 17:20> General Exam Limitations: no limitations <Kate Tanner - Last Filed: 09/27/23 17:20> Head exam: Present: atraumatic, normocephalic, normal inspection Right Ankle exam: Present: normal inspection, full ROM. Absent: tenderness, swelling Foot/Toe exam: Present: full ROM, tenderness (Right great toe: Area of erythema and brown drainage on lateral aspect of right great toe. No fluctuant mass.+ Surrounding erythema.+ TTP.) <Sonia Hastings - Last Filed: 09/27/23 20:39> - General Exam Comments Initial Comments: Visual Physical Exam Vital signs reviewed General: Well-appearing, nontoxic, no acute distress. Head: Normocephalic, atraumatic Eyes: PERRLA, EOMI ENT: Airway patent Chest: Nonlabored breathing Skin: No visual rash, normal skin tone Neuro: Alert and oriented 3 Musculoskeletal: No gross abnormalities (Kate Tanner) Course Vital Signs 09/27/23 09/27/23 17:06 18:35 Temperature 97.9 F 98.0 F Pulse Rate 89 71 Respiratory 16 17 Rate Blood Pressure 122/72 105/65 O2 Sat by Pulse 98 100 Oximetry Medical Decision Making <Kate Tanner - Last Filed: 09/27/23 17:20> <Sonia Hastings - Last Filed: 09/27/23 20:39> - Medical Decision Making I performed the quick note portion of this chart. Electronically signed by Kate Tanner PA-C (Kate Tanner) Was pt. sent in by a medical professional or institution (, [facility], AQUATIC ECOLOGIST, urgent care, hospital, or penitentiary...) When possible be specific @ -No Did you speak to anyone other than the patient for history (EMS, parent, family, police, friend...)? What history was obtained from this source @ -No Did you review nursing and triage notes (agree or disagree)? Why? @ -I reviewed and agree with nursing and triage notes Were old charts reviewed (outside hosp., previous admission, EMS record, old EKG, old radiological studies, urgent care reports/EKG's, penitentiary records)? Report findings @ -No old charts were reviewed Differential Diagnosis (chest pain, altered mental status, abdominal pain women, abdominal pain men, vaginal bleeding, weakness, fever, dyspnea, syncope, headache, dizziness, GI bleed, back pain, seizure, CVA, palpatations, mental health, musculoskeletal)? @ -Differential Musculoskeletal onychocryptosis, Muscular strain, contusion, ligament sprain, fracture, arthritis, septic arthritis, bursitis, cellulitis, muscle spasm, nerve compression, DVT, arterial occlusion, herpes zoster, electrolyte abnormality, tumor.... This is not meant to be in all inclusive list EKG interpreted by me (3pts min.). @ -None X-rays interpreted by me (1pt min.). @ -X-ray reveals no acute process CT interpreted by me (1pt min.). @ -None done U/S interpreted by me (1pt. min.). @ -None done What testing was considered but not performed or refused? (CT, X-rays, U/S, labs)? Why? @ -None What meds were considered but not given or refused? Why? @ -None Did you discuss the management of the patient with other professionals (professionals i.e. ROYAL Morejon, AQUATIC ECOLOGIST, lab, RT, psych nurse, social work associate, industrial chemicals supervisor, teacher, air antisubmarine officer, pillowcase cleaner)? Give summary @ -No Was smoking cessation discussed for >3mins.? @ -No Was critical care preformed (if so, how long)? @ -No Were there social determinants of health that impacted care today? How? (Homelessness, low income, unemployed, alcoholism, drug addiction, transportation, low edu. Level, literacy, decrease access to med. care, halfway, rehab)? @ -No Was there de-escalation of care discussed even if they declined (Discuss DNR or withdrawal of care, Hospice)? DNR status @ -No What co-morbidities impacted this encounter? (DM, HTN, Smoking, COPD, CAD, C ancer, CVA, ARF, Chemo, Hep., AIDS, mental health diagnosis, sleep apnea, morbid obesity)? @ -None Was patient admitted / discharged? Hospital course, mention meds given and route, prescriptions, significant lab abnormalities, going to OR and other pertinent info. @ -Patient was discharged. Patient was seen and evaluated for right great toe pain and drainage. There is evidence of superficial infection, however no fluctuant masses present. X-ray reveals no acute process. I&D not indicated at this time due to no fluctuant masses. Discussed with patient diagnosis of onychocryptosis, or ingrown toe nail. Prescribed Bactrim. Wound care discussed. Podiatry follow-up given. Patient discharged in stable condition. Case discussed with Dr. Pelaez. Undiagnosed new problem with uncertain prognosis? @ -No Drug Therapy requiring intensive monitoring for toxicity (Heparin, Nitro, Insulin, Cardizem)? @ -No Were any procedures done? @ -No Diagnosis/symptom? @ -right onychocryptosis Acute, or Chronic, or Acute on Chronic? @ -Acute Uncomplicated (without systemic symptoms) or Complicated (systemic symptoms)? @ -Uncomplicated Side effects of treatment? @ -No Exacerbation, Progression, or Severe Exacerbation? @ -No Poses a threat to life or bodily function? How? (Chest pain, [place], [place], pneumonia, PE, COPD, DKA, ARF, appy, cholecystitis, CVA, Diverticulitis, Homicidal, Suicidal, threat to staff... and all critical care pts) @ -No (Sonia Hastings) Disposition <Kate Tanner - Last Filed: 09/27/23 17:20> Is patient prescribed a controlled substance at d/c from ED?: No Time of Disposition: 20:38 <Sonia Hastings - Last Filed: 09/27/23 20:39> Clinical Impression: Ingrown nail of great toe Disposition: HOME SELF-CARE Condition: Stable Instructions (If sedation given, give patient instructions): Ingrown Nail (ED) Additional Instructions: Please follow-up with podiatry. Please return to the Emergency Department if symptoms worsen or any other concerns. Prescriptions: Sulfamethox-Tmp 800-160Mg [Bactrim Ds] 1 each PO Q12HR 7 Days #14 tab Referrals: Leanne Camara MD [Primary Care Provider] - 1-2 days
[2023-09-27] MEDS: ACETAMINOPHEN TAB 325 MG TAB PO STA (18:34)
--- NOTE | 2023-09-27 20:32 | XR ---
EXAMINATION TYPE: XR foot complete RT DATE OF EXAM: 09/27/2023 6:44 PM CLINICAL INDICATION:Female, 23 years old with history of right toe injury; [facility] COMPARISON: None. TECHNIQUE: FINDINGS: 3 views of the right foot were obtained. There is normal osseous mineralization. No acute fractures o r dislocations. Joint spaces are maintained. No periarticular erosions or osseous destructive process . Soft tissues are unremarkable. Punctate density seen on the lateral view could be debris along the skin surface or nail of the great toe dorsally. IMPRESSION: No acute osseous abnormality of the right foot.
[2023-09-27 21:27] VITALS: BP 110/70; PULSE 74; RESP 20; TEMP 98.1
== END 2023-09-27 20:51 | disposition home or self-care (01) ==
LOC: EC 16:57
DX: L60.0 Ingrowing nail (principal); F17.290 Nicotine dependence, other tobacco product, uncomplicated
CPT/HCPCS: 99283

== ENCOUNTER 2024-04-30 17:05 | Emergency (ER) | payer OTHER ==
[2024-04-30 17:14] VITALS: RESP 18
--- NOTE | 2024-04-30 17:48 | ED ---
Extremity Problem HPI - General Chief complaint: Extremity Problem,Nontraumatic Stated complaint: RT FOOT PAIN Time Seen by Provider: 04/30/24 17:16 Source: patient, RN notes reviewed Mode of arrival: ambulatory Limitations: no limitations - History of Present Illness Initial comments: This is a 24-year-old female complaining of right lateral foot pain (9/10) x 1 month. Patient states pain is worsening, especially with weightbearing. Patient states pain shoots up her foot and leg. Patient states pain is the same regardless of first and morning or end of day. Patient denies recent trauma to the foot. Patient endorses history of sciatica, denies history of plantar fasciitis. Patient denies saddle paresthesia, urinary incontinence/retention. MD Complaint: extremity pain Onset/Timin -: month(s) Location: right, lower extremity History of Same: No Radiation: proximal Severity scale (1-10): 9 Improves with: immobilization, elevation Worsens with: weight bearing, walking Associated Symptoms: denies other symptoms - Related Data Home Medications Medication Instructions Recorded Confirmed Aspirin 81 mg PO DAILY 08/25/21 08/25/21 Previous Rx's Medication Instructions Recorded Ibuprofen [Motrin] 600 mg PO Q6H #60 tab 08/27/21 Ibuprofen [Motrin] 600 mg PO Q8HR PRN #30 tab 03/23/22 Famotidine [Pepcid] 20 mg PO BID #14 tablet 10/10/22 Ondansetron Odt [Zofran ODT] 4 mg PO Q8HR PRN #10 tab 10/10/22 Sulfamethox-Tmp 800-160Mg [Bactrim 1 each PO Q12HR #6 tab 10/10/22 Ds] methylPREDNISolone Dose Pack 4 mg PO DIRECTED #1 packet 02/03/23 [Medrol Dose Pack] Sulfamethox-Tmp 800-160Mg [Bactrim 1 each PO Q12HR 7 Days #14 tab 09/27/23 Ds] Ibuprofen [Motrin] 800 mg PO Q8H #30 tab 04/30/24 Allergies Allergy/AdvReac Type Severity Reaction Status Date / Time No Known Allergies Allergy Verified 04/30/24 17:10 Review of Systems ROS Statement: Those systems with pertinent positive or pertinent negative responses have been documented in the HPI. ROS Other: All systems not noted in ROS Statement are negative. Past Medical History Past Medical History: No Reported History Additional Past Medical History / Comment(s): Hyperemesis; History of pre- eclampsia with last 2 deliveries History of Any Multi-Drug Resistant Organisms: None Reported Past Surgical History: Appendectomy, Bladder Surgery, Section Additional Past Surgical History / Comment(s): Was really young when she had bladder surgery, unsure. C/S x2. Past Anesthesia/Blood Transfusion Reactions: No Reported Reaction Past Psychological History: Anxiety, Depression Smoking Status: Former smoker, Vaper Past Alcohol Use History: Occasional Past Drug Use History: None Reported - Past Family History Mother Family Medical History: No Reported History General Exam Limitations: no limitations General appearance: alert, in no apparent distress Head exam: Present: atraumatic, normocephalic, normal inspection Eye exam: Present: normal appearance, PERRL, EOMI. Absent: scleral icterus, conjunctival injection, periorbital swelling ENT exam: Present: normal exam, mucous membranes moist Neck exam: Present: normal inspection. Absent: tenderness, meningismus, lymphadenopathy Respiratory exam: Present: normal lung sounds bilaterally. Absent: respiratory distress, wheezes, rales, rhonchi, stridor Cardiovascular Exam: Present: regular rate, normal rhythm, normal heart sounds. Absent: systolic murmur, diastolic murmur, rubs, gallop, clicks GI/Abdominal exam: Present: soft, normal bowel sounds. Absent: distended, tenderness, guarding, rebound, rigid Extremities exam: Present: normal inspection, full ROM, tenderness (Right lateral foot tenderness from 3rd-5th metatarsal. Negative overlying erythema, open wound, crepitus, deformity.), normal capillary refill, other (Positive tenderness of right plantar fascia). Absent: pedal edema, joint swelling, calf tenderness Back exam: Present: normal inspection, tenderness, paraspinal tenderness (Positive right parasacral point tenderness) Neurological exam: Present: alert, oriented X3, CN II-XII intact Psychiatric exam: Present: normal affect, normal mood Skin exam: Present: warm, dry, intact, normal color. Absent: rash Course Vital Signs 04/30/24 17:11 Temperature 98.2 F Pulse Rate 86 Respiratory 18 Rate Blood Pressure 123/74 O2 Sat by Pulse 98 Oximetry Medical Decision Making - Medical Decision Making Was pt. sent in by a medical professional or institution (, PA, ELECTROLYSIS OPERATOR, urgent care, hospital, or long-term...) When possible be specific @ -[No] Did you speak to anyone other than the patient for history (EMS, parent, family, police, friend...)? What history was obtained from this source @ -[No] Did you review nursing and triage notes (agree or disagree)? Why? @ -[I reviewed and agree with nursing and triage notes] Were old charts reviewed (outside hosp., previous admission, EMS record, old EKG, old radiological studies, urgent care reports/EKG's, long-term records)? Report findings @ -[No old charts were reviewed] Differential Diagnosis (chest pain, altered mental status, abdominal pain women, abdominal pain men, vaginal bleeding, weakness, fever, dyspnea, syncope, headache, dizziness, GI bleed, back pain, seizure, CVA, palpatations, mental health, musculoskeletal)? @ -Foot fracture, sciatica, plantar fasciitis gout flare, Brown fracture, Lisfranc fracture, this is not an exhaustive list EKG interpreted by me (3pts min.). @ -Not done X-rays interpreted by me (1pt min.). @ -[None done] CT interpreted by me (1pt min.). @ -[None done] U/S interpreted by me (1pt. min.). @ -[None done] What testing was considered but not performed or refused? (CT, X-rays, U/S, labs)? Why? @ -[None] What meds were considered but not given or refused? Why? @ -[None] Did you discuss the management of the patient with other professionals (professionals i.e. , PA, ELECTROLYSIS OPERATOR, lab, RT, psych nurse, home health care social worker, primary counselor, teacher, forestry technical officer, showcase maker)? Give summary @ -[No] Was smoking cessation discussed for >3mins.? @ -[No] Was critical care preformed (if so, how long)? @ -[No] Were there social determinants of health that impacted care today? How? (Homelessness, low income, unemployed, alcoholism, drug addiction, transportation, low edu. Level, literacy, decrease access to med. care, retirement, rehab)? @ -[No] Was there de-escalation of care discussed even if they declined (Discuss DNR or withdrawal of care, Hospice)? DNR status @ -[No] What co-morbidities impacted this encounter? (DM, HTN, Smoking, COPD, CAD, Cancer, CVA, ARF, Chemo, Hep., AIDS, mental health diagnosis, sleep apnea, morbid obesity)? @ -[None] Was patient admitted / discharged? Hospital course, mention meds given and route, prescriptions, significant lab abnormalities, going to OR and other pertinent info. @ -[hospital course] Undiagnosed new problem with uncertain prognosis? @ -[No] Drug Therapy requiring intensive monitoring for toxicity (Heparin, Nitro, Insulin, Cardizem)? @ -[No] Were any procedures done? @ -[No] Diagnosis/symptom? @ -Plantar fasciitis Acute, or Chronic, or Acute on Chronic? @ -Acute Uncomplicated (without systemic symptoms) or Complicated (systemic symptoms)? @ -Uncomplicated Side effects of treatment? @ -[No] Exacerbation, Progression, or Severe Exacerbation? @ -[No] Poses a threat to life or bodily function? How? (Chest pain, [place], [place], pneumonia, PE, COPD, DKA, ARF, appy, cholecystitis, CVA, Diverticulitis, Homicidal, Suicidal, threat to staff... and all critical care pts) @ -[No] Disposition Clinical Impression: Plantar fasciitis Disposition: HOME SELF-CARE Condition: Good Instructions (If sedation given, give patient instructions): Plantar Fasciitis (ED), Plantar Fasciitis Exercises (ED) Is patient prescribed a controlled substance at d/c from ED?: No Referrals: Leanne Camara MD [Primary Care Provider] - 1-2 days Time of Disposition: 18:37
[2024-04-30] MEDS: KETOROLAC 15 MG/ML 1 ML VIAL IM STA (18:02)
--- NOTE | 2024-04-30 18:17 | XR ---
EXAMINATION TYPE: XR foot limited RT DATE OF EXAM: 04/30/2024 5:39 PM COMPARISON: Previous foot radiograph 09/27/2023. CLINICAL INDICATION: Female, 24 years old with history of Lateral foot pain/tenderness; H TECHNIQUE: XR foot limited RT examined in the AP, oblique, and lateral projections. FINDINGS: No acute fracture or dislocation. No expiratory before body. No focal osseous erosion or aggressive p eriosteal reaction. Soft tissue swelling adjacent to the fifth digit. IMPRESSION: Lateral soft tissue swelling without acute osseous abnormality. [facility], , 04/30/2024 6:15 PM
[2024-04-30 18:57] VITALS: BP 120/77; PULSE 84; TEMP 98
== END 2024-04-30 18:57 | disposition home or self-care (01) ==
LOC: EC 17:05
DX: M72.2 Plantar fascial fibromatosis (principal); F17.290 Nicotine dependence, other tobacco product, uncomplicated
CPT/HCPCS: 73620; 99283; 96372; J1885

== ENCOUNTER 2024-06-17 16:52 | Inpatient (IN) | payer OTHER, MEDICAID ==
--- NOTE | 2024-06-17 17:20 | ED ---
Psych HPI - General Source: patient, RN notes reviewed Mode of arrival: ambulatory Limitations: no limitations <Kate Tanner - Last Filed: 06/17/24 17:18> <David Pelaez - Last Filed: 06/17/24 21:36> - General Stated Complaint: suicide Time Seen by Provider: 06/17/24 17:18 - History of Present Illness Initial Comments: Quick note: 24 old female presented to the ER with foster care guardian for evaluation of suicidal ideations. Patient has an extensive mental health history. Patient has been very down lately. Foster care guardian states she swallowed a bunch of pills a couple of weeks ago and attempted commit suicide, but her made her throw them up. When asked if she has any plan currently she begins to cry. Denies any drug or alcohol use. No homicidal thoughts. (Kate Tanner) - Related Data Home Medications Medication Instructions Recorded Confirmed No Known Home Medications 06/17/24 06/17/24 Allergies Allergy/AdvReac Type Severity Reaction Status Date / Time No Known Allergies Allergy Verified 06/17/24 17:20 Review of Systems ROS Other: All systems not noted in ROS Statement are negative. <Kate Tanner - Last Filed: 06/17/24 17:18> ROS Other: All systems not noted in ROS Statement are negative. <David Pelaez - Last Filed: 06/17/24 21:36> ROS Statement: Those systems with pertinent positive or pertinent negative responses have been documented in the HPI. Past Medical History Past Medical History: No Reported History Additional Past Medical History / Comment(s): Hyperemesis; History of pre- eclampsia with last 2 deliveries History of Any Multi-Drug Resistant Organisms: None Reported Past Surgical History: Appendectomy, Bladder Surgery, Section Additional Past Surgical History / Comment(s): Was really young when she had bladder surgery, unsure. C/S x2. Past Anesthesia/Blood Transfusion Reactions: No Reported Reaction Past Psychological History: Anxiety, Depression Smoking Status: Former smoker, Vaper Past Alcohol Use History: Occasional Past Drug Use History: None Reported - Past Family History Mother Family Medical History: No Reported History <Kate Tanner - Last Filed: 06/17/24 17:18> General Exam <Kate Tanner - Last Filed: 06/17/24 17:18> General appearance: alert, in no apparent distress, anxious Head exam: Present: atraumatic, normocephalic Eye exam: Present: normal appearance, PERRL ENT exam: Present: normal exam Neck exam: Present: normal inspection. Absent: tenderness, meningismus Respiratory exam: Present: normal lung sounds bilaterally. Absent: respiratory distress, wheezes Cardiovascular Exam: Present: regular rate, normal rhythm GI/Abdominal exam: Present: soft. Absent: distended, tenderness, guarding Neurological exam: Present: alert, oriented X3 Psychiatric exam: Present: depressed, anxious, suicidal ideation Skin exam: Present: warm, dry, intact. Absent: cyanosis, diaphoretic <David Pelaez - Last Filed: 06/17/24 21:36> - General Exam Comments Initial Comments: Visual Physical Exam Vital signs reviewed General: Crying, nontoxic, no acute distress. Head: Normocephalic, atraumatic Eyes: PERRLA, EOMI ENT: Airway patent Chest: Nonlabored breathing Skin: No visual rash, normal skin tone Neuro: Alert and oriented 3 Musculoskeletal: No gross abnormalities (Kate Tanner) Course <David Pelaez - Last Filed: 06/17/24 21:36> Vital Signs 06/17/24 17:20 Temperature 98.5 F Pulse Rate 104 H Respiratory 20 Rate Blood Pressure 141/82 O2 Sat by Pulse 97 Oximetry - Reevaluation(s) Reevaluation #1: 06/17/24 19:31 Cleared for EPS (David Pelaez) Medical Decision Making <Kate Tanner - Last Filed: 06/17/24 17:18> - Lab Data Result diagrams: 06/17/24 18:41 06/17/24 18:41 <David Pelaez - Last Filed: 06/17/24 21:36> - Medical Decision Making I performed the quick note portion of this chart. Electronically signed by Kate Tanner PA-C (Kate Tanner) Was pt. sent in by a medical professional or institution (ROYAL Morejon, FORMS EXAMINER, urgent care, hospital, or skilled nursing...) When possible be specific @ -No Did you speak to anyone other than the patient for history (EMS, parent, family, police, friend...)? What history was obtained from this source @ -No Did you review nursing and triage notes (agree or disagree)? Why? @ -I reviewed and agree with nursing and triage notes Were old charts reviewed (outside hosp., previous admission, EMS record, old EKG, old radiological studies, urgent care reports/EKG's, skilled nursing records)? Report findings @ -No old charts were reviewed Differential Mental Health Depression, anxiety, bipolar, psychosis, schizophrenia, borderline personality, situational depression, adjustment disorder, behavioral disorder, brain tumor, malingering, substance abuse, encephalopathy, medication reaction, dementia, hypothyroidism, degenerative neurologic disorder, lupus.... This is not meant to be all-inclusive list EKG interpreted by me (3pts min.). @ -Sinus rhythm rate of 76, LA interval 129, QRS duration 90, QTc 414 X-rays interpreted by me (1pt min.). @ -None done CT interpreted by me (1pt min.). @ -None done U/S interpreted by me (1pt. min.). @ -None done What testing was considered but not performed or refused? (CT, X-rays, U/S, labs)? Why? @ -None What meds were considered but not given or refused? Why? @ -None Did you discuss the management of the patient with other professionals ( professionals i.e. , PA, FORMS EXAMINER, lab, RT, psych nurse, social security assessor, classroom teacher, teacher, air defense artillery officer, community case manager)? Give summary @ -No Was smoking cessation discussed for >3mins.? @ -No Was critical care preformed (if so, how long)? @ -No Were there social determinants of health that impacted care today? How? (Homelessness, low income, unemployed, alcoholism, drug addiction, transportation, low edu. Level, literacy, decrease access to med. care, correction, rehab)? @ -No Was there de-escalation of care discussed even if they declined (Discuss DNR or withdrawal of care, Hospice)? DNR status @ -No What co-morbidities impacted this encounter? (DM, HTN, Smoking, COPD, CAD, Cancer, CVA, ARF, Chemo, Hep., AIDS, mental health diagnosis, sleep apnea, morbid obesity)? @ -None Was patient admitted / discharged? Hospital course, mention meds given and route, prescriptions, significant lab abnormalities, going to OR and other pertinent info. @ -Clear medically for EPS evaluation. Evaluated by EPS and felt to require inpatient psychiatric care. She will be admitted to this institution. Undiagnosed new problem with uncertain prognosis? @ -No Drug Therapy requiring intensive monitoring for toxicity (Heparin, Nitro, Insulin, Cardizem)? @ -No Were any procedures done? @ -No Diagnosis/symptom? @Depression, suicidal ideation Acute, or Chronic, or Acute on Chronic? @ -Acute Uncomplicated (without systemic symptoms) or Complicated (systemic symptoms)? @ -Default Side effects of treatment? @ -No Exacerbation, Progression, or Severe Exacerbation? @ -No Poses a threat to life or bodily function? How? (Chest pain, [place], [place], pneumonia, PE, COPD, DKA, ARF, appy, cholecystitis, CVA, Diverticulitis, Homicidal, Suicidal, threat to staff... and all critical care pts) @Yes, risk of harm to herself, suicidal (David Pelaez) - Lab Data Lab Results 06/17/24 06/17/24 06/17/24 Range/Units 18:25 18:25 18:25 WBC (3.8-10.6) k/uL RBC (3.80-5.40) m/uL Hgb (11.4-16.0) gm/dL Hct (34.0-46.0) % MCV (80.0-100.0) fL MCH (25.0-35.0) pg MCHC (31.0-37.0) g/dL RDW (11.5-15.5) % Plt Count (150-450) k/uL MPV Neutrophils % % Lymphocytes % % Monocytes % % Eosinophils % % Basophils % % Neutrophils # (1.3-7.7) k/uL Lymphocytes # (1.0-4.8) k/uL Monocytes # (0-1.0) k/uL Eosinophils # (0-0.7) k/uL Basophils # (0-0.2) k/uL Hypochromasia Anisocytosis Microcytosis Sodium (137-145) mmol/L Potassium (3.5-5.1) mmol/L Chloride (98-107) mmol/L Carbon Dioxide (22-30) mmol/L Anion Gap mmol/L BUN (7-17) mg/dL Creatinine (0.52-1.04) mg/dL Est GFR (CKD-EPI)AfAm (>60 ml/min/1.73 sqM) Est GFR (CKD-EPI)NonAf (>60 ml/min/1.73 sqM) Glucose (74-99) mg/dL Calcium (8.4-10.2) mg/dL Total Bilirubin (0.2-1.3) mg/dL AST (14-36) U/L ALT (4-34) U/L Alkaline Phosphatase (38-126) U/L Total Protein (6.3-8.2) g/dL Albumin (3.5-5.0) g/dL Urine Color Yellow Urine Appearance Cloudy H (Clear) Urine pH 6.0 (5.0-8.0) Ur Specific [place] 1.033 (1.001-1.035) Urine Protein 1+ H (Negative) Urine Glucose (UA) Negative (Negative) Urine Ketones 3+ H (Negative) Urine Blood Large H (Negative) Urine Nitrite Negative (Negative) Urine Bilirubin Negative (Negative) Urine Urobilinogen 2.0 (<2.0) mg/dL Ur Leukocyte Esterase Negative (Negative) Urine RBC 3 (0-5) /hpf Urine WBC 11 H (0-5) /hpf Urine WBC Clumps Few H (None) /hpf Ur Squamous Epith Cells 20 H (0-4) /hpf Urine Bacteria Rare H (None) /hpf Hyaline Casts 3 H (0-2) /lpf Urine Mucus Many H (None) /hpf Urine HCG, Qual Not Detected (Not Detectd) Salicylates mg/dL Urine Opiates Screen Not Detected (NotDetected) Ur Oxycodone Screen Not Detected (NotDetected) Urine Methadone Screen Not Detected (NotDetected) Acetaminophen ug/mL Ur Barbiturates Screen Not Detected (NotDetected) U Tricyclic Antidepress Not Detected (NotDetected) Ur Phencyclidine Scrn Not Detected (NotDetected) Ur Amphetamines Screen Not Detected (NotDetected) U Methamphetamines Scrn Not Detected (NotDetected) U Benzodiazepines Scrn Not Detected (NotDetected) Urine Cocaine Screen Not Detected (NotDetected) U Marijuana (THC) Screen Not Detected (NotDetected) Serum Alcohol mg/dL 06/17/24 06/17/24 Range/Units 18:41 18:41 WBC 8.9 (3.8-10.6) k/uL RBC 4.71 (3.80-5.40) m/uL Hgb 10.8 L (11.4-16.0) gm/dL Hct 34.3 (34.0-46.0) % MCV 72.7 L (80.0-100.0) fL MCH 22.8 L (25.0-35.0) pg MCHC 31.4 (31.0-37.0) g/dL RDW 16.2 H (11.5-15.5) % Plt Count 405 (150-450) k/uL MPV 7.3 Neutrophils % 70 % Lymphocytes % 23 % Monocytes % 5 % Eosinophils % 0 % Basophils % 0 % Neutrophils # 6.2 (1.3-7.7) k/uL Lymphocytes # 2.1 (1.0-4.8) k/uL Monocytes # 0.4 (0-1.0) k/uL Eosinophils # 0.0 (0-0.7) k/uL Basophils # 0.0 (0-0.2) k/uL Hypochromasia Moderate Anisocytosis Slight Microcytosis Moderate Sodium 140 (137-145) mmol/L Potassium 3.9 (3.5-5.1) mmol/L Chloride 105 (98-107) mmol/L Carbon Dioxide 23 (22-30) mmol/L Anion Gap 12 mmol/L BUN 16 (7-17) mg/dL Creatinine 0.70 (0.52-1.04) mg/dL Est GFR (CKD-EPI)AfAm >90 (>60 ml/min/1.73 sqM) Est GFR (CKD-EPI)NonAf >90 (>60 ml/min/1.73 sqM) Glucose 86 (74-99) mg/dL Calcium 9.6 (8.4-10.2) mg/dL Total Bilirubin 0.3 (0.2-1.3) mg/dL AST 11 L (14-36) U/L ALT 21 (4-34) U/L Alkaline Phosphatase 80 (38-126) U/L Total Protein 8.0 (6.3-8.2) g/dL Albumin 4.7 (3.5-5.0) g/dL Urine Color Urine Appearance (Clear) Urine pH (5.0-8.0) Ur Specific [place] (1.001-1.035) Urine Protein (Negative) Urine Glucose (UA) (Negative) Urine Ketones (Negative) Urine Blood (Negative) Urine Nitrite (Negative) Urine Bilirubin (Negative) Urine Urobilinogen (<2.0) mg/dL Ur Leukocyte Esterase (Negative) Urine RBC (0-5) /hpf Urine WBC (0-5) /hpf Urine WBC Clumps (None) /hpf Ur Squamous Epith Cells (0-4) /hpf Urine Bacteria (None) /hpf Hyaline Casts (0-2) /lpf Urine Mucus (None) /hpf Urine HCG, Qual (Not Detectd) Salicylates <1.0 mg/dL Urine Opiates Screen (NotDetected) Ur Oxycodone Screen (NotDetected) Urine Methadone Screen (NotDetected) Acetaminophen <10.0 ug/mL Ur Barbiturates Screen (NotDetected) U Tricyclic Antidepress (NotDetected) Ur Phencyclidine Scrn (NotDetected) Ur Amphetamines Screen (NotDetected) U Methamphetamines Scrn (NotDetected) U Benzodiazepines Scrn (NotDetected) Urine Cocaine Screen (NotDetected) U Marijuana (THC) Screen (NotDetected) Serum Alcohol <10 mg/dL Disposition <Kate Tanner - Last Filed: 06/17/24 17:18> Is patient prescribed a controlled substance at d/c from ED?: No Time of Disposition: 21:36 <David Pelaez - Last Filed: 06/17/24 21:36> Clinical Impression: Depression, Suicidal ideation Disposition: ADMITTED IP TO THIS HOSP Condition: Stable Referrals: Leanne Camara MD [Primary Care Provider] - 1-2 days
[2024-06-17 18:49] LABS: Appearance,Urine Cloudy (Clear); Bacteria,Urine Rare /hpf; Bilirubin,Urine Negative (Negative); Blood,Urine Large (Negative); Color,Urine Yellow; Glucose,Urine (UA) Negative (Negative); Hyaline Casts,Urine 3 /lpf (0-2); Ketones,Urine 3+ (Negative); Leukocyte Esterase,Urine Negative (Negative); Mucus,Urine Many /hpf; Nitrite,Urine Negative (Negative); Protein,Urine 1+ (Negative); RBC,Urine 3 /hpf (0-5); Specific Gravity,Urine 1.033 (1.001-1.035); Squamous Epithelial Cell,Urine 20 /hpf (0-4); WBC,Urine 11 /hpf (0-5)
[2024-06-17 18:57] LABS: Anisocytosis Slight; Basophils % (A) 0 %; Eosinophils % (A) 0 %; HCT 34.3 % (34.0-46.0); HGB 10.8 gm/dL (11.4-16.0); Hypochromasia Moderate; Lymphocytes # (A) 2.1 k/uL (1.0-4.8); Lymphocytes % (A) 23 %; MCH 22.8 pg (25.0-35.0); MCHC 31.4 g/dL (31.0-37.0); MCV 72.7 fL (80.0-100.0); Mean Platelet Volume 7.3; Microcytosis Moderate; Monocytes # (A) 0.4 k/uL (0-1.0); Monocytes % (A) 5 %; Neutrophils # (A) 6.2 k/uL (1.3-7.7); Neutrophils % (A) 70 %; Platelet Count 405 k/uL (150-450); RBC 4.71 m/uL (3.80-5.40); RDW 16.2 % (11.5-15.5); WBC 8.9 k/uL (3.8-10.6)
[2024-06-17 19:06] LABS: Amphetamine Screen,Urine Not Detected (NotDetected); Barbiturate Screen,Urine Not Detected (NotDetected); Benzodiazepines Screen,Urine Not Detected (NotDetected); Cocaine Screen,Urine Not Detected (NotDetected); Methadone Screen, Urine Not Detected (NotDetected); Opiate Screen,Urine Not Detected (NotDetected); Oxycodone Screen, Urine Not Detected (NotDetected); Phencyclidine Screen,Urine Not Detected (NotDetected); Tricyclic Antidepressant,Urine Not Detected (NotDetected); Urn Cannabinoid Scrn Not Detected (NotDetected)
[2024-06-17 19:17] LABS: ALT 21 U/L (4-34); AST 11 U/L (14-36); Acetaminophen <10.0 ug/mL; African American GFR (CKD) >90 (>60 ml/min/1.73 sqM); Albumin 4.7 g/dL (3.5-5.0); Alcohol <10 mg/dL; Alkaline Phosphatase 80 U/L (38-126); Anion Gap 12 mmol/L; Blood Urea Nitrogen 16 mg/dL (7-17); Calcium 9.6 mg/dL (8.4-10.2); Carbon Dioxide 23 mmol/L (22-30); Chloride 105 mmol/L (98-107); Glucose 86 mg/dL (74-99); Non-African American GFR(CKD) >90 (>60 ml/min/1.73 sqM); Potassium 3.9 mmol/L (3.5-5.1); Salicylate <1.0 mg/dL; Sodium 140 mmol/L (137-145); Total Bilirubin 0.3 mg/dL (0.2-1.3)
[2024-06-17] MEDS ORDERED: traZODone HCL 50 MG TAB PO PRN (23:30)
[2024-06-17] MEDS ORDERED: LORazepam 1 MG TAB PO PRN (23:30)
[2024-06-17] MEDS ORDERED: IBUPROFEN 600 MG TAB PO PRN (23:30)
[2024-06-17] MEDS ORDERED: LORazepam 2 MG/ML INJ IM PRN (23:30)
[2024-06-17] MEDS ORDERED: MAGNESIUM HYDROXIDE 2,400 MG/30 ML CUP PO PRN (23:30)
[2024-06-17] MEDS ORDERED: MAG HYDROX/AL HYDROX/SIMETH 355 ML BOTTLE PO PRN (23:30)
[2024-06-18 00:29] VITALS: RESP 18
[2024-06-18] MEDS: NICOTINE 14MG/24HR PATCH TRANSDERM SCH (09:58)
[2024-06-18] MEDS ORDERED: hydrOXYzine pamoate 25 MG CAP PO PRN (11:51)
[2024-06-18] MEDS: FLUoxetine HCL 20 MG CAP PO SCH (11:55)
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
--- NOTE | 2024-06-18 13:47 | P.MDCNMH ---
History of Present Illness H&P Date: 06/18/24 History of present illness; patient is a 24-year-old lady who presented to the ER for suicidal ideations. Patient has past medical history significant for depression, PTSD who lives with her and is going through a lot of social stressors at home. Patient attempted to hurt herself by overdosing on number of pills couple of days ago but her made her vomited up. Patient initially did not seek any help but was later told to come to the ER. Patient denies any auditory or visual hallucination. Patient denies any homicidal thoughts. Patient stated that she has been very down recently as her is asking for divorce. Initial lab work done in the ER showed WBC 8.9, hemoglobin 10.8, platelet count 405, sodium 140, potassium 3.9, BUN 16, creatinine 0.70 AST 11, ALT 21 UA done showed large amount of blood, urine ketones 3+ Urine drug screen was negative COVID-19 not detected Patient admitted to inpatient psych REVIEW OF SYSTEMS: CONSTITUTIONAL: No fever, no malaise, no fatigue. HEENT: No recent visual problems or hearing problems. Denied any sore throat. CARDIOVASCULAR: No chest pain, orthopnea, PND, no palpitations, no syncope. PULMONARY: No shortness of breath, no cough, no hemoptysis. GASTROINTESTINAL: No diarrhea, no nausea, no vomiting, no abdominal pain. NEUROLOGICAL: No headaches, no weakness, no numbness. HEMATOLOGICAL: Denies any bleeding or petechiae. GENITOURINARY: Denies any burning micturition, frequency, or urgency. Patient was complaining of vaginal discharge recently completed course of antibiotics. MUSCULOSKELETAL/RHEUMATOLOGICAL: Denies any joint pain, swelling, or any muscle pain. ENDOCRINE: Denies any polyuria or polydipsia. The rest of the 14-point review of systems is negative. PHYSICAL EXAMINATION: GENERAL: The patient is alert and oriented x3, not in any acute distress. Well developed, well nourished. HEENT: Pupils are round and equally reacting to light. EOMI. No scleral icterus. No conjunctival pallor. Normocephalic, atraumatic. No pharyngeal erythema. No thyromegaly. CARDIOVASCULAR: S1 and S2 present. No murmurs, rubs, or gallops. PULMONARY: Chest is clear to auscultation, no wheezing or crackles. ABDOMEN: Soft, nontender, nondistended, normoactive bowel sounds. No palpable organomegaly. MUSCULOSKELETAL: No joint swelling or deformity. EXTREMITIES: No cyanosis, clubbing, or pedal edema. NEUROLOGICAL: Gross neurological examination did not reveal any focal deficits. SKIN: No rashes. Assessment and plan Suicidal attempt Major depressive disorder, severe without psychotic features History of PTSD Recently treated for STD Monitor vital signs Elopement precaution Suicide precaution continue psych meds per psychiatry team Labs and medication were reviewed.. Continue same treatment. Continue with symptomatic treatment. Resume home medication. Monitor labs and vitals. DVT and GI prophylaxis. Further recommendations as per clinical course of the patient Dictation was produced using [employer] dictation software. please excuse any grammatical, word or spelling errors. Past Medical History Past Medical History: No Reported History Additional Past Medical History / Comment(s): Hyperemesis; History of pre- eclampsia with last 2 deliveries History of Any Multi-Drug Resistant Organisms: None Reported Past Surgical History: Appendectomy, Bladder Surgery, Section Additional Past Surgical History / Comment(s): Was really young when she had bladder surgery, unsure. C/S x2. Past Anesthesia/Blood Transfusion Reactions: No Reported Reaction Past Psychological History: Anxiety, Depression Additional Psychological History / Comment(s): pt denies history, PPD 12 Smoking Status: Vaper Past Alcohol Use History: Occasional Past Drug Use History: None Reported - Past Family History Mother Family Medical History: No Reported History Medications and Allergies Home Medications Medication Instructions Recorded Confirmed Type No Known Home Medications 06/17/24 06/17/24 History Allergies Allergy/AdvReac Type Severity Reaction Status Date / Time No Known Allergies Allergy Verified 06/17/24 17:20 Physical Exam Vitals: Vital Signs Temp Pulse Pulse Resp BP BP Pulse Ox 06/18/24 01:18 98.3 F 95 18 134/82 100 06/18/24 00:28 100 18 96/62 99 06/17/24 17:20 98.5 F 104 H 20 141/82 97 Intake and Output 06/17/24 06/18/24 06/18/24 22:59 06:59 14:59 Other: Weight 104.326 kg 109.486 kg Cranial Nerve Examination - Cranial Nerves Cranial Nerve II- Optic: Intact (Cranial nerves II to XII intact) Cranial Nerve III- Oculomotor: Intact Cranial Nerve IV- Trochlear: Intact Cranial Nerve V- Trigeminal: Intact Cranial Nerve - Abducens: Intact Cranial Nerve VII- Facial: Intact Cranial Nerve VIII- Auditory: Intact Cranial Nerve IX- Glossopharyngeal: Intact Cranial Nerve X- Vagus: Intact Cranial Nerve XI- Accessory: Intact Cranial Nerve XII- Hypoglossal: Intact Results CBC & Chem 7: 06/17/24 18:41 06/17/24 18:41 Labs: Abnormal Lab Results - Last 24 Hours (Table) 06/17/24 06/17/24 06/17/24 Range/Units 18:25 18:41 18:41 Hgb 10.8 L (11.4-16.0) gm/dL MCV 72.7 L (80.0-100.0) fL MCH 22.8 L (25.0-35.0) pg RDW 16.2 H (11.5-15.5) % AST 11 L (14-36) U/L Urine Appearance Cloudy H (Clear) Urine Protein 1+ H (Negative) Urine Ketones 3+ H (Negative) Urine Blood Large H (Negative) Urine WBC 11 H (0-5) /hpf Urine WBC Clumps Few H (None) /hpf Ur Squamous Epith Cells 20 H (0-4) /hpf Urine Bacteria Rare H (None) /hpf Hyaline Casts 3 H (0-2) /lpf Urine Mucus Many H (None) /hpf
[2024-06-18] MEDS: MIRTAZAPINE 15 MG TAB PO SCH (20:34)
[2024-06-19 00:26] LABS: Chol/HDL Ratio 4.76 Ratio; LDL Cholesterol,Calculated 143.8 mg/dL (0.0-131.0); VLDL Calculation 18.94 mg/dL (5.00-40.00)
[2024-06-19] MEDS: ACETAMINOPHEN TAB 325 MG TAB PO PRN (09:33)
--- NOTE | 2024-06-19 10:23 | P.PN ---
Progress Note - Text Progress Note Date: 06/19/24 Interval History: Patient was seen today for psychiatric follow up. Patient claims that she has been going to some groups. She states that overall her mood and anxiety is improving. States that she was able to sleep fairly last night with the Remeron. Not reporting any side effects at this time. States that her appetite is mildly improving since yesterday. She mentioned to the medical doctor yesterday about pelvic/suprapubic pain and also urination changes. Inconclusive urine analysis, is agreeable to repeat this again. When asked about possibility of STD infection risk patient was somewhat guarded about the of her answers. She was agreeable to have this retested. At this time she is denying any suicidal homicidal ideations intent or plan, denying any auditory or visual hallucinations. MENTAL STATUS EXAM: General Appearance: Patient appears to be mildly overweight, covered in blankets, stated age is alert, superficial. Patient appears to have improving hygiene and grooming. Behavior: Patient is seated without any agitated behavior. Superficial Speech: Patient's speech is fluent and nonpressured. Monotone and concrete Mood/Affect: Patient reports their mood is depressed and anxious, improving mildly, affect is congruent and constricted. Suicidality/Homicidality: Patient denies having any homicidal ideation intent or plan. Denies any suicidal ideations intent or plan Perceptions: Patient denies any visual hallucinations and denies any auditory hallucinations Though content/process: There is no evidence of any delusional thought content and thought process is linear and goal-directed. Fairly concrete Memory and concentration: AOX3, grossly intact for the purposes of this session Judgment and insight: Poor, improving mildly IMPRESSIONS: Major depressive disorder, severe without psychotic features History of PTSD History of social anxiety disorder Nicotine dependence Marital problems PLAN: -Patient is admitted under voluntary status to MHU for stabilization of psychiatric symptoms and safety. Patient has signed adult voluntary form and medication consent and is placed in patient's chart. -Medications : Increase Prozac 30 mg daily for mood/anxiety, Remeron 15 mg nightly for mood/insomnia/appetite, trazodone nightly as needed for insomnia. vistaril as needed for anxiety. -Ativan and Haldol PRN for agitation/aggression -Repeat urine analysis today. Will also order STD panel including trichomonas, chlamydia, gonorrhea. -NRT -nicotine patch -SW on board for discharge planning. Encourage patient to participate in groups to work on coping skills.
[2024-06-19 12:19] LABS: Appearance,Urine Cloudy (Clear); Bacteria,Urine Rare /hpf; Bilirubin,Urine Negative (Negative); Blood,Urine Moderate (Negative); Color,Urine Light Red; Glucose,Urine (UA) Negative (Negative); Ketones,Urine Trace (Negative); Leukocyte Esterase,Urine Small (Negative); Mucus,Urine Many /hpf; Nitrite,Urine Negative (Negative); Protein,Urine 1+ (Negative); RBC,Urine 5 /hpf (0-5); Specific Gravity,Urine 1.039 (1.001-1.035); Squamous Epithelial Cell,Urine 33 /hpf (0-4); WBC,Urine 11 /hpf (0-5)
[2024-06-20] MEDS: FLUoxetine HCL 10 MG CAP PO SCH (09:22)
--- NOTE | 2024-06-20 10:11 | P.PN ---
Progress Note - Text Progress Note Date: 06/20/24 Interval History: Patient was seen today for psychiatric follow up. She was participating in [facility] today. Claims that overall she is doing a bit better with regards to her mood and anxiety. She claims that she feels the medications have been helping overall. We spoke about going up a little bit more with the Prozac to 40 mg that she is okay with. Still complains of ongoing increase in urination and mild discomfort, still awaiting STD panel, UA from yesterday was inconclusive again. States that she was able to sleep fairly last night with the Remeron wants to remain on the same dose. Not reporting any side effects at this time. States that her appetite is mildly improving since yesterday. At this time she is denying any suicidal homicidal ideations intent or plan, denying any auditory or visual hallucinations. MENTAL STATUS EXAM: General Appearance: Patient appears to be mildly overweight, covered in blankets, stated age is alert, superficial. Patient appears to have improving hygiene and grooming. Behavior: Patient is seated without any agitated behavior. Improving more cooperative Speech: Patient's speech is fluent and nonpressured. Monotone , improving Mood/Affect: Patient reports their mood is improving mildly, affect is congruent and proving mildly Suicidality/Homicidality: Patient denies having any homicidal ideation intent or plan. Denies any suicidal ideations intent or plan Perceptions: Patient denies any visual hallucinations and denies any auditory hallucinations Though content/process: There is no evidence of any delusional thought content and thought process is linear and goal-directed. Fairly concrete Memory and concentration: AOX3, grossly intact for the purposes of this session Judgment and insight: improving mildly IMPRESSIONS: Major depressive disorder, severe without psychotic features History of PTSD History of social anxiety disorder Nicotine dependence Marital problems PLAN: -Patient is admitted under voluntary status to MHU for stabilization of psychiatric symptoms and safety. Patient has signed adult voluntary form and medication consent and is placed in patient's chart. -Medications : Increase Prozac 40 mg daily for mood/anxiety, Remeron 15 mg nightly for mood/insomnia/appetite, trazodone nightly as needed for insomnia. vistaril as needed for anxiety. -Ativan and Haldol PRN for agitation/aggression -Repeat urine analysis on 06/19 was still inconclusive. awaiting STD panel results including trichomonas, chlamydia, gonorrhea. -NRT - nicotine patch -SW on board for discharge planning. Encourage patient to participate in groups to work on coping skills. Likely discharge tomorrow if patient continues to do well, can follow-up with her SECUR[employer] SALES CONSULTANT or primary care provider if she continues to have urinary symptoms or further treatment investigation.
[2024-06-20 13:53] LABS: N. gonorrhoeae,PCR Negative (Negative)
[2024-06-20 14:08] LABS: C. trachomatis,PCR Negative (Negative)
[2024-06-21 07:08] VITALS: TEMP 97.5
[2024-06-21] MEDS: FLUoxetine HCL 20 MG CAP PO SCH (09:11)
[2024-06-21 11:58] VITALS: BP 113/79; PULSE 116
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
== END 2024-06-21 14:38 | disposition home or self-care (01) | DRG 885 ==
LOC: EC 16:52 → 3MHU 23:04
PROVIDERS: ADMIT Psychiatry & Neurology Psychiatry; ATTEND Psychiatry & Neurology Psychiatry
DX: F32.2 Major depressive disorder, single episode, severe without psychotic features (principal); F41.8 Other specified anxiety disorders; F17.290 Nicotine dependence, other tobacco product, uncomplicated; F43.10 Post-traumatic stress disorder, unspecified; G47.00 Insomnia, unspecified; T43.222A Poisoning by selective serotonin reuptake inhibitors, intentional self-harm, initial encounter; Z59.86 Financial insecurity; Z63.0 Problems in relationship with spouse or partner; Z79.899 Other long term (current) drug therapy; Z11.52 Encounter for screening for COVID-19; Z65.3 Problems related to other legal circumstances; Z28.21 Immunization not carried out because of patient refusal
CPT/HCPCS: 36415; 80053; 80061; 80143; 80179; 80306; 80320; 81001; 81025; 82075; 83036; 84443; 85025; 87086; 87491; 87591; 87635; 93005; 99285